=== PATIENT | female | born 1945 | race Caucasian/White ===

== ENCOUNTER → 2018-06-23 13:29 | Outpatient (CLI) | payer MEDICARE, OTHER, SELFPAY ==
--- NOTE | 2018-06-23 | DI.MG.S_ITS ---
BILATERAL DIGITAL SCREENING MAMMOGRAM 3D/2D WITH CAD: 06/23/2018 CLINICAL: Routine screening. Comparison is made to exams dated: 06/13/2017 mammogram, 05/17/2016 mammogram, and 05/12/2015 mammogram - [facility]. The tissue of both breasts is heterogeneously dense. This may lower the sensitivity of mammography. Current study was also evaluated with a Computer Aided Detection (CAD) system. There is a benign vascular calcification in both breasts. There is a high density focal asymmetry in the left breast at 6 o'clock anterior depth. No other significant masses, calcifications, or other findings are seen in either breast. IMPRESSION: INCOMPLETE: NEEDS ADDITIONAL IMAGING EVALUATION The high density focal asymmetry in the left breast is indeterminate. Additional views with possible ultrasound are recommended. This exam was interpreted at Station ID: [id number]. NOTE: For mammograms, a report in lay terms will be sent to the patient. Approximately 15% of breast malignancies will not be visualized mammographically. In the management of a palpable breast mass, a negative mammogram must not discourage biopsy of a clinically suspicious lesion. Electronically Signed By: Laura zapata/rocio:06/23/2018 15:36:57 letter sent: Additional Imaging Needed ACR BI-RADS Category 0: Incomplete 3340F
== END ==
PROVIDERS: Family Provider Family Medicine; PCP Family Medicine; Visit Provider Family Medicine
DX: Z12.31 Encounter for screening mammogram for malignant neoplasm of breast (principal)
CPT/HCPCS: 77063; 77067

== ENCOUNTER → 2018-07-08 09:02 | Outpatient (CLI) | payer MEDICARE, OTHER, SELFPAY ==
--- NOTE | 2018-07-08 | DI.MG.S_ITS ---
UNILATERAL LEFT DIGITAL DIAGNOSTIC MAMMOGRAM 3D/2D WITH ADDITIONAL VIEWS: 07/08/2018 CLINICAL: Additional evaluation requested from prior study. Comparison is made to exams dated: 06/23/2018 mammogram, 06/13/2017 mammogram, and 05/17/2016 mammogram - [facility]. The tissue of left breast is heterogeneously dense. This may lower the sensitivity of mammography. There is 2 cm oval equal density asymmetry with a spiculated margin in the left breast middle depth superior region seen on the mediolateral oblique view only. There also is an oval equal density asymmetry with an indistinct margin in the left breast at 6 o'clock anterior depth. No other significant masses or calcifications are seen in the breast. IMPRESSION: INCOMPLETE: NEEDS ADDITIONAL IMAGING EVALUATION The 2 cm oval equal density asymmetry in the left breast middle depth superior region seen on the mediolateral oblique view only is indeterminate. An ultrasound is recommended. The oval equal density asymmetry in the left breast at 6 o'clock anterior depth is indeterminate. An ultrasound is recommended. This exam was interpreted at Station ID: [id number]. NOTE: For mammograms, a report in lay terms will be sent to the patient. Approximately 15% of breast malignancies will not be visualized mammographically. In the management of a palpable breast mass, a negative mammogram must not discourage biopsy of a clinically suspicious lesion. Electronically Signed By: Keenan bai/rocio:07/08/2018 10:37:22 letter sent: Need Ultrasound ACR BI-RADS Category 0: Incomplete 3340F
== END ==
PROVIDERS: Family Provider Family Medicine; PCP Family Medicine; Visit Provider Family Medicine
DX: R92.8 Other abnormal and inconclusive findings on diagnostic imaging of breast (principal)
CPT/HCPCS: 77065; G0279

== ENCOUNTER → 2018-07-21 10:46 | Outpatient (CLI) | payer MEDICARE, OTHER, SELFPAY ==
--- NOTE | 2018-07-21 | DI.US.S_ITS ---
ULTRASOUND OF LEFT BREAST: 07/21/2018 CLINICAL: Patient returns for additional imaging over a suspected mass in the left breast. Comparison is made to exams dated: 07/08/2018 mammogram, 06/23/2018 mammogram, and 06/13/2017 mammogram - [facility]. Color flow and real-time ultrasound of the left breast were performed on the areas of interest. Mederos scale images of the real-time examination were reviewed. There is an 0.8 cm x 0.7 cm irregular mass in the left breast at 6 o'clock anterior depth. This irregular mass is hypoechoic with posterior acoustic shadowing. This correlates with mammography findings. There also is a 1.4 cm x 1.5 cm x 1.2 cm irregular mass in the left breast at 2 o'clock middle depth. This irregular mass is hypoechoic. This correlates with mammography findings. IMPRESSION: SUSPICIOUS OF MALIGNANCY The 0.8 cm x 0.7 cm irregular mass in the left breast at 6 o'clock anterior depth is at an intermediate suspicion for malignancy. An ultrasound guided biopsy is recommended. The 1.4 cm x 1.5 cm x 1.2 cm irregular mass in the left breast at 2 o'clock middle depth is at a low suspicion for malignancy. An ultrasound guided biopsy is recommended. This exam was interpreted at Station ID: [id number]. SUMMARY: This was discussed with the patient by the radiologist Dr. Hart at the time of the exam. Electronically Signed By: Laura zapata/:07/21/2018 16:39:31 letter sent: Biopsy Required Ultrasound BI-RADS: 4b Suspicious abnormality - intermediate suspicion of malignancy
== END ==
PROVIDERS: PCP Family Medicine; Visit Provider Family Medicine
DX: R92.8 Other abnormal and inconclusive findings on diagnostic imaging of breast (principal); N63.20 Unspecified lump in the left breast, unspecified quadrant
CPT/HCPCS: 76642

== ENCOUNTER 2018-07-31 17:07 | Emergency (ER) | payer MEDICARE, OTHER, SELFPAY ==
[2018-07-31 17:07] VITALS: BMI 29.5
--- NOTE | 2018-07-31 17:23 | DI.CT.S_ITS ---
PROCEDURE: CT ANGIO CHEST PE PROTOCOL INDICATIONS: chest pain, SOB, dry cough, radiation to back TECHNIQUE: After the administration of intravenous contrast, 2 mm thick sections acquired from the pulmonary apices to the posterior costophrenic angles. 3-dimensional maximum intensity projection (MIP) coronal and sagittal reformats were then acquired through the thorax. For radiation dose reduction, the following was used: automated exposure control, adjustment of mA and/or kV according to patient size. COMPARISON: [facility] , CT, ABD/PELVIS W/CON (PNL), 04/19/2008, 14:24. [facility], CT, KIDNEY/ URETER/BLADDER, 11/28/2012, 14:43. [facility], CR, CHEST 2 VIEW, 03/19/2016, 11:39. FINDINGS: Image quality: Excellent. Pulmonary arteries: Pulmonary arteries are normal in size, and demonstrate no intraluminal filling defects to suggest central pulmonary embolism. Lungs and pleura: There is a 3 mm calcified nodule in the right upper lobe, compatible with an old granuloma.. Lungs are clear. No pleural effusions or pneumothorax. Central and peripheral airways are patent. Mediastinum: Heart size is normal, without pericardial effusion. Coronary artery calcification consistent with atherosclerosis. No mediastinal or hilar adenopathy. Thoracic aorta is normal in caliber and enhancement. Esophagus is normal in caliber, without hiatal hernia. Bones and chest wall: No suspicious bony lesions. Ribs and thoracic spine appear intact throughout. Thyroid gland is normal. No axillary or supraclavicular adenopathy. Abdomen: Visualized upper abdominal solid organs appear normal in the early arterial phase of enhancement. Cholecystectomy clips are noted. There is extrarenal pelvis in right kidney. IMPRESSION: 1. No evidence for pulmonary embolism. 2. A calcified granuloma in the right upper lobe. 3. Coronary artery atherosclerosis. Dictated by: Stella Bills M.D. on 07/31/2018 at 18:16 Approved by: Stella Bills M.D. on 07/31/2018 at 18:23
--- NOTE | 2018-07-31 17:27 | ED_ITS ---
HPI - Chest Pain General Chief Complaint: Chest Pain Stated Complaint: LT SIDED CHEST PAIN Time Seen by Provider: 07/31/18 17:23 Source: patient Mode of arrival: ambulatory Limitations: no limitations History of Present Illness HPI narrative: 73-year-old nonsmoker presents with a chief complaint of left- sided chest pain since 9:00 a.m.. She has a dry and hacking cough, she denies fever or chills. She states there is some radiation to her back. She denies any specific provocation or palliation. She denies recent trauma, travel, or hx of cancer. MD complaint: chest pain Onset (ago): hour(s) Duration: constant Pain location: left chest Severity: moderate Quality: aching Pain radiation: back Relieving factors: nothing Exacerbating factors: nothing Treatments prior to arrival chest pain: none Related Data Home Medications Medication Instructions Recorded Confirmed BORON/CA/CU/MG/MN/VIT D/ZINC 1 tab PO DAILY #0 11/28/12 07/31/18 (#CALCIUM 600 + MINERALS) aspirin 81 mg PO QDAY #0 11/28/12 07/31/18 folic acid 1 mg PO QDAY #0 11/28/12 07/31/18 cholestyramine-aspartame 4 g PO BID 07/31/18 07/31/18 [Cholestyramine Light] lamotrigine 50 mg PO BID 07/31/18 07/31/18 lisinopril 20 mg PO BID 07/31/18 07/31/18 metformin 500 mg PO BID 07/31/18 07/31/18 omeprazole 40 mg PO DAILY 07/31/18 07/31/18 polyethylene glycol 3350 [Miralax] 17 g PO DAILY PRN 07/31/18 07/31/18 potassium gluconate 500 mg PO DAILY 07/31/18 07/31/18 simvastatin 20 mg PO DAILY 07/31/18 07/31/18 Allergies Allergy/AdvReac Type Severity Reaction Status Date / Time tree nut [TREE NUT] Allergy Unknown walnut Verified 07/31/18 17:29 Review of Systems Review of Systems All systems reviewed & are unremarkable except as noted in HPI and below Constitutional Denies chills, Denies fever(s), Denies lethargy and Denies weakness Eyes Denies change in vision, Denies eye discharge, Denies irritation and Denies loss of vision ENT Ears, Nose, Mouth, and Throat: Denies change in voice, Denies neck pain and Denies sore throat Cardiovascular Reports chest pain, Denies irregular heart rhythm, Denies lightheadedness, Denies palpitations, Denies dyspnea, Denies dyspnea on exertion and Denies orthopnea Respiratory Reports cough, Reports pain with cough, Denies dyspnea, Denies dyspnea on exertion and Denies wheezing Gastrointestinal Gastrointestinal: Denies abdominal pain, Denies change in bowel habits, Denies diarrhea, Denies nausea and Denies vomiting Genitourinary Denies hematuria, Denies flank pain, Denies urinary incontinence and Denies urinary urgency Musculoskeletal Denies neck pain Integumentary/Breasts Denies pruritus, Denies erythema, Denies rash and Denies wounds Neurologic Denies confusion, Denies loss of vision and Denies weakness Psychiatric Denies anxiety, Denies confusion, Denies depression, Denies homicidal ideation and Denies suicidal ideation Endocrine Denies palpitations Hematologic/Lymphatic Denies easy bruising Allergic/Immunologic Denies wheezing [facility] Social History Smoking Status: Never smoker Exam Narrative Exam Narrative: 73-year-old female in no obvious or significant distress Initial Vital Signs Initial Vital Signs: Vital Signs Pulse Rate 72 07/31/18 17:33 Respiratory Rate 14 07/31/18 17:33 Blood Pressure 182/64 H 07/31/18 17:33 Pulse Oximetry 98 07/31/18 17:33 Const General: cooperative and well developed Nutritional Appearance: well nourished Orientation: alert, awake, oriented x3 and not confused [facility] Head: normocephalic and atraumatic Ears: external ears normal and TM's normal bilaterally Nose: external nose normal and No nasal discharge Face and sinus: sinuses nontender, face symmetric, no sinus tenderness and No dry mucous membranes Mouth: oral mucosae normal and moist mucous membranes Teeth and gingiva: dentition normal Throat: tonsils normal and uvula midline Neck Neck: normal visual inspection, trachea midline, No lymphadenopathy, No midline deformity and No JVD Lymphatic: No lymphedema Chest Other: Patient does have a bit of left anterior chest pain that is worsened by palpation but it is not the pressure that brought her in or that radiates to her back Resp Effort & Inspection: normal respiratory effort, able to speak in complete sentences, no respiratory distress and no use of accessory muscles Auscultation: clear to auscultation bilaterally, no rales, no rhonchi and no wheezes GI Inspection: non-distended Palpation: soft, no hepatosplenomegaly, No guarding, No pulsatile mass and No tender Auscultation: normal bowel sounds Skin General: no rashes or lesions noted, No jaundice and No petechiae Extrem General: full ROM, no clubbing, cyanosis or edema, no pedal edema and no calf tenderness Course Orders Ordered: ED Orders 07/31/18 17:15 Complete Blood Count AUTO DIFF Stat Comprehensive Metabolic Panel Stat Lipase Stat Troponin & CK Cardiac Panel Stat 07/31/18 17:23 CT angio chest PE protocol Stat EKG-12 Lead Stat Sodium Chloride (Normal Saline 0.9%) 1,000 mls @ 150 mls/hr IV CONT GRADY Discontinued Medications Aspirin (Aspirin Chew) 324 mg PO NOW ONE Stop: 07/31/18 17:24 Last Admin: 07/31/18 17:30 Dose: 324 mg Vital Signs - 8 hr 07/31/18 17:33 07/31/18 17:44 07/31/18 17:45 Temperature 98.2 F Pulse Rate 72 70 Respiratory Rate 14 14 Blood Pressure 182/64 H Blood Pressure [Left Arm] 182/67 H Pulse Oximetry 98 98 MDM - Chest Pain Differential Diagnosis Likely pneumothorax, stable angina, unstable angina pectoris, atypical chest pain, st elevation myocardial infarction, costochondritis, chest pain and biliary colic Medical Records Data Attestation: I reviewed the patient's medical records. Lab Data Attestation: I reviewed the patient's lab results. Result diagrams: 07/31/18 17:15 07/31/18 17:15 Lab Results 07/31/18 07/31/18 Range/Units 17:15 17:15 WBC 10.0 (4.5-11.0) X10^3/uL RBC 4.90 (4.0-5.2) X10^6/uL Hgb 12.7 (12.0-16.0) g/dL Hct 38.5 (36-46) % MCV 78.7 L (80-100) fL MCH 25.9 L (26-34) PG MCHC 32.9 (30-36) % RDW 13.9 (11.6-14.8) % Plt Count 269 (150-400) X10^3/uL Neut % (Auto) 68.9 (50-75) % Lymph % (Auto) 22.1 L (25-40) % Dane % (Auto) 6.7 (3-14) % Eos % (Auto) 1.8 L (2-4) % Baso % (Auto) 0.5 (0-2) % Neut # (Auto) 6900 H (0959-2365) /uL Sodium 144 (137-145) mmol/L Potassium 4.6 (3.4-5.1) mmol/L Chloride 101 (98-107) mmol/L Carbon Dioxide 30 (22-32) mmol/L BUN 22 H (7-17) mg/dL Creatinine 0.60 (0.52-1.04) mg/dL Estimated GFR > 60.0 (>60) mL/min BUN/Creatinine Ratio 36.7 H (6-22) Glucose 127 H (80-110) mg/dL Calcium 9.9 (8.4-10.2) mg/dL Total Bilirubin 0.3 (0.2-1.3) mg/dL AST 23 (14-36) IU/L ALT 30 (9-52) IU/L Alkaline Phosphatase 90 (38-126) U/L Total Creatine Kinase 45 (30-135) U/L CK-MB (CK-2) TNP CK-MB (CK-2) Rel Index TNP Troponin I < 0.012 (0.01-0.034) ng/mL Total Protein 7.5 (6.3-8.2) g/dL Albumin 4.4 (3.5-5.0) g/dL Globulin 3.1 (1.7-4.1) g/dL Albumin/Globulin Ratio 1.4 (1.0-2.8) Lipase 39 (23-300) U/L Urine Dip Bedside Urine Glucose Negative Bedside Urine Bilirubin - Negative Bedside Urine Ketone - Negative Urine Specific Vassar 1.020 Bedside Urine Occult Blood - Negative Bedside Urine pH 6.0 Bedside Urine Protein - Negative Bedside Urine Urobilinogen - Negative Bedside Urine Nitrite - Negative Bedside Urine Leukocytes - Negative Esterase Imaging Data CT scan - chest: Radiologist's impression: [address] [address] [address] Scan Report Signed Patient: Laura Hernandez PMR#: [id number] : 3Acct:[id number] Age/Sex: 73 / FDate of Service: 07/31/18 Loc: ED Accession Number: [id number] Procedure: CT angio chest PE protocol Ordering Provider: Maximo Benitez D.O. PROCEDURE: CT ANGIO CHEST PE PROTOCOL INDICATIONS: chest pain, SOB, dry cough, radiation to back TECHNIQUE: After the administration of intravenous contrast, 2 mm thick sections acquired from the pulmonary apices to the posterior costophrenic angles. 3-dimensional maximum intensity projection (MIP) coronal and sagittal reformats were then acquired through the thorax. For radiation dose reduction, the following was used: automated exposure control, adjustment of mA and/or kV according to patient size. COMPARISON: [facility] , CT, ABD/PELVIS W/CON (PNL), 04/19/2008 , 14:24. [facility], CT, KIDNEY/ URETER/BLADDER, 11/28/2012, 14:43. [facility] , CR, CHEST 2 VIEW, 03/19/2016, 11:39. FINDINGS: Image quality: Excellent. Pulmonary arteries: Pulmonary arteries are normal in size, and demonstrate no intraluminal filling defects to suggest central pulmonary embolism. Lungs and pleura: There is a 3 mm calcified nodule in the right upper lobe, compatible with an old granuloma.. Lungs are clear. No pleural effusions or pneumothorax. Central and peripheral airways are patent. Mediastinum: Heart size is normal, without pericardial effusion. Coronary artery calcification consistent with atherosclerosis. No mediastinal or hilar adenopathy. Thoracic aorta is normal in caliber and enhancement. Esophagus is normal in caliber, without hiatal hernia. Bones and chest wall: No suspicious bony lesions. Ribs and thoracic spine appear intact throughout. Thyroid gland is normal. No axillary or supraclavicular adenopathy. Abdomen: Visualized upper abdominal solid organs appear normal in the early arterial phase of enhancement. Cholecystectomy clips are noted. There is extrarenal pelvis in right kidney. IMPRESSION: 1. No evidence for pulmonary embolism. 2. A calcified granuloma in the right upper lobe. 3. Coronary artery atherosclerosis. Dictated by: Stella Bills M.D. on 07/31/2018 at 18:16 Approved by: Stella Bills M.D. on 07/31/2018 at 18:23 ECG Data Attestation: I personally reviewed and interpreted this ECG as follows: Prior ECG tracings: not available for review MDM Narrative Medical decision making narrative: 73-year-old hypertensive patient diabetes presents with left anterior chest pressure in the setting of runny nose, sneezing and dry cough. She does have some radiation to her back. She denies cardiac equivalent such as dizziness, weakness or lightheadedness. EKG is nonischemic troponin unremarkable 9 hr into her symptoms. She reports nasal congestion and sneezing, worse at night at home for the past few days. Pulmonary embolism also considered but thought less likely given negative CT angiogram. Cardiac ischemia considered but thought less likely given negative troponin at 9:00 a.m., nonischemic EKG in lack concerning story. Her chest pain is pleuritic, reproducible in associated with other upper respiratory symptoms. Most likely upper respiratory infection versus allergies, possibly related to turning the furnace on Discharge Plan Departure Patient Disposition: Home Clinical Impression: Atypical chest pain Instructions: DI for Atypical Chest Pain Activity Restrictions/Additional Instructions: *You have been diagnosed with [atypical chest pain, likely due to upper respiratory infection ] *What to do: *Continue to take medications as directed *Follow up with your primary care provider in 2-3 days, call for an appointment. Let them know you were seen in the Emergency Department and that we ask that you be seen in follow up *Return to ER if you should have any new, worsening or concerning symptoms Prescriptions: No Action aspirin 81 MG tablet,delayed release (DR/EC) 81 mg PO QDAY Qty: 0 RF: 0 folic acid 1 MG tablet 1 mg PO QDAY Qty: 0 RF: 0 BORON/CA/CU/MG/MN/VIT D/ZINC (#CALCIUM 600 + MINERALS) 1 tab PO DAILY Qty: 0 RF: 0 metformin 500 mg tablet 500 mg PO BID RF: 0 lisinopril 20 mg tablet 20 mg PO BID RF: 0 omeprazole 40 mg capsule,delayed release(DR/EC) 40 mg PO DAILY RF: 0 lamotrigine 25 mg tablet 50 mg PO BID RF: 0 simvastatin 20 mg tablet 20 mg PO DAILY RF: 0 cholestyramine-aspartame [Cholestyramine Light] 4 gram powder 4 g PO BID RF: 0 potassium gluconate 500 mg (83 mg) Tablet 500 mg PO DAILY RF: 0 polyethylene glycol 3350 [Miralax] 17 gram Powder In Packet 17 g PO DAILY PRN (Reason: Constipation) RF: 0 Referrals: Arvin Bell MD [Primary Care Provider] -
[2018-07-31 17:30] LABS: Add Manual Diff / Slide Review NO; Basophils Percent Auto 0.5 % (0-2); Eosinophils Percent Auto 1.8 % (2-4); Hematocrit 38.5 % (36-46); Hemoglobin 12.7 g/dL (12.0-16.0); Lymphocytes Percent Auto 22.1 % (25-40); Mean Corpuscular HGB Conc 32.9 % (30-36); Mean Corpuscular Hemoglobin 25.9 PG (26-34); Mean Corpuscular Volume 78.7 fL (80-100); Monocytes Percent Auto 6.7 % (3-14); Neutrophils Absolute Auto 6900 /uL (3000-5900); Neutrophils Percent Auto 68.9 % (50-75); Platelet Count 269 X10^3/uL (150-400); Red Cell Distribution Width 13.9 % (11.6-14.8)
[2018-07-31] MEDS: ASPIRIN 81 MG TAB 324 MG PO (17:30)
[2018-07-31 17:33] VITALS: BP 182/64; PULSE 72; RESP 14; O2SAT 98; BMI 29.5
[2018-07-31 17:44] VITALS: BP 182/67; PULSE 70; RESP 14; O2SAT 98
[2018-07-31 17:45] VITALS: TEMP 36.8
[2018-07-31 17:45] LABS: Alanine Aminotransferase 30 IU/L (9-52); Albumin 4.4 g/dL (3.5-5.0); Albumin Globulin Ratio 1.4 (1.0-2.8); Alkaline Phosphatase 90 U/L (38-126); Aspartate Aminotransferase 23 IU/L (14-36); BUN Creatinine Ratio 36.7 (6-22); Bilirubin Total 0.3 mg/dL (0.2-1.3); Blood Urea Nitrogen 22 mg/dL (7-17); Calcium 9.9 mg/dL (8.4-10.2); Carbon Dioxide 30 mmol/L (22-32); Chloride 101 mmol/L (98-107); Creatine Kinase 45 U/L (30-135); Estimated Glomerular Filt Rate > 60.0 mL/min (>60); Globulin 3.1 g/dL (1.7-4.1); Glucose 127 mg/dL (80-110); HEMOLYSIS < 15 (0-50); Lipase 39 U/L (23-300); Potassium 4.6 mmol/L (3.4-5.1); Sodium 144 mmol/L (137-145); Total Protein 7.5 g/dL (6.3-8.2)
--- NOTE | 2018-07-31 17:45 | PC.NURSE ---
No acute distress. Denies pain at this time.
[2018-07-31 17:57] LABS: Troponin I < 0.012 ng/mL (0.01-0.034)
[2018-07-31 19:32] VITALS: BP 172/72; PULSE 66; RESP 14; O2SAT 98
== END 2018-07-31 19:31 | disposition home or self-care (01) ==
PROVIDERS: Emergency Provider Emergency Medicine; Family Provider Family Medicine; PCP Family Medicine
DX: R07.89 Other chest pain (principal)
CPT/HCPCS: 36591; 71275; 80053; 81003; 82550; 83690; 84484; 85025; 93005; 99283; 99285; Q9967

== ENCOUNTER → 2018-08-12 09:16 | Outpatient (CLI) | payer MEDICARE, OTHER, SELFPAY ==
--- NOTE | 2018-08-12 | DI.US.S_ITS ---
ULTRASOUND GUIDED BIOPSY LEFT BREAST USING VACUUM DEVICE WITH MARKING DEVICE INSERTED AND POST MAMMOGRAPHIC IMAGIN08/12/2018 CLINICAL: Left breast mass. PATIENT CONSENT: Risks (minor bleeding, infection, vasovagal reaction and repeat procedure), benefits and alternatives were explained to the patient and written informed consent was obtained. Correlation is made to exams dated: 07/21/2018 ultrasound, 07/08/2018 mammogram, 06/23/2018 mammogram, 06/13/2017 mammogram, and 05/17/2016 mammogram - [facility]. An ultrasound guided biopsy using real-time ultrasound was performed for the concerning 0.3 cm x 0.5 cm x 0.4 cm indistinct irregular shaped mass located in the left breast at 2 o'clock middle depth. This was described on the previous ultrasound report. The skin was prepped in the usual manner. Local anesthetic was administered to the access site. A skin ron was made in the breast. The abnormality was approached from the lateral aspect. A 13 gauge biopsy needle was placed adjacent to the abnormality under ultrasound guidance. Once the needle was documented to be in the correct location, five specimens were obtained using the Mammotome biopsy system. The patient received additional local anesthetic during the procedure. A clip was inserted into the biopsy cavity. A skin closure strip was applied to the access site. Post procedure mammographic imaging demonstrates the location device at the targeted area. The specimens were sent to the laboratory for pathological analysis. IMPRESSION: ULTRASOUND GUIDED BIOPSY BENIGN Ultrasound guided biopsy of the 0.3 cm x 0.5 cm x 0.4 cm mass in the left breast at 2 o'clock middle depth was successful. 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 Pathology results are concordant with ultrasound findings. The previously described ultrasound finding at the 6 o'clock position was not seen at the time of the biopsy. A follow-up ultrasound in 6 months is recommended to demonstrate stability. This exam was interpreted at Station ID: [id number]. Taj thomas,bhumika/:08/19/2018 11:04:04
--- NOTE | 2018-08-12 | PATH_ITS ---
[facility] Accession Number: [id number] . 01 Material submitted: . LEFT BREAST . 01 Clinical history: . MASS 2:00 6CM FN . 02 Diagnosis: Left Breast Mass, Needle Core Biopsy: Breast parenchyma with fibrocystic changes, including usual ductal hyperplasia. No evidence of atypical hyperplasia, in situ or invasive carcinoma. I/08/15/2018 . 02 Comment: As part of routine quality coordinator, Dr. Miles has also reviewed this case and agrees with the above interpretation. . 02 Electronically signed: . Khris Alarcon MD, PhD, Pathologist NPI- [id number] . 01 Gross description: . Received one formalin-filled container labeled with the patient's name and designated LT breast mass, 2 o'clock, 6 cm, FN. The specimen consists of multiple yellow-norton cylindrical shaped portions of tissue, average diameter of 0.2 to 0.3 cm, range in length from 0.5 to 1.5 cm. The specimen is entirely submitted in one cassette. Collection date 08/12/2018. Collection time per container 10:06. Total fixation time 12 hours up to 24. ([facility]:[id number]) /[facility] . 02 Microscopic: . Sections are of breast parenchyma with fibrocystic changes, including usual ductal hyperplasia. A single focus appears slightly more complex, with a vaguely cribriform architecture. To further evaluate this focus of interest, a limited panel of immunohistochemical stains is performed, each with an appropriately positive control. The focus of interest shows a mosaic pattern of immunoreactivity for cytokeratin 5/6 and patchy expression of estrogen receptor. The morphologic features and immunohistochemical reactivity favor usual ductal hyperplasia, and argue against a finding of atypical ductal hyperplasia/DCIS. . * This test was developed and its performance characteristics determined by [facility]. It has not been cleared or approved by the U.S. Food and Drug Administration. The FDA has determined that such clearance or approval is not necessary. This test is used for clinical purposes. It should not be regarded as investigational or for research. . 02 Pathologist provided ICD-10: N60.12 . 02 CPT . 838842, L87687, [id number] Performed at: 01 [facility] [address] [address], [place], [place] [id number] MD Keenan Welsh MD Phone: [phone] Performed at: 02 [facility] [address] [place] [id number] MD Ynes Adler MD Phone: [phone]
--- NOTE | 2018-08-12 | DI.MG.S_ITS ---
UNILATERAL LEFT DIGITAL DIAGNOSTIC MAMMOGRAM: 08/12/2018 CLINICAL: Post clip placement. Left breast mass. Comparison is made to exams dated: 07/08/2018 mammogram, 06/23/2018 mammogram, and 06/13/2017 mammogram - [facility]. The tissue of left breast is heterogeneously dense. This may lower the sensitivity of mammography. IMPRESSION: POST PROCEDURE MAMMOGRAM FOR MARKER PLACEMENT Post biopsy saira at 2:00 position is in expected location. This exam was interpreted at Station ID: [id number]. NOTE: For mammograms, a report in lay terms will be sent to the patient. Approximately 15% of breast malignancies will not be visualized mammographically. In the management of a palpable breast mass, a negative mammogram must not discourage biopsy of a clinically suspicious lesion. Electronically Signed By: Taj Hart M.D. [facility]/:08/12/2018 17:17:49 ACR BI-RADS Category Post-procedure mammogram for marker placement
== END ==
PROVIDERS: PCP Family Medicine; Visit Provider Family Medicine
DX: N60.12 Diffuse cystic mastopathy of left breast (principal)
CPT/HCPCS: 19083; 77065; 88305; 88341; 88342

== ENCOUNTER 2018-12-04 11:29 | Day surgery (SDC) | payer MEDICARE, OTHER, SELFPAY ==
[2018-12-04 11:53] VITALS: BMI 29.2
[2018-12-04] MEDS: PROPARACAINE 0.5% OPHTH SOL 2 DROPS EYE-OP (11:59)
[2018-12-04] MEDS: CATARACT EYE COMPOUND (10 DROPS/SYRINGE) 3 DROPS EYE-OP (12:02)
[2018-12-04 12:03] VITALS: BP 173/92; PULSE 67; RESP 15; TEMP 36.3; O2SAT 99
[2018-12-04 12:05] VITALS: BMI 29.2
--- NOTE | 2018-12-04 12:07 | PM.PREOP ---
Pre-operative Note Interval Note History & Physical reviewed/Exam performed by Physician: Yes Changes to H&P: No
[2018-12-04] MEDS: MOXIFLOXACIN OPHTH DROPS 3 ML BOTTLE 2 DROPS INJ (12:44)
[2018-12-04] MEDS: PHENYLEPHRINE/LIDOCAINE VIAL (OR) 0.2 ML EYE-OP (12:44)
[2018-12-04] MEDS: CHONDROIDTIN/SOD HYALURONATE 1.05 ML SYRINGE INTRAOCULA (12:45)
[2018-12-04] MEDS: BALANCED SALT IRRIG SOLN NO.2 15 ML IRR (12:45)
[2018-12-04] MEDS: TETRACAINE 0.5% OPHTH DROPS 4 ML 2 DROPS EYE-RIGHT (12:46)
[2018-12-04] MEDS: BALANCED SALT IRRIG SOLN NO.2 500 ML, EPINEPHrine 1 MG IRR (12:46)
[2018-12-04] MEDS: LIDOCAINE 2% INJ SDV 5 ML INJ (12:47)
--- NOTE | 2018-12-04 13:14 | PM.OP.1 ---
Operative Date/Time/Diagnoses Pre-op diagnosis: Cataract left eye Post-op diagnosis: same Procedure & Clinicians Procedure: cataract extraction with intraocular lens implant, right Same procedure as scheduled: Yes Indications: Visually significant nuclear sclerosis Surgeon: Stuart Brown Click Yes if Unassisted: Yes Anesthesia Type: MAC +/- Operative Notes Procedure in detail: The patient was brought to the operating suite. The correct patient, surgical site and lens were confirmed. 0.5 % tetracaine drops were placed in the left eye. The patient was prepped and draped in the typical sterile manner. A lid speculum was placed in the eye. 2% lidocaine was placed on the eye. A paracentesis port was created with a side-port blade. 0.1 mL of 1% preservative free lidocaine was injected into the anterior chamber. Viscoelastic was injected into the anterior chamber. A 2.6mm keratome was used to create a clear corneal temporal incision. Cystotome and Utrata forceps were used to create a continuous curvilinear capsulorrhexis. Balanced salt solution was used to hydrodissect the nucleus. Phacoemulsification was used to remove the lens. The capsular bag was inflated with viscoelastic. A Marie ZBOO +18.0D lens was inserted into the capsule. Viscoelastic was removed and the wound hydrated and sealed with Resure glue. The wound was found to be leak free and the eye was assessed to be at normal physiologic pressure. 0.1mL Vigamox was injected into the anterior chamber. The lid speculum was removed and the patient left the operating room in excellent condition. Complications: none Condition: stable Disposition: same day surgery
[2018-12-04 13:20] VITALS: BP 153/60; PULSE 71; RESP 16; TEMP 36; O2SAT 99
[2018-12-04 13:28] VITALS: BP 131/65; PULSE 61; RESP 15; TEMP 36.4; O2SAT 99
== END 2018-12-04 13:35 ==
LOC: OR 11:32
PROVIDERS: PCP Family Medicine; Visit Provider Ophthalmology
DX: H25.11 Age-related nuclear cataract, right eye (principal); E11.9 Type 2 diabetes mellitus without complications; Z79.84 Long term (current) use of oral hypoglycemic drugs
CPT/HCPCS: J0171; J2250; J3010

== ENCOUNTER 2018-12-25 06:33 | Day surgery (SDC) | payer MEDICARE, OTHER, SELFPAY ==
[2018-12-25] MEDS: PROPARACAINE 0.5% OPHTH SOL 2 DROPS EYE-OP (07:10)
[2018-12-25 07:11] VITALS: BP 149/66; PULSE 72; RESP 16; TEMP 36.6; O2SAT 98; BMI 28.3
[2018-12-25] MEDS: CATARACT EYE COMPOUND (10 DROPS/SYRINGE) 3 DROPS EYE-OP (07:12)
--- NOTE | 2018-12-25 07:24 | PM.PREOP ---
Pre-operative Note Interval Note History & Physical reviewed/Exam performed by Physician: Yes Changes to H&P: No
--- NOTE | 2018-12-25 07:55 | SUR.OPER ---
Supine on eye stretcher, head on extension cradle secured with tape. Arms tucked at sides with blanket. Pillow under knees.
[2018-12-25] MEDS: PHENYLEPHRINE/LIDOCAINE VIAL (OR) 0.2 ML EYE-OP (08:02)
[2018-12-25] MEDS: CHONDROIDTIN/SOD HYALURONATE 1.05 ML SYRINGE INTRAOCULA (08:03)
[2018-12-25] MEDS: MOXIFLOXACIN OPHTH DROPS 3 ML BOTTLE 2 DROPS INJ (08:03)
[2018-12-25] MEDS: BALANCED SALT IRRIG SOLN NO.2 500 ML, EPINEPHrine 1 MG IRR (08:04)
[2018-12-25] MEDS: TETRACAINE 0.5% OPHTH DROPS 4 ML 2 DROPS EYE-LEFT (08:06)
[2018-12-25] MEDS: LIDOCAINE 2% INJ SDV 5 ML INJ (08:07)
--- NOTE | 2018-12-25 08:09 | SUR.OPER ---
Dr. Brown gave a verbal order to change the lens from ZCB00 +16.5 to CI0026 16.5, MD WAS SHOWN THE LENS AND VERIFIED IT WAS CORRECT PRIOR TO PUTTING ON STERILE FIELD
--- NOTE | 2018-12-25 08:17 | SUR.OPER ---
DR. STINSON CHANGED VERBAL ORDER TO 15.5 LR1100, VERIFIED LENS PRIOR TO OPENING TO STERILE FIELD, VOID PREVIOUS NOTE
[2018-12-25] MEDS: CARBACHOL 1.5 ML VIAL INJ (08:43)
[2018-12-25] MEDS: ACETYLCHOLINE 1:1000 OPHTH 2 ML 1 DROP INTRAOCULA (09:00)
[2018-12-25] MEDS: NEOMYCIN/POLY/BACITRACIN 3.5 GM OPHTH OINT 1 APPLIC EYE-LEFT (09:13)
[2018-12-25 09:21] VITALS: BP 148/72; PULSE 75; RESP 15; TEMP 36.5; O2SAT 98
--- NOTE | 2018-12-25 09:25 | PM.OP.1 ---
Procedure & Clinicians Procedure: cataract extraction with intraocular lens implant, left Same procedure as scheduled: Yes Indications: Visually significant nuclear sclerosis Click Yes if Unassisted: Yes Anesthesia Type: MAC +/- Operative Notes Procedure in detail: The patient was brought to the operating suite. The correct patient, surgical site and lens were confirmed. 0.5 % tetracaine drops were placed in the left eye. The patient was prepped and draped in the typical sterile manner. A lid speculum was placed in the eye. 2% lidocaine was placed on the eye. A paracentesis port was created with a side-port blade. 0.1 mL of 1% preservative free lidocaine with phenylephrine was injected into the anterior chamber. Viscoelastic was injected into the anterior chamber. A 2.6mm keratome was used to create a clear corneal temporal incision. Cystotome and Utrata forceps were used to create a continuous curvilinear capsulorrhexis, during the process an anterior rent was appreciated. Balanced salt solution was used to hydrodissect the nucleus. Phacoemulsification was used to remove the lens. The capsular bag was inflated with viscoelastic. At this point an extension of the anterior rent to the posterior capsule was appreciated. No retained lens fragments were appreciated. Viscoat was placed in the bag. An [employer] [id number] +15.5D lens was inserted into the sulcus, and the hapitcs were rotated 90 degrees away from the rent. The lens was well centered and found to be stable. Miochiol and Miostat were injected into the anterior chamber. The pupil came down. No vitreous was appreciated. Viscoelastic was removed and the wound was sutured with a single 10-0 nylon. The knot was buried. The wound was found to be leak free and the eye was assessed to be at normal physiologic pressure. 0.1mL Vigamox was injected into the anterior chamber. A careful inspection of the anterior chamber revealed no vitreous. The iris was round, the wounds were checked for vitreous with a weck aaron. No vitreous was found at the wound. The lid speculum was removed and the patient left the operating room in excellent condition. Complications: other Condition: stable Disposition: same day surgery
== END 2018-12-25 09:36 ==
LOC: OR 06:35
PROVIDERS: PCP Family Medicine; Visit Provider Ophthalmology
DX: H25.12 Age-related nuclear cataract, left eye (principal); E11.9 Type 2 diabetes mellitus without complications; Z79.84 Long term (current) use of oral hypoglycemic drugs
CPT/HCPCS: J0171; J2250; J3010

== ENCOUNTER → 2019-02-13 10:41 | Outpatient (CLI) | payer MEDICARE, OTHER, SELFPAY ==
--- NOTE | 2019-02-13 | DI.MG.S_ITS ---
UNILATERAL LEFT DIGITAL DIAGNOSTIC MAMMOGRAM 3D/2D: 02/13/2019 CLINICAL: Left breast mass. Comparison is made to exams dated: 02/13/2019 ultrasound, 08/12/2018 mammogram, 07/08/2018 mammogram, and 06/23/2018 mammogram - [facility]. The tissue of left breast is heterogeneously dense. This may lower the sensitivity of mammography. There is an oval equal density asymmetry with an indistinct margin in the left breast at 6 o'clock anterior depth. This is less prominent. There also is a benign equal density asymmetry in the left breast middle depth superior region seen on the mediolateral oblique view only. This correlates with site of previous biopsy as there is a biopsy clip associated with the asymmetry. No other significant masses or calcifications are seen in the breast. Of note, there is a large 7mm x 6mm dystrophic calcification visualized in the anterior depth of the inferior left breast at approximately the 6:00 axis that has remained stable since at least the 01/05/2013 mammogram. This correlates with a shadowing mass at the 5:30 axis, 4cm from the nipple seen on today's ultrasound. This was confirmed subsequently by localizing the mass on sonogram using a BB skin marker and then taking mammographic images to verify that the calcification matched in location on mammogram with the BB marker. IMPRESSION: INCOMPLETE: NEEDS ADDITIONAL IMAGING EVALUATION The oval equal density asymmetry in the left breast at 6 o'clock anterior depth remains indeterminate. An ultrasound is recommended. This exam was interpreted at Station ID: [id number]. NOTE: For mammograms, a report in lay terms will be sent to the patient. Approximately 15% of breast malignancies will not be visualized mammographically. In the management of a palpable breast mass, a negative mammogram must not discourage biopsy of a clinically suspicious lesion. SUMMARY: The recommended ultrasound is scheduled to immediately follow this examination. Electronically Signed By: Raul Perla M.D. [facility]/:02/17/2019 07:16:23 ACR BI-RADS Category 0: Incomplete [id number]
--- NOTE | 2019-02-13 | DI.US.S_ITS ---
ULTRASOUND OF LEFT BREAST: 02/13/2019 CLINICAL: 6 month f/u lt. Comparison is made to exams dated: 08/12/2018 ultrasound biopsy, 08/12/2018 mammogram, 07/21/2018 ultrasound, 07/08/2018 mammogram, 06/23/2018 mammogram, and 05/17/2016 mammogram - [facility]. Color flow and real-time ultrasound of the left breast were performed. Mederos scale images of the real-time examination were reviewed. There is an irregular mass in the left breast at 6 o'clock anterior depth 2 cm from the nipple. This irregular mass is hypoechoic. This abnormality is not significantly changed and correlates with mammography findings. Color flow imaging demonstrates that there is no vascularity present. There also is a benign irregular mass in the left breast at 2 o'clock middle depth 6 cm from the nipple. This irregular mass is hypoechoic. This abnormality is not significantly changed and correlates with mammography findings and site of recent benign biopsy which revealed usual ductal hyperplasia and fibrocystic changes. Of note, there is a large 7mm x 6mm dystrophic calcification visualized in the anterior depth of the inferior left breast at approximately the 6:00 axis that has remained stable mammographically since at least the 01/05/2013 mammogram. This correlates with the shadowing mass at the 5:30 axis, 4cm from the nipple seen on this ultrasound and its location marked by placing a BB skin marker. A subsequent mammogram was performed confirming that the calcification matched in location on mammogram with the BB marker. IMPRESSION: PROBABLY BENIGN The irregular mass in the left breast at 6 o'clock anterior depth is probably benign. The irregular mass in the left breast at 2 o'clock middle depth is benign. A follow-up bilateral mammogram and a left ultrasound in 6 months is recommended to demonstrate continued stability. Findings and recommendations were discussed with the patient during today's visit. This exam was interpreted at Station ID: [id number]. Electronically Signed By: Raul Perla M.D. [facility]/:02/17/2019 07:22:48 letter sent: Followup Recommended Ultrasound BI-RADS: 3 Probably benign
== END ==
PROVIDERS: PCP Family Medicine; Visit Provider Family Medicine
DX: R92.8 Other abnormal and inconclusive findings on diagnostic imaging of breast (principal); N63.20 Unspecified lump in the left breast, unspecified quadrant; N63.21 Unspecified lump in the left breast, upper outer quadrant
CPT/HCPCS: 76642; 77065; G0279

== ENCOUNTER → 2019-03-13 16:15 | Outpatient (CLI) | payer MEDICARE, OTHER, SELFPAY ==
--- NOTE | 2019-03-13 16:18 | DI.MRI.S_ITS ---
PROCEDURE: MR HEAD/BRAIN WO/W CON INDICATIONS: OTHER AMNESIA TECHNIQUE: Noncontrast axial T1 spin echo, axial T2 fast spin echo, sagittal and axial FLAIR, coronal T2 fast spin echo, axial gradient echo, axial diffusion and ADC through the brain. After the administration of contrast, axial and coronal T1 spin echo with fat saturation through the brain. COMPARISON: [facility], MR, BRAIN W&WO CONTRAST, 12/28/2016, 18:10. FINDINGS: Image quality: Excellent. CSF spaces: Basal cisterns are patent. No extra-axial fluid collections. Ventricles are normal in size and shape. Brain: Unchanged appearance of bifrontal postsurgical fracture and encephalomalacia. No midline shift. No intracranial bleeds or masses. No abnormal intracranial enhancement. There is cerebral volume loss for age. There is periventricular white matter chronic small vessel ischemic change. The brainstem appears normal. Diffusion-weighted images demonstrate no acute ischemic insults. No chronic ischemic insults. Normal intravascular flow voids are present. Skull and face: Postsurgical changes from bifrontal craniotomy. Sinuses: Sinuses and mastoids appear clear. IMPRESSION: Overall, stable examination. Redemonstration of bifrontal postsurgical sequela. No evidence of acute ischemia. No abnormal enhancement. Dictated by: Arun Stewart M.D. on 03/13/2019 at 17:34 Approved by: Arun Stewart M.D. on 03/13/2019 at 17:39
== END ==
PROVIDERS: PCP Family Medicine; Visit Provider Family Medicine
DX: R41.3 Other amnesia (principal); G93.89 Other specified disorders of brain; Z98.890 Other specified postprocedural states
CPT/HCPCS: 70553; A9579

== ENCOUNTER → 2019-06-23 11:06 | Outpatient (CLI) | payer MEDICARE, OTHER, SELFPAY | PROVIDERS: PCP Family Medicine | DX: Z23 Encounter for immunization (principal) | CPT/HCPCS: 90471; 90662 ==

== ENCOUNTER → 2019-08-24 09:14 | Outpatient (CLI) | payer MEDICARE, OTHER, SELFPAY ==
--- NOTE | 2019-08-24 | DI.US.S_ITS ---
LIMITED ULTRASOUND OF LEFT BREAST: 08/24/2019 CLINICAL: 6 month follow-up of cysts. Comparison is made to exams dated: 08/24/2019 mammogram, 02/13/2019 mammogram, 02/13/2019 ultrasound, 08/12/2018 mammogram, 07/21/2018 ultrasound, and 07/08/2018 mammogram - [facility]. Color flow and real-time ultrasound of the left breast 2 o'clock and 6 o'clock regions were performed. Mederos scale images of the real-time examination were reviewed. There is a possible irregular hypoechoic mass in the left breast at 6 o'clock anterior depth 2 cm from the nipple. This abnormality is not significantly changed. This is superficial to the below described cyst. A 1.4 cm x 0.8 cm x 1.7 cm (previously 1.8 cm x 0.9 cm x 1.5 cm) oval cyst with an irregular internal wall in the left breast at 6 o'clock middle depth 2 cm from the nipple. This oval cyst is hypoechoic with a well-defined boundary and posterior acoustic enhancement. This likley correlates with mammography findings. Overall the cyst is not significantly changed in size since 07/21/2018. Additionally, there is a stable benign irregular mass in the left breast at 2 o'clock middle depth 6 cm from the nipple. This irregular mass is hypoechoic. This correlates with mammography findings and the previous biopsy. IMPRESSION: PROBABLY BENIGN Possible irregular mass in the left breast at 6 o'clock anterior depth is stable since 07/21/2018 and is probably benign. This is superficial to the complicated cyst measuring 1.7 cm in the left breast at 6 o'clock middle depth which is also stable since 07/21/2018 and is probably benign. A follow-up mammogram and an ultrasound in 6 months is recommended to demonstrate stability. Stable previously biopsied irregular mass in the left breast at 2 o'clock middle depth is benign. Exam findings were conveyed to the patient by the perinatology physician. This exam was interpreted at Station ID: [id number]. Electronically Signed By: Bassem Mejía M.D. [facility] [place]/:08/24/2019 11:31:31 letter sent: Followup Recommended Ultrasound BI-RADS: 3 Probably benign
--- NOTE | 2019-08-24 | DI.MG.S_ITS ---
BILATERAL DIGITAL DIAGNOSTIC MAMMOGRAM 3D/2D SHORT-TERM FOLLOW-UP: 08/24/2019 CLINICAL: Patient returns for a 6 month follow up of the left breast, due for bilateral imaging. Comparison is made to exams dated: 02/13/2019 mammogram, 08/12/2018 mammogram, 07/08/2018 mammogram, 06/23/2018 mammogram, 02/13/2019 ultrasound, and 06/13/2017 mammogram - [facility]. The tissue of both breasts is heterogeneously dense. This may lower the sensitivity of mammography. There is an oval equal density asymmetry with an indistinct margin in the left breast at 6 o'clock anterior depth. This is less prominent. There also is a stable benign equal density asymmetry in the left breast middle depth superior region seen on the mediolateral oblique view only. This correlates with the prior biopsy site. Bilateral vascular calcifications, coarse calcifications, and diffuse punctate calcifications. Some of the punctate calcifications are increased. No other significant masses, calcifications, or other findings are seen in either breast. IMPRESSION: INCOMPLETE: NEEDS ADDITIONAL IMAGING EVALUATION Asymmetry in the left breast at 6 o'clock anterior depth is indeterminate. A targeted ultrasound is recommended and will immediately follow. This exam was interpreted at Station ID: [id number]. NOTE: For mammograms, a report in lay terms will be sent to the patient. Approximately 15% of breast malignancies will not be visualized mammographically. In the management of a palpable breast mass, a negative mammogram must not discourage biopsy of a clinically suspicious lesion. Electronically Signed By: Bassem Mejía M.D. [facility]/:08/24/2019 11:00:44 ACR BI-RADS Category 0: Incomplete [id number]
== END ==
PROVIDERS: PCP Family Medicine; Visit Provider Family Medicine
DX: R92.8 Other abnormal and inconclusive findings on diagnostic imaging of breast (principal); N63.21 Unspecified lump in the left breast, upper outer quadrant; N60.02 Solitary cyst of left breast
CPT/HCPCS: 76642; 77066; G0279

== ENCOUNTER 2019-10-05 08:58 | Emergency (ER) | payer MEDICARE, OTHER, SELFPAY ==
[2019-10-05 09:00] VITALS: BP 210/85; PULSE 86; RESP 13; TEMP 36.2; O2SAT 99
--- NOTE | 2019-10-05 09:10 | ED_ITS ---
HPI - Fall General Chief Complaint: Fall Stated Complaint: fell,hit head and is bleeding Time Seen by Provider: 10/05/19 09:04 Source: patient Limitations: no limitations History of Present Illness HPI Narrative: Patient is a 74-year-old female who presents after slip and fall on the ice. She does take 81 mg aspirin daily she hit her head. No loss of consciousness no nausea vomiting no numbness or tingling. She denies any back pain or neck pain MD complaint: fall Onset (ago): minute(s) Fall from: standing Fall witnessed: yes, by family Place fall occurred: street Loss of consciousness: none Prolonged down time: no Symptoms prior to fall: none Context: tripped/slipped Location of injury: head Related Data Home Medications Medication Instructions Recorded Confirmed aspirin 81 mg PO DAILY #0 11/28/12 07/31/18 folic acid 1 mg PO DAILY #0 11/28/12 07/31/18 cholestyramine-aspartame 4 g PO BID 07/31/18 10/05/19 [Cholestyramine Light] lamotrigine 50 mg PO BID 07/31/18 10/05/19 lisinopril 20 mg PO BID 07/31/18 10/05/19 metformin 500 mg PO BID 07/31/18 10/05/19 omeprazole 40 mg PO DAILY 07/31/18 10/05/19 polyethylene glycol 3350 [Miralax] 17 g PO DAILY PRN 07/31/18 07/31/18 simvastatin 20 mg PO DAILY 07/31/18 10/05/19 Allergies Allergy/AdvReac Type Severity Reaction Status Date / Time tree nut [TREE NUT] Allergy Unknown walnut Verified 07/31/18 17:29 Review of Systems Review of Systems Narrative: GENERAL: Denies chills, fatigue, malaise, fever, sweats, travel HEENT: Denies sinus pain, ear pain, sore throat, difficulty swallowing, neck pain RESPIRATORY: Denies dyspnea, cough, wheezing, hemoptysis, sputum. CARDIOVASCULAR: Denies chest pain, palpitations, orthopnea, edema GASTROINTESTINAL: Denies nausea, vomiting, abdominal pain, diarrhea, constipation, melena. : Denies dysuria, frequency, incontinence, hematuria, urinary retention, flank pain. MUSCULOSKELETAL: Denies weakness, joint pain, or bony pain SKIN: Scalp laceration NEUROLOGIC: Denies weakness, dizziness, headache, numbness, change in speech, confusion PSYCHIATRIC: No concerning psychosocial issues. 12 point review of systems is negative except for those stated above and HPI Patient History Medical History Hyperlipidemia (Acute) Social History household members: spouse Smoking Status: Never smoker Smoking Status: Never smoker Substance Use Type: does not use Exam Initial Vital Signs Initial Vital Signs: Vital Signs Temperature 97.2 F L 10/05/19 09:00 Pulse Rate 86 10/05/19 09:00 Respiratory Rate 13 10/05/19 09:00 Blood Pressure 210/85 H 10/05/19 09:00 Pulse Oximetry 99 10/05/19 09:00 GENERAL: Alert well-appearing female obvious head injury NECK: No vertebral step-offs or tenderness HEENT: Head occipital laceration,EOMI, pupils reactive, face symmetric CARDIOVASCULAR: Regular rate and rhythm without murmurs, rubs or gallops. RESPIRATORY: Breath sounds equal bilaterally, no wheezes rales or rhonchi. ABDOMEN: Soft, nontender. Normoactive bowel sounds all 4 quadrants. No guarding or rebound. BACK: No vertebral step-offs or tenderness no sign of trauma EXTREMITIES: Normal range of motion, no clubbing or edema. Neurovascularly intact NEUROLOGICAL: Alert and oriented x4.Normal gait and speech. SKIN: 4cm posterior lac. Warm, dry, no laceration, no petechiae, no rashes or lesions. Procedures Laceration Repair Laceration 1: Site: scalp Size (cm): 4.5 Description: linear Depth: simple, single layer Local Anesthetic: lidocaine 1% and with epi Skin layer closed with: kacy Number of sutures: 4 Course Orders Ordered: ED Orders 10/05/19 09:15 CT head/brain wo con Stat 10/05/19 09:26 CT cervical spine wo con Stat Discontinued Medications Acetaminophen (Tylenol) 650 mg PO NOW ONE Stop: 10/05/19 09:48 Last Admin: 10/05/19 09:56 Dose: 650 mg Documented by: JADA Ibuprofen (Advil) 400 mg PO NOW ONE Stop: 10/05/19 09:48 Last Admin: 10/05/19 09:56 Dose: 400 mg Documented by: JADA Lidocaine/Epinephrine (Xylocaine 1% W/Epi) 1 ml SUBCUT NOW ONE Stop: 10/05/19 10:05 Last Admin: 10/05/19 11:01 Dose: 1 ml Documented by: JADA Vital Signs Vital signs: Vital Signs - 8 hr 10/05/19 09:00 10/05/19 11:08 Temperature 97.2 F L Pulse Rate 86 70 Respiratory Rate 13 18 Blood Pressure 210/85 H Blood Pressure [Left Arm] 180/72 H Pulse Oximetry 99 95 MDM - Fall Imaging Data CT scan - head: Radiologist's Impression: PROCEDURE: CT HEAD/BRAIN WO CON INDICATIONS: fall on ice hit head TECHNIQUE: Noncontrast 4.5 mm thick angled axial sections acquired from the foramen magnum to the vertex, with coronal and sagittal reformats. For radiation dose reduction, the following was used: automated exposure control, adjustment of mA and/or kV according to patient size. COMPARISON: [facility], MR, BRAIN W&WO CONTRAST, 12/28/2016, 18:10. [facility], CT, CT CERVICAL SPINE WO CON, 10/05/2019, 9:17. [facility], MR, MR HEAD/BRAIN WO/W CON, 03/13/2019, 16:25. FINDINGS: Image quality: Excellent. CSF spaces: Basal cisterns are patent. No extra-axial fluid collections. The ventricles are symmetric in size and shape. Brain: No stable encephalomalacia can be seen involving both frontal lobes anteriorly and inferiorly. No intracranial bleeds or masses. There is cerebral volume loss for age, with resultant ventricular and sulcal prominence. There are periventricular and deep white matter chronic small vessel ischemic changes. There is intracranial internal carotid artery atherosclerosis. Skull and face: There is a right occipital parietal scalp hematoma seen. No underlying calvarial fracture is seen. Frontal craniotomy changes are seen. Calvarium and visualized facial bones appear intact, without suspicious lesions. Sinuses: Visualized sinuses and mastoids are clear. IMPRESSION: No acute intracranial process is seen. No acute intracranial hemorrhage is seen. Right occipital parietal scalp hematoma, without an associated calvarial fracture. Craniotomy changes with stable prominent encephalomalacia involving both frontal lobes anteriorly. Dictated by: Vel Malone M.D. on 10/05/2019 at 8:41 CT - cervical spine: Radiologist's Impression: PROCEDURE: CT CERVICAL SPINE WO CON INDICATIONS: fall on ice hit head TECHNIQUE: Noncontrast 3 mm thick sections acquired from the skull base to the T4 level. Sagittal and coronal reformats were then constructed. For radiation dose reduction, the following was used: automated exposure control, adjustment of mA and/or kV according to patient size. COMPARISON: None. FINDINGS: Image quality: Excellent. Bones: No fractures or dislocations. Visualized superior ribs are intact. Relatively prominent degenerative changes are seen, with prominent disc space narrowing with partial vertebral body fusion C5-C6. Moderate to severe disc space narrowing is seen at C3-C4, C4-C5 and C6-C7. Bridging and osteophytes are seen at several levels. Posterior endplate osteophytes are seen most prominently at C5-C6 and C6-C7. Moderate to severe central canal narrowing can be seen at C5-C6 and C6-C7. Craniotomy changes are seen on the massotherapist image. Soft tissues: Prevertebral soft tissues are normal in thickness. No paravertebral hematomas. No apical pneumothoraces. IMPRESSION: No acute fractures are seen. Degenerative changes are seen, which are worst at C5-C6. Dictated by: Vel Malone M.D. on 10/05/2019 at 8:44 Discharge Plan Departure Patient Disposition: Home Clinical Impression: Laceration of occipital scalp Qualifiers: Encounter type: initial encounter Qualified Code(s): S01.01XA - Laceration without foreign body of scalp, initial encounter Discharge Date/Time: 10/05/19 11:10 Instructions: DI for Laceration Repair -- [place] Activity Restrictions/Additional Instructions: 1. Have your kacy removed in 5-7 days, you may go to walk-in clinic, return to the ER or call your primary care physician. 2. No soaking in water including dishes, bathtubs, Lakes, swimming pools etc 3. Signs of infection include, but not limited to, increased redness, increased swelling, increased pain, fever and purulent drainage, if the symptoms should arise, you may need an antibiotic and you should have a reevaluation either by your primary care provider or by the emergency department. Prescriptions: No Action aspirin 81 MG tablet,delayed release (DR/EC) 81 mg PO DAILY Qty: 0 RF: 0 folic acid 1 MG tablet 1 mg PO DAILY Qty: 0 RF: 0 metformin 500 mg tablet 500 mg PO BID RF: 0 lisinopril 20 mg tablet 20 mg PO BID RF: 0 omeprazole 40 mg capsule,delayed release(DR/EC) 40 mg PO DAILY RF: 0 lamotrigine 25 mg tablet 50 mg PO BID RF: 0 simvastatin 20 mg tablet 20 mg PO DAILY RF: 0 Cholestyramine Light 4 gram powder 4 g PO BID RF: 0 polyethylene glycol 3350 [Miralax] 17 gram Powder In Packet 17 g PO DAILY PRN (Reason: Constipation) RF: 0 Referrals: Arvin Bell MD [Primary Care Provider] -
--- NOTE | 2019-10-05 09:15 | DI.CT.S_ITS ---
PROCEDURE: CT HEAD/BRAIN WO CON INDICATIONS: fall on ice hit head TECHNIQUE: Noncontrast 4.5 mm thick angled axial sections acquired from the foramen magnum to the vertex, with coronal and sagittal reformats. For radiation dose reduction, the following was used: automated exposure control, adjustment of mA and/or kV according to patient size. COMPARISON: [facility], MR, BRAIN W&WO CONTRAST, 12/28/2016, 18:10. [facility], CT, CT CERVICAL SPINE WO CON, 10/05/2019, 9:17. [facility], MR, MR HEAD/BRAIN WO/W CON, 03/13/2019, 16:25. FINDINGS: Image quality: Excellent. CSF spaces: Basal cisterns are patent. No extra-axial fluid collections. The ventricles are symmetric in size and shape. Brain: No stable encephalomalacia can be seen involving both frontal lobes anteriorly and inferiorly. No intracranial bleeds or masses. There is cerebral volume loss for age, with resultant ventricular and sulcal prominence. There are periventricular and deep white matter chronic small vessel ischemic changes. There is intracranial internal carotid artery atherosclerosis. Skull and face: There is a right occipital parietal scalp hematoma seen. No underlying calvarial fracture is seen. Frontal craniotomy changes are seen. Calvarium and visualized facial bones appear intact, without suspicious lesions. Sinuses: Visualized sinuses and mastoids are clear. IMPRESSION: No acute intracranial process is seen. No acute intracranial hemorrhage is seen. Right occipital parietal scalp hematoma, without an associated calvarial fracture. Craniotomy changes with stable prominent encephalomalacia involving both frontal lobes anteriorly. Dictated by: Vel Malone M.D. on 10/05/2019 at 8:41 Approved by: Vel Malone M.D. on 10/05/2019 at 8:44
--- NOTE | 2019-10-05 09:26 | DI.CT.S_ITS ---
PROCEDURE: CT CERVICAL SPINE WO CON INDICATIONS: fall on ice hit head TECHNIQUE: Noncontrast 3 mm thick sections acquired from the skull base to the T4 level. Sagittal and coronal reformats were then constructed. For radiation dose reduction, the following was used: automated exposure control, adjustment of mA and/or kV according to patient size. COMPARISON: None. FINDINGS: Image quality: Excellent. Bones: No fractures or dislocations. Visualized superior ribs are intact. Relatively prominent degenerative changes are seen, with prominent disc space narrowing with partial vertebral body fusion C5-C6. Moderate to severe disc space narrowing is seen at C3-C4, C4-C5 and C6-C7. Bridging and osteophytes are seen at several levels. Posterior endplate osteophytes are seen most prominently at C5-C6 and C6-C7. Moderate to severe central canal narrowing can be seen at C5-C6 and C6-C7. Craniotomy changes are seen on the product coordinator image. Soft tissues: Prevertebral soft tissues are normal in thickness. No paravertebral hematomas. No apical pneumothoraces. IMPRESSION: No acute fractures are seen. Degenerative changes are seen, which are worst at C5-C6. Dictated by: Vel Malone M.D. on 10/05/2019 at 8:44 Approved by: Vel Malone M.D. on 10/05/2019 at 8:47
[2019-10-05] MEDS: ACETAMINOPHEN 325 MG TABLET 650 MG PO (09:56)
[2019-10-05] MEDS: IBUPROFEN 400 MG TABLET PO (09:56)
[2019-10-05] MEDS: LIDOCAINE 1% W/EPI 1 ML SUBCUT (11:01)
[2019-10-05 11:08] VITALS: BP 180/72; PULSE 70; RESP 18; O2SAT 95
== END 2019-10-05 11:10 | disposition home or self-care (01) ==
PROVIDERS: Emergency Provider Emergency Medicine; PCP Family Medicine
DX: S01.01XA Laceration without foreign body of scalp, initial encounter (principal); W00.0XXA Fall on same level due to ice and snow, initial encounter
CPT/HCPCS: 12002; 70450; 72125; 99284

== ENCOUNTER → 2020-04-28 14:50 | Outpatient (CLI) | payer MEDICARE, OTHER, SELFPAY ==
--- NOTE | 2020-04-28 | DI.US.S_ITS ---
LIMITED ULTRASOUND OF LEFT BREAST AND AXILLA: 04/28/2020 CLINICAL: Lt breast follow-up. Comparison is made to exams dated: 04/28/2020 mammogram, 08/24/2019 ultrasound, 08/24/2019 mammogram, 02/13/2019 mammogram, 02/13/2019 ultrasound, and 08/12/2018 ultrasound [facility]. Color flow and real-time ultrasound of the left breast 2 o'clock, 6 o'clock, and axilla regions were performed on the areas of interest. There is a new 0.5 cm x 0.4 cm x 0.4 cm oval mass with a circumscribed margin in the left breast at 2 o'clock posterior depth 9 cm from the nipple. This oval mass is hypoechoic. Color flow imaging demonstrates that there is vascularity present. There also is a 1.1 cm x 0.6 cm x 0.8 cm oval mass with a circumscribed margin in the left breast at 6 o'clock in the retroareolar region. This oval mass is hypoechoic with internal echoes and posterior acoustic enhancement. This abnormality is increased in size and more prominent and correlates with mammography findings. Color flow imaging demonstrates that there is an adjacent vascularity. Additionally, there is a benign 1 cm x 0.6 cm x 1 cm oval mass with an indistinct margin in the left breast at 2 o'clock anterior depth 6 cm from the nipple. This oval mass is hypoechoic. This abnormality is not significantly changed and correlates with the previous biopsy. Color flow imaging demonstrates that there is no vascularity present. No significant abnormalities were seen sonographically in the left axilla. IMPRESSION: SUSPICIOUS OF MALIGNANCY The new 0.5 cm x 0.4 cm x 0.4 cm oval mass in the left breast at 2 o'clock posterior depth is suspicious of malignancy. An ultrasound guided biopsy is recommended. The 1.1 cm x 0.6 cm x 0.8 cm oval mass in the left breast at 6 o'clock in the retroareolar region is suspicious of malignancy. An ultrasound guided biopsy is recommended. The 1 cm x 0.6 cm x 1 cm oval mass in the left breast at 2 o'clock anterior depth is benign. The findings were discussed with the patient at the conclusion of the study by Dr. Hart. This exam was interpreted at Station ID: [id number]. Electronically Signed By: Keenan Durán M.D. ddp/:04/28/2020 16:31:29 letter sent: Biopsy Required Ultrasound BI-RADS: 4 Suspicious for malignancy
--- NOTE | 2020-04-28 | DI.MG.S_ITS ---
UNILATERAL LEFT DIGITAL DIAGNOSTIC MAMMOGRAM 3D/2D SHORT-TERM FOLLOW-UP: 04/28/2020 CLINICAL: Patient returns for a 6 month follow up of the left breast. Comparison is made to exams dated: 08/24/2019 ultrasound, 08/24/2019 mammogram, 02/13/2019 mammogram, 08/12/2018 mammogram, 07/08/2018 mammogram, and 06/13/2017 mammogram - [facility]. The tissue of left breast is heterogeneously dense. This may lower the sensitivity of mammography. There is an oval equal density focal asymmetry with an obscured and indistinct margin in the left breast at 6 o'clock anterior depth. This is not significantly changed. There also is a biopsy clip in the left breast at 2 o'clock anterior depth. This is not significantly changed and correlates with the biopsy. No other significant masses or calcifications are seen in the breast. IMPRESSION: INCOMPLETE: NEEDS ADDITIONAL IMAGING EVALUATION The oval equal density focal asymmetry in the left breast at 6 o'clock anterior depth is indeterminate. An ultrasound is recommended. This exam was interpreted at Station ID: [id number]. NOTE: For mammograms, a report in lay terms will be sent to the patient. Approximately 15% of breast malignancies will not be visualized mammographically. In the management of a palpable breast mass, a negative mammogram must not discourage biopsy of a clinically suspicious lesion. Electronically Signed By: Keenan bai/rocio:04/28/2020 15:33:07 ACR BI-RADS Category 0: Incomplete [id number]
== END ==
PROVIDERS: PCP Family Medicine; Referring Provider Family Medicine; Visit Provider Family Medicine
DX: R92.8 Other abnormal and inconclusive findings on diagnostic imaging of breast (principal); N63.21 Unspecified lump in the left breast, upper outer quadrant; N63.25 Unspecified lump in the left breast, overlapping quadrants
CPT/HCPCS: 76642; 77065; G0279

== ENCOUNTER → 2020-05-09 09:16 | Outpatient (CLI) | payer MEDICARE, OTHER, SELFPAY ==
--- NOTE | 2020-05-09 | PATH_ITS ---
[facility] Accession Number: [id number] . 01 Material submitted: . PART A: breast - LEFT BREAST MASS 2:00 9 CMFN PART B: breast - LEFT BREAST MASS 6:00 RETROAREOLAR . 02 Diagnosis: A. Left Breast, Mass At 2 O'Clock, 9 CM FN, Core Needle Biopsies: Lymphoid tissue, negative for metastatic carcinoma. Please see comment. Negative for atypical hyperplasia, in-situ or invasive carcinoma. . B. Left Breast, Mass At 6 O'Clock, Retroareolar, Core Needle Biopsies: Small detached fragment suggestive of benign intraductal papilloma. Dense fibrous breast tissue with reactive changes, and features suggestive of possible cyst wall; please see comment. Microcalcifications are present in association with non-neoplastic breast tissue. Negative for atypical hyperplasia, in-situ or invasive carcinoma. . . [facility] 05/12/2020 1650 Local . 02 Comment: A. Due to radiologic concern, this case will be forwarded to our hematopathologist for review, and the results reported as an addendum. . B. This biopsy shows reactive changes and focal histiocytic reaction along the edge of the biopsy fragment. This could be an area of ruptured cyst wall or possible biopsy site changes, in the appropriate clinical setting. A small fragment suggestive of intraductal papilloma is present in the initial levels; however, it is not present on the deeper levels examined. Clinical correlation is recommended. . As part of routine quality engineer, selected slides were also reviewed by Dr. Miles and Dr. Alarcon who agree with the interpretation. . . 02 Electronically signed: . Ynes Adler MD, Pathologist NPI- [id number] . 01 Gross description: . Received two formalin-filled containers, both labeled with the patient's name: . A. In a container labeled #1, designated left breast mass 2 o'clock 9 cm FN, the specimen is received with a plastic filter in container, sample loose in container and consists of four yellow-arellano pieces of soft tissue which range in size from 0.3 x 0.2 x 0.2 cm to 1.3 x 0.3 x 0.3 cm and a small amount of blood. The specimen is entirely submitted in cassette A. B. In a container labeled #2, designated left breast mass 6 o'clock retro-areolar, the sample is received with a plastic filter in container, sample loose in container and consists of multiple fragments of yellow-norton to yellow-arellano tissue which range in size from 0.2 x 0.1 x 0.1 cm to 1.0 x 0.2 x 0.2 cm. All fragments are entirely submitted in cassette B. No collection date or time per container; possible collection date and time per requisition: 05/09/2020 at 10:48. Total fixation time: Approximately 16 hours. ([id number]) /[facility] 05/10/2020 0218 Local . 02 Microscopic: . A. An immunohistochemical stain was performed to evaluate for NHAN reactivity, and is negative. The control stain showed appropriate staining. . B. Additional deeper levels were examined. . . * This test was developed and its performance characteristics determined by [employer]. It has not been cleared or approved by the U.S. Food and Drug Administration. The FDA has determined that such clearance or approval is not necessary. This test is used for clinical purposes. It should not be regarded as investigational or for research. . 02 Pathologist provided ICD-10: N63.0 . 02 CPT . 652699, 838690, U13292 Performed at: 01 [facility] [address], [place], [place] [id number] MD Keenan Welsh MD Phone: [phone] Performed at: 02 [facility] [address] [place], [place] [id number] MD Ynes Adler MD Phone: [phone]
--- NOTE | 2020-05-09 09:19 | DI.MG.S_ITS ---
PROCEDURE: MM DIAGNOSTIC MAMMO UNILAT LT2D COMPARISON: [facility], , PARMINDER DIAGNOSTIC MAMMO BI, 08/24/2019, 9:31. [facility], PARMINDER DIAGNOSTIC MAMMO UNILAT LT, 02/13/2019, 12:31. [facility], PARMINDER DIAGNOSTIC MAMMO UNILAT LT, 04/28/2020, 15:13. INDICATIONS: Left breast mass FINDINGS: IMPRESSION: Dictated by: Taj Hart M.D. on 05/09/2020 at 16:29 Approved by: Taj Hart M.D. on 05/09/2020 at 16:34
--- NOTE | 2020-05-09 09:31 | DI.US.S_ITS ---
Patient Name: RADHA NEVES date: 1945 Sex: F Attending Physician: Arabella Indications: Date: 05/09/2020 10:41 At the request of: CORNELIA ROWELL Procedure: US bx breast perc w vac device MULTIPLE ULTRASOUND GUIDED BIOPSIES LEFT BREAST USING VACUUM DEVICE WITH MARKING DEVICES INSERTED AND POST MAMMOGRAPHIC AND ULTRASOUND IMAGIN05/09/2020 CLINICAL: Left breast mass x 2. PATIENT CONSENT: Risks (minor bleeding, infection, vasovagal reaction and repeat procedure), benefits and alternatives were explained to the patient and written informed consent was obtained. Correlation is made to exams dated: 04/28/2020 ultrasound, 04/28/2020 mammogram, 08/24/2019 ultrasound, 08/24/2019 mammogram, 02/13/2019 mammogram, and 02/13/2019 [facility]. An ultrasound guided biopsy using real-time ultrasound was performed for the concerning 0.3 cm x 0.4 cm x 0.4 cm circumscribed round mass located in the left breast at 2 o'clock posterior depth. The skin was prepped in the usual manner. Local anesthetic was administered to the access site. A skin ron was made in the breast. The abnormality was approached from the lateral aspect. A 13 gauge biopsy needle was placed adjacent to the abnormality under ultrasound guidance. Once the needle was documented to be in the correct location, two specimens were obtained using the Mammotome biopsy system. The patient received additional local anesthetic during the procedure. A Vision marker clip was inserted into the biopsy cavity. A skin closure strip and a sterile dressing were applied to the access site. Post procedure imaging demonstrates the location device at the targeted area. The specimens were sent to the laboratory for pathological analysis. A second ultrasound guided biopsy using real-time ultrasound was performed for the concerning 0.6 cm x 0.7 cm x 0.6 cm circumscribed oval mass located in the left breast at 6 o'clock anterior depth. The skin was prepped in the usual manner. Local anesthetic was administered to the access site. A skin ron was made in the breast. The abnormality was approached from the lateral aspect. A 13 gauge biopsy needle was placed adjacent to the abnormality under ultrasound guidance. Once the needle was documented to be in the correct location, four specimens were obtained using the Mammotome biopsy Continued Report - Page 2 of 2 Patient Name: RADHA NEVES date: 1945 Sex: F Attending Physician: Arabella Indications: Date: 05/09/2020 10:41 At the request of: CORNELIA ROWELL Procedure: US bx breast perc w vac device system. The patient received additional local anesthetic during the procedure. A Vision marker clip was inserted into the biopsy cavity. A skin closure strip and a sterile dressing were applied to the access site. Post procedure mammographic and ultrasound imaging demonstrates the location device at the targeted area and partial removal of the abnormality. The specimens were sent to the laboratory for pathological analysis. IMPRESSION: ULTRASOUND GUIDED BIOPSY BENIGN 1) Ultrasound guided biopsy of the 0.4 cm mass in the left breast at 2 o'clock posterior depth was successful. Pathology indicates Lymphoid tissue, negative for metastatic carcinoma. Pathology results are concordant with imaging findings. 2) Ultrasound guided biopsy of the 0.7 cm mass in the left breast at 6 o'clock anterior depth was successful. Pathology indicates Small detached fragments suggestive of benign intraductal papilloma. Dense fibrous breast tissue with reactive changes, and features suggestive of possible cyst wall; please see comment. Microcalcifications are present in association with non-neoplastic breast tissue. Negative for atypical hyperplasia, in-situ or invasive carcinoma. Pathology results are concordant with imaging findings. A follow-up left mammogram and an ultrasound in 6 months is recommended to demonstrate stability. This exam was interpreted at Station ID: [id number]. Taj Mejía M.D. [facility] [place]/:05/19/2020 09:43:18
== END ==
PROVIDERS: PCP Family Medicine; Referring Provider Family Medicine; Visit Provider Family Medicine
DX: R92.8 Other abnormal and inconclusive findings on diagnostic imaging of breast (principal); R92.0 Mammographic microcalcification found on diagnostic imaging of breast; R92.2 Inconclusive mammogram; N63.21 Unspecified lump in the left breast, upper outer quadrant; N63.25 Unspecified lump in the left breast, overlapping quadrants
CPT/HCPCS: 19083; 19084; 77065

== ENCOUNTER → 2020-07-12 03:47 | Outpatient (CLI) | payer MEDICARE, OTHER, SELFPAY | PROVIDERS: PCP Family Medicine; Referring Provider Internal Medicine; Visit Provider Internal Medicine | DX: Z23 Encounter for immunization (principal) | CPT/HCPCS: 90471; 90662 ==

== ENCOUNTER → 2020-11-02 14:20 | Outpatient (CLI) | payer MEDICARE, OTHER, SELFPAY ==
--- NOTE | 2020-11-02 | DI.US.S_ITS ---
LIMITED ULTRASOUND OF LEFT BREAST AND AXILLA: 11/02/2020 CLINICAL: Patient returns today to evaluate focal asymmetries in the left breast. Comparison is made to exams dated: 11/02/2020 mammogram, 05/09/2020 ultrasound biopsy, 05/09/2020 mammogram, 04/28/2020 ultrasound, 04/28/2020 mammogram, and 08/24/2019 ultrasound - [facility]. Ultrasound of the left breast 2 o'clock, 6 o'clock, and axilla regions was performed. There is a 0.7 cm x 0.6 cm x 0.6 cm irregular mass in the left breast at 6 o'clock in the retroareolar region. This irregular mass is hypoechoic. This abnormality has decreased in size post biopsy, correlates with mammography findings and there is an associated biopsy clip. Color flow imaging demonstrates that there is no vascularity present. There is no longer a mass in the 2:00 position 9 cm from the nipple, however there is a biopsy marker present. A 0.3 cm incidental new cyst in the area is seen. IMPRESSION: BENIGN There is no sonographic evidence of malignancy. The 0.7 cm irregular mass in the left breast is biopsy provent to be a papilloma and is benign. There was complete removal of the biopsied 2:00 lymph node. Return to annual mammogram screening schedule is recommended. Findings and recommendations were conveyed to the patient at time of exam. It was noted after the patient left the department, that she is overdue for screening mammogram of the right breast which should be done promptly. This exam was interpreted at Station ID: [id number]. Electronically Signed By: Ryann torres/:11/03/2020 09:17:21 letter sent: Normal Exam Ultrasound BI-RADS: 2 Benign
--- NOTE | 2020-11-02 | DI.MG.S_ITS ---
UNILATERAL LEFT DIGITAL DIAGNOSTIC MAMMOGRAM 3D/2D SHORT-TERM FOLLOW-UP: 11/02/2020 CLINICAL: Patient returns for a 6 month follow up of the left breast. Post biopsy. Comparison is made to exams dated: 05/09/2020 mammogram, 04/28/2020 mammogram, and 08/24/2019 mammogram - [facility]. The tissue of left breast is heterogeneously dense. This may lower the sensitivity of mammography. There is an asymmetry with coarse calcifications in the left breast at 6 o'clock anterior depth. This is demonstrated by prior biopsy to be a benign intraductal papilloma. This area is less prominent and decreased in size. There is a biopsy clip associated with the asymmetry. The round asymmetry in the left breast at 1 o'clock middle depth is no longer seen and was biopsy proven to be a lymph node. There is a biopsy clip in place of the asymmetry. Stable coarse, dystrophic and vascular calcifications are present. No other significant masses or calcifications are seen in the breast. IMPRESSION: INCOMPLETE: NEEDS ADDITIONAL IMAGING EVALUATION The asymmetry in the left breast at 6 o'clock anterior depth is consistent with a papillary lesion. An ultrasound is recommended for continued surveillance. This was performed immediately following this exam. Ultrasound to ensure resolution of the lymph node is also recommended. This exam was interpreted at Station ID: [id number]. NOTE: For mammograms, a report in lay terms will be sent to the patient. Approximately 15% of breast malignancies will not be visualized mammographically. In the management of a palpable breast mass, a negative mammogram must not discourage biopsy of a clinically suspicious lesion. Electronically Signed By: Ryann torres/:11/02/2020 15:05:27 ACR BI-RADS Category 0: Incomplete [id number]
== END ==
PROVIDERS: PCP Family Medicine; Referring Provider Family Medicine; Visit Provider Family Medicine
DX: R92.8 Other abnormal and inconclusive findings on diagnostic imaging of breast (principal); D24.2 Benign neoplasm of left breast; N60.02 Solitary cyst of left breast
CPT/HCPCS: 76642; 77065; G0279

== ENCOUNTER → 2020-11-09 15:39 | Outpatient (CLI) | payer MEDICARE, OTHER, SELFPAY ==
--- NOTE | 2020-11-09 15:41 | DI.RAD.S_ITS ---
PROCEDURE: XR CHEST 2V INDICATIONS: ATYPICAL CHEST PAIN TECHNIQUE: 2 views of the chest were acquired. COMPARISON: [facility], CHEST 2 VIEW, 03/19/2016, 11:39. [facility], CHEST 1 VIEW, 07/01/2015, 17:13. FINDINGS: Surgical changes and devices: None. Lungs and pleura: Lungs are clear. No pleural effusions or pneumothorax. Mediastinum: Mediastinal contours are normal. Heart size is normal. Bones and chest wall: No suspicious bony abnormalities. Soft tissues appear unremarkable. IMPRESSION: Normal for age, source of current atypical chest pain symptoms is not seen. Dictated by: Taj Hart M.D. on 11/09/2020 at 17:25 Approved by: Taj Hart M.D. on 11/09/2020 at 17:26
== END ==
PROVIDERS: PCP Family Medicine; Referring Provider Family Medicine; Visit Provider Family Medicine
DX: R07.89 Other chest pain (principal)
CPT/HCPCS: 71046

== ENCOUNTER → 2020-11-11 13:06 | Outpatient (CLI) | payer MEDICARE, OTHER, SELFPAY ==
--- NOTE | 2020-11-11 13:09 | DI.MG.S_ITS ---
UNILATERAL RIGHT DIGITAL SCREENING MAMMOGRAM 3D/2D WITH CAD: 11/11/2020 CLINICAL: Routine screening. Comparison is made to exams dated: 08/24/2019 mammogram, 06/23/2018 mammogram, and 06/13/2017 mammogram - [facility]. The tissue of right breast is heterogeneously dense. This may lower the sensitivity of mammography. Current study was also evaluated with a Computer Aided Detection (CAD) system. There are a stable benign focal asymmetry and calcification in the right breast. There also are stable benign vascular calcifications in the right breast. No significant masses, calcifications, or other findings are seen in the breast. There has been no significant interval change. IMPRESSION: BENIGN There is no mammographic evidence of malignancy. A 1 year screening mammogram is recommended. This exam was interpreted at Station ID: [id number]. NOTE: For mammograms, a report in lay terms will be sent to the patient. Approximately 15% of breast malignancies will not be visualized mammographically. In the management of a palpable breast mass, a negative mammogram must not discourage biopsy of a clinically suspicious lesion. Electronically Signed By: Aquilino Morgan acr/penrad:11/11/2020 14:05:43 letter sent: Normal Exam ACR BI-RADS Category 2: Benign Finding(s) [id number]
== END ==
PROVIDERS: PCP Family Medicine; Referring Provider Family Medicine; Visit Provider Family Medicine
DX: Z12.31 Encounter for screening mammogram for malignant neoplasm of breast (principal)
CPT/HCPCS: 77063; 77067

== ENCOUNTER → 2020-11-26 09:29 | Outpatient (CLI) | payer MEDICARE, OTHER, SELFPAY ==
[2020-11-26 11:14] LABS: COVID19 -Nasal RAPID Negative (Negative)
== END ==
PROVIDERS: PCP Family Medicine; Visit Provider Nurse Practitioner
DX: Z20.822 Contact with and (suspected) exposure to COVID-19 (principal)
CPT/HCPCS: 87635; C9803

== ENCOUNTER → 2020-11-28 10:10 | Outpatient (CLI) | payer MEDICARE, OTHER, SELFPAY ==
--- NOTE | 2020-11-28 10:13 | DI.NM.S_ITS ---
PROCEDURE: NM NICOLE PERF SPECT REST & STR Rest and exercise myocardial perfusion SPECT with gated imaging and ejection fraction RADIOPHARMACEUTICAL: 11.7 mCi Tc-99m sestamibi IV at rest and 23.6 mCi Tc-99m sestamibi IV at peak exercise. A two day-protocol was performed. INDICATIONS: Other chest pain TECHNIQUE: Radiopharmaceutical was injected at peak stress test, and also at rest. SPECT images were obtained. SPECT myocardial perfusion images were displayed in short axis, horizontal long axis, and vertical long axis views. Gated images were reviewed using TrustGo software. COMPARISON: None. CARDIAC STRESS: A standard Dioni treadmill exercise tolerance test was performed by the patient under the supervision of an attending staff. The patient exercised for 6 minutes and 0 seconds; functional aerobic impairment (AVRIL) is -17%. Hemodynamic data: There is normal blood pressure and heart rate response to exercise stress. Patient achieved 104% of maximum predicted heart rate at peak exercise. Symptoms: Patient denied chest pain during exercise. EKG: There were mild upsloping ST depressions in the anterolateral leads; no ectopy. FINDINGS: Raw data: There is good myocardial labeling by radiotracer. No significant motion artifacts. Tfec-fd-zrfhd ratio is 0.28 (normal is less than 0.38 for sestamibi tracer, and less than 0.50 for thallium tracer). Left ventricle function: Gated images demonstrate normal left ventricle wall thickening. No segmental wall motion abnormality. No transient ischemic dilation; TID is 0.70 (normal less than 1.3). The left ventricle resting end-diastolic volume is 65 mL. Left ventricle stress ejection fraction is 89%; normal values are above 45%. Myocardial perfusion: There is normal distribution of activity in the left and right ventricular myocardium. No fixed or reversible perfusion defects. IMPRESSION: Low risk, normal treadmill nuclear stress test 1) No perfusion evidence of ischemia or infarction. 2) Normal left ventricular size, wall motion, and systolic function (EF post stress 89%). 3) No diagnostic ECG evidence of ischemia. There were mild upsloping ST depressions in the anterolateral leads, but these are benign given normal perfusion images. 4) No angina during the study. 5) Good exercise tolerance (6.1 METs, AVRIL -17%). Target heart rate achieved. Appropriate BP response to exercise. 6) Compared to the nuclear stress test done 07/15/2015, no significant change. Dictated by: Ilan Weiss MD on 11/28/2020 at 17:30 Approved by: Ilan Weiss MD on 11/28/2020 at 17:34
--- NOTE | 2020-11-28 15:19 | PM.TREADMILL ---
Cardiac Stress Test Report Referral & Results Date Patient Seen: 11/28/20 Time Patient Seen: 15:19 Requesting provider: Arvin Bell Indication: chest pain Rest ECG: sinus rhythm Procedure Note: Standard Dioni protocol, 6:00, 6.1 METS Good exercise capacity, AVRIL -17% Normal hemodynamic response to exercise No chest pain or anginal symptoms [address] depression in II, III, aVF; [address] depression with slight upsloping in V4 and 2mm ST depression with downsloping in V5 Impression: equivocal exercise stress test nuclear images pending Please note: Actual ECG tracings can be found in the PACS system.
== END ==
PROVIDERS: PCP Family Medicine; Referring Provider Family Medicine; Visit Provider Family Medicine
DX: R07.89 Other chest pain (principal)
CPT/HCPCS: 78452; 93017; A9502

== ENCOUNTER → 2021-05-22 13:15 | Outpatient (CLI) | payer MEDICARE, OTHER, SELFPAY ==
--- NOTE | 2021-05-22 | DI.MRI.S_ITS ---
PROCEDURE: MR HEAD/BRAIN WO/W CON INDICATIONS: UNSPECIFIED CONVULSIONS TECHNIQUE: Noncontrast axial T1 spin echo, axial T2 fast spin echo, sagittal and axial FLAIR, coronal T2 fast spin echo, axial gradient echo, axial diffusion and ADC through the brain. After the administration of contrast, axial and coronal T1 spin echo with fat saturation through the brain. COMPARISON: [facility], MR, BRAIN W&WO CONTRAST, 02/09/2015, 10:43. [facility], MR, MR HEAD/BRAIN WO/W CON, 03/13/2019, 16:25. [facility], MR, BRAIN W&WO CONTRAST, 12/28/2016, 18:10. [facility], MR, BRAIN WITH AND WITHOUT CONTRAS, 12/19/2011, 13:18. FINDINGS: Image quality: Excellent. CSF spaces: Basal cisterns are patent. No extra-axial fluid collections. Ventricles are normal in size and shape. Brain: Chronic resection changes can be seen involving both frontal lobes, volume loss and surrounding encephalomalacia. No abnormal enhancement can be seen within the resection cavity. No midline shift. No intracranial bleeds or masses. No abnormal intracranial enhancement. There is cerebral volume loss for age. There is periventricular white matter chronic small vessel ischemic change. The brainstem appears normal. Diffusion-weighted images demonstrate no acute ischemic insults. Normal intravascular flow voids are present. Skull and face: Frontal craniotomy changes are seen. Calvarial marrow is normal in signal. Orbits appear normal. Note is made of bilateral lens replacements. Sinuses: Sinuses and mastoids appear clear. IMPRESSION: Stable examination demonstrating bifrontal resection changes. No findings of abnormal enhancement or new masses can be seen. Dictated by: Vel Malone M.D. on 05/22/2021 at 13:12 Approved by: Vel Malone M.D. on 05/22/2021 at 13:14
== END ==
PROVIDERS: PCP Family Medicine; Referring Provider Family Medicine; Visit Provider Family Medicine
DX: R56.9 Unspecified convulsions (principal)
CPT/HCPCS: 70553

== ENCOUNTER → 2021-08-04 10:17 | Outpatient (CLI) | payer MEDICARE, OTHER, SELFPAY ==
[2021-08-04] MEDS: COVID-19 VACC #3, MRNA(MOD) 50 MCG/0.25 ML VIAL IM (10:26)
== END ==
PROVIDERS: PCP Family Medicine; Visit Provider Internal Medicine
DX: Z23 Encounter for immunization (principal)
CPT/HCPCS: 0013A; 91301

== ENCOUNTER → 2021-12-08 12:13 | Outpatient (CLI) | payer MEDICARE, OTHER, SELFPAY ==
--- NOTE | 2021-12-08 12:15 | DI.MG.S_ITS ---
BILATERAL DIGITAL SCREENING MAMMOGRAM 3D/2D WITH CAD: 12/08/2021 CLINICAL: Routine screening. Comparison is made to exams dated: 11/11/2020 mammogram, 11/02/2020 mammogram, 08/24/2019 mammogram, and 06/23/2018 mammogram - [facility]. The tissue of both breasts is heterogeneously dense. This may lower the sensitivity of mammography. Current study was also evaluated with a Computer Aided Detection (CAD) system. There are a stable benign focal asymmetry and calcification in the right breast. There also is a stable benign calcification in the left breast. Additionally, there are stable benign vascular calcifications in both breasts. Additionally, there also is a biopsy clip in the left breast. No significant masses, calcifications, or other findings are seen in either breast. There has been no significant interval change. IMPRESSION: BENIGN There is no mammographic evidence of malignancy. A 1 year screening mammogram is recommended. This exam was interpreted at Station ID: [id number]. NOTE: For mammograms, a report in lay terms will be sent to the patient. Approximately 15% of breast malignancies will not be visualized mammographically. In the management of a palpable breast mass, a negative mammogram must not discourage biopsy of a clinically suspicious lesion. Electronically Signed By: Aquilino Morgan acr/penrad:12/08/2021 12:40:32 letter sent: Normal Exam ACR BI-RADS Category 2: Benign Finding(s) [id number]
== END ==
PROVIDERS: PCP Family Medicine; Referring Provider Family Medicine; Visit Provider Family Medicine
DX: Z12.31 Encounter for screening mammogram for malignant neoplasm of breast (principal)
CPT/HCPCS: 77063; 77067

== ENCOUNTER 2022-02-13 11:20 | Emergency (ER) | payer MEDICARE, OTHER, SELFPAY ==
[2022-02-13 11:42] VITALS: BP 185/92; PULSE 78; RESP 22; TEMP 36.6; O2SAT 99; BMI 24.7
--- NOTE | 2022-02-13 11:52 | DI.RAD.S_ITS ---
PROCEDURE: XR CHEST 2V INDICATIONS: shortness of breath TECHNIQUE: 2 views of the chest were acquired. COMPARISON: [facility], , XR CHEST 2V, 11/09/2020, 16:43. FINDINGS: Surgical changes and devices: Cholecystectomy clips Lungs and pleura: Lungs are clear. No pleural effusions or pneumothorax. Mediastinum: Mediastinal contours are normal. Heart size is normal. Bones and chest wall: No suspicious bony abnormalities. Soft tissues appear unremarkable. IMPRESSION: No evidence acute pulmonary process. Dictated by: Cristiano Stevens M.D. on 02/13/2022 at 12:14 Approved by: Cristiano Stevens M.D. on 02/13/2022 at 12:14
[2022-02-13 12:26] LABS: Add Manual Diff / Slide Review NO; Basophils Absolute Auto 100 /uL (0-100); Basophils Percent Auto 0.5 % (0-2); Eosinophils Absolute Auto 100 /uL (0-450); Eosinophils Percent Auto 0.7 % (2-4); Hematocrit 37.2 % (36-46); Hemoglobin 12.3 g/dL (12.0-16.0); Lymphocytes Absolute Auto 2000 /uL (1100-4500); Lymphocytes Percent Auto 18.7 % (25-40); Mean Corpuscular Hemoglobin 25.8 PG (26-34); Mean Corpuscular Volume 78.1 fL (80-100); Monocytes Absolute Auto 700 /uL (0-900); Monocytes Percent Auto 6.8 % (3-14); Neutrophils Absolute Auto 7600 /uL (1500-7000); Neutrophils Percent Auto 73.3 % (50-75); Platelet Count 363 X10^3/uL (150-400); Red Blood Cell Count 4.76 X10^6/uL (4.0-5.2); Red Cell Distribution Width 13.8 % (11.6-14.8); White Blood Cell Count 10.4 X10^3/uL (4.5-11.0)
--- NOTE | 2022-02-13 12:33 | ED.SOB ---
HPI - SOB/Dyspnea <Jaleesa Damon PA-C - Last Filed: 02/13/22 13:20> General Chief Complaint: Shortness of Breath/Dyspnea Stated Complaint: COVID+ having trouble breathing Time Seen by Provider: 02/13/22 12:22 Source: patient Mode of arrival: Family Vehicle Limitations: no limitations History of Present Illness HPI Narrative: 76-year-old female with past medical history hyperlipidemia presents to the ED with fatigue and shortness of breath. Patient states she was diagnosed with COVID on 02/05/2022, since then she has experienced a nagging cough, fatigue. Patient states that today she was extremely fatigued after her shower, found herself panting, had to sit down. Patient does endorse that she is able to get a full lung full of breath however. Patient denies fever, chills, chest pain, nausea, vomiting, abdominal pain, dysuria, diarrhea. Patient is eating and drinking well. Related Data Home Medications Medication Instructions Recorded Confirmed aspirin 81 mg tablet,delayed 81 mg PO DAILY #0 11/28/12 06/01/20 release folic acid 1 mg tablet 1 mg PO DAILY #0 11/28/12 06/01/20 cholestyramine-aspartame 4 gram 4 g PO BID 07/31/18 06/01/20 oral powder lamotrigine 25 mg tablet 50 mg PO BID 07/31/18 06/01/20 lisinopril 20 mg tablet 20 mg PO BID 07/31/18 06/01/20 metformin 500 mg tablet 500 mg PO BID 07/31/18 06/01/20 omeprazole 40 mg capsule,delayed 40 mg PO DAILY 07/31/18 06/01/20 release simvastatin 20 mg tablet 20 mg PO DAILY 07/31/18 06/01/20 calcium carbonate 500 mg calcium 500 mg PO DAILY 06/01/20 06/01/20 (1,250 mg) tablet fluticasone propionate 50 1 inhalation INHALATION BID 06/01/20 06/01/20 mcg/actuation blister powder for inhalation metoclopramide HCl 5 mg tablet 5 mg PO QAC 06/01/20 06/01/20 mometasone 0.1 % topical cream 1 applictn TOP DAILY 06/01/20 06/01/20 potassium chloride 10 mEq 10 meq PO DAILY 06/01/20 06/01/20 capsule,extended release Previous Rx's Medication Instructions Recorded benzonatate 200 mg capsule 200 mg PO TID PRN #30 cap 02/13/22 Allergies Allergy/AdvReac Type Severity Reaction Status Date / Time chloramphenicol Allergy Severe Unconscious Verified 02/13/22 11:50 tree nut [TREE NUT] Allergy Unknown walnut Verified 02/13/22 11:49 Review of Systems <Jaleesa Damon PA-C - Last Filed: 02/13/22 13:20> Review of Systems ROS Unobtainable: All systems reviewed & are unremarkable except as noted in HPI and below Constitutional Constitutional: Denies chills, Reports fatigue, Denies fever(s), Denies frequent falls, Denies lethargy and Denies weakness Eyes Eyes: Denies change in vision, Denies eye discharge, Denies irritation and Denies loss of vision ENT Ears, Nose, Mouth, and Throat: Denies change in voice, Denies dizziness, Denies neck pain, Denies sore throat and Denies throat swelling Cardiovascular Cardiovascular: Denies chest pain, Denies irregular heart rhythm, Denies lightheadedness, Denies palpitations, Reports dyspnea, Denies dyspnea on exertion and Denies orthopnea Respiratory Respiratory: Reports cough, Reports dyspnea, Denies dyspnea on exertion and Denies wheezing Gastrointestinal Gastrointestinal: Denies abdominal pain, Denies change in bowel habits, Denies diarrhea, Denies nausea and Denies vomiting Genitourinary Genitourinary: Denies hematuria, Denies flank pain, Denies urinary incontinence and Denies urinary urgency Musculoskeletal Musculoskeletal: Denies back pain, Denies muscle weakness, Denies neck pain, Denies numbness and Denies tingling Integumentary/Breasts Skin/Breast: Denies pruritus, Denies erythema, Denies rash and Denies wounds Neurologic Neurologic: Denies behavioral changes, Denies confusion, Denies dizziness, Denies frequent falls, Denies loss of vision, Denies numbness, Denies tingling and Denies weakness Psychiatric Psychiatric: Denies anxiety, Denies behavioral changes, Denies confusion, Denies depression, Denies homicidal ideation and Denies suicidal ideation Endocrine Endocrine: Reports fatigue, Denies flushing and Denies palpitations Hematologic/Lymphatic Hematologic/Lymphatic: Denies easy bruising Allergic/Immunologic Allergic/Immunologic: Denies urticaria, Denies throat swelling and Denies wheezing Patient History <Jaleesa Damon PA-C - Last Filed: 02/13/22 13:20> Medical History Diabetes Hyperlipidemia Surgical History Hx of cholecystectomy Hx of resection of meningioma Family History Father Diabetes mellitus Heart disease Esophageal cancer Social History marital status: household members: spouse occupational status: previously employed Smoking Status: Never smoker alcohol intake: never substance use type: does not use Smoking Status: Never smoker alcohol intake frequency: 0-2 drinks per day Substance Use Type: does not use Exam <Jaleesa Damon PA-C - Last Filed: 02/13/22 13:20> Narrative Exam Narrative: Const General:?cooperative, healthy appearing and comfortable HENNC Head:?normal to inspection Ears:?hearing grossly normal bilaterally Nose:?external nose normal Face and sinus:?normal facial exam and sinuses nontender Mouth:?oral mucosae normal Throat:?posterior oropharynx normal Eyes General:?appearance normal, both eyes and all related structures Neck Neck:?normal visual inspection and no lymphadenopathy noted Resp Effort & Inspection:?normal respiratory effort Auscultation:?clear to auscultation bilaterally Cardio Rate:?regular rate Rhythm:?regular rhythm Neuro General:?patient alert, patient awake and patient oriented x3 Initial Vital Signs Initial Vital Signs: Vital Signs Temperature 97.9 F 02/13/22 11:42 Pulse Rate 78 02/13/22 11:42 Respiratory Rate 02/13/22 11:42 Blood Pressure 185/92 H 02/13/22 11:42 Pulse Oximetry 99 02/13/22 11:42 <Esther Marquez MD - Last Filed: 02/13/22 17:57> Initial Vital Signs Initial Vital Signs: Vital Signs Temperature 97.9 F 02/13/22 11:42 Pulse Rate 78 02/13/22 11:42 Respiratory Rate 22 02/13/22 11:42 Blood Pressure 185/92 H 02/13/22 11:42 Pulse Oximetry 99 02/13/22 11:42 Course <Jaleesa Damon PA-C - Last Filed: 02/13/22 13:20> Orders Ordered: ED Orders 02/13/22 11:52 XR chest 2V Stat EKG-12 Lead Stat Measure peak expiratory flow ONCE RT Consult Eval and Treat Now 02/13/22 12:15 Complete Blood Count AUTO DIFF Stat Comprehensive Metabolic Panel Stat Lactate (Lactic Acid) Stat Vital Signs Vital signs: Vital Signs - 8 hr 02/13/22 11:42 Temperature 97.9 F Pulse Rate 78 Respiratory Rate 22 Blood Pressure 185/92 H Pulse Oximetry 99 <Esther Marquez MD - Last Filed: 02/13/22 17:57> Orders Ordered: ED Orders 02/13/22 11:52 XR chest 2V Stat EKG-12 Lead Stat Measure peak expiratory flow ONCE RT Consult Eval and Treat Now 02/13/22 12:15 Complete Blood Count AUTO DIFF Stat Comprehensive Metabolic Panel Stat Lactate (Lactic Acid) Stat Vital Signs Vital signs: Vital Signs - 8 hr 02/13/22 11:42 Temperature 97.9 F Pulse Rate 78 Respiratory Rate 22 Blood Pressure 185/92 H Pulse Oximetry 99 MDM - SOB/Dyspnea <Jaleesa Damon PA-C - Last Filed: 02/13/22 13:20> Medical Records Attestation: I reviewed the patient's medical records. Lab Data Attestation: I reviewed the patient's lab results. Lab results narrative: Labs within normal limits Result diagrams: 02/13/22 12:15 02/13/22 12:15 Labs: Lab Results 02/13/22 02/13/22 02/13/22 Range/Units 12:15 12:15 12:15 WBC 10.4 (4.5-11.0) X10^3/uL RBC 4.76 (4.0-5.2) X10^6/uL Hgb 12.3 (12.0-16.0) g/dL Hct 37.2 (36-46) % MCV 78.1 L (80-100) fL MCH 25.8 L (26-34) PG MCHC 33.0 (30-36) % RDW 13.8 (11.6-14.8) % Plt Count 363 (150-400) X10^3/uL Neut % (Auto) 73.3 (50-75) % Lymph % (Auto) 18.7 L (25-40) % [place] % (Auto) 6.8 (3-14) % Eos % (Auto) 0.7 L (2-4) % Baso % (Auto) 0.5 (0-2) % Neut # (Auto) 7600 H (9310-4270) /uL Lymph # (Auto) 2000 (0516-4596) /uL [place] # (Auto) 700 (0-900) /uL Eos # (Auto) 100 (0-450) /uL Baso # (Auto) 100 (0-100) /uL Sodium 140 (137-145) mmol/L Potassium 3.8 (3.4-5.1) mmol/L Chloride 100 (98-107) mmol/L Carbon Dioxide 32 (22-32) mmol/L BUN 15 (7-17) mg/dL Creatinine 0.65 (0.52-1.04) mg/dL Estimated GFR > 60 (>60) mL/min BUN/Creatinine Ratio 23.1 H (6-22) Glucose 92 (80-110) mg/dL Lactate 1.9 (0.7-2.1) mmol/L Calcium 9.6 (8.4-10.2) mg/dL Total Bilirubin 0.3 (0.2-1.3) mg/dL AST 18 (14-36) IU/L ALT 11 (<35) IU/L Alkaline Phosphatase 93 (38-126) U/L Total Protein 8.1 (6.3-8.2) g/dL Albumin 4.5 (3.5-5.0) g/dL Globulin 3.6 (1.7-4.1) g/dL Albumin/Globulin Ratio 1.3 (1.0-2.8) Imaging Data Chest x-ray: Radiologist's Impression: PROCEDURE:? XR CHEST 2V ? INDICATIONS:? shortness of breath ? TECHNIQUE:? 2 views of the chest were acquired.? ? COMPARISON:? [facility], , XR CHEST 2V, 11/09/2020, 16:43. ? FINDINGS:? ? Surgical changes and devices:? Cholecystectomy clips ? Lungs and pleura:? Lungs are clear.? No pleural effusions or pneumothorax.? ? Mediastinum:? Mediastinal contours are normal.? Heart size is normal.? ? Bones and chest wall:? No suspicious bony abnormalities.? Soft tissues appear unremarkable.? ? IMPRESSION:? No evidence acute pulmonary process. ? ? ? Dictated by: Cristiano Stevens M.D. on 02/13/2022 at 12:14 ? ? ECG Data Interpretation: Normal sinus rhythm. No acute ST-T changes. No axis deviation. MDM Narrative Medical decision making narrative: 76-year-old female with past medical history hyperlipidemia presents to the ED with fatigue and shortness of breath. Concern for COVID-19 infection versus other viral syndrome versus pneumonia versus bronchitis. Will obtain labs, chest x-ray, EKG. Labs, chest x-ray, EKG without acute findings. Recommend supportive treatment with Tylenol, ibuprofen, [id number] medications. Prescribed Tessalon Perles for cough. ED return precautions discussed with patient. Patient verbalized understanding. <Esther Marquez MD - Last Filed: 02/13/22 17:57> Lab Data Labs: Lab Results 02/13/22 02/13/22 02/13/22 Range/Units 12:15 12:15 12:15 WBC 10.4 (4.5-11.0) X10^3/uL RBC 4.76 (4.0-5.2) X10^6/uL Hgb 12.3 (12.0-16.0) g/dL Hct 37.2 (36-46) % MCV 78.1 L (80-100) fL MCH 25.8 L (26-34) PG MCHC 33.0 (30-36) % RDW 13.8 (11.6-14.8) % Plt Count 363 (150-400) X10^3/uL Neut % (Auto) 73.3 (50-75) % Lymph % (Auto) 18.7 L (25-40) % [place] % (Auto) 6.8 (3-14) % Eos % (Auto) 0.7 L (2-4) % Baso % (Auto) 0.5 (0-2) % Neut # (Auto) 7600 H (1017-5745) /uL Lymph # (Auto) 2000 (0954-0215) /uL [place] # (Auto) 700 (0-900) /uL Eos # (Auto) 100 (0-450) /uL Baso # (Auto) 100 (0-100) /uL Sodium 140 (137-145) mmol/L Potassium 3.8 (3.4-5.1) mmol/L Chloride 100 (98-107) mmol/L Carbon Dioxide 32 (22-32) mmol/L BUN 15 (7-17) mg/dL Creatinine 0.65 (0.52-1.04) mg/dL Estimated GFR > 60 (>60) mL/min BUN/Creatinine Ratio 23.1 H (6-22) Glucose 92 (80-110) mg/dL Lactate 1.9 (0.7-2.1) mmol/L Calcium 9.6 (8.4-10.2) mg/dL Total Bilirubin 0.3 (0.2-1.3) mg/dL AST 18 (14-36) IU/L ALT 11 (<35) IU/L Alkaline Phosphatase 93 (38-126) U/L Total Protein 8.1 (6.3-8.2) g/dL Albumin 4.5 (3.5-5.0) g/dL Globulin 3.6 (1.7-4.1) g/dL Albumin/Globulin Ratio 1.3 (1.0-2.8) Discharge Plan Departure Patient Disposition: Home Clinical Impression: COVID-19 Instructions: DI for COVID-19 (Suspected or Confirmed ) Activity Restrictions/Additional Instructions: You were evaluated in the ED today for fatigue and shortness of breath. Your vital signs are stable, you are saturating at 99% oxygen. Your x-ray and labs do not show a pneumonia or signs of infection. Your symptoms are due to the COVID-19 infection. Please continue to rest well, stay well hydrated. You may continue to take Tylenol, ibuprofen, [id number] medications for your symptoms. You may take Tessalon Perles for your cough. Return to the ED if you have trouble breathing, you experience chest. Prescriptions: New benzonatate 200 mg capsule 200 mg PO TID PRN (Reason: cough) Qty: 30 0RF No Action aspirin 81 MG tablet,delayed release (DR/EC) 81 mg PO DAILY Qty: 0 0RF folic acid 1 MG tablet 1 mg PO DAILY Qty: 0 0RF potassium chloride 10 mEq capsule, extended release 10 meq PO DAILY 0RF metoclopramide HCl 5 mg tablet 5 mg PO QAC 0RF Rx Instructions: administer 30 minutes before meals mometasone 0.1 % cream 1 applictn TOP DAILY 0RF fluticasone propionate 50 mcg/actuation blister with device 1 inhalation INHALATION BID 0RF calcium carbonate 500 mg calcium (1,250 mg) tablet 500 mg PO DAILY 0RF metformin 500 mg tablet 500 mg PO BID 0RF lisinopril 20 mg tablet 20 mg PO BID 0RF omeprazole 40 mg capsule,delayed release(DR/EC) 40 mg PO DAILY 0RF lamotrigine 25 mg tablet 50 mg PO BID 0RF simvastatin 20 mg tablet 20 mg PO DAILY 0RF Cholestyramine Light 4 gram powder 4 g PO BID 0RF Referrals: Arvin Bell MD [Primary Care Provider] - <Esther Marquez MD - Last Filed: 02/13/22 17:57> Cosign ED Attending Cosignature Attestation: I was immediately available in the department for consultation throughout this patient's visit. I agree with documentation as above. Esther Marquez MD
[2022-02-13 12:36] LABS: Alanine Aminotransferase 11 IU/L (<35); Albumin 4.5 g/dL (3.5-5.0); Albumin Globulin Ratio 1.3 (1.0-2.8); Alkaline Phosphatase 93 U/L (38-126); Aspartate Aminotransferase 18 IU/L (14-36); BUN Creatinine Ratio 23.1 (6-22); Bilirubin Total 0.3 mg/dL (0.2-1.3); Blood Urea Nitrogen 15 mg/dL (7-17); Calcium 9.6 mg/dL (8.4-10.2); Carbon Dioxide 32 mmol/L (22-32); Chloride 100 mmol/L (98-107); Estimated Glomerular Filt Rate > 60 mL/min (>60); Globulin 3.6 g/dL (1.7-4.1); Glucose 92 mg/dL (80-110); HEMOLYSIS < 15 (0-50); Potassium 3.8 mmol/L (3.4-5.1); Sodium 140 mmol/L (137-145); Total Protein 8.1 g/dL (6.3-8.2)
[2022-02-13 12:37] LABS: Lactate (Lactic Acid) 1.9 mmol/L (0.7-2.1)
== END 2022-02-13 13:24 | disposition home or self-care (01) ==
PROVIDERS: Emergency Medicine; Emergency Provider Student in an Organized Health Care Education/Training Program; PCP Family Medicine
DX: U07.1 COVID-19 (principal)
CPT/HCPCS: 36415; 71046; 80053; 83605; 85025; 93005; 99283

== ENCOUNTER 2022-07-07 19:08 | Inpatient (IN) | payer MEDICARE, OTHER, SELFPAY ==
[2022-07-07 22:05] VITALS: BP 169/78; PULSE 89; RESP 16; TEMP 37.3; O2SAT 99
[2022-07-07 22:48] LABS: Hematocrit 33.7 % (36-46); Hemoglobin 11.3 g/dL (12.0-16.0)
[2022-07-07 23:03] VITALS: BMI 26.2
[2022-07-07] MEDS: lamoTRIgine 100 MG TABLET 150 MG PO (23:47)
[2022-07-07 23:48] VITALS: BP 169/78; PULSE 89
[2022-07-07] MEDS: lisinopriL 20 MG TABLET PO (23:48)
[2022-07-07] MEDS: ATORVASTATIN 20 MG TABLET 10 MG PO (23:49)
[2022-07-08] VITALS (7 sets, daily range): BP systolic 126–170; BP diastolic 56–69; PULSE 73–101; RESP 16–20; TEMP 36.2–37.1; O2SAT 94–98
--- NOTE | 2022-07-08 01:31 | PC.NURSE ---
Bruising to face d/t fall.
--- NOTE | 2022-07-08 03:59 | PC.ADMIT ---
Addendum entered by Kelly Salomon R.N. 07/08/22 05:44: Patient became confused through night. Her bed alarm went off and she was found in the room standing by the door, gait unsteady, pulling her gown off and tele off. She was assisted back to bed, fidgeting with her gown. When asking questions, she continued fidgeting with her gown. She slowly started answering my questions, name//age. Unable to recall why she was here or where she was prior to coming here (Saturday), unable to recall her fall. Patient back into bed, appears comfortable. Episode lasted @ 10 minutes. Patient hypertensive BP 170/65, HR 101. Remaining VS WNL. Original Note: [email or web address] Admission Note: Patient a direct admit from [place] ED transferred to [facility] via [facility]. Time of admit: 22:05. Spouse at bedside during admit. Patient is a/o x 4, able to make needs known. Shown how to use call light and call light placed in reach. Brakes locked and bed in low position. Bed alarm on as patient is a high fall risk. The patient,Radha Hernandez,77 y/o, was given written information regarding hospital policies, unit procedures and contact persons. Patient's smoking status: Never smoker. Vital Signs - 8 hr 07/07/22 22:05 07/07/22 23:48 07/08/22 02:00 Temperature 99.2 F 98.7 F Pulse Rate 89 89 97 H Respiratory Rate 16 16 Blood Pressure 169/78 H 169/78 H 158/67 H Pulse Oximetry 99 94 07/08/22 03:58 Temperature 98.2 F Pulse Rate 101 H Respiratory Rate 20 Blood Pressure 170/65 H Pulse Oximetry 96
[2022-07-08 06:26] LABS: Add Manual Diff / Slide Review NO; Basophils Absolute Auto 0 /uL (0-100); Basophils Percent Auto 0.2 % (0-2); Eosinophils Absolute Auto 0 /uL (0-450); Eosinophils Percent Auto 0.1 % (2-4); Hematocrit 35.4 % (36-46); Hemoglobin 11.6 g/dL (12.0-16.0); Lymphocytes Absolute Auto 800 /uL (1100-4500); Lymphocytes Percent Auto 4.8 % (25-40); Mean Corpuscular HGB Conc 32.8 % (30-36); Mean Corpuscular Hemoglobin 26.2 PG (26-34); Mean Corpuscular Volume 79.9 fL (80-100); Monocytes Absolute Auto 800 /uL (0-900); Monocytes Percent Auto 4.9 % (3-14); Neutrophils Absolute Auto 14100 /uL (1500-7000); Platelet Count 265 X10^3/uL (150-400); Red Blood Cell Count 4.42 X10^6/uL (4.0-5.2); Red Cell Distribution Width 14.3 % (11.6-14.8); White Blood Cell Count 15.6 X10^3/uL (4.5-11.0)
[2022-07-08 06:34] LABS: Alanine Aminotransferase 12 IU/L (<35); Albumin 3.8 g/dL (3.5-5.0); Albumin Globulin Ratio 1.3 (1.0-2.8); Alkaline Phosphatase 73 U/L (38-126); Aspartate Aminotransferase 16 IU/L (14-36); BUN Creatinine Ratio 22.4 (6-22); Bilirubin Total 0.4 mg/dL (0.2-1.3); Blood Urea Nitrogen 13 mg/dL (7-17); Calcium 8.6 mg/dL (8.4-10.2); Carbon Dioxide 29 mmol/L (22-32); Chloride 101 mmol/L (98-107); Estimated Glomerular Filt Rate > 60 mL/min (>60); Globulin 2.9 g/dL (1.7-4.1); Glucose 147 mg/dL (80-110); HEMOLYSIS < 15 (0-50); Potassium 3.8 mmol/L (3.4-5.1); Sodium 137 mmol/L (137-145); Total Protein 6.7 g/dL (6.3-8.2)
[2022-07-08] MEDS: lisinopriL 20 MG TABLET PO ×2 (08:19→21:34)
[2022-07-08] MEDS: METFORMIN HCL 500 MG TABLET PO (08:19)
[2022-07-08] MEDS: lamoTRIgine 100 MG TABLET 150 MG PO ×2 (08:19→21:34)
--- NOTE | 2022-07-08 10:18 | DI.CT.S_ITS ---
PROCEDURE: CT ABDOMEN PELVIS W CON INDICATIONS: abd pain TECHNIQUE: After the administration of IV contrast, axial sections were acquired from the lung bases to the pubic symphysis. Coronal and sagittal reformats were performed. For radiation dose reduction, the following was used: automated exposure control, adjustment of mA and/or kV according to patient size. COMPARISON: [facility], CT, KIDNEY/ URETER/BLADDER, 11/28/2012, 14:43. FINDINGS: Image quality: Excellent. Lung bases: Unremarkable. Heart: No significant findings. ABDOMEN: Liver: Within the central liver, there is an ovoid low-density lesion seen that measures 8 mm, as on series 2, image 36. The liver demonstrates normal size and demonstrates no additional significant lesions. Gallbladder: Removed. Biliary ducts: Unremarkable. Pancreas: Unremarkable. Spleen: Unremarkable. Adrenal Glands: Unremarkable. Kidneys and Ureters: Unremarkable. Stomach and Bowel: There is a broad area of abnormal distal colonic wall thickening, which begins at the level of the distal transverse colon and continues through the sigmoid colon. Mild hyperenhancement can be seen. Mild surrounding inflammatory change is seen. Distal colonic diverticulosis is seen, yet without specific diverticulitis. No dilated loops of small bowel are seen. The stomach is relatively decompressed. Peritoneum: No peritoneal abscess can be seen. There is a small amount of ascites layering dependently within the pelvis. No free air. Ventral Wall: No hernia. Abdominal Nodes: No retroperitoneal or mesenteric adenopathy by size criteria. Vessels: Aorta and inferior vena cava are normal in size. Atherosclerotic calcification is noted. PELVIS: Pelvic Organs: The uterus appears normal for age. No adnexal masses are seen. Bladder: Unremarkable. Pelvic Nodes: No enlarged lymph nodes. Miscellaneous: No inguinal hernias are seen. Bones: Unremarkable. IMPRESSION: Moderate distal colonic wall thickening can be seen. Please correlate with potential infectious and inflammatory causes of colitis, including C. difficile colitis. No findings of perforation or abscess can be seen. A small amount of ascites is seen. Incidental note is made of: Cholecystectomy Likely liver cyst, although too small to definitively characterize Dictated by: Vel Malone M.D. on 07/08/2022 at 10:09 Approved by: Vel Malone M.D. on 07/08/2022 at 10:14
[2022-07-08] MEDS: MORPHINE 2 MG/ML INJ 1 MG IV (10:39)
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
[2022-07-08] MEDS: PANTOPRAZOLE 40 MG VIAL 20 MG IV (11:17)
[2022-07-08] MEDS: PIPERACILLIN/TAZO 3.375 GM in SODIUM CHLORIDE 0.9% 100 ML IV ×2 (11:25→19:31)
[2022-07-08] MEDS: SODIUM CHLORIDE 0.9% 1,000 ML 75 ML IV (11:26)
[2022-07-08] MEDS: ENOXAPARIN 40 MG/0.4 ML SYRINGE SUBCUT (11:26)
[2022-07-08] MEDS: ACETAMINOPHEN 325 MG TABLET 650 MG PO ×2 (11:59→19:31)
--- NOTE | 2022-07-08 12:34 | PM.CALLCOV.1 ---
Call Coverage Note Note Date of Patient Contact: 07/08/22 Narrative of Care Provided: CT and labs reviewed: colitis in sigmoid region. Continue antibiotics
--- NOTE | 2022-07-08 14:21 | CM.DANOTE ---
DCP/Assessment: Reviewed chart. Patient is a 77yr old female admitted to [facility] with possible GI bleed. Patient is currently inpatient status. PCP is Dr. Bell. Primary payor is 1)Medicare 2)[facility]. Met with patient explained CM/SW role. Patient very pleasant alert and oriented female. 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 and is very active in her ADL's. Patient uses no DME. Patient reports falling a few days ago and has obvious bruising on side of her face. Currently patient at [facility] for abdominal pain and awaiting surgery consult. P: Anticipate that patient will d/c home when medically stable. CM team to continue to follow closely. [facility] Discharge Planning/Care Management CM Discharge Assessment Start: 07/08/22 14:09 Freq: Status: Active Protocol: Document 07/08/22 14:09 [facility] (Rec: 07/08/22 14:21 [facility] [id number]) Discharge Planning Assessment Assigned Solutions Development Analyst Neha Smtih Contact Information Rip Hernandez (spouse) [phone] Advance Directives? Yes Advance Directives on File Yes History Provided By Patient,Medical Record Prior Living Arrangements House Household Members spouse Type of transporation used prior to Drives own vehicle admit Independent with ADL's Yes Is patient alert and oriented? Yes Caregiver for Another No Transportation Arrangement Family to provide transport. Referrals Initiated Other Additional Comment Nael at this time Whiteboard Updated in Patient Room with Yes name and ext. # of Solutions Development Analyst Review Status In Process Next Review Type Continued Stay Review
--- NOTE | 2022-07-08 18:54 | P.PN_ITS ---
Subjective Subjective Date Patient Seen: 07/08/22 Time Patient Seen: 18:54 Interval history: Feeling better. No new changes. Exam Vital Signs (past 8 hours): - 07/08/22 12:58 07/08/22 15:45 Temperature 97.7 F 98.8 F Pulse Rate 89 73 Respiratory Rate 16 16 Blood Pressure 162/65 H 126/56 L Pulse Oximetry 98 97 Oxygen Flow Rate 0 0 Oxygen Delivery Method Room Air Oxygen Flow Rate 0 Narrative Exam Narrative: Soft positive bowel sounds minimal tenderness left lower quadrant Objective Labs Result Diagrams: 07/08/22 06:05 07/08/22 06:05 Labs: Laboratory Results - last 24 hr 07/07/22 07/07/22 07/08/22 22:35 22:35 06:05 WBC 15.6 H RBC 4.42 Hgb 11.3 L 11.6 L Hct 33.7 L 35.4 L MCV 79.9 L MCH 26.2 MCHC 32.8 RDW 14.3 Plt Count 265 Neut % (Auto) 90.0 H Lymph % (Auto) 4.8 L [place] % (Auto) 4.9 Eos % (Auto) 0.1 L Baso % (Auto) 0.2 Neut # (Auto) 15943 H Lymph # (Auto) 800 L [place] # (Auto) 800 Eos # (Auto) 0 Baso # (Auto) 0 Sodium Potassium Chloride Carbon Dioxide BUN Creatinine Estimated GFR BUN/Creatinine Ratio Glucose Calcium Total Bilirubin AST ALT Alkaline Phosphatase Total Protein Albumin Globulin Albumin/Globulin Ratio Blood Type O Positive Antibody Screen Negative 07/08/22 06:05 WBC RBC Hgb Hct MCV MCH MCHC RDW Plt Count Neut % (Auto) Lymph % (Auto) [place] % (Auto) Eos % (Auto) Baso % (Auto) Neut # (Auto) Lymph # (Auto) [place] # (Auto) Eos # (Auto) Baso # (Auto) Sodium 137 Potassium 3.8 Chloride 101 Carbon Dioxide 29 BUN 13 Creatinine 0.58 Estimated GFR > 60 BUN/Creatinine Ratio 22.4 H Glucose 147 H Calcium 8.6 Total Bilirubin 0.4 AST 16 ALT 12 Alkaline Phosphatase 73 Total Protein 6.7 Albumin 3.8 Globulin 2.9 Albumin/Globulin Ratio 1.3 Blood Type Antibody Screen [facility] Medical History Diabetes Hyperlipidemia Surgical History Hx of cholecystectomy Hx of resection of meningioma Family History Father Diabetes mellitus Heart disease Esophageal cancer Social History marital status: household members: spouse occupational status: previously employed Smoking Status: Never smoker alcohol intake: never substance use type: does not use Assessment & Plan Assessment & Plan narrative: Improved. CT scan shows no definitive mass or abscess. More inflammatory or infectious colitis. Will continue antibiotics. No evidence of further bleeding. Recheck a.m.. If doing well advance diet see how she does. Time Spent With Patient Critical Care time: I spent a total of [] minutes of critical care time on this patient's care today; this time is exclusive of procedural time.
[2022-07-08] MEDS: ATORVASTATIN 20 MG TABLET 10 MG PO (21:34)
[2022-07-09] VITALS (14 sets, daily range): BP systolic 155–201; BP diastolic 58–85; PULSE 66–81; RESP 16–18; TEMP 36–36.6; O2SAT 96–99
[2022-07-09] MEDS: ACETAMINOPHEN 325 MG TABLET 650 MG PO (00:18)
[2022-07-09] MEDS: PIPERACILLIN/TAZO 3.375 GM in SODIUM CHLORIDE 0.9% 100 ML IV (02:28)
[2022-07-09] MEDS: SODIUM CHLORIDE 0.9% 1,000 ML 75 ML IV (04:00)
[2022-07-09 06:08] LABS: Add Manual Diff / Slide Review NO; Basophils Absolute Auto 0 /uL (0-100); Basophils Percent Auto 0.4 % (0-2); Eosinophils Absolute Auto 100 /uL (0-450); Eosinophils Percent Auto 1.4 % (2-4); Hematocrit 32.3 % (36-46); Hemoglobin 10.8 g/dL (12.0-16.0); Lymphocytes Absolute Auto 1400 /uL (1100-4500); Lymphocytes Percent Auto 13.9 % (25-40); Mean Corpuscular HGB Conc 33.4 % (30-36); Mean Corpuscular Hemoglobin 26.7 PG (26-34); Monocytes Absolute Auto 700 /uL (0-900); Monocytes Percent Auto 6.7 % (3-14); Neutrophils Absolute Auto 7800 /uL (1500-7000); Neutrophils Percent Auto 77.6 % (50-75); Platelet Count 236 X10^3/uL (150-400); Red Blood Cell Count 4.04 X10^6/uL (4.0-5.2); Red Cell Distribution Width 14.3 % (11.6-14.8); White Blood Cell Count 10.1 X10^3/uL (4.5-11.0)
[2022-07-09 06:18] LABS: Alanine Aminotransferase 9 IU/L (<35); Albumin 3.3 g/dL (3.5-5.0); Albumin Globulin Ratio 1.2 (1.0-2.8); Alkaline Phosphatase 61 U/L (38-126); Aspartate Aminotransferase 14 IU/L (14-36); BUN Creatinine Ratio 16.1 (6-22); Bilirubin Total 0.5 mg/dL (0.2-1.3); Blood Urea Nitrogen 10 mg/dL (7-17); Calcium 8.3 mg/dL (8.4-10.2); Carbon Dioxide 29 mmol/L (22-32); Chloride 104 mmol/L (98-107); Estimated Glomerular Filt Rate > 60 mL/min (>60); Globulin 2.8 g/dL (1.7-4.1); Glucose 103 mg/dL (80-110); HEMOLYSIS < 15 (0-50); Potassium 3.7 mmol/L (3.4-5.1); Sodium 138 mmol/L (137-145); Total Protein 6.1 g/dL (6.3-8.2)
--- NOTE | 2022-07-09 08:23 | P.PN_ITS ---
Subjective Subjective Date Patient Seen: 07/09/22 Time Patient Seen: 08:23 Interval history: Patient seen in follow-up of rectal bleeding abdominal pain. Feeling better today. Did have small amount of blood this morning. Nothing like what brought her in. Abdominal discomfort is improved. No other changes. Exam Vital Signs (past 8 hours): - 07/09/22 04:00 07/09/22 05:25 07/09/22 08:00 Temperature 97.0 F L 97 F L Pulse Rate 66 74 71 Respiratory Rate 17 16 Blood Pressure 187/65 H 168/58 H 160/67 H Pulse Oximetry 99 99 98 Oxygen Flow Rate 0 0 0 Oxygen Delivery Method Room Air Oxygen Flow Rate 0 Narrative Exam Narrative: Alert elderly female lying in bed in no acute distress lungs are clear heart regular rate and rhythm abdomen is soft positive bowel sounds with this mild left upper quadrant tenderness no rebound guarding no masses Objective Labs Result Diagrams: 07/09/22 05:43 07/09/22 05:43 Labs: Laboratory Results - last 24 hr 07/09/22 07/09/22 05:43 05:43 WBC 10.1 RBC 4.04 Hgb 10.8 L Hct 32.3 L MCV 80.0 MCH 26.7 MCHC 33.4 RDW 14.3 Plt Count 236 Neut % (Auto) 77.6 H Lymph % (Auto) 13.9 L [place] % (Auto) 6.7 Eos % (Auto) 1.4 L Baso % (Auto) 0.4 Neut # (Auto) 7800 H Lymph # (Auto) 1400 [place] # (Auto) 700 Eos # (Auto) 100 Baso # (Auto) 0 Sodium 138 Potassium 3.7 Chloride 104 Carbon Dioxide 29 BUN 10 Creatinine 0.62 Estimated GFR > 60 BUN/Creatinine Ratio 16.1 Glucose 103 Calcium 8.3 L Total Bilirubin 0.5 AST 14 ALT 9 Alkaline Phosphatase 61 Total Protein 6.1 L Albumin 3.3 L Globulin 2.8 Albumin/Globulin Ratio 1.2 PFSH Medical History Diabetes Hyperlipidemia Surgical History Hx of cholecystectomy Hx of resection of meningioma Family History Father Diabetes mellitus Heart disease Esophageal cancer Social History marital status: household members: spouse occupational status: previously employed Smoking Status: Never smoker alcohol intake: never substance use type: does not use Assessment & Plan Assessment & Plan narrative: Abdominal pain. Appears to be secondary to either ischemic or infective colitis. No evidence of abscess or other changes on CT scan. Discussed with surgeon. No scope needed. Will switch to p.o. antibiotics went eat this morning today and if stable by tomorrow will discharge to home. GI bleed. Pry secondary to either ischemic or inflammatory or infective co litis. Improved but not completely resolved. Will watch today and discharge tomorrow stable will add aspirin if ischemic Fluid and electrolytes. Discontinue IV therapy. Type 2 diabetes stable History of hypertension continue lisinopril History of seizures usual medication Code status full GI prophylaxis on Protonix DVT prophylaxis on Lovenox. Disposition. Discharge home tomorrow if stable. Time Spent With Patient Critical Care time: I spent a total of [] minutes of critical care time on this patient's care today; this time is exclusive of procedural time.
[2022-07-09] MEDS: ENOXAPARIN 40 MG/0.4 ML SYRINGE SUBCUT (09:18)
[2022-07-09] MEDS: ASPIRIN EC 81 MG TABLET PO (09:19)
[2022-07-09] MEDS: AMOXICILLIN/CLAV 875/125 MG 1 TAB PO ×2 (09:19→20:25)
[2022-07-09] MEDS: PANTOPRAZOLE 40 MG VIAL 20 MG IV (09:19)
[2022-07-09] MEDS: lisinopriL 20 MG TABLET PO ×2 (09:20→20:22)
[2022-07-09] MEDS: lamoTRIgine 100 MG TABLET 150 MG PO ×2 (09:20→20:25)
--- NOTE | 2022-07-09 10:24 | PC.NURSE ---
there was small drops of blood in urine.
--- NOTE | 2022-07-09 10:25 | CM.DPC ---
DCP Cont: Per MD, pt to stay another night and switch to P.O. abx and if stable tomorrow, pt to discharge home. Jodie Abernathy, RN/DCP
--- NOTE | 2022-07-09 15:02 | P.CONS_ITS ---
History of Present Illness Consult details Date Patient Seen: 07/09/22 Time Patient Seen: 12:00 Chief complaint: GI Bleed Reason for consult: abdominal pain and rectal bleeding Requesting provider: Arvin Bell Narrative: Patient was out at [place], had an unrelated fall, then severe urgency to defecate and noted to have large amount of blood in toilet, 2 episodes of clumps of blood since. LLQ pain to palpation and w walking. CT scan to my reading is watershed distribution of colitis which is consistent with ischemic colitis. elevated WBC responding to antibiotics does not go along with ischemic colitis and may represent a subsequent infection. Meds Home Medications and Allergies Home Medications Medication Instructions Recorded Confirmed Type aspirin 81 mg tablet,delayed 81 mg PO DAILY ##0 11/28/12 07/07/22 History release folic acid 1 mg tablet 1 mg PO DAILY ##0 11/28/12 07/07/22 History cholestyramine-aspartame 4 gram 4 g PO BID 07/31/18 07/07/22 History oral powder lamotrigine 25 mg tablet 150 mg PO BID 07/31/18 07/07/22 History lisinopril 20 mg tablet 20 mg PO BID 07/31/18 07/07/22 History metformin 500 mg tablet 500 mg PO BID 07/31/18 07/07/22 History omeprazole 40 mg capsule,delayed 40 mg PO DAILY 07/31/18 07/07/22 History release simvastatin 20 mg tablet 20 mg PO BEDTIME 07/31/18 07/07/22 History calcium carbonate 500 mg calcium 500 mg PO DAILY 06/01/20 06/01/20 History (1,250 mg) tablet metoclopramide HCl 5 mg tablet 5 mg PO QAC 06/01/20 07/07/22 History potassium chloride 10 mEq 10 meq PO DAILY 06/01/20 06/01/20 History capsule,extended release Allergies Allergy/AdvReac Type Severity Reaction Status Date / Time chloramphenicol Allergy Severe Unconscious Verified 02/13/22 11:50 tree nut [TREE NUT] Allergy Unknown walnut Verified 02/13/22 11:49 Review of Systems Review of Systems ROS: Yes All systems reviewed with the patient and are negative except as otherwise documented Exam Vital Signs (past 8 hours): - 07/09/22 08:00 07/09/22 09:20 07/09/22 11:28 Temperature 97 F L 97.5 F L Pulse Rate 71 71 71 Respiratory Rate 16 16 Blood Pressure 160/67 H 160/67 H 155/61 H Pulse Oximetry 98 99 Oxygen Delivery Method Oxygen Flow Rate 0 0 07/09/22 11:42 Temperature Pulse Rate Respiratory Rate Blood Pressure Pulse Oximetry 99 Oxygen Delivery Method Room Air Oxygen Flow Rate Oxygen Delivery Method Room Air Oxygen Flow Rate 0 Narrative Exam Narrative: Mild left sided tenderness of abdomen. Const General: cooperative and healthy appearing Nutritional Appearance: average body habitus Orientation: alert, awake and oriented x3 HENRI Head: normocephalic and atraumatic (right sided facial bruising from fall) Mouth: oral mucosae normal Eyes General: appearance normal, both eyes and all related structures Sclera: sclerae normal Neck Neck: normal visual inspection and trachea midline Chest Chest: normal inspection of the chest Resp Effort & Inspection: normal respiratory effort and able to speak in complete sentences Cardio Rate: regular rate Rhythm: regular rhythm GI Palpation: soft and tender (left sided mild tenderness) Skin General: no rashes or lesions noted and atrophy Hair: normal Neuro General: patient alert, patient awake and patient oriented x3 Cognition: normal cognition Speech: speech normal Extrem General: normal to inspection and full ROM Psych Mental Status: mental status grossly normal Speech and Movement: speech clear Judgment: judgment good Objective Labs Result Diagrams: 07/09/22 05:43 07/09/22 05:43 Labs: Laboratory Results - last 24 hr 07/09/22 07/09/22 05:43 05:43 WBC 10.1 RBC 4.04 Hgb 10.8 L Hct 32.3 L MCV 80.0 MCH 26.7 MCHC 33.4 RDW 14.3 Plt Count 236 Neut % (Auto) 77.6 H Lymph % (Auto) 13.9 L [place] % (Auto) 6.7 Eos % (Auto) 1.4 L Baso % (Auto) 0.4 Neut # (Auto) 7800 H Lymph # (Auto) 1400 [place] # (Auto) 700 Eos # (Auto) 100 Baso # (Auto) 0 Sodium 138 Potassium 3.7 Chloride 104 Carbon Dioxide 29 BUN 10 Creatinine 0.62 Estimated GFR > 60 BUN/Creatinine Ratio 16.1 Glucose 103 Calcium 8.3 L Total Bilirubin 0.5 AST 14 ALT 9 Alkaline Phosphatase 61 Total Protein 6.1 L Albumin 3.3 L Globulin 2.8 Albumin/Globulin Ratio 1.2 PFSH Medical History Diabetes Hyperlipidemia Surgical History Hx of cholecystectomy Hx of resection of meningioma Family History Father Diabetes mellitus Heart disease Esophageal cancer Social History marital status: household members: spouse occupational status: previously employed Tobacco & Substance Use Smoking Status: Never smoker alcohol intake: never substance use type: does not use Assessment & Plan Assessment & Plan narrative: Ischemic colitis with associated anemia Elevated WBC responding to antibiotic uncertain etiology PLan: ok to go home. Would complete a course of antibiotics. Needs OTC MVI with iron Time Spent With Patient Critical Care time: I spent a total of [] minutes of critical care time on this patient's care today; this time is exclusive of procedural time.
[2022-07-09] MEDS: ATORVASTATIN 20 MG TABLET 10 MG PO (20:23)
[2022-07-09] MEDS: LABETALOL 20 MG/4 ML SYRINGE 10 MG IV (22:19)
[2022-07-10 04:02] VITALS: BP 165/67; PULSE 77
[2022-07-10 04:15] VITALS: BP 165/67; PULSE 77; RESP 20; TEMP 35.9; O2SAT 97
--- NOTE | 2022-07-10 05:10 | PC.NURSE ---
Bed alarm on, pt ambulates independently. Has had one BM this shift, watery brown colored stool. Pt said when she wiped it was bright red blood. At beginning of shift, BP was 190s/90s, RN called Dr. Munoz from [facility], new PRN lebatolol order was given, BP has since improved to 160s/60s.
[2022-07-10] MEDS: ACETAMINOPHEN 325 MG TABLET 650 MG PO (05:38)
[2022-07-10] MEDS: SODIUM CHLORIDE 0.9% FLUSH 10 ML IV (05:39)
[2022-07-10 06:23] LABS: Add Manual Diff / Slide Review NO; Basophils Absolute Auto 0 /uL (0-100); Basophils Percent Auto 0.5 % (0-2); Eosinophils Absolute Auto 100 /uL (0-450); Eosinophils Percent Auto 1.2 % (2-4); Hematocrit 33.6 % (36-46); Hemoglobin 11.1 g/dL (12.0-16.0); Lymphocytes Absolute Auto 1100 /uL (1100-4500); Lymphocytes Percent Auto 14.3 % (25-40); Mean Corpuscular HGB Conc 32.9 % (30-36); Mean Corpuscular Hemoglobin 26.4 PG (26-34); Mean Corpuscular Volume 80.3 fL (80-100); Monocytes Absolute Auto 500 /uL (0-900); Monocytes Percent Auto 6.2 % (3-14); Neutrophils Absolute Auto 5800 /uL (1500-7000); Neutrophils Percent Auto 77.8 % (50-75); Platelet Count 260 X10^3/uL (150-400); Red Blood Cell Count 4.19 X10^6/uL (4.0-5.2); Red Cell Distribution Width 14.3 % (11.6-14.8); White Blood Cell Count 7.5 X10^3/uL (4.5-11.0)
[2022-07-10 07:00] VITALS: O2SAT 95
[2022-07-10 08:19] VITALS: BP 175/62; PULSE 62; RESP 18; TEMP 36.3; O2SAT 99
--- NOTE | 2022-07-10 08:33 | P.DS_ITS ---
History of Present Illness History of Present Illness Date Patient Seen: 07/10/22 Time Patient Seen: 08:33 Date of Onset of Symptoms: 07/07/22 Chief complaint: GI Bleed Narrative: Patient is a an 77-year-old female well known to me with multiple medical problems who presents with new onset abdominal pain. Patient was on Saturday and was walking across a street and tripped and hit her head. No loss of consciousness. Had extensive bruising to her head and 1 small scar. Was seen in the emergency room head CT scan was all shown to be negative. Was otherwise feeling well and had been. She woke up the next day with some abdominal discomfort. Which progressed to mostly left lower quadrant and distention. She had no fevers although she went into the bathroom and just felt sweaty thought she had to go to the bathroom but could not just felt distended got up went into her bed and breakfast living room and felt like she was going to pass out sat down in a chair. She was taking to the emergency room. She describes the pain is pretty severe left lower quadrant mostly although some diffuse. No radiation. Does not seem to get better or worse with anything. She would never had any pain like this before. Has had no nausea or vomiting although maybe felt slightly nauseated. She had no other significant new change or complaint. She was evaluated in the emergency room in Saturday and actually started feeling maybe slightly better and then went to the bathroom and had large volume bright red blood per rectum. She was transferred back to the bed has had no further bleeding but has had persistent and increasing abdominal discomfort. Otherwise no significant new changes or complaint. Pain is consis tent and has not had any change she has had a history of reflux in the past. Has been on omeprazole. She has no other complaint. She is had no fevers or chills. No urinary changes. No rashes or other complaint last night she did sleep but every time she woke up she was having pain this morning and seems to be slightly worse. She had no further bleeding. No other complaints. Past medical history significant for type 2 diabetes, large meningioma. History of seizures. Secondary to her meningioma. Hyperlipidemia. Reflux. Past Surgical history cholecystectomy, resection of meningioma. Social history. Nondrinker. Nonsmoker. Lives with . Two children. One in [place] 1 in [place]. Retired. Family history. Father with diabetes heart disease and esophageal cancer. No other significant history. Discharge Providers Provider Date of admission: 07/07/22 19:08 Discharge Date: 07/10/22 Primary care physician: Arvin Bell MD Consults: 07/08/22 09:00 Consult to Pastoral Services Routine Comment: patient would like a visit 07/08/22 10:56 Consult to Physician Routine Comment: Consulting Provider: Audrey Jones Reason for consultation: abd pain Has provider been notified: Yes Discharge provider: Arvin Bell MD Summary Hospital Course Discharge Diagnosis: Abdominal pain GI bleed Dehydration History of fall contusion to face type 2 diabetes Hypertension. History of seizures Hospital Course: Abdominal pain. Patient was admitted with 24 hours of abdominal pain. CT scan was obtained. Which showed sigmoid colon wall thickening but no definitive abscess or other changes. She was already started on antibiotics and surgeon was consulted. Patient rapidly improved over the course of the 24 hours with decreasing pain. White count mildly elevated which improved. Question was either ischemic or infective colitis. Not definitively establish. She will be continued on her antibiotics and will place on an aspirin a day. Will follow-up in 1 week. Lower GI bleed. Patient had bright red blood per rectum essentially 1 large event at the emergency room prior to admission and then was stable through the course were admission here except for 1 small amount of darker blood yesterday. She is had no other changes has had improved intake. No fevers no chills. Patient noted to have inflammatory changes in her colon and it was felt to be a result of either her infection or her ischemic colitis. Will be followed as an outpatient. Possible colonoscopy later as things heal. History of fall with contusion to face. Was stable throughout the course. Improving in exam. Dehydration. Very mild. IV hydration 1st 24 hours and then discontinued. History of hypertension. Poorly controlled throughout the course. Patient has been relatively well controlled as outpatient but will add amlodipine and discharge on that. Follow-up 1 week. History of seizure stable. Patient was continued on her usual medicines. Status at Discharge Cognitive/behavioral status at discharge: oriented Functional status at discharge: independent ambulation Overall status at discharge: patient is progressing back to baseline Exam Vital Signs (past 8 hours): - 07/10/22 04:02 07/10/22 04:15 07/10/22 08:19 Temperature 96.6 F L 97.3 F L Pulse Rate 77 77 62 Respiratory Rate 20 18 Blood Pressure 165/67 H 165/67 H 175/62 H Pulse Oximetry 97 99 Oxygen Flow Rate 0 0 Oxygen Delivery Method Room Air Oxygen Flow Rate 0 Narrative Exam Narrative: Alert elderly female sitting in chair in no acute distress. Face with ecchymosis from right upper forehead down to chin on the right side. Minimally tender around orbit. Pupils are normal. Neck supple without adenopathy lungs are clear heart regular rate and rhythm abdomen is soft positive bowel sounds nontender extremities without edema Objective Labs Result Diagrams: 07/10/22 05:54 07/09/22 05:43 Labs: Laboratory Results - last 24 hr 07/10/22 05:54 WBC 7.5 RBC 4.19 Hgb 11.1 L Hct 33.6 L MCV 80.3 MCH 26.4 MCHC 32.9 RDW 14.3 Plt Count 260 Neut % (Auto) 77.8 H Lymph % (Auto) 14.3 L Price % (Auto) 6.2 Eos % (Auto) 1.2 L Baso % (Auto) 0.5 Neut # (Auto) 5800 Lymph # (Auto) 1100 Price # (Auto) 500 Eos # (Auto) 100 Baso # (Auto) 0 PFSH Medical History Diabetes Hyperlipidemia Surgical History Hx of cholecystectomy Hx of resection of meningioma Family History Father Diabetes mellitus Heart disease Esophageal cancer Social History marital status: household members: spouse occupational status: previously employed Smoking Status: Never smoker alcohol intake: never substance use type: does not use Discharge Assessment & Plan Assessment and Plan Assessment: Abdominal pain with GI bleeding Plan of Treatment: Discharge home on antibiotics follow-up with me next week Discharge Plan Discharge Plan Patient Disposition: Home Discharge orders & Medications Prescriptions: New amlodipine [Norvasc] 5 mg Tablet 2.5 mg PO DAILY Qty: 30 1RF aspirin 81 mg Tablet,Delayed Release (Dr/Ec) 81 mg PO DAILY Qty: 100 0RF amoxicillin-pot clavulanate 875-125 mg Tablet 1 tab PO BID Qty: 14 0RF Continued aspirin 81 MG tablet,delayed release (DR/EC) 81 mg PO DAILY Qty: 0 folic acid 1 MG tablet 1 mg PO DAILY Qty: 0 metoclopramide HCl 5 mg tablet 5 mg PO QAC Rx Instructions: administer 30 minutes before meals calcium carbonate 500 mg calcium (1,250 mg) tablet 500 mg PO PRN PRN (Reason: Indigestion) metformin 500 mg tablet 500 mg PO BID lisinopril 20 mg tablet 20 mg PO BID omeprazole 40 mg capsule,delayed release(DR/EC) 40 mg PO DAILY lamotrigine 25 mg tablet 150 mg PO BID simvastatin 20 mg tablet 20 mg PO BEDTIME cholestyramine-aspartame 4 gram powder 4 g PO BID Follow up/Referrals: Arvin Bell MD [Primary Care Provider] - 07/17/22 11:15 am (appt:07/17 @ 11:15 W/ please arrive 15 min prior to schedule appointment time ) Discharge Health Status Multidrug resistant organism: No MDRO Diet/Activity/Treatments Diet: Diet as Tolerated Skin/Wound/Dressing Care Report to your healthcare provider any signs of infection, such as:: chills, fever and increased pain Discharge Data Primary Care Provider: Arvin Bell
--- NOTE | 2022-07-10 09:32 | PM.PN.1 ---
Subjective Subjective Date Patient Seen: 07/10/22 Time Patient Seen: 09:32 Interval history: feels good, no further bloody BMs. Going home today Exam Vital Signs (past 8 hours): - 07/10/22 04:02 07/10/22 04:15 07/10/22 08:19 Temperature 96.6 F L 97.3 F L Pulse Rate 77 77 62 Respiratory Rate 20 18 Blood Pressure 165/67 H 165/67 H 175/62 H Pulse Oximetry 97 99 Oxygen Flow Rate 0 0 Oxygen Delivery Method Room Air Oxygen Flow Rate 0 Narrative Exam Narrative: Mild left sided tenderness to palpation, o/w benign Objective Labs Result Diagrams: 07/10/22 05:54 07/09/22 05:43 Labs: Laboratory Results - last 24 hr 07/10/22 05:54 WBC 7.5 RBC 4.19 Hgb 11.1 L Hct 33.6 L MCV 80.3 MCH 26.4 MCHC 32.9 RDW 14.3 Plt Count 260 Neut % (Auto) 77.8 H Lymph % (Auto) 14.3 L [place] % (Auto) 6.2 Eos % (Auto) 1.2 L Baso % (Auto) 0.5 Neut # (Auto) 5800 Lymph # (Auto) 1100 [place] # (Auto) 500 Eos # (Auto) 100 Baso # (Auto) 0 PFSH Medical History Diabetes Hyperlipidemia Surgical History Hx of cholecystectomy Hx of resection of meningioma Family History Father Diabetes mellitus Heart disease Esophageal cancer Social History marital status: household members: spouse occupational status: previously employed Smoking Status: Never smoker alcohol intake: never substance use type: does not use Assessment & Plan Assessment & Plan narrative: Ischemic colitis Plan: conservative treatment,discharge home Time Spent With Patient Time with patient: less than 30 minutes Critical Care time: I spent a total of [] minutes of critical care time on this patient's care today; this time is exclusive of procedural time.
[2022-07-10] MEDS: AMOXICILLIN/CLAV 875/125 MG 1 TAB PO (10:00)
[2022-07-10] MEDS: ASPIRIN EC 81 MG TABLET PO (10:00)
[2022-07-10] MEDS: AMLODIPINE 5 MG TABLET 2.5 MG PO (10:00)
[2022-07-10] MEDS: lisinopriL 20 MG TABLET PO (10:01)
[2022-07-10] MEDS: PANTOPRAZOLE 40 MG VIAL 20 MG IV (10:02)
[2022-07-10] MEDS: lamoTRIgine 100 MG TABLET 150 MG PO (10:02)
--- NOTE | 2022-07-10 11:28 | PC.NURSE ---
no loose/bloody stool so far this shift. no seizure activity. facial bruising and R hand/knee bruising r/t fall earlier this week. d/c orders reviewed w/ patient and . see d/c assessment.
--- NOTE | 2022-07-10 15:44 | PM.EVENT ---
Event Note Date Patient Seen: 07/10/22 Event Note (Rapid Response, Code, or fall): clarification: anemia is due from acute blood loss associated with ischemic colitis
== END 2022-07-10 11:00 | disposition home or self-care (01) | DRG 394 ==
PROVIDERS: Admitting Provider Family Medicine; PCP Family Medicine; Referring Provider Family Medicine; Visit Provider Family Medicine
DX: K55.039 Acute (reversible) ischemia of large intestine, extent unspecified (principal); D62 Acute posthemorrhagic anemia; I10 Essential (primary) hypertension; E86.0 Dehydration; E11.9 Type 2 diabetes mellitus without complications; E78.5 Hyperlipidemia, unspecified; Z86.69 Personal history of other diseases of the nervous system and sense organs; Z20.822 Contact with and (suspected) exposure to COVID-19; Z79.84 Long term (current) use of oral hypoglycemic drugs
CPT/HCPCS: 36415; 74177; 80053; 82962; 85014; 85018; 85025; 86850; 86900; 86901; 99231; 99232; C9113; J1650; J1815; J2270; J2543; Q9967

== ENCOUNTER → 2022-12-19 16:15 | Outpatient (CLI) | payer MEDICARE, OTHER, SELFPAY ==
--- NOTE | 2022-12-19 16:17 | DI.MG.S_ITS ---
BILATERAL DIGITAL SCREENING MAMMOGRAM 3D/2D WITH CAD: 12/19/2022 CLINICAL: Routine screening. Comparison is made to exams dated: 12/08/2021 mammogram, 08/24/2019 ultrasound, 11/11/2020 mammogram, and 11/02/2020 mammogram - [facility]. Both breasts are heterogeneously dense, which may obscure small masses (category c / 51-75% glandular tissue). Current study was also evaluated with a Computer Aided Detection (CAD) system. There is a stable benign focal asymmetry in the right breast. There also are stable benign calcifications in both breasts. Additionally, there are stable benign vascular calcifications in both breasts. Additionally, there also are biopsy clips in both breasts. No significant masses, calcifications, or other findings are seen in either breast. There has been no significant interval change. IMPRESSION: BENIGN There is no mammographic evidence of malignancy. A 1 year screening mammogram is recommended. Based on the Tyrer Cuzick model (a risk assessment model) the patient's lifetime risk is 7.2% and her 10 year risk is 0.0%. According to the ACR, ACS, and NCCN guidelines, an annual breast MRI exam along with mammogram is recommended if the patient's lifetime risk is 20% or greater. This exam was interpreted at Station ID: [id number]. NOTE: For mammograms, a report in lay terms will be sent to the patient. Approximately 15% of breast malignancies will not be visualized mammographically. In the management of a palpable breast mass, a negative mammogram must not discourage biopsy of a clinically suspicious lesion. Electronically Signed By: Ryann torres/rocio:12/20/2022 09:17:21 letter sent: Normal Exam ACR BI-RADS Category 2: Benign Finding(s) [id number]
== END ==
PROVIDERS: PCP Family Medicine; Referring Provider Family Medicine; Visit Provider Family Medicine
DX: Z12.31 Encounter for screening mammogram for malignant neoplasm of breast (principal)
CPT/HCPCS: 77063; 77067

== ENCOUNTER → 2023-04-24 16:03 | Outpatient (CLI) | payer MEDICARE, OTHER, SELFPAY ==
--- NOTE | 2023-04-24 | DI.MRI.S_ITS ---
PROCEDURE: MR HEAD/BRAIN WO/W CON INDICATIONS: SLEEPWALKING TECHNIQUE: Noncontrast axial T1 spin echo, axial T2 fast spin echo, sagittal and axial FLAIR, coronal T2 fast spin echo, axial gradient echo, axial diffusion and ADC through the brain. After the administration of contrast, axial and coronal and sagittal T1 spin echo with fat saturation through the brain. COMPARISON: [facility], CT, CT HEAD/BRAIN WO CON, 10/05/2019, 9:17. [facility], MR, BRAIN WITH AND WITHOUT CONTRAS, 12/19/2011, 13:18. [facility], MR, BRAIN W&WO CONTRAST, 12/28/2016, 18:10. [facility], MR, MR HEAD/BRAIN WO/W CON, 05/22/2021, 13:30. FINDINGS: Image quality: Excellent. CSF spaces: Basal cisterns are patent. No extra-axial fluid collections. Ventricles are normal in size and shape. Brain: Resection change can again be seen involving the anterior aspects of both frontal lobes, with volume loss and encephalomalacia. No abnormal enhancement can be seen within the region of the resected brain. No midline shift. No intracranial bleeds or masses. No abnormal intracranial enhancement. There is cerebral volume loss for age. There is periventricular white matter chronic small vessel ischemic change. The brainstem appears normal. Diffusion-weighted images demonstrate no acute ischemic insults. Normal intravascular flow voids are present. Skull and face: Anterior craniotomy change can be seen. Calvarial marrow is normal in signal. Orbits appear normal. Sinuses: Sinuses and mastoids appear clear. IMPRESSION: Stable resection changes involving the anterior aspects of both frontal lobes. No abnormal enhancement can be seen within the resection region. Dictated by: Vel Malone M.D. on 04/24/2023 at 15:57 Approved by: Vel Malone M.D. on 04/24/2023 at 16:00
== END ==
PROVIDERS: PCP Family Medicine; Referring Provider Family Medicine; Visit Provider Family Medicine
DX: G40.109 Localization-related (focal) (partial) symptomatic epilepsy and epileptic syndromes with simple partial seizures, not intractable, without status epilepticus (principal); F51.3 Sleepwalking [somnambulism]
CPT/HCPCS: 70553; A9579

== ENCOUNTER 2023-06-15 10:44 | Emergency (ER) | payer MEDICARE, OTHER, SELFPAY ==
[2023-06-15 10:48] VITALS: BP 204/81; PULSE 84; RESP 18; O2SAT 99; BMI 22.4
[2023-06-15 10:53] VITALS: TEMP 36.6
--- NOTE | 2023-06-15 10:56 | DI.RAD.S_ITS ---
PROCEDURE: XR SACRUM COCCYX MIN 2V INDICATIONS: fall TECHNIQUE: 3 views of the sacrum and coccyx acquired. COMPARISON: None. FINDINGS: Bones: No sacroiliac diastasis. There are lumbosacral degenerative changes. No definite pelvic ring disruption. No displaced fracture of the sacrum. Soft tissues: Bowel gas is significant, obscuring the sacrum. IMPRESSION: Limited radiographs without grossly displaced fracture or pelvic ring disruption. If there is high concern for occult injury, consider cross-sectional imaging. Dictated by: Christiano Fermin M.D. on 06/15/2023 at 11:50 Approved by: Christiano Fermin M.D. on 06/15/2023 at 11:52
--- NOTE | 2023-06-15 12:16 | ED_ITS ---
HPI - Fall General Chief Complaint: Fall Stated Complaint: tail bone pain, fall t-2 Time Seen by Provider: 06/15/23 10:51 Source: patient Mode of arrival: Ambulatory History of Present Illness HPI Narrative: 78-year-old female with history of atypical chest pain, hyperlipidemia, SI joint dysfunction presents with worsening discomfort in her tailbone region. she states that she was walking backwards and caught her heel and fell back on her buttocks and now has pain that seems to be worse when she sits or when she attempts to stand up and gradually improves over the course of the day. She denies any numbness, tingling or weakness. No radiation of pain down either leg. She has no trouble controlling bowel or bladder. She does not take blood thinners. She denies any head neck or back problems. She denies any prodromal symptoms contributing to her fall Related Data Home Medications Medication Instructions Recorded Confirmed folic acid 1 mg tablet 1 mg PO DAILY ##0 11/28/12 08/07/22 cholestyramine-aspartame 4 gram 4 g PO BID 07/31/18 08/07/22 oral powder lamotrigine 25 mg tablet 150 mg PO BID 07/31/18 08/07/22 lisinopril 20 mg tablet 20 mg PO BID 07/31/18 08/07/22 metformin 500 mg tablet 500 mg PO BID 07/31/18 08/07/22 omeprazole 40 mg capsule,delayed 40 mg PO DAILY 07/31/18 08/07/22 release simvastatin 20 mg tablet 20 mg PO BEDTIME 07/31/18 08/07/22 calcium carbonate 500 mg calcium 500 mg PO PRN PRN Indigestion 06/01/20 08/07/22 (1,250 mg) tablet Previous Rx's Medication Instructions Recorded aspirin 81 mg tablet,delayed 81 mg PO DAILY #100 tabs 07/10/22 release hydrocodone 5 mg-acetaminophen 325 1 tab PO Q4-6H PRN pain #10 tabs 06/15/23 mg tablet Allergies Allergy/AdvReac Type Severity Reaction Status Date / Time No Known Drug Allergies Allergy Verified 06/15/23 10:48 Review of Systems Review of Systems Narrative: GENERAL: Denies chills, fatigue, malaise, fever, sweats. HEENT: Denies sinus pain, ear pain, sore throat, difficulty swallowing, dizziness. RESPIRATORY: Denies dyspnea, cough, wheezing, hemoptysis, sputum. CARDIOVASCULAR: Denies chest pain, palpitations, orthopnea, edema, GASTROINTESTINAL: Denies nausea, vomiting, abdominal pain, diarrhea, constipation, melena. : Denies dysuria, frequency, incontinence, hematuria, urinary retention. MUSCULOSKELETAL: see HPI SKIN: Denies rash, skin lesions, or other NEUROLOGIC: Denies weakness, headache, numbness, change in speech, confusion, seizures, incoordination. PSYCHIATRIC: No concerning psychosocial issues. 12 point review of systems is negative except for those stated above Patient History Medical History Acute ischemic colitis Diabetes Hyperlipidemia Surgical History Hx of cholecystectomy Hx of resection of meningioma Family History Father Diabetes mellitus Heart disease Esophageal cancer Social History marital status: household members: spouse occupational status: previously employed Smoking Status: Never smoker alcohol intake: never substance use type: does not use Smoking Status: Never smoker alcohol intake frequency: 0-2 drinks per day Substance Use Type: does not use Exam Narrative Exam Narrative: GEN: AOx3 and in mild distress EYES: Pupils are equal, round, and reactive to light and accommodation. Extraoccular muscles are intact bilaterally. There is no subconjunctival hemorrhage or exudate. CHEST: Lungs are clear to auscultation bilaterally and free of wheezes, rales, or rhonchi. Heart rate is regular rhythm, there are no murmurs, clicks, rubs, or gallops. There is no chest wall tenderness. ABD: Abdomen is soft and nontender. There is no guarding or rebound. Bowel sounds are normal in all 4 quadrants. There is no mass or organomegaly. BACK: cut off tender glass but free of any obvious external abnormalities. Patient exam notes decreased range of motion and muscle spasm, but no CVA tenderness, or vertebral point tenderness. There are no symptoms of cauda equina such as saddle anesthesia, and decreased reflexes, decreased sensation or strength. EXT: Full painless ROM of all extremities with no loss of sensation or strength. SKIN: Warm, pink, and dry. No erythema or rash Initial Vital Signs Initial Vital Signs: Vital Signs Pulse Rate 84 06/15/23 10:48 Respiratory Rate 18 06/15/23 10:48 Blood Pressure 204/81 H 06/15/23 10:48 Pulse Oximetry 99 06/15/23 10:48 Oxygen Delivery Method Room Air 06/15/23 10:48 Course Orders Ordered: ED Orders 06/15/23 10:56 XR sacrum coccyx min 2V Stat Discontinued Medications Lidocaine (Lidocaine Patch 1 Each Adh..Patch) 1 each TOP NOW ONE Stop: 06/15/23 12:24 Last Admin: 06/15/23 12:29 Dose: 1 each Vital Signs Vital signs: Vital Signs - 8 hr 06/15/23 10:48 06/15/23 10:53 Temperature 97.8 F Pulse Rate 84 Respiratory Rate 18 Blood Pressure 204/81 H Pulse Oximetry 99 Oxygen Delivery Method Room Air MDM - Fall MDM Narrative Medical decision making narrative: [78] year old patient presents with Right-sided sacral pain Multiple etiologies for patient's symptoms considered including, but not limited to: [ fracture versus contusion versus other] Prior Charts reviewed in our EMR Primary Historian: patient Imaging reviewed: sacral imaging demonstrates no fracture or dislocation history and physical exam are very reassuring, imaging demonstrates no fracture, no signs of cauda equina or spinal cord involvement. Pain is mild and isolated. Patient encouraged to continue with Tylenol and Motrin. She is encouraged to obtain a hemorrhoid pillow and had a Lidoderm patch placed. Patient's symptoms improved over duration of stay with above-stated therapies. Findings and discharge diagnosis discussed with patient/family followed by verbalization of understanding Return precautions discussed with patient/family whom verbalize understanding of diagnosis and plan Discharge Plan Departure Patient Disposition: Home Clinical Impression: Pain in sacrum Instructions: How to Prevent Falls Activity Restrictions/Additional Instructions: *You have been diagnosed with [ Sacral pain. As we discussed your history and physical exam are reassuring and the x-ray shows no evidence of fracture or dislocation] *What to do: *Please continue to take your regular medications as directed. [x ] New medication prescriptions sent to your pharmacy: [ x] [ ] New medication written as a paper prescription [ ] No new medications given *Please follow up with your primary care provider in 2-3 days, call for an appointment. Let them know you were seen in the Emergency Department and that we ask that you be seen in follow up. We will electronically transmit a record of today's note if your PCP is in our system *Return to Emergency Department if you should have any new, worsening or concerning symptoms, such as [fever greater than 101 F, shaking chills, worsening pain, persistent vomiting or other bothersome symptoms] Prescriptions: New hydrocodone-acetaminophen 5-325 mg tablet 1 tab PO Q4-6H PRN (Reason: pain) Qty: 10 0RF No Action folic acid 1 MG tablet 1 mg PO DAILY Qty: 0 calcium carbonate 500 mg calcium (1,250 mg) tablet 500 mg PO PRN PRN (Reason: Indigestion) metformin 500 mg tablet 500 mg PO BID lisinopril 20 mg tablet 20 mg PO BID omeprazole 40 mg capsule,delayed release(DR/EC) 40 mg PO DAILY lamotrigine 25 mg tablet 150 mg PO BID simvastatin 20 mg tablet 20 mg PO BEDTIME cholestyramine-aspartame 4 gram powder 4 g PO BID aspirin 81 mg Tablet,Delayed Release (Dr/Ec) 81 mg PO DAILY Qty: 100 0RF Referrals: Arvin Bell MD [Primary Care Provider] - Stand Alone Forms: Patient Portal/API
[2023-06-15] MEDS: LIDOCAINE PATCH 1 EACH ADH..PATCH TOP (12:29)
== END 2023-06-15 12:41 | disposition home or self-care (01) ==
PROVIDERS: Emergency Provider Emergency Medicine; PCP Family Medicine
DX: M53.3 Sacrococcygeal disorders, not elsewhere classified (principal)
CPT/HCPCS: 72220; 99282; 99283

== ENCOUNTER 2023-08-04 18:01 | Inpatient (IN) | payer MEDICARE, OTHER, SELFPAY ==
[2023-08-04] VITALS (21 sets, daily range): BP systolic 140–188; BP diastolic 63–85; PULSE 54–93; RESP 12–26; TEMP 36.1–36.9; O2SAT 96–100; BMI 22.4
--- NOTE | 2023-08-04 18:09 | DI.RAD.S_ITS ---
PROCEDURE: XR CHEST 1V INDICATIONS: chest pain TECHNIQUE: One view of the chest was acquired. COMPARISON: [facility], CR, XR CHEST 2V, 02/13/2022, 12:01. FINDINGS: Surgical changes and devices: None. Lungs and pleura: Lungs are clear. No pleural effusions or pneumothorax. Mediastinum: Mediastinal contours appear normal. Heart size is normal. Bones and chest wall: No suspicious bony lesions. Overlying soft tissues appear unremarkable. IMPRESSION: Portable chest within normal limits for age. Approved by: Stephon Bravo M.D. on 08/04/2023 at 17:50
[2023-08-04] MEDS: ASPIRIN 81 MG CHEW TAB 243 MG PO (18:14)
[2023-08-04 18:18] LABS: Add Manual Diff / Slide Review NO; Basophils Absolute Auto 100 /uL (0-100); Basophils Percent Auto 0.6 % (0-2); Eosinophils Absolute Auto 100 /uL (0-450); Eosinophils Percent Auto 1.5 % (2-4); Hematocrit 35.1 % (36-46); Hemoglobin 11.7 g/dL (12.0-16.0); Lymphocytes Absolute Auto 2600 /uL (1100-4500); Mean Corpuscular HGB Conc 33.3 % (30-36); Mean Corpuscular Hemoglobin 26.3 PG (26-34); Mean Corpuscular Volume 78.9 fL (80-100); Monocytes Absolute Auto 600 /uL (0-900); Monocytes Percent Auto 6.8 % (3-14); Neutrophils Absolute Auto 5500 /uL (1500-7000); Neutrophils Percent Auto 62.1 % (50-75); Platelet Count 347 X10^3/uL (150-400); Red Blood Cell Count 4.44 X10^6/uL (4.0-5.2); Red Cell Distribution Width 14.2 % (11.6-14.8); White Blood Cell Count 8.9 X10^3/uL (4.5-11.0)
[2023-08-04 18:25] LABS: INR 0.9 (0.9-1.3); Prothrombin Time 10.8 SECONDS (10.1-12.7)
[2023-08-04 18:28] LABS: PTT Partial Thromboplastin Tim 34 SECONDS (26-36)
[2023-08-04 18:35] LABS: Alanine Aminotransferase 13 IU/L (<35); Albumin 4.4 g/dL (3.5-5.0); Albumin Globulin Ratio 1.3 (1.0-2.8); Alkaline Phosphatase 88 U/L (38-126); Aspartate Aminotransferase 17 IU/L (14-36); BUN Creatinine Ratio 34.4 (6-22); Bilirubin Total 0.4 mg/dL (0.2-1.3); Blood Urea Nitrogen 21 mg/dL (7-17); Carbon Dioxide 29 mmol/L (22-32); Chloride 101 mmol/L (98-107); Creatine Kinase 24 U/L (30-135); Estimated Glomerular Filt Rate > 60 mL/min (>60); Globulin 3.3 g/dL (1.7-4.1); Glucose 119 mg/dL (80-110); HEMOLYSIS < 15 (0-50); Lipase 66 U/L (23-300); Magnesium 1.8 mg/dL (1.6-2.3); Potassium 3.6 mmol/L (3.4-5.1); Sodium 139 mmol/L (137-145); Total Protein 7.7 g/dL (6.3-8.2)
[2023-08-04 18:46] LABS: Troponin I < 0.012 ng/mL (0.01-0.034)
[2023-08-04] MEDS: NITROGLYCERIN 0.4 MG SL TAB SL (19:00)
[2023-08-04] MEDS: NITROGLYCERIN OINT 1 INCH/GM OINT...G. TOP (20:06)
[2023-08-04 20:40] LABS: Troponin I < 0.012 ng/mL (0.01-0.034)
--- NOTE | 2023-08-04 20:48 | ED_ITS ---
HPI - Chest Pain General Chief Complaint: Chest Pain Stated Complaint: SOB/shaking/ tight in chest Time Seen by Provider: 08/04/23 18:13 Source: patient Mode of arrival: Ambulatory Limitations: no limitations History of Present Illness HPI narrative: 78-year-old female with cardiac risk factors of hypertension diabetes and elevated cholesterol presenting with substernal chest pressure beginning an hour prior to arrival. Associated symptoms are short of breath and lightheadedness. She does not have nausea or diaphoresis. The patient is still having 6 to 7/10 chest pressure when I see her. She tells me that she recently saw her primary care provider and notes she is been having episodic chest tightness for some time now however not as severe as she is having tonight. She is in the process of being scheduled for an outpatient stress test. The patient does not believe that there is any family history of coronary disease. She is not had fevers she is not had leg swelling she is not had neurologic symptoms there is a history of GI bleeding but no recent hematemesis melena. Related Data Home Medications Medication Instructions Recorded Confirmed folic acid 1 mg tablet 1 mg PO DAILY ##0 11/28/12 08/07/22 cholestyramine-aspartame 4 gram 4 g PO BID 07/31/18 08/07/22 oral powder lamotrigine 25 mg tablet 150 mg PO BID 07/31/18 08/07/22 lisinopril 20 mg tablet 20 mg PO BID 07/31/18 08/07/22 metformin 500 mg tablet 500 mg PO BID 07/31/18 08/07/22 omeprazole 40 mg capsule,delayed 40 mg PO DAILY 07/31/18 08/07/22 release simvastatin 20 mg tablet 20 mg PO BEDTIME 07/31/18 08/07/22 calcium carbonate 500 mg calcium 500 mg PO PRN PRN Indigestion 06/01/20 08/07/22 (1,250 mg) tablet Previous Rx's Medication Instructions Recorded aspirin 81 mg tablet,delayed 81 mg PO DAILY #100 tabs 07/10/22 release hydrocodone 5 mg-acetaminophen 325 1 tab PO Q4-6H PRN pain #10 tabs 06/15/23 mg tablet Allergies Allergy/AdvReac Type Severity Reaction Status Date / Time No Known Drug Allergies Allergy Verified 08/04/23 18:09 Patient History Medical History Acute ischemic colitis Diabetes Hyperlipidemia Surgical History Hx of cholecystectomy Hx of resection of meningioma Family History Father Diabetes mellitus Heart disease Esophageal cancer Social History marital status: household members: spouse occupational status: previously employed Smoking Status: Never smoker alcohol intake: never substance use type: does not use Smoking Status: Never smoker alcohol intake frequency: 0-2 drinks per day Substance Use Type: does not use Exam Initial Vital Signs Initial Vital Signs: Vital Signs Temperature 98.5 F 08/04/23 18:06 Pulse Rate 93 H 08/04/23 18:06 Respiratory Rate 22 08/04/23 18:06 Blood Pressure 152/85 H 08/04/23 18:06 Pulse Oximetry 100 08/04/23 18:06 Oxygen Delivery Method Room Air 08/04/23 18:06 Const Other: Well-appearing no acute distress Resp Effort & Inspection: normal respiratory effort Auscultation: clear to auscultation bilaterally Cardio Rate: regular rate Rhythm: regular rhythm Heart Sounds: S1 normal, S2 normal, no murmurs and no rubs GI Palpation: soft and No tender Skin General: no rashes or lesions noted Neuro General: patient alert, patient awake, patient oriented x3 and moves all extremities Course Course Course Narrative: Patient was given aspirin on arrival. Was given sublingual nitroglycerin and her chest pain resolved. Following this, I applied nitro paste. Discussed plan for admission with the patient who is in agreement. Discussed the case with Dr. Quevedo who accepts the admission following 2nd normal troponin Decision to Admit Date: 08/04/23 Decision to Admit time: 20:56 Orders Ordered: ED Orders 08/04/23 18:09 XR chest 1V Stat EKG-12 Lead Stat 08/04/23 18:10 Complete Blood Count AUTO DIFF Stat Comprehensive Metabolic Panel Stat Lipase Stat Magnesium Stat PTT Partial Thromboplastin Javier Stat Prothrombin Time INR Stat Troponin & CK Cardiac Panel Stat 08/04/23 20:10 Trop I [Troponin I] Stat Nitroglycerin (Nitroglycerin 0.4 Mg Sl Tab) 0.4 mg SL [id number] PRN PRN Reason: Chest Pain Last Admin: 08/04/23 19:00 Dose: 0.4 mg Documented By: TAYLOR Discontinued Medications Aspirin (Aspirin 81 Mg Chew Tab) 243 mg PO NOW ONE Stop: 08/04/23 18:10 Last Admin: 08/04/23 18:14 Dose: 243 mg Documented By: TAYLOR Nitroglycerin (Nitroglycerin Oint 1 Inch/Gm Oint...G.) 1 inch TOP NOW ONE Stop: 08/04/23 19:53 Last Admin: 08/04/23 20:06 Dose: 1 inch Documented By: FERNIE Vital Signs Vital signs: Vital Signs - 8 hr 08/04/23 18:06 08/04/23 18:15 08/04/23 18:30 Temperature 98.5 F Pulse Rate 93 H 80 68 Respiratory Rate 22 18 14 Blood Pressure 152/85 H Pulse Oximetry 100 100 100 Oxygen Delivery Method Room Air 08/04/23 18:32 08/04/23 18:32 08/04/23 19:00 Temperature Pulse Rate 71 64 Respiratory Rate 20 Blood Pressure 183/79 H 188/79 H Pulse Oximetry 100 Oxygen Delivery Method 08/04/23 19:00 08/04/23 19:00 08/04/23 19:02 Temperature Pulse Rate 62 68 Respiratory Rate 13 13 Blood Pressure 188/79 H Pulse Oximetry 99 98 Oxygen Delivery Method 08/04/23 19:02 08/04/23 19:05 08/04/23 19:05 Temperature Pulse Rate 69 Respiratory Rate 13 Blood Pressure 169/77 H 140/66 Pulse Oximetry 97 Oxygen Delivery Method 08/04/23 19:11 08/04/23 19:11 08/04/23 19:15 Temperature Pulse Rate 62 Respiratory Rate 15 Blood Pressure 184/77 H 183/73 H Pulse Oximetry 98 Oxygen Delivery Method 08/04/23 19:15 08/04/23 19:20 08/04/23 19:20 Temperature Pulse Rate 61 56 L Respiratory Rate 13 13 Blood Pressure 161/72 H Pulse Oximetry 98 97 Oxygen Delivery Method 08/04/23 19:25 08/04/23 19:25 08/04/23 19:30 Temperature Pulse Rate 56 L 56 L Respiratory Rate 12 12 Blood Pressure 156/73 H Pulse Oximetry 97 96 Oxygen Delivery Method 08/04/23 19:30 08/04/23 19:35 08/04/23 19:35 Temperature Pulse Rate 62 Respiratory Rate 16 Blood Pressure 161/73 H 149/63 H Pulse Oximetry 96 Oxygen Delivery Method 08/04/23 19:40 08/04/23 19:40 Temperature Pulse Rate 56 L Respiratory Rate 15 Blood Pressure 160/72 H Pulse Oximetry 97 Oxygen Delivery Method MDM - Chest Pain Differential Diagnosis Differential diagnosis: Likely unstable angina pectoris, atypical chest pain, st elevation myocardial infarction and other (Pulmonary embolism, aortic dissection, pneumonia) Condition is:: Improved Lab Data Lab results narrative: Ordered and independently reviewed CBC with diff, CMP, troponin x2 no clinically significant lab abnormalities 08/04/23 18:10 08/04/23 18:10 Labs: Lab Results 08/04/23 08/04/23 Range/Units 18:10 20:10 WBC 8.9 (4.5-11.0) X10^3/uL RBC 4.44 (4.0-5.2) X10^6/uL Hgb 11.7 L (12.0-16.0) g/dL Hct 35.1 L (36-46) % MCV 78.9 L (80-100) fL MCH 26.3 (26-34) PG MCHC 33.3 (30-36) % RDW 14.2 (11.6-14.8) % Plt Count 347 (150-400) X10^3/uL Neut % (Auto) 62.1 (50-75) % Lymph % (Auto) 29.0 (25-40) % [place] % (Auto) 6.8 (3-14) % Eos % (Auto) 1.5 L (2-4) % Baso % (Auto) 0.6 (0-2) % Neut # (Auto) 5500 (8419-6999) /uL Lymph # (Auto) 2600 (3814-6310) /uL [place] # (Auto) 600 (0-900) /uL Eos # (Auto) 100 (0-450) /uL Baso # (Auto) 100 (0-100) /uL PT 10.8 (10.1-12.7) SECONDS INR 0.9 (0.9-1.3) APTT 34 (26-36) SECONDS Sodium 139 (137-145) mmol/L Potassium 3.6 (3.4-5.1) mmol/L Chloride 101 (98-107) mmol/L Carbon Dioxide 29 (22-32) mmol/L BUN 21 H (7-17) mg/dL Creatinine 0.61 (0.52-1.04) mg/dL Estimated GFR > 60 (>60) mL/min BUN/Creatinine Ratio 34.4 H (6-22) Glucose 119 H (80-110) mg/dL Calcium 10.0 (8.4-10.2) mg/dL Magnesium 1.8 (1.6-2.3) mg/dL Total Bilirubin 0.4 (0.2-1.3) mg/dL AST 17 (14-36) IU/L ALT 13 (<35) IU/L Alkaline Phosphatase 88 (38-126) U/L Total Creatine Kinase 24 L (30-135) U/L Troponin I < 0.012 < 0.012 (0.01-0.034) ng/mL Total Protein 7.7 (6.3-8.2) g/dL Albumin 4.4 (3.5-5.0) g/dL Globulin 3.3 (1.7-4.1) g/dL Albumin/Globulin Ratio 1.3 (1.0-2.8) Lipase 66 (23-300) U/L Imaging Data Chest x-ray: My Impression: Ordered and independently reviewed, no acute disease appreciated ECG Data Interpretation: Ordered and independently reviewed EKG normal sinus rhythm at 70, normal interval normal axis no acute ST segment changes or [place] MDM Narrative Medical decision making narrative: 78-year-old female with multiple cardiac risk factors presenting with chest pain that is suspicious for ischemic although has no objective findings at present. Pain did resolve with nitroglycerin. Given her multiple risk factors and advanced age she will be admitted for inpatient workup Discharge Plan Departure Patient Disposition: Admitted As Inpatient Clinical Impression: Chest pain Qualifiers: Chest pain type: unspecified Qualified Code(s): R07.9 - Chest pain, unspecified Admit Date/Time: 08/04/23 20:47 Admit Provider: Nakia Robertson
--- NOTE | 2023-08-04 21:56 | DI.ECHO.S_ITS ---
[facility] +---------+ : : [address] : : : : [id number] : : : : Phone: [phone]+ Echocardiogram Report + + :Name: RADHA NEVES Study Date: 08/05/2023 Height: 65 in : :[facility] ReadingLocation: Weight: 135 lb : : Gender: Female BSA: 1.7 m2 : :: 1945 Age: 78 yrs BP: 140/57 mmHg: :Reason For Study: CHEST PAIN : :Ordering Physician: RAF, : :MAX Performed By: Kristal Mckeon : :Referring: MAX CARBONE : + + Interpretation Summary The left ventricle is normal in size and wall thickness. The ejection fraction is estimated to be 65-70%. The mitral valve leaflets are mildly calcified. There is mild mitral regurgitation. There is mild aortic regurgitation. Procedure: A two-dimensional transthoracic echocardiogram with color flow and Doppler was performed. The study quality was technically adequate. There is no prior echocardiogram noted for this patient. The patient was in 59-73 during the exam. Left Ventricle: The left ventricle is normal in size and wall thickness. The ejection fraction is estimated to be 65-70%. There are no focal wall motion abnormalities. Right Ventricle: The right ventricle is normal in size and function. Atria: The left atrial size is normal. Right atrial size is normal. There is no Doppler evidence for an interatrial shunt. Mitral Valve: The mitral valve leaflets are mildly calcified. There is mild mitral regurgitation. Aortic Valve: The aortic valve is not well visualized. There is no aortic valve stenosis. There is mild aortic regurgitation. Tricuspid Valve: The tricuspid valve is normal in structure and function. There is trace tricuspid regurgitation. Pulmonic Valve: The pulmonic valve is not well seen, but is grossly normal. There is trace pulmonic regurgitation. Great Vessels: The aortic root is normal size. The dimensions of the ascending aorta are normal. The IVC is of normal diameter and collapses greater than 50% with a sniff. This suggests a low right atrial pressure of 3 mm Hg. Pericardium/ Pleura There is no pericardial effusion. There is no pleural effusion. MMode/2D Measurements & Calculations LVIDd: 4.9 cm LVOT diam: 2.0 cm LVIDs: 2.9 cm Ao root diam: 3.1 cm FS: 41.5 % Ao Arch Diam (Prox Trans): 2.8 cm EPSS: 0.47 cm IVSd: 0.68 cm LVPWd: 0.80 cm LV starks. diameter/BSA (cm/m^2): 2.9 LV sys. diameter/BSA (cm/m^2): 1.7 LA A2 area: 13.6 cm2 RA long axis: 4.0 cm LA A4 area: 16.0 cm2 RA area: 13.1 cm2 LA length (vol): 4.8 cm RA vol: 36.7 ml LA vol: 38.3 ml RA : 21.9 ml/m2 LA vol index: 22.9 ml/m2 IVC diam: 1.4 cm RVD1 (basal): 3.2 cm TAPSE: 2.3 cm Doppler Measurements & Calculations Ao V2 max: 124.1 cm/sec LVOT Max Rusty: 111.6 cm/sec Ao V2 mean: 92.2 cm/sec LV V1 max P.0 mmHg Ao max P.2 mmHg LV V1 VTI: 28.6 cm Ao mean P.7 mmHg JEFF(I,D): 2.9 cm2 Ao V2 VTI: 31.9 cm JEFF(V,D): 2.9 cm2 sev ratio: 0.89 JEFF indexed to BSA (cm^2/m^2): 1.7 MV E max rusty: 54.9 cm/sec PA V2 max: 81.2 cm/sec MV A max rusty: 71.9 cm/sec PA V2 mean: 63.7 cm/sec MV E/A: 0.76 PA mean P.7 mmHg Med Peak E' Rusty: 7.7 cm/sec PA pr(Accel): 44.7 mmHg E/E' med: 7.2 Lat Peak E' Rusty: 7.8 cm/sec E/E' lat: 7.0 E/e' average: 7.1 MV dec time: 0.27 sec MVA(VTI): 3.7 cm2 MV V2 mean: 48.9 cm/sec SV(LVOT): 91.4 ml MV mean P.1 mmHg MV V2 VTI: 24.6 cm Electronically signed by: Florencia Watson on Reading Physician:08/05/2023 08:26 AM
[2023-08-04 22:49] LABS: BUN Creatinine Ratio 34.5 (6-22); Blood Urea Nitrogen 19 mg/dL (7-17); Calcium 9.4 mg/dL (8.4-10.2); Carbon Dioxide 30 mmol/L (22-32); Chloride 103 mmol/L (98-107); Estimated Glomerular Filt Rate > 60 mL/min (>60); Glucose 107 mg/dL (80-110); HEMOLYSIS < 15 (0-50); Potassium 3.5 mmol/L (3.4-5.1); Sodium 141 mmol/L (137-145)
[2023-08-04 23:11] LABS: Troponin I < 0.012 ng/mL (0.01-0.034)
[2023-08-04] MEDS: lamoTRIgine 100 MG TABLET 200 MG PO (23:36)
[2023-08-04] MEDS: ATORVASTATIN 20 MG TABLET PO (23:37)
[2023-08-05 01:12] VITALS: BP 140/57; PULSE 66; RESP 16; TEMP 36.2; O2SAT 97
[2023-08-05 05:04] VITALS: BP 137/61; PULSE 69; RESP 16; TEMP 36.2; O2SAT 98
[2023-08-05 05:58] LABS: Add Manual Diff / Slide Review NO; Basophils Absolute Auto 0 /uL (0-100); Basophils Percent Auto 0.5 % (0-2); Eosinophils Absolute Auto 100 /uL (0-450); Eosinophils Percent Auto 2.1 % (2-4); Hematocrit 33.2 % (36-46); Hemoglobin 11.2 g/dL (12.0-16.0); Lymphocytes Absolute Auto 1900 /uL (1100-4500); Mean Corpuscular HGB Conc 33.6 % (30-36); Mean Corpuscular Hemoglobin 26.7 PG (26-34); Mean Corpuscular Volume 79.4 fL (80-100); Monocytes Absolute Auto 400 /uL (0-900); Monocytes Percent Auto 7.3 % (3-14); Neutrophils Absolute Auto 3600 /uL (1500-7000); Neutrophils Percent Auto 59.1 % (50-75); Platelet Count 297 X10^3/uL (150-400); Red Blood Cell Count 4.18 X10^6/uL (4.0-5.2); Red Cell Distribution Width 14.5 % (11.6-14.8); White Blood Cell Count 6.1 X10^3/uL (4.5-11.0)
[2023-08-05 06:00] LABS: Magnesium 1.8 mg/dL (1.6-2.3)
[2023-08-05 06:03] LABS: Alanine Aminotransferase 11 IU/L (<35); Albumin 3.6 g/dL (3.5-5.0); Albumin Globulin Ratio 1.2 (1.0-2.8); Alkaline Phosphatase 68 U/L (38-126); Aspartate Aminotransferase 16 IU/L (14-36); BUN Creatinine Ratio 28.8 (6-22); Bilirubin Total 0.5 mg/dL (0.2-1.3); Blood Urea Nitrogen 17 mg/dL (7-17); Calcium 9.2 mg/dL (8.4-10.2); Carbon Dioxide 32 mmol/L (22-32); Chloride 102 mmol/L (98-107); Estimated Glomerular Filt Rate > 60 mL/min (>60); Glucose 100 mg/dL (80-110); HEMOLYSIS < 15 (0-50); Potassium 3.3 mmol/L (3.4-5.1); Sodium 139 mmol/L (137-145); Total Protein 6.6 g/dL (6.3-8.2)
[2023-08-05 06:13] LABS: Troponin I < 0.012 ng/mL (0.01-0.034)
[2023-08-05] MEDS: PANTOPRAZOLE DR 40 MG TABLET PO (06:48)
[2023-08-05 08:00] VITALS: BP 90/68; PULSE 66; RESP 16; TEMP 36.4; O2SAT 99
--- NOTE | 2023-08-05 08:39 | P.HP_ITS ---
History of Present Illness History of Present Illness Date Patient Seen: 08/05/23 Time Patient Seen: 08:39 Date of Onset of Symptoms: 08/04/23 Chief complaint: SOB/shaking/ tight in chest Narrative: Patient 78-year-old female well known to me who presents with substernal chest pain. Patient has been seen earlier by me in clinic and had been having low- grade substernal chest pain. Had treadmill scheduled. She had no real change up until yesterday when the light chest pain she had been having got significantly worse. She was having 5 to 6/10 substernal chest pain nothing really made it worse nothing really made it better. No radiation to her shoulder but maybe to her jaw. Lasted until she got into the emergency room. Patient had no other significant new change. She is had no fevers chills cough she is had no abdominal pain. No increase in heartburn. Or change. He is never had a lot of it recently. She is had no dyspnea on exertion or orthopnea no PND. [facility] Medical History Acute ischemic colitis Diabetes Hyperlipidemia Surgical History Hx of resection of meningioma Hx of cholecystectomy Family History Father Diabetes mellitus Heart disease Esophageal cancer Social History marital status: household members: spouse occupational status: previously employed Smoking Status: Never smoker alcohol intake: never substance use type: does not use Meds Home Medications and Allergies Home Medications Medication Instructions Recorded Confirmed Type folic acid 1 mg tablet 1 mg PO DAILY ##0 11/28/12 08/04/23 History cholestyramine-aspartame 4 gram 4 g PO BID 07/31/18 08/04/23 History oral powder lamotrigine 25 mg tablet 150 mg PO BID 07/31/18 08/04/23 History lisinopril 20 mg tablet 20 mg PO BID 07/31/18 08/04/23 History metformin 500 mg tablet 500 mg PO BID 07/31/18 08/04/23 History omeprazole 40 mg capsule,delayed 40 mg PO DAILY 11/08/18 11/12/23 History release simvastatin 20 mg tablet 20 mg PO BEDTIME 07/31/18 08/04/23 History aspirin 81 mg tablet,delayed 81 mg PO DAILY #100 tabs 07/10/22 08/04/23 Rx release Allergies Allergy/AdvReac Type Severity Reaction Status Date / Time No Known Drug Allergies Allergy Verified 08/04/23 18:09 Review of Systems Review of Systems Narrative: All negative except above Exam Vital Signs (past 8 hours): - 08/05/23 01:12 08/05/23 05:04 08/05/23 08:00 Temperature 97.2 F L 97.1 F L 97.5 F L Pulse Rate 66 69 66 Respiratory Rate 16 16 16 Blood Pressure 140/57 L 137/61 90/68 Pulse Oximetry 97 98 99 Oxygen Flow Rate 0 0 0 Oxygen Delivery Method Room Air Oxygen Flow Rate 0 Narrative Exam Narrative: Alert elderly female lying in bed in no acute distress HEENT exam unremarkable mucous membranes moist neck supple without adenopathy JVD or bruits. Lungs are clear. Heart is regular rate and rhythm without murmurs clicks rubs or gallops. Abdomen is soft positive bowel sounds. Extremities without edema. Neurologic exam is nonfocal psychologically bright and alert Objective Labs 08/05/23 05:25 08/05/23 05:25 Labs: Laboratory Results - last 24 hr 08/04/23 08/04/23 08/04/23 18:10 20:10 22:25 WBC 8.9 RBC 4.44 Hgb 11.7 L Hct 35.1 L MCV 78.9 L MCH 26.3 MCHC 33.3 RDW 14.2 Plt Count 347 Neut % (Auto) 62.1 Lymph % (Auto) 29.0 [place] % (Auto) 6.8 Eos % (Auto) 1.5 L Baso % (Auto) 0.6 Neut # (Auto) 5500 Lymph # (Auto) 2600 [place] # (Auto) 600 Eos # (Auto) 100 Baso # (Auto) 100 PT 10.8 INR 0.9 APTT 34 Sodium 139 141 Potassium 3.6 3.5 Chloride 101 103 Carbon Dioxide 29 30 BUN 21 H 19 H Creatinine 0.61 0.55 Estimated GFR > 60 > 60 BUN/Creatinine Ratio 34.4 H 34.5 H Glucose 119 H 107 Calcium 10.0 9.4 Magnesium 1.8 Total Bilirubin 0.4 AST 17 ALT 13 Alkaline Phosphatase 88 Total Creatine Kinase 24 L Troponin I < 0.012 < 0.012 < 0.012 Total Protein 7.7 Albumin 4.4 Globulin 3.3 Albumin/Globulin Ratio 1.3 Lipase 66 08/05/23 05:25 WBC 6.1 RBC 4.18 Hgb 11.2 L Hct 33.2 L MCV 79.4 L MCH 26.7 MCHC 33.6 RDW 14.5 Plt Count 297 Neut % (Auto) 59.1 Lymph % (Auto) 31.0 [place] % (Auto) 7.3 Eos % (Auto) 2.1 Baso % (Auto) 0.5 Neut # (Auto) 3600 Lymph # (Auto) 1900 [place] # (Auto) 400 Eos # (Auto) 100 Baso # (Auto) 0 PT INR APTT Sodium 139 Potassium 3.3 L Chloride 102 Carbon Dioxide 32 BUN 17 Creatinine 0.59 Estimated GFR > 60 BUN/Creatinine Ratio 28.8 H Glucose 100 Calcium 9.2 Magnesium 1.8 Total Bilirubin 0.5 AST 16 ALT 11 Alkaline Phosphatase 68 Total Creatine Kinase Troponin I < 0.012 Total Protein 6.6 Albumin 3.6 Globulin 3.0 Albumin/Globulin Ratio 1.2 Lipase Assessment & Plan Assessment & Plan narrative: Chest pain. Substernal. Very concerning by history of possible coronary artery disease. High risk due to her diabetes and hypertension. EKG and troponin are negative. Certainly did not have MO. echo has been done. Treadmill is pending for today. Can not go home until we have evaluation for ischemic disease. High-risk for certainly concerning outcome to go home prior to that. Discussed with the patient and . They understand. Questions answered will re- evaluate later today. Hypertension. Interesting her pressure is pretty low this morning. Has been feeling a little dizzy. Will have to follow. Had been pretty elevated last night. Will hold medication today and see how things go. Type 2 diabetes. Stable. Hold metformin this morning and then will restart later today. Continue usual meds. No change. Seizure disorder. Overall stable. Doing well. Will follow. Code status DNR. DVT prophylaxis on Lovenox. Disposition. All be determined by treadmill later today and follow-up of echo. I will follow-up after that. No other change. Patient understands understands questions answered. 1 hours spent with the patient checking out reviewing chart orders dictation
[2023-08-05] MEDS: ASPIRIN 81 MG CHEW TAB PO (08:51)
[2023-08-05] MEDS: FOLIC ACID 1 MG TABLET PO (08:51)
[2023-08-05] MEDS: lamoTRIgine 100 MG TABLET PO (08:52)
[2023-08-05 12:00] VITALS: BP 150/56; PULSE 64; RESP 16; TEMP 36.5; O2SAT 100
[2023-08-05] MEDS: POTASSIUM CHLORIDE 20 MEQ TAB 40 MEQ PO ×2 (12:36→16:53)
--- NOTE | 2023-08-05 15:29 | CM.DANOTE ---
Patient is an 78 yo female who was admitted on 08/04/23 for Chest Pain r/o. Pt has [facility] and [facility] for insurance and her PCP is Dr. Arvin Bell. EMR was reviewed. Per MD, pt to have Echo and treadmill stress test and if results normal then plan of d/c home tonight. SW met bedside briefly with pt and spouse and explained role before pt taken off the floor for treadmill test. 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 Pt does not typically use DME for ambulation and denies any recent hx of HH or SNF. Pt still drives and spouse can assist as needed at discharge. Pt and spouse do not anticipate any d/c needs at this time. Pt's last admission was in Jun 2022 last year and was able to d/c home with spouse. Plan: SW to follow for Echo and Stress Test results to confirm safe d/c home this evening via spouse POV and any further identified discharge planning needs. DEVIN Dillon Discharge Planning/Care Management CM Discharge Assessment Start: 08/05/23 15:14 Freq: Status: Active Protocol: Document 08/05/23 15:28 BF (Rec: 08/05/23 15:29 BF [id number]) Discharge Planning Assessment Assigned Dry Clipper Tender DEVIN Marquez DPOA/Assigned Designee Name spouse Rip Contact Information [phone] Advance Directives? Yes: and POLST in scans Advance Directives on File Yes History Provided By Patient,Medical Record Has Patient been admitted in last 30 No days? Prior Living Arrangements House Household Members spouse Type of transporation used prior to Drives own vehicle admit Independent with ADL's Yes Is patient alert and oriented? Yes Caregiver for Another No Barriers to Discharge No Discharge Plan Home Transportation Arrangement Spouse to provide transport. Referrals Initiated None needed Whiteboard Updated in Patient Room with Yes name and ext. # of Dry Clipper Tender Review Status In Process Please Provide Date Initial DC 08/05/23 Assessment Was Performed Next Review Type Continued Stay Review
[2023-08-05 16:00] VITALS: BP 157/55; PULSE 78; RESP 18; TEMP 36.6; O2SAT 100
--- NOTE | 2023-08-05 18:06 | PM.DS.1 ---
History of Present Illness History of Present Illness Date Patient Seen: 08/05/23 Time Patient Seen: 18:07 Date of Onset of Symptoms: 08/04/23 Chief complaint: SOB/shaking/ tight in chest Narrative: Patient 78-year-old female well known to me who presents with substernal chest pain. Patient has been seen earlier by me in clinic and had been having low-grade substernal chest pain. Had treadmill scheduled. She had no real change up until yesterday when the light chest pain she had been having got significantly worse. She was having 5 to 6/10 substernal chest pain nothing really made it worse nothing really made it better. No radiation to her shoulder but maybe to her jaw. Lasted until she got into the emergency room. Patient had no other significant new change. She is had no fevers chills cough she is had no abdominal pain. No increase in heartburn. Or change. He is never had a lot of it recently. She is had no dyspnea on exertion or orthopnea no PND. Discharge Providers Provider Date of admission: 08/04/23 20:47 Discharge Date: 08/05/23 Primary care physician: Arvin Bell MD Discharge provider: Arvin Bell MD Summary Hospital Course Discharge Diagnosis: Noncardiac chest pain Hypokalemia Hypertension Type 2 diabetes Seizure disorder Hospital Course: Chest pain. Patient was admitted with negative troponins no significant EKG change. She did have 1 nitro given to her and that much improve her chest pain. She had an echo today which showed normal function with no significant findings and a thallium treadmill which showed no evidence of significant concern. Patient has been asymptomatic since she is been here. Question whether this is GI. We are going to increase her omeprazole to twice a day for the next month or so and see how that works. Otherwise she will follow-up with me in 2 weeks. Hypokalemia. Patient was given 2 doses of potassium and we will recheck in 2 weeks Hypertension blood pressure was not well controlled it was low in the morning and it was high in the afternoon. She had been started on extra Norvasc. Patient has not required this as an outpatient. In wonder whether or not stress has been related but we are going to hold her Norvasc and we are going to continue her usual meds. She will check her blood pressure daily and then I will see her in 2 weeks and we will decide whether we need further treatment.' Seizure disorder no issues at this time continue continue medicine Exam Vital Signs (past 8 hours): - 08/05/23 12:00 08/05/23 16:00 Temperature 97.7 F 98 F Pulse Rate 64 78 Respiratory Rate 16 18 Blood Pressure 150/56 H 157/55 H Pulse Oximetry 100 100 Oxygen Flow Rate 0 0 Oxygen Delivery Method Room Air Oxygen Flow Rate 0 Narrative Exam Narrative: Alert female no acute distress Lungs are clear. Heart is regular rate and rhythm Objective Labs 08/05/23 05:25 08/05/23 05:25 Labs: Laboratory Results - last 24 hr 08/04/23 08/04/23 08/04/23 18:10 20:10 22:25 WBC 8.9 RBC 4.44 Hgb 11.7 L Hct 35.1 L MCV 78.9 L MCH 26.3 MCHC 33.3 RDW 14.2 Plt Count 347 Neut % (Auto) 62.1 Lymph % (Auto) 29.0 [place] % (Auto) 6.8 Eos % (Auto) 1.5 L Baso % (Auto) 0.6 Neut # (Auto) 5500 Lymph # (Auto) 2600 [place] # (Auto) 600 Eos # (Auto) 100 Baso # (Auto) 100 PT 10.8 INR 0.9 APTT 34 Sodium 139 141 Potassium 3.6 3.5 Chloride 101 103 Carbon Dioxide 29 30 BUN 21 H 19 H Creatinine 0.61 0.55 Estimated GFR > 60 > 60 BUN/Creatinine Ratio 34.4 H 34.5 H Glucose 119 H 107 Calcium 10.0 9.4 Magnesium 1.8 Total Bilirubin 0.4 AST 17 ALT 13 Alkaline Phosphatase 88 Total Creatine Kinase 24 L Troponin I < 0.012 < 0.012 < 0.012 Total Protein 7.7 Albumin 4.4 Globulin 3.3 Albumin/Globulin Ratio 1.3 Lipase 66 08/05/23 05:25 WBC 6.1 RBC 4.18 Hgb 11.2 L Hct 33.2 L MCV 79.4 L MCH 26.7 MCHC 33.6 RDW 14.5 Plt Count 297 Neut % (Auto) 59.1 Lymph % (Auto) 31.0 [place] % (Auto) 7.3 Eos % (Auto) 2.1 Baso % (Auto) 0.5 Neut # (Auto) 3600 Lymph # (Auto) 1900 [place] # (Auto) 400 Eos # (Auto) 100 Baso # (Auto) 0 PT INR APTT Sodium 139 Potassium 3.3 L Chloride 102 Carbon Dioxide 32 BUN 17 Creatinine 0.59 Estimated GFR > 60 BUN/Creatinine Ratio 28.8 H Glucose 100 Calcium 9.2 Magnesium 1.8 Total Bilirubin 0.5 AST 16 ALT 11 Alkaline Phosphatase 68 Total Creatine Kinase Troponin I < 0.012 Total Protein 6.6 Albumin 3.6 Globulin 3.0 Albumin/Globulin Ratio 1.2 Lipase PFSH Medical History Acute ischemic colitis Diabetes Hyperlipidemia Surgical History Hx of resection of meningioma Hx of cholecystectomy Family History Father Diabetes mellitus Heart disease Esophageal cancer Social History marital status: household members: spouse occupational status: previously employed Smoking Status: Never smoker alcohol intake: never substance use type: does not use Discharge Plan Discharge Plan Patient Disposition: Home Discharge orders & Medications Prescriptions: Continued folic acid 1 MG tablet 1 mg PO DAILY Qty: 0 metformin 500 mg tablet 500 mg PO BID lisinopril 20 mg tablet 20 mg PO BID omeprazole 40 mg capsule,delayed release(DR/EC) 40 mg PO DAILY lamotrigine 25 mg tablet 150 mg PO BID simvastatin 20 mg tablet 20 mg PO BEDTIME cholestyramine-aspartame 4 gram powder 4 g PO BID aspirin 81 mg Tablet,Delayed Release (Dr/Ec) 81 mg PO DAILY Qty: 100 0RF Follow up/Referrals: Arvin Bell MD [Primary Care Provider] - 2 Weeks (Call tomorrow for appointment) Discharge Health Status Multidrug resistant organism: No MDRO Diet/Activity/Treatments Diet: Diet as Tolerated Activity: As tolerated Skin/Wound/Dressing Care Report to your healthcare provider any signs of infection, such as:: increased pain Visit Report/Discharge Packet Stand Alone Forms: Patient Portal/API, Stroke Signs & Symptoms Discharge Data Primary Care Provider: Arvin Bell
--- NOTE | 2023-08-05 21:59 | DI.NM.S_ITS ---
PROCEDURE: NM NICOLE PERF SPECT REST & STR Rest and exercise myocardial perfusion SPECT with gated imaging and ejection fraction RADIOPHARMACEUTICAL: 11 mCi Tc-99m sestamibi IV at rest and 25.5 mCi Tc-99m sestamibi IV at peak exercise. A [id number] was performed. INDICATIONS: Substernal chest fowler TECHNIQUE: Radiopharmaceutical was injected at peak stress test, and also at rest. SPECT images were obtained. SPECT myocardial perfusion images were displayed in short axis, horizontal long axis, and vertical long axis views. Gated images were reviewed using [employer] software. COMPARISON: None. CARDIAC STRESS: A standard Dioni treadmill exercise tolerance test was performed by the patient under the supervision of an attending staff. The patient exercised for 3 minutes and 0 seconds; 5.5 METS; functional aerobic impairment (AVRIL) is +35%. Hemodynamic data: There is normal blood pressure but accelerated heart rate response to exercise stress. Patient achieved 89% of maximum predicted heart rate at peak exercise. Maximum blood pressure 172/82. Symptoms: Patient complained of an ache in the chest at the end of exercise. EKG: No diagnostic EKG changes of ischemia; no ectopy. FINDINGS: Raw data: There is good myocardial labeling by radiotracer. No significant motion artifacts. Rrxy-es-obeib ratio is 0.22 (normal is less than 0.38 for sestamibi tracer, and less than 0.50 for thallium tracer). Left ventricle function: Gated images demonstrate normal left ventricle wall thickening. No segmental wall motion abnormality. No transient ischemic dilation; TID is 1.03 (normal less than 1.3). The left ventricle resting end-diastolic volume is 72 mL. Left ventricle stress ejection fraction is > 75%; normal values are above 45%. Myocardial perfusion: There is normal distribution of activity in the left and right ventricular myocardium. No fixed or reversible perfusion defects. IMPRESSION: Low risk study for ischemia. No evidence of exercise-induced ischemia on ECG or SPECT imaging. Accelerated heart rate response with reduced exercise capacity. Hyperdynamic LV function. Dictated by: Peg Marroquin D.O. on 08/05/2023 at 17:44 Approved by: Peg Marroquin D.O. on 08/05/2023 at 17:48
== END 2023-08-05 18:45 | disposition home or self-care (01) | DRG 313 ==
LOC: ED 19:54 → AC 08-05 08:46
PROVIDERS: Admitting Provider Family Medicine; Emergency Provider Emergency Medicine; PCP Family Medicine; Referring Provider Emergency Medicine; Visit Provider Family Medicine
DX: R07.89 Other chest pain (principal); I10 Essential (primary) hypertension; E11.9 Type 2 diabetes mellitus without complications; E87.6 Hypokalemia; E78.5 Hyperlipidemia, unspecified; R42 Dizziness and giddiness; R06.02 Shortness of breath; Z79.84 Long term (current) use of oral hypoglycemic drugs; Z66 Do not resuscitate
CPT/HCPCS: 36415; 71045; 78452; 80048; 80053; 82550; 82962; 83690; 83735; 84484; 85025; 85610; 85730; 93005; 93010; 93017; 93306; 99284; A9502

== ENCOUNTER → 2023-11-26 07:25 | Outpatient (CLI) | payer MEDICARE, OTHER, SELFPAY ==
[2023-08-04 21:36] VITALS: BMI 22.4
[2023-11-26 09:09] LABS: BUN Creatinine Ratio 36.1 (6-22); Blood Urea Nitrogen 22 mg/dL (7-17); Calcium 9.7 mg/dL (8.4-10.2); Carbon Dioxide 33 mmol/L (22-32); Chloride 103 mmol/L (98-107); Estimated Glomerular Filt Rate > 60 mL/min (>60); Glucose 96 mg/dL (80-110); HEMOLYSIS < 15 (0-50); Potassium 4.1 mmol/L (3.4-5.1); Sodium 139 mmol/L (137-145)
== END ==
PROVIDERS: Family Provider Family Medicine; PCP Family Medicine; Referring Provider Family Medicine; Visit Provider Family Medicine
DX: I10 Essential (primary) hypertension (principal)
CPT/HCPCS: 36415; 80048

== ENCOUNTER → 2023-12-25 13:25 | Outpatient (CLI) | payer MEDICARE, OTHER, SELFPAY ==
[2023-08-04 21:36] VITALS: BMI 22.4
[2023-12-25 14:35] LABS: Hemoglobin A1C% w Est Avg Glu 5.8 % (4.0-6.0)
== END ==
PROVIDERS: Family Provider Family Medicine; PCP Family Medicine; Referring Provider Family Medicine; Visit Provider Family Medicine
DX: E11.9 Type 2 diabetes mellitus without complications (principal)
CPT/HCPCS: 36415; 83036

== ENCOUNTER → 2024-01-08 09:54 | Outpatient (CLI) | payer MEDICARE, OTHER, SELFPAY ==
[2023-08-04 21:36] VITALS: BMI 22.4
--- NOTE | 2024-01-08 09:56 | DI.MG.S_ITS ---
BILATERAL DIGITAL SCREENING MAMMOGRAM 3D/2D WITH CAD: 01/08/2024 CLINICAL: Routine screening. Comparison is made to exams dated: 12/19/2022 mammogram, 12/08/2021 mammogram, 11/11/2020 mammogram, and 04/28/2020 mammogram - [facility]. Both breasts are heterogeneously dense, which may obscure small masses (category c / 51-75% glandular tissue). Current study was also evaluated with a Computer Aided Detection (CAD) system. There are benign calcifications in both breasts. There also are benign vascular calcifications in both breasts. Additionally, there are biopsy clips in both breasts. No significant masses, calcifications, or other findings are seen in either breast. There has been no significant interval change. IMPRESSION: BENIGN There is no mammographic evidence of malignancy. A 1 year screening mammogram is recommended. Based on the Tyrer Cuzick model (a risk assessment model) the patient's lifetime risk is 6.1% and her 10 year risk is 0.0%. According to the ACR, ACS, and NCCN guidelines, an annual breast MRI exam along with mammogram is recommended if the patient's lifetime risk is 20% or greater. This exam was interpreted at Station ID: [id number]. NOTE: For mammograms, a report in lay terms will be sent to the patient. Approximately 15% of breast malignancies will not be visualized mammographically. In the management of a palpable breast mass, a negative mammogram must not discourage biopsy of a clinically suspicious lesion. Electronically Signed By: Bassem faulkner/rocio:01/08/2024 16:15:26 letter sent: Normal Exam ACR BI-RADS Category 2: Benign Finding(s) [id number]
== END ==
LOC: MAMMO 09:55
PROVIDERS: PCP Family Medicine; Referring Provider Family Medicine; Visit Provider Family Medicine
DX: Z12.31 Encounter for screening mammogram for malignant neoplasm of breast (principal); R92.333 Mammographic heterogeneous density, bilateral breasts
CPT/HCPCS: 77063; 77067

== ENCOUNTER 2024-01-16 13:00 | Outpatient (RCR) | payer MEDICARE, OTHER, SELFPAY ==
[2023-08-04 21:36] VITALS: BMI 22.4
[2023-10-14 10:32] VITALS: BP 174/83; PULSE 88; O2SAT 99
--- NOTE | 2023-10-14 16:00 | PT.OIE ---
Current Diagnoses Other chronic pain (10/14/23) Low back pain, unspecified (10/14/23) Repeated falls (10/14/23) Past Medical History (Last Reviewed 08/05/23 @ 08:42 by Arvin Bell MD) Acute ischemic colitis Diabetes Hyperlipidemia Past Surgical History (Last Reviewed 08/05/23 @ 08:42 by Arvin Bell MD) Hx of cholecystectomy Hx of resection of meningioma Visit Care Team Role Provider Type Arvin Bell MD Attending Provider Physician Family Provider Primary Care Provider Referring Provider Specialty: [facility] Address: [address] [place] [address], [facility] Email: [email or web address] Physical Therapy Initial Evaluation PT-OP-A Visit Information Start: 10/14/23 10:32 Freq: Status: Active Protocol: Document 10/14/23 10:32 NM (Rec: 10/14/23 11:42 NM [id number]) Out-Patient Physical Therapy Visit Information Visit Information Visit Type Initial Evaluation Visit Note KX after 19 visits Visit Start Time 10:30 Visit Stop Time 11:15 Total Visit Minutes 45 Visit Number 1 Evaluation Information Evaluation Date 10/14/23 Precautions Precautions Fall risk Blood pressure- take vitals every time; allow acclimation to change of position Hx of seizures PT-OP-B Current Condition Start: 10/14/23 10:32 Freq: Status: Active Protocol: Document 10/14/23 10:32 NM (Rec: 10/14/23 11:42 NM [id number]) Current Condition History of Current Condition Onset Date during 2022 Current Complaints falls, loss of balance History of Current Condition Pt presents to Pt with hx of falls, reporting 5 in 2022. She reports that she usually trips over her feet and thinks her shoes may contribute because they're a size too large. During a previous fall, she has hit her head but was not otherwise injured. She has had falls from seated positions and standing positions. In May, she slipped and fell on her coccyx, bruising it. She went to the ED, where they did an x-ray showing no fracture. She had pain in her low back and coccyx for about 3 weeks after the fall, but does not have any pain currently. When she falls, she is unable to get up off of floor without the use of her hands or assistance. She does not use an AD during gait. She also reports instances of lightheadedness, vertigo usually with leaning over. PMH of meningioma, grand mal seizures, chest pressure without heart attack or other heart hx, diverticulitis. Prior Treatments and Tests previous PT for unknown reason but reports stopping due to feeling better Treatment Goals Patient/Caregiver Goals decrease falls Prior Functional Status Baseline Function- ADL's Independent Baseline Function- Mobility Independent Current Functional Impairments (Reported) Functional Limitations- ADL's Difficulty with reaching to floor, getting up off of floor ; loss of balance in sitting or standing Functional Limitations- Mobility/Gait 20 min, no AD use; tripping frequently PT-OP-C Subjective Start: 10/14/23 10:32 Freq: Status: Active Protocol: Document 10/14/23 10:32 NM (Rec: 10/14/23 11:42 NM [id number]) OP-PT Subjective Patient Comments Patient Comments see hx above for pt report Patient Questionnaires Oswestry Low Back Index Oswestry Score 0/100 Other Questionnaire Name and Score Modified Falls Efficacy Scale: 98.6% confident in performing ADLs without falling (self- reported) OP-PT Pain Assessment Pain Assessment Grid Paper Pain Assessment Grid Completed Yes Comments Pain Comments No pain reported in low back, coccyx, or hips PT-OP-D Balance Start: 10/14/23 10:32 Freq: Status: Active Protocol: Document 10/14/23 10:32 NM (Rec: 10/14/23 11:42 NM [id number]) OP-PT Balance Assessment Sitting Balance Static Sitting Balance Ability Fair Dynamic Sitting Balance Ability Fair Standing Balance Static Standing Balance Ability Fair Dynamic Standing Balance Ability Fair Device Used none Standing Balance Comments trunk sway, attempts Balance Tests Metzger Balance Test Metzger Balance Test Score 39/56 Romberg Romberg 10 seconds, but increased trunk sway Single Limb Standing Single Limb- Right 4 seconds Single Limb- Left 2 seconds Semi-Tandem Standing Semi-Tandem Standing Balance 10 seconds BLE; more trunk sway with LLE in front Tandem Tandem Standing unable to move into position w /o assist; <2 sec Humphrey Fall Scale Copyright Permission PT-OP-E Functional Tests Start: 10/14/23 10:32 Freq: Status: Active Protocol: Document 10/14/23 10:32 NM (Rec: 10/14/23 11:42 NM [id number]) Functional Tests 30 Second Sit to Stand Test Score 11 Comments B knee valgus, increased trunk sway; fatigues quickly Tinetti Balance and Gait Assessment Balance Score 10 Gait Score 12 Composite Score PT-OP-F Manual Assessment Start: 10/14/23 10:32 Freq: Status: Active Protocol: Document 10/14/23 10:32 NM (Rec: 10/14/23 11:42 NM [id number]) Manual Assessments Soft Tissue Assessment Soft Tissue Mobility Assessment No soft tissue restrictions of lumbar spine or hips Joint Mobility Assessment Joint Mobility Assessment Full PROM and AROM of B hips, knees. Near full ROM of lumbar spine, minimal restrictions into trunk flexion PT-OP-G Mobility & Gait Start: 10/14/23 10:32 Freq: Status: Active Protocol: Document 10/14/23 10:32 NM (Rec: 10/14/23 11:42 NM [id number]) OP Gait Assessment Gait Gait Assistance Required: Independent Distance (Feet) 250 Assistive Devices Assistive Device Gait Belt Comments Gait Comments Pt has slightly fwd flexed trunk during gait, demos slight trunk sway; does not use AD or reach for objects to steady except when MIGDALIA changing (e.g tandem, narrow stance, stairs). During directional changes or head movement, pt demos increased sway and LOB without fall. Stair Climbing Evaluation Evaluation Level of Assist On Stairs Contact Guard Assistance Devices Stair Climbing Assistive Devices Right Railing Technique/Endurance Stair Climbing Direction Ascend and Descend Stair Climbing Technique Step Over Step Number of Steps Climbed 4 Stair Climbing Set # Repetitions (reps) 2 Comments Stair Climbing Comments Poor depth perception upon descent due to pt glasses, with or without. Difficulty with determining step location , requires hand rail assist for balance and CGA to steady PT-OP-H Neuro Start: 10/14/23 10:32 Freq: Status: Active Protocol: Document 10/14/23 10:32 NM (Rec: 10/14/23 11:42 NM [id number]) Sensation Evaluation Gross Sensation Gross Sensation Left LE Impaired,Right LE Impaired Comments Summary Comments No numbness or tingling reported BLE. However, pt demos decreased light touch sensation B medial ankle and foot (L4-5 dermatomes) Coordination Evaluation Upper Extremity Tests Right Finger to Nose Test Moderate Impairment Pronation/Supination Test Normal Performance Left Finger to Nose Test Moderate Impairment Pronation/Supination Test Normal Performance Lower Extremity Tests Right Alternate Heel to Knee; Heel to Toe Test Moderate Impairment Heel on Henderson Test Normal Performance Left Alternate Heel to Knee; Heel to Toe Test Moderate Impairment Heel on [place] Test Normal Performance Deep Tendon Reflex & Clonus Assessment Deep Tendon Reflex Bilateral Patellar Deep Tendon Reflex 1+ Diminished Vital Signs Pulse 1 Pulse at Rest (bpm) 88 Pulse Assessment Method Pulse Ox/Monitor Blood Pressure Sitting Blood Pressure (90/60-120/80 mmHg) 174/83 H Blood Pressure Source Automatic Cuff,Right Upper Extremity Oxygen Pulse Oximetry at Rest (%) (95-100 %) 99 Comments Vital Signs Comments Taken immediately in sitting at start of evaluation, at rest PT-OP-J Posture/Palpation/Skin Start: 10/14/23 10:32 Freq: Status: Active Protocol: Document 10/14/23 10:32 NM (Rec: 10/14/23 11:42 NM [id number]) Posture Evaluation Position Standing Evaluation View Lateral Head/C-Spine Posture Forward Head T-Spine Posture Increased Kyphosis L-Spine Posture Neutral Pelvis Posture Anteriorly Tilted Hip Posture (L) Neutral,(R) Neutral Knee Posture (L) Genu Valgus,(R) Genu Valgus Ankle/Foot Posture (L) Pronated,(R) Pronated Palpation Assessment Location Lumbar spine Palpation Location L1-L5, sacrum, coccyx Palpation Details No tenderness reported with palpation PT-OP-K Range of Motion Start: 10/14/23 10:32 Freq: Status: Active Protocol: Document 10/14/23 10:32 NM (Rec: 10/14/23 11:42 NM [id number]) Lumbar Spine Range of Motion Lumbar Spine Active Percentage Testing Position Standing Flexion 75 Extension 100 Rotation Left 100 Rotation Right 100 Lateral Flexion Left 100 Lateral Flexion Right 100 Comments Hamstring length limits flexion, no numbness/tingling or flexion Hip Goniometric Range of Motion Hip ROM Limitations Comments Full B hip PROM and AROM, no pain or discomfort Knee Goniometric Range of Motion Knee ROM Limitations Comments Full B knee PROM and AROM PT-OP-M Strength Start: 10/14/23 10:32 Freq: Status: Active Protocol: Document 10/14/23 10:32 NM (Rec: 10/14/23 11:42 NM [id number]) Trunk Strength Trunk Manual Muscle Testing Testing Position Supine Flexion 3 Fair Extension 3 Fair Rotation Left 4 Good Rotation Right 4 Good Lateral Flexion Left 4 Good Lateral Flexion Right 4 Good Hip Strength Hip Manual Muscle Testing Right Flexion (L2) 4- Good- Extension (S1) 4- Good- Abduction 4- Good- Adduction 4- Good- External Rotation 4- Good- Internal Rotation 4- Good- Left Flexion (L2) 4- Good- Extension (S1) 4- Good- Abduction 4- Good- Adduction 4- Good- External Rotation 4- Good- Internal Rotation 4- Good- Knee Strength Knee Manual Muscle Testing Left Flexion (S2) 4- Good- Extension (L3) 4- Good- Right Flexion (S2) 4 Good Extension (L3) 4 Good Ankle/Foot Strength Ankle and Foot Manual Muscle Testing Left Dorsiflexion (L4) 4 Good Plantarflexion (S1) 4 Good Inversion 4 Good Eversion (S1) 4 Good Right Dorsiflexion (L4) 4 Good Plantarflexion (S1) 4 Good Inversion 4 Good Eversion (S1) 4 Good PT-OP-Q Treatments Start: 10/14/23 10:32 Freq: Status: Active Protocol: Document 10/14/23 10:32 NM (Rec: 10/14/23 11:42 NM [id number]) Self-Care/Home Management Treatment Education Patient Education Fall Risk,Pain Management, Safety Other Education Pt educated on extensively on performing foot/shoe checks for diabetes, safety when changing position (allowing time to settle), blood pressure norms/safety. Due to high readings, PT instructed pt to follow up with PCP. Pt also educated on POC PT-OP-T Assessment and Plan Start: 10/14/23 10:32 Freq: Status: Active Protocol: Document 10/14/23 10:32 NM (Rec: 10/14/23 11:42 NM [id number]) Physical Therapy Assessment Rehab Potential Rehabilitation Potential Good Evaluation Complexity Number of Personal Factors/Comorbidities 3 or More Number of Body Systems Impaired 1-2 Clinical Presentation at Evaluation Evolving Impairments Impairments Activity Tolerance,Balance, Coordination,Functional Activities,Functional Mobility ,Gait,Posture,ROM,Sensation, Soft Tissue Mobility,Strength, Transfers Other Concerns Fall Risk Moderate, decreased awareness of surroundings Goals Five Impairment safety, education Impairment Need to improve awareness of blood pressure and complications due to diabetes Short Term Goal (STG) Pt will report compliance with performing blood pressure and foot checks at least 3x/wk for increased safety awareness with managing other health conditions and to decrease fall risk. STG Duration 4 weeks Intermediate Goal (LTG) Pt will report compliance with performing daily blood pressure and foot checks for increased safety awareness with managing other health conditions and to decrease fall risk. LTG Duration 8 weeks Four Impairment HEP Impairment No HEP Short Term Goal (STG) Pt will report compliance with HEP 3x/wk in order to maximize PT sessions STG Duration 4 weeks Intermediate Goal (LTG) Pt will report compliance with HEP at least 3x/wk in order to promote independence with exercise after discharge LTG Duration 8 weeks Three Impairment strength Impairment 30 sec STS score 11 Phosphoric Acid Supervisor Goal (LTG) Pt will perform at least 12 squats during 30 sec sit to stand test without compensation in order to demonstrate improved activity tolerance and BLE strength required for ADLs. LTG Duration 8 weeks Two Impairment balance Impairment DGI 16/24 Intermediate Goal (LTG) Pt will improve DGI score to at least 19/24 in order to demonstrate improved balance during higher level functional activities and to decrease fall risk LTG Duration 8 weeks One Impairment Metzger Impairment Metzger score 39/56 Short Term Goal (STG) Pt will improve Metzger score to at least 41/56 in order to demonstrate improved balance and decrease fall risk STG Duration 4 weeks Phosphoric Acid Supervisor Goal (LTG) Pt will improve Metzger score to at least 48/56 in order to demonstrate improved balance and decrease fall risk LTG Duration 8 weeks Assessment Summary Assessment Pt is an 78 y.o. female presenting to PT with a hx of increased falls within the past year. Pt has hx of lumbar spine and coccyx pain related to falls; however, she currently does not have any pain and is not tender to palpation in her lumbar spine or coccyx. She has full trunk ROM except 75% of forward trunk flexion and fair trunk strength. Pt has decreased BLE strength, grossly 4-/5; she also fatigues easily with 30 second sit to stand, demonstrating bilateral knee valgus. Her Metzger score is 39/ 56, Tinetti score 22/28, and DGI score of 16/24, which all indicate increased risk of falls. Pt demonstrates decreased awareness of surroundings during gait, increased trunk sway especially with turns or changing MIGDALIA. During stairs, she has poor depth perception and has difficulty with determining the location of steps. She has PMH of diabetes and currently reports decreased sensation to light touch along medial ankle/foot. Pt also has PMH of meningioma , which she continues to be monitored for by PCP. Pt's seated resting vitals were 174 /83, which pt reports is normal and that she takes medications for her blood pressure; PT strongly encouraged pt to follow up with PCP and poured concrete wall technician. PT also called referring MD about pt's blood pressure concerns and exam findings; pt is going to be seen 10/14/23 in MD's clinic. Pt has dizziness with changing position (especially leaning forward), will assess for orthostatics next session. PT educated pt on exam findings, POC, blood pressure readings, assessing feet/shoes daily due to decreased sensation, and safety during gait; pt verbalizes understanding. Pt would benefit from skilled PT for BLE strengthening, gait and balance training, and education regarding activity modification and safety in order to decrease fall risk and to promote independence. Physical Therapy Plan Frequency and Duration Frequency of Treatment 2x/Week Duration of treatment (weeks) 8 Plan of Care Start Date 10/14/23 Plan of Care End Date 12/02/23 Therapeutic Interventions Therapeutic Interventions Aquatic Therapy,Balance Training,Coordination Training ,Gait Training,Home Exercise Program,Joint Mobilizations, Manual Therapy,Neuromuscular Re-education,Orthotic/ Prosthetic Management,Patient/ Caregiver Education,Self-Care/ Home Management,Sensory Integration,Soft Tissue Mobilization,Taping, Therapeutic Activities, Therapeutic Exercises, Vestibular Rehabilitation Other Therapeutic Interventions AD training Other Referrals/Consults Referrals/Consults Recommended Customer Marketing Manager for updated eye Rx . PT instructed pt to follow up with PCP regarding resting blood pressure on medication Next Visit Focus/Plan Next Note Type Treatment Note Next Visit Plan Initiate BLE strengthening and balance training Next session: STS with abd band, seated vs standing march , LAQ, HSC, PF, DF. Educate on shoe assessment/foot check for diabetes, blood pressure checks daily and log. Check orthostatics Take vitals before every session and monitor closely; use gait belt, watch for falls
--- NOTE | 2023-10-17 11:27 | PT.OTN ---
Current Diagnoses Other chronic pain (10/17/23) Low back pain, unspecified (10/17/23) Repeated falls (10/17/23) Physical Therapy Treatment Note PT-OP-A Visit Information Start: 10/14/23 10:32 Freq: Status: Active Protocol: Document 10/17/23 10:38 NM (Rec: 10/17/23 11:27 NM [id number]) Out-Patient Physical Therapy Visit Information Visit Information Visit Type Treatment Note Visit Start Time 10:30 Visit Stop Time 11:15 Visit Number 2 Evaluation Information Evaluation Date 10/14/23 Precautions Precautions Fall risk Blood pressure- take vitals every time; allow acclimation to change of position Hx of seizures PT-OP-B Current Condition Start: 10/14/23 10:32 Freq: Status: Active Protocol: Document 10/14/23 10:32 NM (Rec: 10/14/23 11:42 NM [id number]) Current Condition History of Current Condition Onset Date during 2022 Current Complaints falls, loss of balance History of Current Condition Pt presents to Pt with hx of falls, reporting 5 in 2022. She reports that she usually trips over her feet and thinks her shoes may contribute because they're a size too large. During a previous fall, she has hit her head but was not otherwise injured. She has had falls from seated positions and standing positions. In May, she slipped and fell on her coccyx, bruising it. She went to the ED, where they did an x-ray showing no fracture. She had pain in her low back and coccyx for about 3 weeks after the fall, but does not have any pain currently. When she falls, she is unable to get up off of floor without the use of her hands or assistance. She does not use an AD during gait. She also reports instances of lightheadedness, vertigo usually with leaning over. PMH of meningioma, grand mal seizures, chest pressure without heart attack or other heart hx, diverticulitis. Prior Treatments and Tests previous PT for unknown reason but reports stopping due to feeling better Treatment Goals Patient/Caregiver Goals decrease falls Prior Functional Status Baseline Function- ADL's Independent Baseline Function- Mobility Independent Current Functional Impairments (Reported) Functional Limitations- ADL's Difficulty with reaching to floor, getting up off of floor ; loss of balance in sitting or standing Functional Limitations- Mobility/Gait 20 min, no AD use; tripping frequently PT-OP-C Subjective Start: 10/14/23 10:32 Freq: Status: Active Protocol: Document 10/17/23 10:38 NM (Rec: 10/17/23 11:27 NM [id number]) OP-PT Subjective Patient Comments Patient Comments Pt followed up with her PCP yesterday. They increased her lisinopril dosage. Her BP this morning was 153/85 at rest ( 15 min ago). No falls. PT-OP-D Balance Start: 10/14/23 10:32 Freq: Status: Active Protocol: Document 10/14/23 10:32 NM (Rec: 10/14/23 11:42 NM [id number]) OP-PT Balance Assessment Sitting Balance Static Sitting Balance Ability Fair Dynamic Sitting Balance Ability Fair Standing Balance Static Standing Balance Ability Fair Dynamic Standing Balance Ability Fair Device Used none Standing Balance Comments trunk sway, attempts Balance Tests Metzger Balance Test Metzger Balance Test Score 39/56 Romberg Romberg 10 seconds, but increased trunk sway Single Limb Standing Single Limb- Right 4 seconds Single Limb- Left 2 seconds Semi-Tandem Standing Semi-Tandem Standing Balance 10 seconds BLE; more trunk sway with LLE in front Tandem Tandem Standing unable to move into position w /o assist; <2 sec Humphrey Fall Scale Copyright Permission PT-OP-E Functional Tests Start: 10/14/23 10:32 Freq: Status: Active Protocol: Document 10/14/23 10:32 NM (Rec: 10/14/23 11:42 NM [id number]) Functional Tests 30 Second Sit to Stand Test Score 11 Comments B knee valgus, increased trunk sway; fatigues quickly Tinetti Balance and Gait Assessment Balance Score 10 Gait Score 12 Composite Score PT-OP-F Manual Assessment Start: 10/14/23 10:32 Freq: Status: Active Protocol: Document 10/14/23 10:32 NM (Rec: 10/14/23 11:42 NM [id number]) Manual Assessments Soft Tissue Assessment Soft Tissue Mobility Assessment No soft tissue restrictions of lumbar spine or hips Joint Mobility Assessment Joint Mobility Assessment Full PROM and AROM of B hips, knees. Near full ROM of lumbar spine, minimal restrictions into trunk flexion PT-OP-G Mobility & Gait Start: 10/14/23 10:32 Freq: Status: Active Protocol: Document 10/14/23 10:32 NM (Rec: 10/14/23 11:42 NM [id number]) OP Gait Assessment Gait Gait Assistance Required: Independent Distance (Feet) 250 Assistive Devices Assistive Device Gait Belt Comments Gait Comments Pt has slightly fwd flexed trunk during gait, demos slight trunk sway; does not use AD or reach for objects to steady except when MIGDALIA changing (e.g tandem, narrow stance, stairs). During directional changes or head movement, pt demos increased sway and LOB without fall. Stair Climbing Evaluation Evaluation Level of Assist On Stairs Contact Guard Assistance Devices Stair Climbing Assistive Devices Right Railing Technique/Endurance Stair Climbing Direction Ascend and Descend Stair Climbing Technique Step Over Step Number of Steps Climbed 4 Stair Climbing Set # Repetitions (reps) 2 Comments Stair Climbing Comments Poor depth perception upon descent due to pt glasses, with or without. Difficulty with determining step location , requires hand rail assist for balance and CGA to steady PT-OP-H Neuro Start: 10/14/23 10:32 Freq: Status: Active Protocol: Document 10/14/23 10:32 NM (Rec: 10/14/23 11:42 NM [id number]) Sensation Evaluation Gross Sensation Gross Sensation Left LE Impaired,Right LE Impaired Comments Summary Comments No numbness or tingling reported BLE. However, pt demos decreased light touch sensation B medial ankle and foot (L4-5 dermatomes) Coordination Evaluation Upper Extremity Tests Right Finger to Nose Test Moderate Impairment Pronation/Supination Test Normal Performance Left Finger to Nose Test Moderate Impairment Pronation/Supination Test Normal Performance Lower Extremity Tests Right Alternate Heel to Knee; Heel to Toe Test Moderate Impairment Heel on Henderson Test Normal Performance Left Alternate Heel to Knee; Heel to Toe Test Moderate Impairment Heel on Henderson Test Normal Performance Deep Tendon Reflex & Clonus Assessment Deep Tendon Reflex Bilateral Patellar Deep Tendon Reflex 1+ Diminished Vital Signs Pulse 1 Pulse at Rest (bpm) 88 Pulse Assessment Method Pulse Ox/Monitor Blood Pressure Sitting Blood Pressure (90/60-120/80 mmHg) 174/83 H Blood Pressure Source Automatic Cuff,Right Upper Extremity Oxygen Pulse Oximetry at Rest (%) (95-100 %) 99 Comments Vital Signs Comments Taken immediately in sitting at start of evaluation, at rest PT-OP-J Posture/Palpation/Skin Start: 10/14/23 10:32 Freq: Status: Active Protocol: Document 10/14/23 10:32 NM (Rec: 10/14/23 11:42 NM [id number]) Posture Evaluation Position Standing Evaluation View Lateral Head/C-Spine Posture Forward Head T-Spine Posture Increased Kyphosis L-Spine Posture Neutral Pelvis Posture Anteriorly Tilted Hip Posture (L) Neutral,(R) Neutral Knee Posture (L) Genu Valgus,(R) Genu Valgus Ankle/Foot Posture (L) Pronated,(R) Pronated Palpation Assessment Location Lumbar spine Palpation Location L1-L5, sacrum, coccyx Palpation Details No tenderness reported with palpation PT-OP-K Range of Motion Start: 10/14/23 10:32 Freq: Status: Active Protocol: Document 10/14/23 10:32 NM (Rec: 10/14/23 11:42 NM [id number]) Lumbar Spine Range of Motion Lumbar Spine Active Percentage Testing Position Standing Flexion 75 Extension 100 Rotation Left 100 Rotation Right 100 Lateral Flexion Left 100 Lateral Flexion Right 100 Comments Hamstring length limits flexion, no numbness/tingling or flexion Hip Goniometric Range of Motion Hip ROM Limitations Comments Full B hip PROM and AROM, no pain or discomfort Knee Goniometric Range of Motion Knee ROM Limitations Comments Full B knee PROM and AROM PT-OP-M Strength Start: 10/14/23 10:32 Freq: Status: Active Protocol: Document 10/14/23 10:32 NM (Rec: 10/14/23 11:42 NM [id number]) Trunk Strength Trunk Manual Muscle Testing Testing Position Supine Flexion 3 Fair Extension 3 Fair Rotation Left 4 Good Rotation Right 4 Good Lateral Flexion Left 4 Good Lateral Flexion Right 4 Good Hip Strength Hip Manual Muscle Testing Right Flexion (L2) 4- Good- Extension (S1) 4- Good- Abduction 4- Good- Adduction 4- Good- External Rotation 4- Good- Internal Rotation 4- Good- Left Flexion (L2) 4- Good- Extension (S1) 4- Good- Abduction 4- Good- Adduction 4- Good- External Rotation 4- Good- Internal Rotation 4- Good- Knee Strength Knee Manual Muscle Testing Left Flexion (S2) 4- Good- Extension (L3) 4- Good- Right Flexion (S2) 4 Good Extension (L3) 4 Good Ankle/Foot Strength Ankle and Foot Manual Muscle Testing Left Dorsiflexion (L4) 4 Good Plantarflexion (S1) 4 Good Inversion 4 Good Eversion (S1) 4 Good Right Dorsiflexion (L4) 4 Good Plantarflexion (S1) 4 Good Inversion 4 Good Eversion (S1) 4 Good PT-OP-Q Treatments Start: 10/14/23 10:32 Freq: Status: Active Protocol: Document 10/17/23 10:38 NM (Rec: 10/17/23 11:27 NM [id number]) Cardio Equipment Recumbent Stepper (Sci-Fit) Duration (Minutes) 5 Resistance 3 Seat Position 9 Other LE only; warm up Therapeutic Exercises Sitting Exercises Sit to stand Sitting Exercise Name with fwd reach for ant weight shift and balance Side bilateral Resistance teal lvl 2 band around knees Reps/Minutes 3x5 Comments cue for fwd weight shift, push out against band Standing Exercises heel raises Standing Exercise Name for propulsion and balance Side bilateral Resistance AROM Equipment Used 2 finger Ue support on ballet bar to steady Reps/Minutes 2x15 Comments cued full ROM, control; pt reports easy hip flexion Standing Exercise Name for hip flexion strengthening Side bilateral Resistance lvl 1 band Equipment Used 2 finger support on ballet bar Reps/Minutes 1x15 ea Comments cue for upright posture, slower Side steps Standing Exercise Name for hip abd strength Side bilateral Resistance lvl 2 theraband around ankles Equipment Used 2 finger support gliding on ballet bar Reps/Minutes 2 sets x15 ft ea Comments cue for neutral hip, foot clearance, hip hinge Self-Care/Home Management Treatment Education Patient Education Fall Risk,Home Exercise Program,Safety Other Education 15 min: Educated on daily blood pressure check, foot check for diabetes, slow positional changes. No handout issued; pt demonstrates and verbalizes understanding. HEP: sit to stand with band, standing march with band and UE support, side step with band and UE support, heel raises with Ue support. Assessed for orthostatic symptoms as well Vitals: 154/75 R arm seated Orthostatics test supine: 129/67 standing: reports lightheaded coming to sit, 164/74 standin/76 no symptoms PT-OP-T Assessment and Plan Start: 10/14/23 10:32 Freq: Status: Active Protocol: Document 10/17/23 10:38 NM (Rec: 10/17/23 11:27 NM [id number]) Physical Therapy Assessment Goals Five Impairment safety, education Impairment Need to improve awareness of blood pressure and complications due to diabetes Short Term Goal (STG) Pt will report compliance with performing blood pressure and foot checks at least 3x/wk for increased safety awareness with managing other health conditions and to decrease fall risk. STG Duration 4 weeks Handkerchief Folder Goal (LTG) Pt will report compliance with performing daily blood pressure and foot checks for increased safety awareness with managing other health conditions and to decrease fall risk. LTG Duration 8 weeks Four Impairment HEP Impairment No HEP Short Term Goal (STG) Pt will report compliance with HEP 3x/wk in order to maximize PT sessions STG Duration 4 weeks [facility] Goal (LTG) Pt will report compliance with HEP at least 3x/wk in order to promote independence with exercise after discharge LTG Duration 8 weeks Three Impairment strength Impairment 30 sec STS score 11 [facility] Goal (LTG) Pt will perform at least 12 squats during 30 sec sit to stand test without compensation in order to demonstrate improved activity tolerance and BLE strength required for ADLs. LTG Duration 8 weeks Two Impairment balance Impairment DGI 16/24 [facility] Goal (LTG) Pt will improve DGI score to at least 19/24 in order to demonstrate improved balance during higher level functional activities and to decrease fall risk LTG Duration 8 weeks One Impairment Metzger Impairment Metzger score 39/56 Short Term Goal (STG) Pt will improve Metzger score to at least 41/56 in order to demonstrate improved balance and decrease fall risk STG Duration 4 weeks Handkerchief Folder Goal (LTG) Pt will improve Metzger score to at least 48/56 in order to demonstrate improved balance and decrease fall risk LTG Duration 8 weeks Assessment Summary Assessment Initiated BLE strengthening and initial balance training today. She requires cues for slower, controlled motion to prevent compensations and for stability; 2 finger UE support on rail for balance during standing march, heel raise, side step. Demos good anterior weight shift with sit to stand, requires cues for hip abd during sit to stand and side steps to prevent knee valgus. Pt tolerated session well, but she is easily fatigued, feeling short of breath without chest pain, which resolves with occasional seated rest breaks. HEP issued. PT assessed pt for orthostatic hypotension, which pt does demonstrate without symptoms from sitting to standing (164/74 to 144/76); she has lightheadedness with change from supine to sitting. Pt followed up with her PCP yesterday about her BP and they increased her BP medication dosage. PT educated on daily blood pressure checks, slow positional changes, and daily foot check due to diabetes; no hand out but pt demonstrates and verbalizes understanding. Pt would benefit from skilled PT for progressive BLE strengthening, gait, and balance training in order to reduce fall risk and improve activity tolerance. Physical Therapy Plan Frequency and Duration Frequency of Treatment 2x/Week Duration of treatment (weeks) 8 Plan of Care Start Date 10/14/23 Plan of Care End Date 12/02/23 Therapeutic Interventions Therapeutic Interventions Aquatic Therapy,Balance Training,Coordination Training ,Gait Training,Home Exercise Program,Joint Mobilizations, Manual Therapy,Neuromuscular Re-education,Orthotic/ Prosthetic Management,Patient/ Caregiver Education,Self-Care/ Home Management,Sensory Integration,Soft Tissue Mobilization,Taping, Therapeutic Activities, Therapeutic Exercises, Vestibular Rehabilitation Other Therapeutic Interventions AD training Other Referrals/Consults Referrals/Consults Recommended [facility] for updated eye Rx . PT instructed pt to follow up with PCP regarding resting blood pressure on medication Next Visit Focus/Plan Next Note Type Treatment Note Next Visit Plan Continue BLE strengthening and balance training Next session- check tolerance: STS with abd band, seated vs standing march, LAQ, HSC, PF, DF. Review shoe assessment/ foot check for diabetes, blood pressure checks daily and log . Progress BLE strengthening and balance Take vitals before every session and monitor closely; use gait belt, watch for falls
--- NOTE | 2023-10-21 15:25 | PT.OTN ---
Current Diagnoses Other chronic pain (10/21/23) Low back pain, unspecified (10/21/23) Repeated falls (10/21/23) Physical Therapy Treatment Note PT-OP-A Visit Information Start: 10/14/23 10:32 Freq: Status: Active Protocol: Document 10/21/23 14:38 SP (Rec: 10/21/23 16:00 SP [id number]) Out-Patient Physical Therapy Visit Information Visit Information Visit Type Treatment Note Visit Note Cenipril 40 mg bid but was told increase 40 mg by doubling. Visit Start Time 14:38 Visit Stop Time 15:25 Visit Number 3 Number of INSURANCE LOSS CONTROL SURVEYOR Visits 1 Evaluation Information Evaluation Date 10/14/23 Precautions Precautions Fall risk Blood pressure- take vitals every time; allow acclimation to change of position Hx of seizures PT-OP-B Current Condition Start: 10/14/23 10:32 Freq: Status: Active Protocol: Document 10/14/23 10:32 NM (Rec: 10/14/23 11:42 NM [id number]) Current Condition History of Current Condition Onset Date during 2022 Current Complaints falls, loss of balance History of Current Condition Pt presents to Pt with hx of falls, reporting 5 in 2022. She reports that she usually trips over her feet and thinks her shoes may contribute because they're a size too large. During a previous fall, she has hit her head but was not otherwise injured. She has had falls from seated positions and standing positions. In May, she slipped and fell on her coccyx, bruising it. She went to the ED, where they did an x-ray showing no fracture. She had pain in her low back and coccyx for about 3 weeks after the fall, but does not have any pain currently. When she falls, she is unable to get up off of floor without the use of her hands or assistance. She does not use an AD during gait. She also reports instances of lightheadedness, vertigo usually with leaning over. PMH of meningioma, grand mal seizures, chest pressure without heart attack or other heart hx, diverticulitis. Prior Treatments and Tests previous PT for unknown reason but reports stopping due to feeling better Treatment Goals Patient/Caregiver Goals decrease falls Prior Functional Status Baseline Function- ADL's Independent Baseline Function- Mobility Independent Current Functional Impairments (Reported) Functional Limitations- ADL's Difficulty with reaching to floor, getting up off of floor ; loss of balance in sitting or standing Functional Limitations- Mobility/Gait 20 min, no AD use; tripping frequently PT-OP-C Subjective Start: 10/14/23 10:32 Freq: Status: Active Protocol: Document 10/21/23 14:38 SP (Rec: 10/21/23 16:00 SP [id number]) OP-PT Subjective Patient Comments Patient Comments Pt reports Dr Rubén increased her cenipril from 40 mg to 80 mg daily, she takes it 40 mg BID but wasn't instructed how to increase. Upon arrival LUE automated BP: 192/81 seated pre tx, recheck quiet 175/75 no talking. Pt is taking BP checks qd, discussed try to take BP med same time day for awareness when does BP check. PT-OP-D Balance Start: 10/14/23 10:32 Freq: Status: Active Protocol: Document 10/14/23 10:32 NM (Rec: 10/14/23 11:42 NM [id number]) OP-PT Balance Assessment Sitting Balance Static Sitting Balance Ability Fair Dynamic Sitting Balance Ability Fair Standing Balance Static Standing Balance Ability Fair Dynamic Standing Balance Ability Fair Device Used none Standing Balance Comments trunk sway, attempts Balance Tests Metzger Balance Test Metzger Balance Test Score 39/56 Romberg Romberg 10 seconds, but increased trunk sway Single Limb Standing Single Limb- Right 4 seconds Single Limb- Left 2 seconds Semi-Tandem Standing Semi-Tandem Standing Balance 10 seconds BLE; more trunk sway with LLE in front Tandem Tandem Standing unable to move into position w /o assist; <2 sec Humphrey Fall Scale Copyright Permission PT-OP-E Functional Tests Start: 10/14/23 10:32 Freq: Status: Active Protocol: Document 10/14/23 10:32 NM (Rec: 10/14/23 11:42 NM [id number]) Functional Tests 30 Second Sit to Stand Test Score 11 Comments B knee valgus, increased trunk sway; fatigues quickly Tinetti Balance and Gait Assessment Balance Score 10 Gait Score 12 Composite Score PT-OP-F Manual Assessment Start: 10/14/23 10:32 Freq: Status: Active Protocol: Document 10/14/23 10:32 NM (Rec: 10/14/23 11:42 NM [id number]) Manual Assessments Soft Tissue Assessment Soft Tissue Mobility Assessment No soft tissue restrictions of lumbar spine or hips Joint Mobility Assessment Joint Mobility Assessment Full PROM and AROM of B hips, knees. Near full ROM of lumbar spine, minimal restrictions into trunk flexion PT-OP-G Mobility & Gait Start: 10/14/23 10:32 Freq: Status: Active Protocol: Document 10/14/23 10:32 NM (Rec: 10/14/23 11:42 NM [id number]) OP Gait Assessment Gait Gait Assistance Required: Independent Distance (Feet) 250 Assistive Devices Assistive Device Gait Belt Comments Gait Comments Pt has slightly fwd flexed trunk during gait, demos slight trunk sway; does not use AD or reach for objects to steady except when MIGDALIA changing (e.g tandem, narrow stance, stairs). During directional changes or head movement, pt demos increased sway and LOB without fall. Stair Climbing Evaluation Evaluation Level of Assist On Stairs Contact Guard Assistance Devices Stair Climbing Assistive Devices Right Railing Technique/Endurance Stair Climbing Direction Ascend and Descend Stair Climbing Technique Step Over Step Number of Steps Climbed 4 Stair Climbing Set # Repetitions (reps) 2 Comments Stair Climbing Comments Poor depth perception upon descent due to pt glasses, with or without. Difficulty with determining step location , requires hand rail assist for balance and CGA to steady PT-OP-H Neuro Start: 10/14/23 10:32 Freq: Status: Active Protocol: Document 10/14/23 10:32 NM (Rec: 10/14/23 11:42 NM [id number]) Sensation Evaluation Gross Sensation Gross Sensation Left LE Impaired,Right LE Impaired Comments Summary Comments No numbness or tingling reported BLE. However, pt demos decreased light touch sensation B medial ankle and foot (L4-5 dermatomes) Coordination Evaluation Upper Extremity Tests Right Finger to Nose Test Moderate Impairment Pronation/Supination Test Normal Performance Left Finger to Nose Test Moderate Impairment Pronation/Supination Test Normal Performance Lower Extremity Tests Right Alternate Heel to Knee; Heel to Toe Test Moderate Impairment Heel on Henderson Test Normal Performance Left Alternate Heel to Knee; Heel to Toe Test Moderate Impairment Heel on Henderson Test Normal Performance Deep Tendon Reflex & Clonus Assessment Deep Tendon Reflex Bilateral Patellar Deep Tendon Reflex 1+ Diminished Vital Signs Pulse 1 Pulse at Rest (bpm) 88 Pulse Assessment Method Pulse Ox/Monitor Blood Pressure Sitting Blood Pressure (90/60-120/80 mmHg) 174/83 H Blood Pressure Source Automatic Cuff,Right Upper Extremity Oxygen Pulse Oximetry at Rest (%) (95-100 %) 99 Comments Vital Signs Comments Taken immediately in sitting at start of evaluation, at rest PT-OP-J Posture/Palpation/Skin Start: 10/14/23 10:32 Freq: Status: Active Protocol: Document 10/14/23 10:32 NM (Rec: 10/14/23 11:42 NM [id number]) Posture Evaluation Position Standing Evaluation View Lateral Head/C-Spine Posture Forward Head T-Spine Posture Increased Kyphosis L-Spine Posture Neutral Pelvis Posture Anteriorly Tilted Hip Posture (L) Neutral,(R) Neutral Knee Posture (L) Genu Valgus,(R) Genu Valgus Ankle/Foot Posture (L) Pronated,(R) Pronated Palpation Assessment Location Lumbar spine Palpation Location L1-L5, sacrum, coccyx Palpation Details No tenderness reported with palpation PT-OP-K Range of Motion Start: 10/14/23 10:32 Freq: Status: Active Protocol: Document 10/14/23 10:32 NM (Rec: 10/14/23 11:42 NM [id number]) Lumbar Spine Range of Motion Lumbar Spine Active Percentage Testing Position Standing Flexion 75 Extension 100 Rotation Left 100 Rotation Right 100 Lateral Flexion Left 100 Lateral Flexion Right 100 Comments Hamstring length limits flexion, no numbness/tingling or flexion Hip Goniometric Range of Motion Hip ROM Limitations Comments Full B hip PROM and AROM, no pain or discomfort Knee Goniometric Range of Motion Knee ROM Limitations Comments Full B knee PROM and AROM PT-OP-M Strength Start: 10/14/23 10:32 Freq: Status: Active Protocol: Document 10/14/23 10:32 NM (Rec: 10/14/23 11:42 NM [id number]) Trunk Strength Trunk Manual Muscle Testing Testing Position Supine Flexion 3 Fair Extension 3 Fair Rotation Left 4 Good Rotation Right 4 Good Lateral Flexion Left 4 Good Lateral Flexion Right 4 Good Hip Strength Hip Manual Muscle Testing Right Flexion (L2) 4- Good- Extension (S1) 4- Good- Abduction 4- Good- Adduction 4- Good- External Rotation 4- Good- Internal Rotation 4- Good- Left Flexion (L2) 4- Good- Extension (S1) 4- Good- Abduction 4- Good- Adduction 4- Good- External Rotation 4- Good- Internal Rotation 4- Good- Knee Strength Knee Manual Muscle Testing Left Flexion (S2) 4- Good- Extension (L3) 4- Good- Right Flexion (S2) 4 Good Extension (L3) 4 Good Ankle/Foot Strength Ankle and Foot Manual Muscle Testing Left Dorsiflexion (L4) 4 Good Plantarflexion (S1) 4 Good Inversion 4 Good Eversion (S1) 4 Good Right Dorsiflexion (L4) 4 Good Plantarflexion (S1) 4 Good Inversion 4 Good Eversion (S1) 4 Good PT-OP-Q Treatments Start: 10/14/23 10:32 Freq: Status: Active Protocol: Document 10/21/23 14:38 SP (Rec: 10/21/23 16:00 SP [id number]) Cardio Equipment Recumbent Stepper (Sci-Fit) Duration (Minutes) 5 Resistance 3 Seat Position 9 Other LE only; warm up LUE BP: 192/ 81, 175/75 pre, 184/71 HR 86 post feel fine Therapeutic Exercises Sitting Exercises Sit to stand Sitting Exercise Name with fwd reach for ant weight shift and balance Side bilateral Resistance teal lvl 2 band around knees Equipment Used arms across chest Reps/Minutes x10 Comments cue for fwd weight shift, push out against band Standing Exercises heel raises Standing Exercise Name for propulsion and balance Side bilateral Resistance AROM Equipment Used no UE support Reps/Minutes 2x15 Comments cued posture, //feet, neutral ankle, slow pacing lift/lower Side steps Standing Exercise Name for hip abd strength Side bilateral Resistance lvl 2 theraband around ankles Equipment Used 2 finger support gliding on ballet bar Reps/Minutes 2 sets x15 ft ea Comments elongated posturing, trail LE allow knee bend/DF eccentric ft clearance Neuro Re-Education Treatment Balance Activities dynamic walking Details fwd HTs, bwd walking Surface level Reps/Duration 20 ft x4 laps Comments cued increase MIGDALIA, core/scap stab to center trunk improved trunk stability laterally less sway stepping deviations noted. hurdles Details receiprocal stepping fwd, step to lateral Equipment 6 hurdles Reps/Duration 4 laps Comments cues elongate posturing, scap and light core engagement, slower pacing, wt shift into advance LE, increase MIGDALIA improved stability over stance LE Self-Care/Home Management Treatment Education Patient Education Home Exercise Program,Posture, Safety Caregiver Education 5min: Time spent discussion with pt and later end tx with : cue reminder when needed elongated posturing with rhomboid& core fac improved stability gait/not trunk sways. PT-OP-T Assessment and Plan Start: 10/14/23 10:32 Freq: Status: Active Protocol: Document 10/21/23 14:38 SP (Rec: 10/21/23 16:00 SP [id number]) Physical Therapy Assessment Goals Five Impairment safety, education Impairment Need to improve awareness of blood pressure and complications due to diabetes Short Term Goal (STG) Pt will report compliance with performing blood pressure and foot checks at least 3x/wk for increased safety awareness with managing other health conditions and to decrease fall risk. STG Duration 4 weeks Rubber Worker Goal (LTG) Pt will report compliance with performing daily blood pressure and foot checks for increased safety awareness with managing other health conditions and to decrease fall risk. LTG Duration 8 weeks Four Impairment HEP Impairment No HEP Short Term Goal (STG) Pt will report compliance with HEP 3x/wk in order to maximize PT sessions STG Duration 4 weeks Rubber Worker Goal (LTG) Pt will report compliance with HEP at least 3x/wk in order to promote independence with exercise after discharge LTG Duration 8 weeks Three Impairment strength Impairment 30 sec STS score 11 Nursing Home Goal (LTG) Pt will perform at least 12 squats during 30 sec sit to stand test without compensation in order to demonstrate improved activity tolerance and BLE strength required for ADLs. LTG Duration 8 weeks Two Impairment balance Impairment DGI 16/24 Nursing Home Goal (LTG) Pt will improve DGI score to at least 19/24 in order to demonstrate improved balance during higher level functional activities and to decrease fall risk LTG Duration 8 weeks One Impairment Metzger Impairment Metzger score 39/56 Short Term Goal (STG) Pt will improve Metzger score to at least 41/56 in order to demonstrate improved balance and decrease fall risk STG Duration 4 weeks Rubber Worker Goal (LTG) Pt will improve Metzger score to at least 48/56 in order to demonstrate improved balance and decrease fall risk LTG Duration 8 weeks Assessment Summary Assessment Pt LUE automated BP improved 149/81 Hr 92 end tx with no reports dizziness throughout tx. Pt improved stability and lessened/no trunk wt shift leans post cues and education elongated posture, scap and core fac during ther ex/ balance activities and dynamic balance walking allowed not needing UE support for ther ex and receiprocal stepping during hurdles. Reviewed with pt and end tx for elongated posturing with support of 's feedback carryover while on vacation 2 weeks, both verified will work on this. Pt will follow up with Dr Montana how taking 80mg (40 mg bid or 80 mg qd). Physical Therapy Plan Frequency and Duration Frequency of Treatment 2x/Week Duration of treatment (weeks) 8 Plan of Care Start Date 10/14/23 Plan of Care End Date 12/02/23 Therapeutic Interventions Therapeutic Interventions Aquatic Therapy,Balance Training,Coordination Training ,Gait Training,Home Exercise Program,Joint Mobilizations, Manual Therapy,Neuromuscular Re-education,Orthotic/ Prosthetic Management,Patient/ Caregiver Education,Self-Care/ Home Management,Sensory Integration,Soft Tissue Mobilization,Taping, Therapeutic Activities, Therapeutic Exercises, Vestibular Rehabilitation Other Therapeutic Interventions AD training Other Referrals/Consults Referrals/Consults Recommended Process Project Engineer for updated eye Rx . INSURANCE LOSS CONTROL SURVEYOR instructed pt to follow up with PCP regarding proper dose increased Zanipril 80mg qd or 40 mg bid? Next Visit Focus/Plan Next Note Type Treatment Note Next Visit Plan Next tx: trial bungie cord stepping, wt step ups. POC: Continue BLE strengthening and balance training Next session- check tolerance: STS with abd band, seated vs standing march, LAQ, HSC, PF, DF. Review shoe assessment/ foot check for diabetes, blood pressure checks daily and log . Progress BLE strengthening and balance Take vitals before every session and monitor closely; use gait belt, watch for falls
--- NOTE | 2023-11-11 12:09 | PT.OTN ---
Current Diagnoses Other chronic pain (11/11/23) Low back pain, unspecified (11/11/23) Repeated falls (11/11/23) Physical Therapy Treatment Note PT-OP-A Visit Information Start: 10/14/23 10:32 Freq: Status: Active Protocol: Document 11/11/23 10:33 NM (Rec: 11/11/23 11:19 NM [id number]) Out-Patient Physical Therapy Visit Information Visit Information Visit Type Progress Note Visit Start Time 10:34 Visit Stop Time 11:15 Visit Number 4 Evaluation Information Evaluation Date 10/14/23 PT-OP-B Current Condition Start: 10/14/23 10:32 Freq: Status: Active Protocol: Document 10/14/23 10:32 NM (Rec: 10/14/23 11:42 NM [id number]) Current Condition History of Current Condition Onset Date during 2022 Current Complaints falls, loss of balance History of Current Condition Pt presents to Pt with hx of falls, reporting 5 in 2022. She reports that she usually trips over her feet and thinks her shoes may contribute because they're a size too large. During a previous fall, she has hit her head but was not otherwise injured. She has had falls from seated positions and standing positions. In May, she slipped and fell on her coccyx, bruising it. She went to the ED, where they did an x-ray showing no fracture. She had pain in her low back and coccyx for about 3 weeks after the fall, but does not have any pain currently. When she falls, she is unable to get up off of floor without the use of her hands or assistance. She does not use an AD during gait. She also reports instances of lightheadedness, vertigo usually with leaning over. PMH of meningioma, grand mal seizures, chest pressure without heart attack or other heart hx, diverticulitis. Prior Treatments and Tests previous PT for unknown reason but reports stopping due to feeling better Treatment Goals Patient/Caregiver Goals decrease falls Prior Functional Status Baseline Function- ADL's Independent Baseline Function- Mobility Independent Current Functional Impairments (Reported) Functional Limitations- ADL's Difficulty with reaching to floor, getting up off of floor ; loss of balance in sitting or standing Functional Limitations- Mobility/Gait 20 min, no AD use; tripping frequently PT-OP-C Subjective Start: 10/14/23 10:32 Freq: Status: Active Protocol: Document 11/11/23 10:33 NM (Rec: 11/11/23 11:19 NM [id number]) OP-PT Subjective Patient Comments Patient Comments Pt reports that she has not been doing her exercises, but she has been walking because in [place]. She was walking a lot in [place] and taking the stairs up to 3 floor but reports that she was crossing legs when tired. She is not sure that she took all of her blood pressure medication over the two weeks. Her bp was 162 /85 at home. PT-OP-D Balance Start: 10/14/23 10:32 Freq: Status: Active Protocol: Document 10/14/23 10:32 NM (Rec: 10/14/23 11:42 NM [id number]) OP-PT Balance Assessment Sitting Balance Static Sitting Balance Ability Fair Dynamic Sitting Balance Ability Fair Standing Balance Static Standing Balance Ability Fair Dynamic Standing Balance Ability Fair Device Used none Standing Balance Comments trunk sway, attempts Balance Tests Metzger Balance Test Metzger Balance Test Score 39/56 Romberg Romberg 10 seconds, but increased trunk sway Single Limb Standing Single Limb- Right 4 seconds Single Limb- Left 2 seconds Semi-Tandem Standing Semi-Tandem Standing Balance 10 seconds BLE; more trunk sway with LLE in front Tandem Tandem Standing unable to move into position w /o assist; <2 sec Humphrey Fall Scale Copyright Permission PT-OP-E Functional Tests Start: 10/14/23 10:32 Freq: Status: Active Protocol: Document 10/14/23 10:32 NM (Rec: 10/14/23 11:42 NM [id number]) Functional Tests 30 Second Sit to Stand Test Score 11 Comments B knee valgus, increased trunk sway; fatigues quickly Tinetti Balance and Gait Assessment Balance Score 10 Gait Score 12 Composite Score PT-OP-F Manual Assessment Start: 10/14/23 10:32 Freq: Status: Active Protocol: Document 10/14/23 10:32 NM (Rec: 10/14/23 11:42 NM [id number]) Manual Assessments Soft Tissue Assessment Soft Tissue Mobility Assessment No soft tissue restrictions of lumbar spine or hips Joint Mobility Assessment Joint Mobility Assessment Full PROM and AROM of B hips, knees. Near full ROM of lumbar spine, minimal restrictions into trunk flexion PT-OP-G Mobility & Gait Start: 10/14/23 10:32 Freq: Status: Active Protocol: Document 10/14/23 10:32 NM (Rec: 10/14/23 11:42 NM [id number]) OP Gait Assessment Gait Gait Assistance Required: Independent Distance (Feet) 250 Assistive Devices Assistive Device Gait Belt Comments Gait Comments Pt has slightly fwd flexed trunk during gait, demos slight trunk sway; does not use AD or reach for objects to steady except when MIGDALIA changing (e.g tandem, narrow stance, stairs). During directional changes or head movement, pt demos increased sway and LOB without fall. Stair Climbing Evaluation Evaluation Level of Assist On Stairs Contact Guard Assistance Devices Stair Climbing Assistive Devices Right Railing Technique/Endurance Stair Climbing Direction Ascend and Descend Stair Climbing Technique Step Over Step Number of Steps Climbed 4 Stair Climbing Set # Repetitions (reps) 2 Comments Stair Climbing Comments Poor depth perception upon descent due to pt glasses, with or without. Difficulty with determining step location , requires hand rail assist for balance and CGA to steady PT-OP-H Neuro Start: 10/14/23 10:32 Freq: Status: Active Protocol: Document 10/14/23 10:32 NM (Rec: 10/14/23 11:42 NM [id number]) Sensation Evaluation Gross Sensation Gross Sensation Left LE Impaired,Right LE Impaired Comments Summary Comments No numbness or tingling reported BLE. However, pt demos decreased light touch sensation B medial ankle and foot (L4-5 dermatomes) Coordination Evaluation Upper Extremity Tests Right Finger to Nose Test Moderate Impairment Pronation/Supination Test Normal Performance Left Finger to Nose Test Moderate Impairment Pronation/Supination Test Normal Performance Lower Extremity Tests Right Alternate Heel to Knee; Heel to Toe Test Moderate Impairment Heel on [place] Test Normal Performance Left Alternate Heel to Knee; Heel to Toe Test Moderate Impairment Heel on [place] Test Normal Performance Deep Tendon Reflex & Clonus Assessment Deep Tendon Reflex Bilateral Patellar Deep Tendon Reflex 1+ Diminished Vital Signs Pulse 1 Pulse at Rest (bpm) 88 Pulse Assessment Method Pulse Ox/Monitor Blood Pressure Sitting Blood Pressure (90/60-120/80 mmHg) 174/83 H Blood Pressure Source Automatic Cuff,Right Upper Extremity Oxygen Pulse Oximetry at Rest (%) (95-100 %) 99 Comments Vital Signs Comments Taken immediately in sitting at start of evaluation, at rest PT-OP-J Posture/Palpation/Skin Start: 10/14/23 10:32 Freq: Status: Active Protocol: Document 10/14/23 10:32 NM (Rec: 10/14/23 11:42 NM [id number]) Posture Evaluation Position Standing Evaluation View Lateral Head/C-Spine Posture Forward Head T-Spine Posture Increased Kyphosis L-Spine Posture Neutral Pelvis Posture Anteriorly Tilted Hip Posture (L) Neutral,(R) Neutral Knee Posture (L) Genu Valgus,(R) Genu Valgus Ankle/Foot Posture (L) Pronated,(R) Pronated Palpation Assessment Location Lumbar spine Palpation Location L1-L5, sacrum, coccyx Palpation Details No tenderness reported with palpation PT-OP-K Range of Motion Start: 10/14/23 10:32 Freq: Status: Active Protocol: Document 10/14/23 10:32 NM (Rec: 10/14/23 11:42 NM [id number]) Lumbar Spine Range of Motion Lumbar Spine Active Percentage Testing Position Standing Flexion 75 Extension 100 Rotation Left 100 Rotation Right 100 Lateral Flexion Left 100 Lateral Flexion Right 100 Comments Hamstring length limits flexion, no numbness/tingling or flexion Hip Goniometric Range of Motion Hip ROM Limitations Comments Full B hip PROM and AROM, no pain or discomfort Knee Goniometric Range of Motion Knee ROM Limitations Comments Full B knee PROM and AROM PT-OP-M Strength Start: 10/14/23 10:32 Freq: Status: Active Protocol: Document 10/14/23 10:32 NM (Rec: 10/14/23 11:42 NM [id number]) Trunk Strength Trunk Manual Muscle Testing Testing Position Supine Flexion 3 Fair Extension 3 Fair Rotation Left 4 Good Rotation Right 4 Good Lateral Flexion Left 4 Good Lateral Flexion Right 4 Good Hip Strength Hip Manual Muscle Testing Right Flexion (L2) 4- Good- Extension (S1) 4- Good- Abduction 4- Good- Adduction 4- Good- External Rotation 4- Good- Internal Rotation 4- Good- Left Flexion (L2) 4- Good- Extension (S1) 4- Good- Abduction 4- Good- Adduction 4- Good- External Rotation 4- Good- Internal Rotation 4- Good- Knee Strength Knee Manual Muscle Testing Left Flexion (S2) 4- Good- Extension (L3) 4- Good- Right Flexion (S2) 4 Good Extension (L3) 4 Good Ankle/Foot Strength Ankle and Foot Manual Muscle Testing Left Dorsiflexion (L4) 4 Good Plantarflexion (S1) 4 Good Inversion 4 Good Eversion (S1) 4 Good Right Dorsiflexion (L4) 4 Good Plantarflexion (S1) 4 Good Inversion 4 Good Eversion (S1) 4 Good PT-OP-Q Treatments Start: 10/14/23 10:32 Freq: Status: Active Protocol: Document 11/11/23 10:33 NM (Rec: 11/11/23 11:19 NM [id number]) Therapeutic Exercises Sitting Exercises hip abduction Sitting Exercise Name added to HEP Side bilateral Resistance lvl 3 [place] tb Equipment Used seated on plinth Reps/Minutes 3x10 Comments cued for form Sit to stand Sitting Exercise Name 30 STS; regular STS from 18 plinth Side bilateral Resistance teal band lvl 2 around knees Equipment Used arms in front for ant weight shift Reps/Minutes 13 in 30 sec; 1x10 Comments cued fwd weight shift, limit knee valgus Standing Exercises paloff press Standing Exercise Name walkouts not press Side bilateral Resistance lvl 1 peach band - challenging for pt Reps/Minutes 1x5 ea direction Comments cued for hands at belly button , no twisting at trunk step ups Standing Exercise Name 6 step Side bilateral Resistance AROM Equipment Used prn 1 hand rail use for balance (flat hand) Reps/Minutes 2x5 Comments PT assist with weight shift, cued wide foot placement heel raises Standing Exercise Name for propulsion and balance Side bilateral Resistance AROM Equipment Used no UE support Reps/Minutes 3x10 Comments cued posture, //feet, neutral ankle, slow pacing lift/lower hip flexion Standing Exercise Name for hip flexion strengthening Side bilateral Equipment Used no support Reps/Minutes 1x10 ea Comments cue for upright posture, slower for improved form Neuro Re-Education Treatment Balance Activities step taps Equipment 6 step Comments 1. step taps, 1x10 ea CGA to steady. PT cueing for foot placement in line with vs wider MIGDALIA or hip ADD onto step. Tactile cues at pelvis to promote level/stable pelvis 2. step taps with add'l november (lift with 1 hold) from step, 1x8 ea Min A for balance, PT facilitating weight shift onto stance LE. Cued for foot placement to improve balance glute med activation Equipment seated Reps/Duration 1x60 Comments prior to balance activities for increased glute med activation, pelvic stability DGI Details Reps/Duration 1 rep for test, then 2 sets x 25 ft ea for activities Comments 1. Nml gait > fast or slow gait Good change gait speed, SBA 2. Nml gait > quick pivot and stop Stumbles with turn but able to catch self without LOB, Close SBA for safety. Cued for slower form for control 3. Horizontal head turns w gait R>L, stumbles and deviation laterally with turn; close SBA with cues to find point to focus on 4. Vertical head nods w gait Prn stumble but able to correct with looking up. No difficulty with looking down unless looking through trifocals 5. stepping over hurdles CGA to steady. PT cued to step closer to francois prior to stepping for safety 6. weave cones Knocks down cones. difficulty with judging distance. Cued to look for cone prior to moving around it as pt not looking at floor, CGA to steady Metzger Surface stable Reps/Duration 1 rep Comments Challenged with narrow MIGDALIA, single leg stance. Able to perform but increased trunk sway. Unable to achieve tandem position or maintain Self-Care/Home Management Treatment Education Patient Education Fall Risk,Home Exercise Program,Safety Caregiver Education BP: 150/73 seated L arm, rest at start of session; 141/72 at end of session (pt reports light headed after activity, resolved with brief rest) Other Education 5 minutes: Educated on compliance with BP checks and medication as pt has been on vacation and admits poor compliance. Re-educated on foot/shoe checks to prevent injury to feet due to decreased sensation. Encouraged compliance with previous HEP and added to HEP: glute medius clams in sitting . PT-OP-T Assessment and Plan Start: 10/14/23 10:32 Freq: Status: Active Protocol: Document 11/11/23 10:33 NM (Rec: 11/11/23 11:19 NM [id number]) Physical Therapy Assessment Goals Five Impairment safety, education Impairment Need to improve awareness of blood pressure and complications due to diabetes Short Term Goal (STG) Pt will report compliance with performing blood pressure and foot checks at least 3x/wk for increased safety awareness with managing other health conditions and to decrease fall risk. 11/11/23: Pt was on vacation so not compliant during vacation x2 weks, but reports compliance prior to vacation STG Duration 4 weeks NOT MET [facility] Goal (LTG) Pt will report compliance with performing daily blood pressure and foot checks for increased safety awareness with managing other health conditions and to decrease fall risk. LTG Duration 8 weeks Four Impairment HEP Impairment No HEP Short Term Goal (STG) Pt will report compliance with HEP 3x/wk in order to maximize PT sessions 11/11/23: Pt with minimal compliance due to vacation, but reports compliance 1-2x/wk prior to vacation STG Duration 4 weeks NOT MET [employer] Goal (LTG) Pt will report compliance with HEP at least 3x/wk in order to promote independence with exercise after discharge LTG Duration 8 weeks Three Impairment strength Impairment 30 sec STS score 11 [facility] Goal (LTG) Pt will perform at least 12 squats during 30 sec sit to stand test without compensation in order to demonstrate improved activity tolerance and BLE strength required for ADLs. 11/11/23: 13 STS in 30 seconds with arms in front from 18 plinth LTG Duration 8 weeks Two Impairment balance Impairment DGI 16 [facility] Goal (LTG) Pt will improve DGI score to at least 19/24 in order to demonstrate improved balance during higher level functional activities and to decrease fall risk 11/11/23: LTG Duration 8 weeks One Impairment Metzger Impairment Metzger score 39/56 Short Term Goal (STG) Pt will improve Metzger score to at least 41/56 in order to demonstrate improved balance and decrease fall risk 11/11/23: 45/56 STG Duration 4 weeks MET [facility] Goal (LTG) Pt will improve Metzger score to at least 48/56 in order to demonstrate improved balance and decrease fall risk 11/11/23: LTG Duration 8 weeks Progress Towards Goals Progress Towards Goals Progressing Toward Goals,Slow Progress due to Attendance Issues,Slow Progress due to Medical Issues,Slow Progress due to Noncompliance Progress Comments Met STS goal. Progressing toward Metzger and DGI goal. Has not met safety/compliance goals due to changes in blood pressure medication, vacation, and lack of attendence/ compliance with HEP Assessment Summary Assessment Pt tolerated session well, but has several episodes of LOB without falls with CGA to min A to correct. Demos difficulty with shifting weight when stepping onto or over objects, narrowed MIGDALIA. Pt has tendency to adduct BLE when ambulating or performing activities. PT cued pt for foot placement, widen MIGDALIA for safety and to decrease fall risk. Continued with BLE strengthening and paloff walkout for dynamic core/balance training. Pt requires cues for correct execution, prevent trunk rotation; she is challenged by activity. Pt demos decreased quad and hip abduction strength to stabilize pelvis during sit to stands and step ups. She would benefit from further education regarding compliance with BP checks and HEP. Pt has been seen x4 visits since IE in September. She spent several weeks on vacation and was not compliant with HEP but did perform lots of ambulation. Pt continues to have deficits in her balance, particularly with changing MIGDALIA , changing surfaces, or with challenges to direction or head movement. She is progressing toward strength goals, but is limited by poor endurance. Pt has met STG for Metzger, but has not demonstrated any improvement in DGI score. Pt would benefit from skilled PT for further balance and gait training, BLE and core strengthening in order to decrease fall risk, improve activity tolerance and improve QOL. Physical Therapy Plan Frequency and Duration Frequency of Treatment 2x/Week Duration of treatment (weeks) 8 Plan of Care Start Date 10/14/23 Plan of Care End Date 12/02/23 Therapeutic Interventions Therapeutic Interventions Aquatic Therapy,Balance Training,Coordination Training ,Gait Training,Home Exercise Program,Joint Mobilizations, Manual Therapy,Neuromuscular Re-education,Orthotic/ Prosthetic Management,Patient/ Caregiver Education,Self-Care/ Home Management,Sensory Integration,Soft Tissue Mobilization,Taping, Therapeutic Activities, Therapeutic Exercises, Vestibular Rehabilitation Other Therapeutic Interventions AD training Other Referrals/Consults Referrals/Consults Recommended Perinatal Coordinator for updated eye Rx . GAS OPERATIONS ANALYST instructed pt to follow up with PCP regarding proper dose increased Zanipril 80mg qd or 40 mg bid? Next Visit Focus/Plan Next Note Type Treatment Note Next Visit Plan Next tx: trial bungie cord stepping, wt step ups. DGI type training, narrow MIGDALIA/ weight shift; hip abd and core strengthening POC: Continue BLE strengthening and balance training Next session- check tolerance: STS with abd band, seated vs standing march, LAQ, HSC, PF, DF. Review shoe assessment/ foot check for diabetes, blood pressure checks daily and log . Progress BLE strengthening and balance Take vitals before every session and monitor closely; use gait belt, watch for falls
--- NOTE | 2023-11-19 15:15 | PT.OTN ---
Current Diagnoses Other chronic pain (11/19/23) Low back pain, unspecified (11/19/23) Repeated falls (11/19/23) Physical Therapy Treatment Note PT-OP-A Visit Information Start: 10/14/23 10:32 Freq: Status: Active Protocol: Document 11/19/23 14:35 SP (Rec: 11/19/23 15:43 SP [id number]) Out-Patient Physical Therapy Visit Information Visit Information Visit Type Treatment Note Visit Start Time 14:33 Visit Stop Time 15:15 Visit Number 5 Number of PHYSIOTHERAPY PRACTICE MANAGER Visits 1 Evaluation Information Evaluation Date 10/14/23 Precautions Precautions Fall risk Blood pressure- take vitals every time; allow acclimation to change of position Hx of seizures PT-OP-B Current Condition Start: 10/14/23 10:32 Freq: Status: Active Protocol: Document 10/14/23 10:32 NM (Rec: 10/14/23 11:42 NM [id number]) Current Condition History of Current Condition Onset Date during 2022 Current Complaints falls, loss of balance History of Current Condition Pt presents to Pt with hx of falls, reporting 5 in 2022. She reports that she usually trips over her feet and thinks her shoes may contribute because they're a size too large. During a previous fall, she has hit her head but was not otherwise injured. She has had falls from seated positions and standing positions. In May, she slipped and fell on her coccyx, bruising it. She went to the ED, where they did an x-ray showing no fracture. She had pain in her low back and coccyx for about 3 weeks after the fall, but does not have any pain currently. When she falls, she is unable to get up off of floor without the use of her hands or assistance. She does not use an AD during gait. She also reports instances of lightheadedness, vertigo usually with leaning over. PMH of meningioma, grand mal seizures, chest pressure without heart attack or other heart hx, diverticulitis. Prior Treatments and Tests previous PT for unknown reason but reports stopping due to feeling better Treatment Goals Patient/Caregiver Goals decrease falls Prior Functional Status Baseline Function- ADL's Independent Baseline Function- Mobility Independent Current Functional Impairments (Reported) Functional Limitations- ADL's Difficulty with reaching to floor, getting up off of floor ; loss of balance in sitting or standing Functional Limitations- Mobility/Gait 20 min, no AD use; tripping frequently PT-OP-C Subjective Start: 10/14/23 10:32 Freq: Status: Active Protocol: Document 11/19/23 14:35 SP (Rec: 11/19/23 15:43 SP [id number]) OP-PT Subjective Patient Comments Patient Comments Pt reports tring be aware posture while away on vacation . Can be doing better with HEP home. PT-OP-D Balance Start: 10/14/23 10:32 Freq: Status: Active Protocol: Document 10/14/23 10:32 NM (Rec: 10/14/23 11:42 NM [id number]) OP-PT Balance Assessment Sitting Balance Static Sitting Balance Ability Fair Dynamic Sitting Balance Ability Fair Standing Balance Static Standing Balance Ability Fair Dynamic Standing Balance Ability Fair Device Used none Standing Balance Comments trunk sway, attempts Balance Tests Metzger Balance Test Metzger Balance Test Score 39/56 Romberg Romberg 10 seconds, but increased trunk sway Single Limb Standing Single Limb- Right 4 seconds Single Limb- Left 2 seconds Semi-Tandem Standing Semi-Tandem Standing Balance 10 seconds BLE; more trunk sway with LLE in front Tandem Tandem Standing unable to move into position w /o assist; <2 sec Humphrey Fall Scale Copyright Permission PT-OP-E Functional Tests Start: 10/14/23 10:32 Freq: Status: Active Protocol: Document 10/14/23 10:32 NM (Rec: 10/14/23 11:42 NM [id number]) Functional Tests 30 Second Sit to Stand Test Score 11 Comments B knee valgus, increased trunk sway; fatigues quickly Tinetti Balance and Gait Assessment Balance Score 10 Gait Score 12 Composite Score PT-OP-F Manual Assessment Start: 10/14/23 10:32 Freq: Status: Active Protocol: Document 10/14/23 10:32 NM (Rec: 10/14/23 11:42 NM [id number]) Manual Assessments Soft Tissue Assessment Soft Tissue Mobility Assessment No soft tissue restrictions of lumbar spine or hips Joint Mobility Assessment Joint Mobility Assessment Full PROM and AROM of B hips, knees. Near full ROM of lumbar spine, minimal restrictions into trunk flexion PT-OP-G Mobility & Gait Start: 10/14/23 10:32 Freq: Status: Active Protocol: Document 10/14/23 10:32 NM (Rec: 10/14/23 11:42 NM [id number]) OP Gait Assessment Gait Gait Assistance Required: Independent Distance (Feet) 250 Assistive Devices Assistive Device Gait Belt Comments Gait Comments Pt has slightly fwd flexed trunk during gait, demos slight trunk sway; does not use AD or reach for objects to steady except when MIGDALIA changing (e.g tandem, narrow stance, stairs). During directional changes or head movement, pt demos increased sway and LOB without fall. Stair Climbing Evaluation Evaluation Level of Assist On Stairs Contact Guard Assistance Devices Stair Climbing Assistive Devices Right Railing Technique/Endurance Stair Climbing Direction Ascend and Descend Stair Climbing Technique Step Over Step Number of Steps Climbed 4 Stair Climbing Set # Repetitions (reps) 2 Comments Stair Climbing Comments Poor depth perception upon descent due to pt glasses, with or without. Difficulty with determining step location , requires hand rail assist for balance and CGA to steady PT-OP-H Neuro Start: 10/14/23 10:32 Freq: Status: Active Protocol: Document 10/14/23 10:32 NM (Rec: 10/14/23 11:42 NM [id number]) Sensation Evaluation Gross Sensation Gross Sensation Left LE Impaired,Right LE Impaired Comments Summary Comments No numbness or tingling reported BLE. However, pt demos decreased light touch sensation B medial ankle and foot (L4-5 dermatomes) Coordination Evaluation Upper Extremity Tests Right Finger to Nose Test Moderate Impairment Pronation/Supination Test Normal Performance Left Finger to Nose Test Moderate Impairment Pronation/Supination Test Normal Performance Lower Extremity Tests Right Alternate Heel to Knee; Heel to Toe Test Moderate Impairment Heel on Henderson Test Normal Performance Left Alternate Heel to Knee; Heel to Toe Test Moderate Impairment Heel on Henderson Test Normal Performance Deep Tendon Reflex & Clonus Assessment Deep Tendon Reflex Bilateral Patellar Deep Tendon Reflex 1+ Diminished Vital Signs Pulse 1 Pulse at Rest (bpm) 88 Pulse Assessment Method Pulse Ox/Monitor Blood Pressure Sitting Blood Pressure (90/60-120/80 mmHg) 174/83 H Blood Pressure Source Automatic Cuff,Right Upper Extremity Oxygen Pulse Oximetry at Rest (%) (95-100 %) 99 Comments Vital Signs Comments Taken immediately in sitting at start of evaluation, at rest PT-OP-J Posture/Palpation/Skin Start: 10/14/23 10:32 Freq: Status: Active Protocol: Document 10/14/23 10:32 NM (Rec: 10/14/23 11:42 NM [id number]) Posture Evaluation Position Standing Evaluation View Lateral Head/C-Spine Posture Forward Head T-Spine Posture Increased Kyphosis L-Spine Posture Neutral Pelvis Posture Anteriorly Tilted Hip Posture (L) Neutral,(R) Neutral Knee Posture (L) Genu Valgus,(R) Genu Valgus Ankle/Foot Posture (L) Pronated,(R) Pronated Palpation Assessment Location Lumbar spine Palpation Location L1-L5, sacrum, coccyx Palpation Details No tenderness reported with palpation PT-OP-K Range of Motion Start: 10/14/23 10:32 Freq: Status: Active Protocol: Document 10/14/23 10:32 NM (Rec: 10/14/23 11:42 NM [id number]) Lumbar Spine Range of Motion Lumbar Spine Active Percentage Testing Position Standing Flexion 75 Extension 100 Rotation Left 100 Rotation Right 100 Lateral Flexion Left 100 Lateral Flexion Right 100 Comments Hamstring length limits flexion, no numbness/tingling or flexion Hip Goniometric Range of Motion Hip ROM Limitations Comments Full B hip PROM and AROM, no pain or discomfort Knee Goniometric Range of Motion Knee ROM Limitations Comments Full B knee PROM and AROM PT-OP-M Strength Start: 10/14/23 10:32 Freq: Status: Active Protocol: Document 10/14/23 10:32 NM (Rec: 10/14/23 11:42 NM [id number]) Trunk Strength Trunk Manual Muscle Testing Testing Position Supine Flexion 3 Fair Extension 3 Fair Rotation Left 4 Good Rotation Right 4 Good Lateral Flexion Left 4 Good Lateral Flexion Right 4 Good Hip Strength Hip Manual Muscle Testing Right Flexion (L2) 4- Good- Extension (S1) 4- Good- Abduction 4- Good- Adduction 4- Good- External Rotation 4- Good- Internal Rotation 4- Good- Left Flexion (L2) 4- Good- Extension (S1) 4- Good- Abduction 4- Good- Adduction 4- Good- External Rotation 4- Good- Internal Rotation 4- Good- Knee Strength Knee Manual Muscle Testing Left Flexion (S2) 4- Good- Extension (L3) 4- Good- Right Flexion (S2) 4 Good Extension (L3) 4 Good Ankle/Foot Strength Ankle and Foot Manual Muscle Testing Left Dorsiflexion (L4) 4 Good Plantarflexion (S1) 4 Good Inversion 4 Good Eversion (S1) 4 Good Right Dorsiflexion (L4) 4 Good Plantarflexion (S1) 4 Good Inversion 4 Good Eversion (S1) 4 Good PT-OP-Q Treatments Start: 10/14/23 10:32 Freq: Status: Active Protocol: Document 11/19/23 14:35 SP (Rec: 11/19/23 15:43 SP [id number]) Therapeutic Exercises Sitting Exercises Sit to stand Sitting Exercise Name 30 STS; regular STS from 18 plinth Side bilateral Resistance teal band lvl 2 around knees Equipment Used arms in front for ant weight shift Reps/Minutes 10 reps, not timed Comments good form, ed arms crossed chest. Standing Exercises resisted shld ext Standing Exercise Name trialed for core fac Side bilateral Resistance Tb #3 ekwok green Reps/Minutes x10 Comments good posturing with cue, reports more shld than core and little balance. paloff press Standing Exercise Name 1. press outs 2. walkouts Side bilateral Resistance lvl 1 peach band Reps/Minutes 2x10 press out, 4 steps L/5 steps R side stepping Comments cued for hands at belly button , no twisting at trunk step ups Standing Exercise Name 6 step Side bilateral Resistance AROM Equipment Used 6 x10, 8 x5 reps Reps/Minutes no UE support Comments PHYSIOTHERAPY PRACTICE MANAGER CGA-5% x2 for over wt shift and weakness in TKE RLE intial step heel raises Standing Exercise Name HR & TR Side bilateral Resistance AROM Equipment Used no UE support Reps/Minutes 3x10 total Comments improved stab with sets, // good form Side steps Standing Exercise Name for hip abd strength Side bilateral Resistance lvl 2 theraband around ankles Equipment Used no UE support Reps/Minutes 4 sets x10 ft ea Comments improved tall over stance LE / c core/hip ab & foot clearance Gait Training Gait Activity stairs Description receiprocal stepping Device Used near rail: light contact descend, no contact ascend Level of Assistance SBA Distance/Duration 28 MAP bldg stairs Treatment Focus even carlo, wt shift into advance LE, midline trunk stab Comments cued wider MIGDALIA, full foot on step, arms swing and wt taller wt shift into LLE improved stance time on LLE during RLE advancement, almost even carlo. Ed wt shift into each LE asc/desc with purpose, awareness of safe pacing advancement for safety clearance. Neuro Re-Education Treatment Balance Activities tandem walking Comments Challenging activity for pt, Max cues for interscap, wt shift into advanced LE improved stability but only for 3-5 step then reverts to upper trunk retro lean therefore putting MIGDALIA more posteriorly in heels and back foot more than front. Cued stop and reset tall fwd COG. dynamic walking Details fwd HTs, bwd walking Surface slight incline/decline Equipment increase MIGDALIA, trunk midline corrections Reps/Duration ER hallway Comments Mod cues for increase MIGDALIA, slow pacing, improved trunk midline stability fwd gait allowed addition of head turns , initially challenging back stepping but with same cues improved receiprocal back stepping, very challenging addition of head turns to R>L over wt shift R /c scissor stepping Min A for recovery x2 instances. PT-OP-T Assessment and Plan Start: 10/14/23 10:32 Freq: Status: Active Protocol: Document 11/19/23 14:35 SP (Rec: 11/19/23 15:43 SP [id number]) Physical Therapy Assessment Goals Five Impairment safety, education Impairment Need to improve awareness of blood pressure and complications due to diabetes Short Term Goal (STG) Pt will report compliance with performing blood pressure and foot checks at least 3x/wk for increased safety awareness with managing other health conditions and to decrease fall risk. 11/11/23: Pt was on vacation so not compliant during vacation x2 weks, but reports compliance prior to vacation STG Duration 4 weeks NOT MET Assisted Goal (LTG) Pt will report compliance with performing daily blood pressure and foot checks for increased safety awareness with managing other health conditions and to decrease fall risk. LTG Duration 8 weeks Four Impairment HEP Impairment No HEP Short Term Goal (STG) Pt will report compliance with HEP 3x/wk in order to maximize PT sessions 11/11/23: Pt with minimal compliance due to vacation, but reports compliance 1-2x/wk prior to vacation STG Duration 4 weeks NOT MET Assisted Goal (LTG) Pt will report compliance with HEP at least 3x/wk in order to promote independence with exercise after discharge LTG Duration 8 weeks Three Impairment strength Impairment 30 sec STS score 11 Assisted Goal (LTG) Pt will perform at least 12 squats during 30 sec sit to stand test without compensation in order to demonstrate improved activity tolerance and BLE strength required for ADLs. 11/11/23: 13 STS in 30 seconds with arms in front from 18 plinth LTG Duration 8 weeks Two Impairment balance Impairment DGI Hay Rake Operator Goal (LTG) Pt will improve DGI score to at least / in order to demonstrate improved balance during higher level functional activities and to decrease fall risk 11/11/23: LTG Duration 8 weeks One Impairment Metzger Impairment Metzger score 39/56 Short Term Goal (STG) Pt will improve Metzger score to at least 41/56 in order to demonstrate improved balance and decrease fall risk 11/11/23: 45/56 STG Duration 4 weeks MET Assisted Goal (LTG) Pt will improve Metzger score to at least 48/56 in order to demonstrate improved balance and decrease fall risk 11/11/23: LTG Duration 8 weeks Assessment Summary Assessment Pt had 2 episodes of LOB without fall when back stepping head turn to R Min A recover, cued increased MIGDALIA and slower stepping with interscap and core engagement improved further distance. Pt improved able to asc/dec 6 step with lessening then no UE support on //bar, was challenged with progression 8 step R>L LE but able to perform last 2 reps improved TKE no UE support. 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 Physical Therapy Plan Frequency and Duration Frequency of Treatment 2x/Week Duration of treatment (weeks) 8 Plan of Care Start Date 10/14/23 Plan of Care End Date 12/02/23 Therapeutic Interventions Therapeutic Interventions Aquatic Therapy,Balance Training,Coordination Training ,Gait Training,Home Exercise Program,Joint Mobilizations, Manual Therapy,Neuromuscular Re-education,Orthotic/ Prosthetic Management,Patient/ Caregiver Education,Self-Care/ Home Management,Sensory Integration,Soft Tissue Mobilization,Taping, Therapeutic Activities, Therapeutic Exercises, Vestibular Rehabilitation Other Therapeutic Interventions AD training Other Referrals/Consults Referrals/Consults Recommended Warehouse Distribution Specialist for updated eye Rx . PHYSIOTHERAPY PRACTICE MANAGER instructed pt to follow up with PCP regarding proper dose increased Zanipril 80mg qd or 40 mg bid? Next Visit Focus/Plan Next Note Type Treatment Note Next Visit Plan REcheck toe raises, COG. Next tx: trial bungie cord stepping , wt step ups. DGI type training, narrow MIGDALIA/weight shift; hip abd and core strengthening POC: Continue BLE strengthening and balance training Next session- check tolerance: STS with abd band, seated vs standing november, LAQ, HSC, PF, DF. Review shoe assessment/ foot check for diabetes, blood pressure checks daily and log . Progress BLE strengthening and balance Take vitals before every session and monitor closely; use gait belt, watch for falls
--- NOTE | 2023-11-26 13:44 | PT.OTN ---
Current Diagnoses Other chronic pain (11/26/23) Low back pain, unspecified (11/26/23) Repeated falls (11/26/23) Physical Therapy Treatment Note PT-OP-A Visit Information Start: 10/14/23 10:32 Freq: Status: Active Protocol: Document 11/26/23 13:04 SP (Rec: 11/26/23 13:48 SP [id number]) Out-Patient Physical Therapy Visit Information Visit Information Visit Type Treatment Note Visit Start Time 13:04 Visit Stop Time 13:44 Visit Number 6 Number of TOOL MARKER Visits 2 Evaluation Information Evaluation Date 10/14/23 Precautions Precautions Fall risk Blood pressure- take vitals every time; allow acclimation to change of position Hx of seizures PT-OP-B Current Condition Start: 10/14/23 10:32 Freq: Status: Active Protocol: Document 10/14/23 10:32 NM (Rec: 10/14/23 11:42 NM [id number]) Current Condition History of Current Condition Onset Date during 2022 Current Complaints falls, loss of balance History of Current Condition Pt presents to Pt with hx of falls, reporting 5 in 2022. She reports that she usually trips over her feet and thinks her shoes may contribute because they're a size too large. During a previous fall, she has hit her head but was not otherwise injured. She has had falls from seated positions and standing positions. In May, she slipped and fell on her coccyx, bruising it. She went to the ED, where they did an x-ray showing no fracture. She had pain in her low back and coccyx for about 3 weeks after the fall, but does not have any pain currently. When she falls, she is unable to get up off of floor without the use of her hands or assistance. She does not use an AD during gait. She also reports instances of lightheadedness, vertigo usually with leaning over. PMH of meningioma, grand mal seizures, chest pressure without heart attack or other heart hx, diverticulitis. Prior Treatments and Tests previous PT for unknown reason but reports stopping due to feeling better Treatment Goals Patient/Caregiver Goals decrease falls Prior Functional Status Baseline Function- ADL's Independent Baseline Function- Mobility Independent Current Functional Impairments (Reported) Functional Limitations- ADL's Difficulty with reaching to floor, getting up off of floor ; loss of balance in sitting or standing Functional Limitations- Mobility/Gait 20 min, no AD use; tripping frequently PT-OP-C Subjective Start: 10/14/23 10:32 Freq: Status: Active Protocol: Document 11/26/23 13:04 SP (Rec: 11/26/23 13:48 SP [id number]) OP-PT Subjective Patient Comments Patient Comments Pt reports doing BP checks, Dr Suzanne Montana doubled BP med and noticing decrease 150s to 140s systolic, 80s diastolic. Foot check are fine, normal. Doign PT Hep 2-3x/wk. PT-OP-D Balance Start: 10/14/23 10:32 Freq: Status: Active Protocol: Document 10/14/23 10:32 NM (Rec: 10/14/23 11:42 NM [id number]) OP-PT Balance Assessment Sitting Balance Static Sitting Balance Ability Fair Dynamic Sitting Balance Ability Fair Standing Balance Static Standing Balance Ability Fair Dynamic Standing Balance Ability Fair Device Used none Standing Balance Comments trunk sway, attempts Balance Tests Metzger Balance Test Metzger Balance Test Score 39/56 Romberg Romberg 10 seconds, but increased trunk sway Single Limb Standing Single Limb- Right 4 seconds Single Limb- Left 2 seconds Semi-Tandem Standing Semi-Tandem Standing Balance 10 seconds BLE; more trunk sway with LLE in front Tandem Tandem Standing unable to move into position w /o assist; <2 sec Humphrey Fall Scale Copyright Permission PT-OP-E Functional Tests Start: 10/14/23 10:32 Freq: Status: Active Protocol: Document 10/14/23 10:32 NM (Rec: 10/14/23 11:42 NM [id number]) Functional Tests 30 Second Sit to Stand Test Score 11 Comments B knee valgus, increased trunk sway; fatigues quickly Tinetti Balance and Gait Assessment Balance Score 10 Gait Score 12 Composite Score PT-OP-F Manual Assessment Start: 10/14/23 10:32 Freq: Status: Active Protocol: Document 10/14/23 10:32 NM (Rec: 10/14/23 11:42 NM [id number]) Manual Assessments Soft Tissue Assessment Soft Tissue Mobility Assessment No soft tissue restrictions of lumbar spine or hips Joint Mobility Assessment Joint Mobility Assessment Full PROM and AROM of B hips, knees. Near full ROM of lumbar spine, minimal restrictions into trunk flexion PT-OP-G Mobility & Gait Start: 10/14/23 10:32 Freq: Status: Active Protocol: Document 10/14/23 10:32 NM (Rec: 10/14/23 11:42 NM [id number]) OP Gait Assessment Gait Gait Assistance Required: Independent Distance (Feet) 250 Assistive Devices Assistive Device Gait Belt Comments Gait Comments Pt has slightly fwd flexed trunk during gait, demos slight trunk sway; does not use AD or reach for objects to steady except when MIGDALIA changing (e.g tandem, narrow stance, stairs). During directional changes or head movement, pt demos increased sway and LOB without fall. Stair Climbing Evaluation Evaluation Level of Assist On Stairs Contact Guard Assistance Devices Stair Climbing Assistive Devices Right Railing Technique/Endurance Stair Climbing Direction Ascend and Descend Stair Climbing Technique Step Over Step Number of Steps Climbed 4 Stair Climbing Set # Repetitions (reps) 2 Comments Stair Climbing Comments Poor depth perception upon descent due to pt glasses, with or without. Difficulty with determining step location , requires hand rail assist for balance and CGA to steady PT-OP-H Neuro Start: 10/14/23 10:32 Freq: Status: Active Protocol: Document 10/14/23 10:32 NM (Rec: 10/14/23 11:42 NM [id number]) Sensation Evaluation Gross Sensation Gross Sensation Left LE Impaired,Right LE Impaired Comments Summary Comments No numbness or tingling reported BLE. However, pt demos decreased light touch sensation B medial ankle and foot (L4-5 dermatomes) Coordination Evaluation Upper Extremity Tests Right Finger to Nose Test Moderate Impairment Pronation/Supination Test Normal Performance Left Finger to Nose Test Moderate Impairment Pronation/Supination Test Normal Performance Lower Extremity Tests Right Alternate Heel to Knee; Heel to Toe Test Moderate Impairment Heel on Henderson Test Normal Performance Left Alternate Heel to Knee; Heel to Toe Test Moderate Impairment Heel on Henderson Test Normal Performance Deep Tendon Reflex & Clonus Assessment Deep Tendon Reflex Bilateral Patellar Deep Tendon Reflex 1+ Diminished Vital Signs Pulse 1 Pulse at Rest (bpm) 88 Pulse Assessment Method Pulse Ox/Monitor Blood Pressure Sitting Blood Pressure (90/60-120/80 mmHg) 174/83 H Blood Pressure Source Automatic Cuff,Right Upper Extremity Oxygen Pulse Oximetry at Rest (%) (95-100 %) 99 Comments Vital Signs Comments Taken immediately in sitting at start of evaluation, at rest PT-OP-J Posture/Palpation/Skin Start: 10/14/23 10:32 Freq: Status: Active Protocol: Document 10/14/23 10:32 NM (Rec: 10/14/23 11:42 NM [id number]) Posture Evaluation Position Standing Evaluation View Lateral Head/C-Spine Posture Forward Head T-Spine Posture Increased Kyphosis L-Spine Posture Neutral Pelvis Posture Anteriorly Tilted Hip Posture (L) Neutral,(R) Neutral Knee Posture (L) Genu Valgus,(R) Genu Valgus Ankle/Foot Posture (L) Pronated,(R) Pronated Palpation Assessment Location Lumbar spine Palpation Location L1-L5, sacrum, coccyx Palpation Details No tenderness reported with palpation PT-OP-K Range of Motion Start: 10/14/23 10:32 Freq: Status: Active Protocol: Document 10/14/23 10:32 NM (Rec: 10/14/23 11:42 NM [id number]) Lumbar Spine Range of Motion Lumbar Spine Active Percentage Testing Position Standing Flexion 75 Extension 100 Rotation Left 100 Rotation Right 100 Lateral Flexion Left 100 Lateral Flexion Right 100 Comments Hamstring length limits flexion, no numbness/tingling or flexion Hip Goniometric Range of Motion Hip ROM Limitations Comments Full B hip PROM and AROM, no pain or discomfort Knee Goniometric Range of Motion Knee ROM Limitations Comments Full B knee PROM and AROM PT-OP-M Strength Start: 10/14/23 10:32 Freq: Status: Active Protocol: Document 10/14/23 10:32 NM (Rec: 10/14/23 11:42 NM [id number]) Trunk Strength Trunk Manual Muscle Testing Testing Position Supine Flexion 3 Fair Extension 3 Fair Rotation Left 4 Good Rotation Right 4 Good Lateral Flexion Left 4 Good Lateral Flexion Right 4 Good Hip Strength Hip Manual Muscle Testing Right Flexion (L2) 4- Good- Extension (S1) 4- Good- Abduction 4- Good- Adduction 4- Good- External Rotation 4- Good- Internal Rotation 4- Good- Left Flexion (L2) 4- Good- Extension (S1) 4- Good- Abduction 4- Good- Adduction 4- Good- External Rotation 4- Good- Internal Rotation 4- Good- Knee Strength Knee Manual Muscle Testing Left Flexion (S2) 4- Good- Extension (L3) 4- Good- Right Flexion (S2) 4 Good Extension (L3) 4 Good Ankle/Foot Strength Ankle and Foot Manual Muscle Testing Left Dorsiflexion (L4) 4 Good Plantarflexion (S1) 4 Good Inversion 4 Good Eversion (S1) 4 Good Right Dorsiflexion (L4) 4 Good Plantarflexion (S1) 4 Good Inversion 4 Good Eversion (S1) 4 Good PT-OP-Q Treatments Start: 10/14/23 10:32 Freq: Status: Active Protocol: Document 11/26/23 13:04 SP (Rec: 11/26/23 13:48 SP [id number]) Therapeutic Exercises Sitting Exercises Sit to stand Sitting Exercise Name STS Side bilateral Resistance AROM (reintroduce TB) Equipment Used arms in front for ant weight shift Reps/Minutes 12 rep not timed, 10 reps in 30 sec Comments good form, ed arms crossed chest. Standing Exercises resisted shld ext Standing Exercise Name trialed for core fac Side bilateral Resistance Tb #3 hughes green Equipment Used foam pad Reps/Minutes x10 Comments good posturing with cue, little occasional sway self corrections. paloff press Standing Exercise Name walkouts only Side bilateral Resistance lvl 1 peach band held out front Reps/Minutes 4 steps x10 each side Comments cued tall posture/core/ rhomboid fac midline step/ control return, no twist step ups Standing Exercise Name 6 step Side bilateral Resistance AROM Equipment Used 8 x8 reps Reps/Minutes no UE support Comments TOOL MARKER close SBA/CGA, cued TKE & glut R>L LE asc/slow desc core /rhomboid midli heel raises Standing Exercise Name HR & TR Side bilateral Resistance AROM Equipment Used no UE support Reps/Minutes 20 total Comments // good form, cued slower pacing improve TR with slight wt shift posterior Neuro Re-Education Treatment Balance Activities carioca Details trialed Reps/Duration 20 ft x1 lap Comments few light LOB but self recovery, Max cuing for fwd/ back cross stepping. Cued tall posturing rhombod fac over MIGDALIA. dynamic walking Details fwd HTs, bwd walking, stop/ start, quick/ slow, pivot turns cross stepping Surface slight incline/decline Equipment increase MIGDALIA, trunk midline corrections Reps/Duration straight between machines Comments Mod cues for increase MIGDALIA, slow pacing, improved trunk midline stability fwd gait allowed addition of head turns , initially challenging back stepping but with same cues improved receiprocal back stepping, very challenging addition of head turns to R>L over wt shift R /c scissor stepping Min A for recovery x2 instances. PT-OP-T Assessment and Plan Start: 10/14/23 10:32 Freq: Status: Active Protocol: Document 11/26/23 13:04 SP (Rec: 11/26/23 13:48 SP [id number]) Physical Therapy Assessment Goals Five Impairment safety, education Impairment Need to improve awareness of blood pressure and complications due to diabetes Short Term Goal (STG) Pt will report compliance with performing blood pressure and foot checks at least 3x/wk for increased safety awareness with managing other health conditions and to decrease fall risk. 11/11/23: Pt was on vacation so not compliant during vacation x2 weks, but reports compliance prior to vacation 11/25/22: MET GOAL doing daily BP and foot checks. Dr Montana increased BP med, 150s to 140s /80s. STG Duration 4 weeks MET GOAL. Steam Trap Worker Goal (LTG) Pt will report compliance with performing daily blood pressure and foot checks for increased safety awareness with managing other health conditions and to decrease fall risk. 11/25/22: MET GOAL doing daily BP and foot checks. Dr Montana increased BP med, 150s to 140s /80s. LTG Duration 8 weeks GOAL MET 11/26/23 Four Impairment HEP Impairment No HEP Short Term Goal (STG) Pt will report compliance with HEP 3x/wk in order to maximize PT sessions 11/11/23: Pt with minimal compliance due to vacation, but reports compliance 1-2x/wk prior to vacation 11/25/23: progressing: compliant with 2-3x/wk STG Duration 4 weeks progressing 11/26/23 Steam Trap Worker Goal (LTG) Pt will report compliance with HEP at least 3x/wk in order to promote independence with exercise after discharge 11/25/23: progressing: compliant with 2-3x/wk LTG Duration 8 weeks progressing 11/26/23 Three Impairment strength Impairment 30 sec STS score 11 Steam Trap Worker Goal (LTG) Pt will perform at least 12 squats during 30 sec sit to stand test without compensation in order to demonstrate improved activity tolerance and BLE strength required for ADLs. 11/11/23: 13 STS in 30 seconds with arms in front from 18 plinth 11/26/23: STS 10 reps after already did some ther ex and balance activities. LTG Duration 8 weeks Two Impairment balance Impairment DGI Usp Goal (LTG) Pt will improve DGI score to at least in order to demonstrate improved balance during higher level functional activities and to decrease fall risk 11/11/23: LTG Duration 8 weeks One Impairment Metzger Impairment Metzger score 39/56 Short Term Goal (STG) Pt will improve Metzger score to at least 41/56 in order to demonstrate improved balance and decrease fall risk 11/11/23: 45/56 STG Duration 4 weeks MET Usp Goal (LTG) Pt will improve Metzger score to at least 48/56 in order to demonstrate improved balance and decrease fall risk 11/11/23: LTG Duration 8 weeks Assessment Summary Assessment Pt had few viering to L>R and scissor stepping with head turns fwd and bwd. Continued max cues for increase MIGDALIA and slower pacing over MIGDALIA with rhomboid fac asisted midline awareness for corrections. Close SBA and light CGA as needed. She was able to ascend step up/back down 8 step today, improved stability cues TKE, glut asc, core/rhomboid midline soft back graded stepping over stance LE. Pt improved able perform resisted UE while standing uneven surface in PT, closeSBA for safety. Physical Therapy Plan Frequency and Duration Frequency of Treatment 2x/Week Duration of treatment (weeks) 8 Plan of Care Start Date 10/14/23 Plan of Care End Date 12/02/23 Therapeutic Interventions Therapeutic Interventions Aquatic Therapy,Balance Training,Coordination Training ,Gait Training,Home Exercise Program,Joint Mobilizations, Manual Therapy,Neuromuscular Re-education,Orthotic/ Prosthetic Management,Patient/ Caregiver Education,Self-Care/ Home Management,Sensory Integration,Soft Tissue Mobilization,Taping, Therapeutic Activities, Therapeutic Exercises, Vestibular Rehabilitation Other Therapeutic Interventions AD training Other Referrals/Consults Referrals/Consults Recommended Clearance Diver for updated eye Rx . TOOL MARKER instructed pt to follow up with PCP regarding proper dose increased Zanipril 80mg qd or 40 mg bid? Next Visit Focus/Plan Next Note Type Treatment Note Next Visit Plan Next tx: trial bungie cord stepping POC: DGI type training, narrow MIGDALIA/weight shift; hip abd and core strengthening POC: Continue BLE strengthening and balance training Next session- check tolerance: STS with abd band, seated vs standing march, LAQ, HSC, PF, DF. Review shoe assessment/ foot check for diabetes, blood pressure checks daily and log . Progress BLE strengthening and balance Take vitals before every session and monitor closely; use gait belt, watch for falls
--- NOTE | 2023-12-03 15:31 | PT.OTN ---
Current Diagnoses Other chronic pain (12/03/23) Low back pain, unspecified (12/03/23) Repeated falls (12/03/23) Physical Therapy Treatment Note PT-OP-A Visit Information Start: 10/14/23 10:32 Freq: Status: Active Protocol: Document 12/03/23 13:00 NM (Rec: 12/03/23 13:48 NM [id number]) Out-Patient Physical Therapy Visit Information Visit Information Visit Type Progress Note Visit Start Time 13:00 Visit Stop Time 13:44 Visit Number 7 Evaluation Information Evaluation Date 10/14/23 Precautions Precautions Fall risk Blood pressure- take vitals every time; allow acclimation to change of position Hx of seizures PT-OP-B Current Condition Start: 10/14/23 10:32 Freq: Status: Active Protocol: Document 10/14/23 10:32 NM (Rec: 10/14/23 11:42 NM [id number]) Current Condition History of Current Condition Onset Date during 2022 Current Complaints falls, loss of balance History of Current Condition Pt presents to Pt with hx of falls, reporting 5 in 2022. She reports that she usually trips over her feet and thinks her shoes may contribute because they're a size too large. During a previous fall, she has hit her head but was not otherwise injured. She has had falls from seated positions and standing positions. In May, she slipped and fell on her coccyx, bruising it. She went to the ED, where they did an x-ray showing no fracture. She had pain in her low back and coccyx for about 3 weeks after the fall, but does not have any pain currently. When she falls, she is unable to get up off of floor without the use of her hands or assistance. She does not use an AD during gait. She also reports instances of lightheadedness, vertigo usually with leaning over. PMH of meningioma, grand mal seizures, chest pressure without heart attack or other heart hx, diverticulitis. Prior Treatments and Tests previous PT for unknown reason but reports stopping due to feeling better Treatment Goals Patient/Caregiver Goals decrease falls Prior Functional Status Baseline Function- ADL's Independent Baseline Function- Mobility Independent Current Functional Impairments (Reported) Functional Limitations- ADL's Difficulty with reaching to floor, getting up off of floor ; loss of balance in sitting or standing Functional Limitations- Mobility/Gait 20 min, no AD use; tripping frequently PT-OP-C Subjective Start: 10/14/23 10:32 Freq: Status: Active Protocol: Document 12/03/23 13:00 NM (Rec: 12/03/23 13:48 NM [id number]) OP-PT Subjective Patient Comments Patient Comments Pt reports improvement in blood pressure levels since beginning PT. She reports very poor compliance with HEP only 2x/wk, stating I know I don' t do it as much as I should. My reminds me. Pt reports that she is more aware of her surroundings and location of her feet since beginning PT. However, she reports not much difference in her opinion. PT-OP-D Balance Start: 10/14/23 10:32 Freq: Status: Active Protocol: Document 10/14/23 10:32 NM (Rec: 10/14/23 11:42 NM [id number]) OP-PT Balance Assessment Sitting Balance Static Sitting Balance Ability Fair Dynamic Sitting Balance Ability Fair Standing Balance Static Standing Balance Ability Fair Dynamic Standing Balance Ability Fair Device Used none Standing Balance Comments trunk sway, attempts Balance Tests Metzger Balance Test Metzger Balance Test Score 39/56 Romberg Romberg 10 seconds, but increased trunk sway Single Limb Standing Single Limb- Right 4 seconds Single Limb- Left 2 seconds Semi-Tandem Standing Semi-Tandem Standing Balance 10 seconds BLE; more trunk sway with LLE in front Tandem Tandem Standing unable to move into position w /o assist; <2 sec Humphrey Fall Scale Copyright Permission PT-OP-E Functional Tests Start: 10/14/23 10:32 Freq: Status: Active Protocol: Document 10/14/23 10:32 NM (Rec: 10/14/23 11:42 NM [id number]) Functional Tests 30 Second Sit to Stand Test Score 11 Comments B knee valgus, increased trunk sway; fatigues quickly Tinetti Balance and Gait Assessment Balance Score 10 Gait Score 12 Composite Score PT-OP-F Manual Assessment Start: 10/14/23 10:32 Freq: Status: Active Protocol: Document 10/14/23 10:32 NM (Rec: 10/14/23 11:42 NM [id number]) Manual Assessments Soft Tissue Assessment Soft Tissue Mobility Assessment No soft tissue restrictions of lumbar spine or hips Joint Mobility Assessment Joint Mobility Assessment Full PROM and AROM of B hips, knees. Near full ROM of lumbar spine, minimal restrictions into trunk flexion PT-OP-G Mobility & Gait Start: 10/14/23 10:32 Freq: Status: Active Protocol: Document 10/14/23 10:32 NM (Rec: 10/14/23 11:42 NM [id number]) OP Gait Assessment Gait Gait Assistance Required: Independent Distance (Feet) 250 Assistive Devices Assistive Device Gait Belt Comments Gait Comments Pt has slightly fwd flexed trunk during gait, demos slight trunk sway; does not use AD or reach for objects to steady except when MIGDALIA changing (e.g tandem, narrow stance, stairs). During directional changes or head movement, pt demos increased sway and LOB without fall. Stair Climbing Evaluation Evaluation Level of Assist On Stairs Contact Guard Assistance Devices Stair Climbing Assistive Devices Right Railing Technique/Endurance Stair Climbing Direction Ascend and Descend Stair Climbing Technique Step Over Step Number of Steps Climbed 4 Stair Climbing Set # Repetitions (reps) 2 Comments Stair Climbing Comments Poor depth perception upon descent due to pt glasses, with or without. Difficulty with determining step location , requires hand rail assist for balance and CGA to steady PT-OP-H Neuro Start: 10/14/23 10:32 Freq: Status: Active Protocol: Document 10/14/23 10:32 NM (Rec: 10/14/23 11:42 NM [id number]) Sensation Evaluation Gross Sensation Gross Sensation Left LE Impaired,Right LE Impaired Comments Summary Comments No numbness or tingling reported BLE. However, pt demos decreased light touch sensation B medial ankle and foot (L4-5 dermatomes) Coordination Evaluation Upper Extremity Tests Right Finger to Nose Test Moderate Impairment Pronation/Supination Test Normal Performance Left Finger to Nose Test Moderate Impairment Pronation/Supination Test Normal Performance Lower Extremity Tests Right Alternate Heel to Knee; Heel to Toe Test Moderate Impairment Heel on Henderson Test Normal Performance Left Alternate Heel to Knee; Heel to Toe Test Moderate Impairment Heel on Henderson Test Normal Performance Deep Tendon Reflex & Clonus Assessment Deep Tendon Reflex Bilateral Patellar Deep Tendon Reflex 1+ Diminished Vital Signs Pulse 1 Pulse at Rest (bpm) 88 Pulse Assessment Method Pulse Ox/Monitor Blood Pressure Sitting Blood Pressure (90/60-120/80 mmHg) 174/83 H Blood Pressure Source Automatic Cuff,Right Upper Extremity Oxygen Pulse Oximetry at Rest (%) (95-100 %) 99 Comments Vital Signs Comments Taken immediately in sitting at start of evaluation, at rest PT-OP-J Posture/Palpation/Skin Start: 10/14/23 10:32 Freq: Status: Active Protocol: Document 10/14/23 10:32 NM (Rec: 10/14/23 11:42 NM [id number]) Posture Evaluation Position Standing Evaluation View Lateral Head/C-Spine Posture Forward Head T-Spine Posture Increased Kyphosis L-Spine Posture Neutral Pelvis Posture Anteriorly Tilted Hip Posture (L) Neutral,(R) Neutral Knee Posture (L) Genu Valgus,(R) Genu Valgus Ankle/Foot Posture (L) Pronated,(R) Pronated Palpation Assessment Location Lumbar spine Palpation Location L1-L5, sacrum, coccyx Palpation Details No tenderness reported with palpation PT-OP-K Range of Motion Start: 10/14/23 10:32 Freq: Status: Active Protocol: Document 10/14/23 10:32 NM (Rec: 10/14/23 11:42 NM [id number]) Lumbar Spine Range of Motion Lumbar Spine Active Percentage Testing Position Standing Flexion 75 Extension 100 Rotation Left 100 Rotation Right 100 Lateral Flexion Left 100 Lateral Flexion Right 100 Comments Hamstring length limits flexion, no numbness/tingling or flexion Hip Goniometric Range of Motion Hip ROM Limitations Comments Full B hip PROM and AROM, no pain or discomfort Knee Goniometric Range of Motion Knee ROM Limitations Comments Full B knee PROM and AROM PT-OP-M Strength Start: 10/14/23 10:32 Freq: Status: Active Protocol: Document 10/14/23 10:32 NM (Rec: 10/14/23 11:42 NM [id number]) Trunk Strength Trunk Manual Muscle Testing Testing Position Supine Flexion 3 Fair Extension 3 Fair Rotation Left 4 Good Rotation Right 4 Good Lateral Flexion Left 4 Good Lateral Flexion Right 4 Good Hip Strength Hip Manual Muscle Testing Right Flexion (L2) 4- Good- Extension (S1) 4- Good- Abduction 4- Good- Adduction 4- Good- External Rotation 4- Good- Internal Rotation 4- Good- Left Flexion (L2) 4- Good- Extension (S1) 4- Good- Abduction 4- Good- Adduction 4- Good- External Rotation 4- Good- Internal Rotation 4- Good- Knee Strength Knee Manual Muscle Testing Left Flexion (S2) 4- Good- Extension (L3) 4- Good- Right Flexion (S2) 4 Good Extension (L3) 4 Good Ankle/Foot Strength Ankle and Foot Manual Muscle Testing Left Dorsiflexion (L4) 4 Good Plantarflexion (S1) 4 Good Inversion 4 Good Eversion (S1) 4 Good Right Dorsiflexion (L4) 4 Good Plantarflexion (S1) 4 Good Inversion 4 Good Eversion (S1) 4 Good PT-OP-Q Treatments Start: 10/14/23 10:32 Freq: Status: Active Protocol: Document 12/03/23 13:00 NM (Rec: 12/03/23 13:48 NM [id number]) Therapeutic Exercises Sitting Exercises hip abduction Sitting Exercise Name reviewed for HEP but did not perform Sit to stand Sitting Exercise Name STS Side bilateral Resistance AROM (reintroduce TB) Equipment Used arms in front for ant weight shift, mesh chair Reps/Minutes 11 reps in timed 30 sec STS Comments good form, ed arms crossed chest; becomes SOB Standing Exercises stairs Standing Exercise Name part of DGI Side bilateral Equipment Used alternating, 1 rep with rail and 1 rep without rail Reps/Minutes 2 x4 stairs Comments CGA w/o rail; close SBA with rail; cued foot clearance, slower descent lateral lunge Standing Exercise Name trialed in PT Side bilateral Resistance AROM Equipment Used ballet bar for 2 finger support ea hand for balance Reps/Minutes 1x10 ea Comments cued to hold bar for safety, correct execution, limit trunk comp hip abduction Standing Exercise Name trialed in PT Side bilateral Resistance AROM Equipment Used ballet bar for 2 finger support ea hand Reps/Minutes 1x10 ea Comments cued to hold bar for balance, correct execution and limit trunk comp lunge Standing Exercise Name trialed in PT: fwd stepping lunge Side bilateral Resistance AROM Equipment Used 1 hand support on ballet bar Reps/Minutes 1x10 ea Comments cued for B knee flex, hold bar for balance, wider MIGDALIA toe raises Standing Exercise Name for foot clearance Side bilateral Resistance AROM Equipment Used legs slightly in front; back against wall Reps/Minutes 2x10 Comments decreased compensations with wall support; reports hard heel raises Standing Exercise Name B heel raise only with knee ext Side bilateral Resistance 2# ball between ankles for heel raises Equipment Used 2 finger support with ball Reps/Minutes 2x10 ea Comments cued no compensation with hips Neuro Re-Education Treatment Balance Activities bosu step up Details CGA to steady Surface blue side up, unstable Equipment 1 hand rail support (flat hand ) Reps/Duration 2x10 ea leg Comments cued for foot placement, weight shift, minimize UE use but continue to use rail for stability and safety. Hip strategy obstacle course Surface unstable Reps/Duration 2 sets Comments 3 hurdles w> step over 6 box > gait on mat with 1 side elevated> francois > cone weave Challenged with activity. Must maintain eye contact with obstacles to avoid LOB. CGA to steady with pt attempting hip strategy. DGI Details Comments Challenged with head turns/ head nods w.o LOB or deviation . Difficulty with clearing cones without knocking over, stepping over obstacle (slows to step) Followed by 1x25 ft with Horizontal head turns, 1x25 ft wtih vertical head turns. Cued for finding spot on wall to focus, wider MIGDALIA with gait to prevent scissoring Metzger Details 44/56 Comments Challenged with tandem, SLS, narrow MIGDALIA and eyes closed, stepping and picking up objects. Able to correct but demos slight LOB with pickling grader object Self-Care/Home Management Treatment Education Patient Education Body Mechanics,Fall Risk,Home Exercise Program,Joint Protection,Safety Caregiver Education BP: 153/78 Other Education 5 minutes: Educated on shoe wear for safety, increased ankle support, decrease fall risk due to poor ankle stability. Educated pt on good heel support, higher ankles, sturdy base, avoid slip ons. Further educated on purpose and importance of HEP, recommended exercise log for improved compliance. HEP: lunge with support ( near), toe raises with hand support from counter or against wall. Pt verbalizes agreement PT-OP-T Assessment and Plan Start: 10/14/23 10:32 Freq: Status: Active Protocol: Document 12/03/23 13:00 NM (Rec: 12/03/23 13:48 NM [id number]) Physical Therapy Assessment Goals Five Impairment safety, education Impairment Need to improve awareness of blood pressure and complications due to diabetes Short Term Goal (STG) Pt will report compliance with performing blood pressure and foot checks at least 3x/wk for increased safety awareness with managing other health conditions and to decrease fall risk. 11/11/23: Pt was on vacation so not compliant during vacation x2 weks, but reports compliance prior to vacation 11/25/22: MET GOAL doing daily BP and foot checks. Dr [place] increased BP med, 150s to 140s /80s. STG Duration 4 weeks MET GOAL. Electorate Officer Goal (LTG) Pt will report compliance with performing daily blood pressure and foot checks for increased safety awareness with managing other health conditions and to decrease fall risk. 11/25/22: MET GOAL doing daily BP and foot checks. Dr [place] increased BP med, 150s to 140s /80s. LTG Duration 8 weeks GOAL MET 11/26/23 Four Impairment HEP Impairment No HEP Short Term Goal (STG) Pt will report compliance with HEP 3x/wk in order to maximize PT sessions 11/11/23: Pt with minimal compliance due to vacation, but reports compliance 1-2x/wk prior to vacation 11/25/23: progressing: compliant with 2-3x/wk STG Duration 4 weeks progressing 11/26/23 Shelter Goal (LTG) Pt will report compliance with HEP at least 3x/wk in order to promote independence with exercise after discharge 11/26/23: progressing: compliant with 2-3x/wk 12/03/23: 2-3xwk compliance LTG Duration 8 weeks progressing 11/26/23 Three Impairment strength Impairment 30 sec STS score 11 Electorate Officer Goal (LTG) Pt will perform at least 12 squats during 30 sec sit to stand test without compensation in order to demonstrate improved activity tolerance and BLE strength required for ADLs. 12/03/23: 11 from mesh chair 11/11/23: 13 STS in 30 seconds with arms in front from 18 plinth 11/26/23: STS 10 reps after already did some ther ex and balance activities. LTG Duration 8 weeks MET Two Impairment balance Impairment DGI Electorate Officer Goal (LTG) Pt will improve DGI score to at least 19 in order to demonstrate improved balance during higher level functional activities and to decrease fall risk 11/11/23: 12/03/23: 1624 LTG Duration 8 weeks NOT MET One Impairment Metzger Impairment Metzger score 39/56 Short Term Goal (STG) Pt will improve Metzger score to at least 41/56 in order to demonstrate improved balance and decrease fall risk 11/11/23: 45/56 STG Duration 4 weeks MET Electorate Officer Goal (LTG) Pt will improve Metzgre score to at least 48/56 in order to demonstrate improved balance and decrease fall risk 12/03/23: 44/56 LTG Duration 8 weeks NOT MET Progress Towards Goals Progress Towards Goals Progressing Toward Goals,Slow Progress due to Attendance Issues,Slow Progress due to Medical Issues,Goals Met Progress Comments Met 2/5 goals. Progressing toward 1 compliance with HEP, not met 2 related to balance Assessment Summary Assessment Pt tolerated session well. She continues to have difficulty with both static and dynamic balance activities. Continued with BLE strengthening, particularly of hip abductors and glutes. Pt demos compensations with trunk due to weakness in core and hips when performing exercises. PT educated pt on purpose of HEP and its importance with maximizing rehab progress; recommended pt establish exercise log. Added toe raises against wall to assist with foot clearance. Initiated standing forward and lateral lunges for both functional strengthening and balance; pt requires consistent cues to start with UE support before progressing away for safety, form, and to limit compensations. Pt continues to be challenged with maintaining MIGDALIA on unstable surfaces or when MIGDALIA is narrowed. Pt relies heavily on visual input for balance. PT also educated pt on more supportive footwear. Pt verbalizes agreement. She becomes SOB with activity and fatigues quickly. Pt has been seen x6 visits since IE for gait and balance abnormalities since September 2021. She missed several week due to vacation. Pt has met 2/ 5 goals since IE related to self-care management of blood pressure and foot checks. She has improved in both Metzger and DGI scores; however, she continues to be in the fall risk category for both and would benefit from further balance training. Pt's BLE strength has improved regarding her ability to perform functional transfers safely and without relying on UE support. However, pt has had poor compliance with HEP which has limited her ability to progress with exercise or balance activities. Pt would benefit from further skilled PT for balance training and BLE/core strengthening to decrease fall risk and improve activity tolerance. Physical Therapy Plan Frequency and Duration Frequency of Treatment 2x/Week Duration of treatment (weeks) 6 Plan of Care Start Date 12/03/23 Plan of Care End Date 01/17/24 Therapeutic Interventions Therapeutic Interventions Aquatic Therapy,Balance Training,Coordination Training ,Gait Training,Home Exercise Program,Joint Mobilizations, Manual Therapy,Neuromuscular Re-education,Orthotic/ Prosthetic Management,Patient/ Caregiver Education,Self-Care/ Home Management,Sensory Integration,Soft Tissue Mobilization,Taping, Therapeutic Activities, Therapeutic Exercises, Vestibular Rehabilitation Other Therapeutic Interventions AD training Other Referrals/Consults Referrals/Consults Recommended Pharmaceutical Representative for updated eye Rx . NON[employer]IT [employer]CIAL [employer]ER instructed pt to follow up with PCP regarding proper dose increased Zanipril 80mg qd or 40 mg bid? Next Visit Focus/Plan Next Note Type Treatment Note Next Visit Plan Next tx: trial bungie cord stepping, functional core strength POC: DGI type training, narrow MIGDALIA/weight shift; hip abd and core strengthening POC: Continue BLE strengthening and balance training Next session- check tolerance: STS with abd band, seated vs standing march, LAQ, HSC, PF, DF. Review shoe assessment/ foot check for diabetes, blood pressure checks daily and log . Progress BLE strengthening and balance Take vitals before every session and monitor closely; use gait belt, watch for falls
--- NOTE | 2023-12-10 14:29 | PT.OTN ---
Current Diagnoses Other chronic pain (12/10/23) Low back pain, unspecified (12/10/23) Repeated falls (12/10/23) Physical Therapy Treatment Note PT-OP-A Visit Information Start: 10/14/23 10:32 Freq: Status: Active Protocol: Document 12/10/23 13:49 SP (Rec: 12/10/23 14:31 SP [id number]) Out-Patient Physical Therapy Visit Information Visit Information Visit Type Treatment Note Visit Start Time 13:49 Visit Stop Time 14:29 Visit Number 8 Number of SEAM PRESSER Visits 1 Evaluation Information Evaluation Date 10/14/23 Precautions Precautions Fall risk Blood pressure- take vitals every time; allow acclimation to change of position Hx of seizures PT-OP-B Current Condition Start: 10/14/23 10:32 Freq: Status: Active Protocol: Document 10/14/23 10:32 NM (Rec: 10/14/23 11:42 NM [id number]) Current Condition History of Current Condition Onset Date during 2022 Current Complaints falls, loss of balance History of Current Condition Pt presents to Pt with hx of falls, reporting 5 in 2022. She reports that she usually trips over her feet and thinks her shoes may contribute because they're a size too large. During a previous fall, she has hit her head but was not otherwise injured. She has had falls from seated positions and standing positions. In May, she slipped and fell on her coccyx, bruising it. She went to the ED, where they did an x-ray showing no fracture. She had pain in her low back and coccyx for about 3 weeks after the fall, but does not have any pain currently. When she falls, she is unable to get up off of floor without the use of her hands or assistance. She does not use an AD during gait. She also reports instances of lightheadedness, vertigo usually with leaning over. PMH of meningioma, grand mal seizures, chest pressure without heart attack or other heart hx, diverticulitis. Prior Treatments and Tests previous PT for unknown reason but reports stopping due to feeling better Treatment Goals Patient/Caregiver Goals decrease falls Prior Functional Status Baseline Function- ADL's Independent Baseline Function- Mobility Independent Current Functional Impairments (Reported) Functional Limitations- ADL's Difficulty with reaching to floor, getting up off of floor ; loss of balance in sitting or standing Functional Limitations- Mobility/Gait 20 min, no AD use; tripping frequently PT-OP-C Subjective Start: 10/14/23 10:32 Freq: Status: Active Protocol: Document 12/10/23 13:49 SP (Rec: 12/10/23 14:31 SP [id number]) OP-PT Subjective Patient Comments Patient Comments Pt reports her BP was 146/6_? 1 hr ago. Pt stated finds herself walking tandem when looking more off to L than R [place]. PT-OP-D Balance Start: 10/14/23 10:32 Freq: Status: Active Protocol: Document 10/14/23 10:32 NM (Rec: 10/14/23 11:42 NM [id number]) OP-PT Balance Assessment Sitting Balance Static Sitting Balance Ability Fair Dynamic Sitting Balance Ability Fair Standing Balance Static Standing Balance Ability Fair Dynamic Standing Balance Ability Fair Device Used none Standing Balance Comments trunk sway, attempts Balance Tests Metzger Balance Test Metzger Balance Test Score 39/56 Romberg Romberg 10 seconds, but increased trunk sway Single Limb Standing Single Limb- Right 4 seconds Single Limb- Left 2 seconds Semi-Tandem Standing Semi-Tandem Standing Balance 10 seconds BLE; more trunk sway with LLE in front Tandem Tandem Standing unable to move into position w /o assist; <2 sec Humphrey Fall Scale Copyright Permission PT-OP-E Functional Tests Start: 10/14/23 10:32 Freq: Status: Active Protocol: Document 10/14/23 10:32 NM (Rec: 10/14/23 11:42 NM [id number]) Functional Tests 30 Second Sit to Stand Test Score 11 Comments B knee valgus, increased trunk sway; fatigues quickly Tinetti Balance and Gait Assessment Balance Score 10 Gait Score 12 Composite Score PT-OP-F Manual Assessment Start: 10/14/23 10:32 Freq: Status: Active Protocol: Document 10/14/23 10:32 NM (Rec: 10/14/23 11:42 NM [id number]) Manual Assessments Soft Tissue Assessment Soft Tissue Mobility Assessment No soft tissue restrictions of lumbar spine or hips Joint Mobility Assessment Joint Mobility Assessment Full PROM and AROM of B hips, knees. Near full ROM of lumbar spine, minimal restrictions into trunk flexion PT-OP-G Mobility & Gait Start: 10/14/23 10:32 Freq: Status: Active Protocol: Document 10/14/23 10:32 NM (Rec: 10/14/23 11:42 NM [id number]) OP Gait Assessment Gait Gait Assistance Required: Independent Distance (Feet) 250 Assistive Devices Assistive Device Gait Belt Comments Gait Comments Pt has slightly fwd flexed trunk during gait, demos slight trunk sway; does not use AD or reach for objects to steady except when MIGDALIA changing (e.g tandem, narrow stance, stairs). During directional changes or head movement, pt demos increased sway and LOB without fall. Stair Climbing Evaluation Evaluation Level of Assist On Stairs Contact Guard Assistance Devices Stair Climbing Assistive Devices Right Railing Technique/Endurance Stair Climbing Direction Ascend and Descend Stair Climbing Technique Step Over Step Number of Steps Climbed 4 Stair Climbing Set # Repetitions (reps) 2 Comments Stair Climbing Comments Poor depth perception upon descent due to pt glasses, with or without. Difficulty with determining step location , requires hand rail assist for balance and CGA to steady PT-OP-H Neuro Start: 10/14/23 10:32 Freq: Status: Active Protocol: Document 10/14/23 10:32 NM (Rec: 10/14/23 11:42 NM [id number]) Sensation Evaluation Gross Sensation Gross Sensation Left LE Impaired,Right LE Impaired Comments Summary Comments No numbness or tingling reported BLE. However, pt demos decreased light touch sensation B medial ankle and foot (L4-5 dermatomes) Coordination Evaluation Upper Extremity Tests Right Finger to Nose Test Moderate Impairment Pronation/Supination Test Normal Performance Left Finger to Nose Test Moderate Impairment Pronation/Supination Test Normal Performance Lower Extremity Tests Right Alternate Heel to Knee; Heel to Toe Test Moderate Impairment Heel on Henderson Test Normal Performance Left Alternate Heel to Knee; Heel to Toe Test Moderate Impairment Heel on Henderson Test Normal Performance Deep Tendon Reflex & Clonus Assessment Deep Tendon Reflex Bilateral Patellar Deep Tendon Reflex 1+ Diminished Vital Signs Pulse 1 Pulse at Rest (bpm) 88 Pulse Assessment Method Pulse Ox/Monitor Blood Pressure Sitting Blood Pressure (90/60-120/80 mmHg) 174/83 H Blood Pressure Source Automatic Cuff,Right Upper Extremity Oxygen Pulse Oximetry at Rest (%) (95-100 %) 99 Comments Vital Signs Comments Taken immediately in sitting at start of evaluation, at rest PT-OP-J Posture/Palpation/Skin Start: 10/14/23 10:32 Freq: Status: Active Protocol: Document 10/14/23 10:32 NM (Rec: 10/14/23 11:42 NM [id number]) Posture Evaluation Position Standing Evaluation View Lateral Head/C-Spine Posture Forward Head T-Spine Posture Increased Kyphosis L-Spine Posture Neutral Pelvis Posture Anteriorly Tilted Hip Posture (L) Neutral,(R) Neutral Knee Posture (L) Genu Valgus,(R) Genu Valgus Ankle/Foot Posture (L) Pronated,(R) Pronated Palpation Assessment Location Lumbar spine Palpation Location L1-L5, sacrum, coccyx Palpation Details No tenderness reported with palpation PT-OP-K Range of Motion Start: 10/14/23 10:32 Freq: Status: Active Protocol: Document 10/14/23 10:32 NM (Rec: 10/14/23 11:42 NM [id number]) Lumbar Spine Range of Motion Lumbar Spine Active Percentage Testing Position Standing Flexion 75 Extension 100 Rotation Left 100 Rotation Right 100 Lateral Flexion Left 100 Lateral Flexion Right 100 Comments Hamstring length limits flexion, no numbness/tingling or flexion Hip Goniometric Range of Motion Hip ROM Limitations Comments Full B hip PROM and AROM, no pain or discomfort Knee Goniometric Range of Motion Knee ROM Limitations Comments Full B knee PROM and AROM PT-OP-M Strength Start: 10/14/23 10:32 Freq: Status: Active Protocol: Document 10/14/23 10:32 NM (Rec: 10/14/23 11:42 NM [id number]) Trunk Strength Trunk Manual Muscle Testing Testing Position Supine Flexion 3 Fair Extension 3 Fair Rotation Left 4 Good Rotation Right 4 Good Lateral Flexion Left 4 Good Lateral Flexion Right 4 Good Hip Strength Hip Manual Muscle Testing Right Flexion (L2) 4- Good- Extension (S1) 4- Good- Abduction 4- Good- Adduction 4- Good- External Rotation 4- Good- Internal Rotation 4- Good- Left Flexion (L2) 4- Good- Extension (S1) 4- Good- Abduction 4- Good- Adduction 4- Good- External Rotation 4- Good- Internal Rotation 4- Good- Knee Strength Knee Manual Muscle Testing Left Flexion (S2) 4- Good- Extension (L3) 4- Good- Right Flexion (S2) 4 Good Extension (L3) 4 Good Ankle/Foot Strength Ankle and Foot Manual Muscle Testing Left Dorsiflexion (L4) 4 Good Plantarflexion (S1) 4 Good Inversion 4 Good Eversion (S1) 4 Good Right Dorsiflexion (L4) 4 Good Plantarflexion (S1) 4 Good Inversion 4 Good Eversion (S1) 4 Good PT-OP-Q Treatments Start: 10/14/23 10:32 Freq: Status: Active Protocol: Document 12/10/23 13:49 SP (Rec: 12/10/23 14:31 SP [id number]) Gym Equipment Sport Cord red Exercise Details next tx Therapeutic Exercises Sitting Exercises LAQ Sitting Exercise Name inPT quad strengthening Side bilateral Resistance 4# leg wt Reps/Minutes 3 SH x10 Comments good form & tiring hip abduction Sitting Exercise Name reviewed for HEP but did not perform Side bilateral Resistance TB #2 Reps/Minutes x20 Comments SEAM PRESSER gave feedback no rolling ankles out Sit to stand Sitting Exercise Name STS Side bilateral Resistance AROM (reintroduce TB) Equipment Used arms in front for ant weight shift, mesh chair Reps/Minutes 11 reps in timed 30 sec STS Comments good form, ed arms crossed chest; becomes SOB Standing Exercises Side steps Standing Exercise Name F/B/Lateral for hip abd strength Side bilateral Resistance lvl 2 theraband around ankles Equipment Used no UE support Reps/Minutes 4 sets x10 ft ea Comments improved tall over stance LE / c core/hip ab & foot clearance Gait Training Gait Activity dynamic gait hallway Description arm swing, head turns, back stepping, pivot turns Treatment Focus maintain MIGDALIA, midline posturing, R foot clearance Comments CUed rhomboid fac and awareness wt shift over RLE stance leg when head turns L due to tends to vier L and at times scissor step with RLE over L. She demonstrated x2 large pivot step and retro LOB but self recovery, instructed march like step during pivot for foot clearance. Neuro Re-Education Treatment Balance Activities obstacle course Surface unstable Reps/Duration 2 sets Comments 3 hurdles w> step over 6 box > gait on mat with 1 side elevated> francois > cone weave Challenged with activity. Must maintain eye contact with obstacles to avoid LOB. CGA to steady with pt attempting hip strategy. step taps Equipment 8 step, 4# leg wt Comments cued soft stepping con/ ecc, midline alignment, at times LOB R or L and retro, cued wt into forefoot, slower pacing stepping, ft clearance back turn step. PT-OP-T Assessment and Plan Start: 10/14/23 10:32 Freq: Status: Active Protocol: Document 12/10/23 13:49 SP (Rec: 12/10/23 14:31 SP [id number]) Physical Therapy Assessment Goals Five Impairment safety, education Impairment Need to improve awareness of blood pressure and complications due to diabetes Short Term Goal (STG) Pt will report compliance with performing blood pressure and foot checks at least 3x/wk for increased safety awareness with managing other health conditions and to decrease fall risk. 11/11/23: Pt was on vacation so not compliant during vacation x2 weks, but reports compliance prior to vacation 11/25/22: MET GOAL doing daily BP and foot checks. Dr [place] increased BP med, 150s to 140s /80s. STG Duration 4 weeks MET GOAL. Nursing Home Goal (LTG) Pt will report compliance with performing daily blood pressure and foot checks for increased safety awareness with managing other health conditions and to decrease fall risk. 11/25/22: MET GOAL doing daily BP and foot checks. Dr [place] increased BP med, 150s to 140s /80s. LTG Duration 8 weeks GOAL MET 11/26/23 Four Impairment HEP Impairment No HEP Short Term Goal (STG) Pt will report compliance with HEP 3x/wk in order to maximize PT sessions 11/11/23: Pt with minimal compliance due to vacation, but reports compliance 1-2x/wk prior to vacation 11/25/23: progressing: compliant with 2-3x/wk STG Duration 4 weeks progressing 11/26/23 Nursing Home Goal (LTG) Pt will report compliance with HEP at least 3x/wk in order to promote independence with exercise after discharge 11/26/23: progressing: compliant with 2-3x/wk 12/03/23: 2-3xwk compliance LTG Duration 8 weeks progressing 11/26/23 Three Impairment strength Impairment 30 sec STS score 11 Nursing Home Goal (LTG) Pt will perform at least 12 squats during 30 sec sit to stand test without compensation in order to demonstrate improved activity tolerance and BLE strength required for ADLs. 12/03/23: 11 from mesh chair 11/11/23: 13 STS in 30 seconds with arms in front from 18 plinth 11/26/23: STS 10 reps after already did some ther ex and balance activities. LTG Duration 8 weeks MET Two Impairment balance Impairment DGI Dipper Operator Goal (LTG) Pt will improve DGI score to at least in order to demonstrate improved balance during higher level functional activities and to decrease fall risk 11/11/23: 12/03/23: 16 LTG Duration 8 weeks NOT MET One Impairment Metzger Impairment Metzger score 39/56 Short Term Goal (STG) Pt will improve Metzger score to at least 41/56 in order to demonstrate improved balance and decrease fall risk 11/11/23: 45/56 STG Duration 4 weeks MET Dipper Operator Goal (LTG) Pt will improve Metzger score to at least 48/56 in order to demonstrate improved balance and decrease fall risk 12/03/23: 44/56 LTG Duration 8 weeks NOT MET Assessment Summary Assessment Pt good effort during resisted exercises. Cues throughout tx for rhomboid engagement to assist midline alignment, fwd wt shift into forefoot advanced LE with effort/ purpose and awareness of maintain MIGDALIA during balance, dynamic gait and uneven surface gait, improved corrections during head turns gait. Physical Therapy Plan Frequency and Duration Frequency of Treatment 2x/Week Duration of treatment (weeks) 6 Plan of Care Start Date 12/03/23 Plan of Care End Date 01/17/24 Therapeutic Interventions Therapeutic Interventions Aquatic Therapy,Balance Training,Coordination Training ,Gait Training,Home Exercise Program,Joint Mobilizations, Manual Therapy,Neuromuscular Re-education,Orthotic/ Prosthetic Management,Patient/ Caregiver Education,Self-Care/ Home Management,Sensory Integration,Soft Tissue Mobilization,Taping, Therapeutic Activities, Therapeutic Exercises, Vestibular Rehabilitation Other Therapeutic Interventions AD training Other Referrals/Consults Referrals/Consults Recommended Tapping Machine Operator for updated eye Rx . SEAM PRESSER instructed pt to follow up with PCP regarding proper dose increased Zanipril 80mg qd or 40 mg bid? Next Visit Focus/Plan Next Note Type Treatment Note Next Visit Plan Next tx: trial bungie cord stepping, functional core strength POC: DGI type training, narrow MIGDALIA/weight shift; hip abd and core strengthening POC: Continue BLE strengthening and balance training Next session- check tolerance: STS with abd band, seated vs standing march, LAQ, HSC, PF, DF. Review shoe assessment/ foot check for diabetes, blood pressure checks daily and log . Progress BLE strengthening and balance Take vitals before every session and monitor closely; use gait belt, watch for falls
--- NOTE | 2023-12-17 15:47 | PT.OTN ---
Current Diagnoses Other chronic pain (12/17/23) Low back pain, unspecified (12/17/23) Repeated falls (12/17/23) Physical Therapy Treatment Note PT-OP-A Visit Information Start: 10/14/23 10:32 Freq: Status: Active Protocol: Document 12/17/23 13:03 NM (Rec: 12/17/23 13:45 NM [id number]) Out-Patient Physical Therapy Visit Information Visit Information Visit Type Treatment Note Visit Start Time 13:01 Visit Stop Time 13:42 Visit Number 9 Evaluation Information Evaluation Date 10/14/23 Precautions Precautions Fall risk Blood pressure- take vitals every time; allow acclimation to change of position Hx of seizures PT-OP-B Current Condition Start: 10/14/23 10:32 Freq: Status: Active Protocol: Document 10/14/23 10:32 NM (Rec: 10/14/23 11:42 NM [id number]) Current Condition History of Current Condition Onset Date during 2022 Current Complaints falls, loss of balance History of Current Condition Pt presents to Pt with hx of falls, reporting 5 in 2022. She reports that she usually trips over her feet and thinks her shoes may contribute because they're a size too large. During a previous fall, she has hit her head but was not otherwise injured. She has had falls from seated positions and standing positions. In May, she slipped and fell on her coccyx, bruising it. She went to the ED, where they did an x-ray showing no fracture. She had pain in her low back and coccyx for about 3 weeks after the fall, but does not have any pain currently. When she falls, she is unable to get up off of floor without the use of her hands or assistance. She does not use an AD during gait. She also reports instances of lightheadedness, vertigo usually with leaning over. PMH of meningioma, grand mal seizures, chest pressure without heart attack or other heart hx, diverticulitis. Prior Treatments and Tests previous PT for unknown reason but reports stopping due to feeling better Treatment Goals Patient/Caregiver Goals decrease falls Prior Functional Status Baseline Function- ADL's Independent Baseline Function- Mobility Independent Current Functional Impairments (Reported) Functional Limitations- ADL's Difficulty with reaching to floor, getting up off of floor ; loss of balance in sitting or standing Functional Limitations- Mobility/Gait 20 min, no AD use; tripping frequently PT-OP-C Subjective Start: 10/14/23 10:32 Freq: Status: Active Protocol: Document 12/17/23 13:03 NM (Rec: 12/17/23 13:45 NM [id number]) OP-PT Subjective Patient Comments Patient Comments Pt reports that she is doing well. She has coronel the HEP 2x/ wk. PT-OP-D Balance Start: 10/14/23 10:32 Freq: Status: Active Protocol: Document 10/14/23 10:32 NM (Rec: 10/14/23 11:42 NM [id number]) OP-PT Balance Assessment Sitting Balance Static Sitting Balance Ability Fair Dynamic Sitting Balance Ability Fair Standing Balance Static Standing Balance Ability Fair Dynamic Standing Balance Ability Fair Device Used none Standing Balance Comments trunk sway, attempts Balance Tests Metzger Balance Test Metzger Balance Test Score 39/56 Romberg Romberg 10 seconds, but increased trunk sway Single Limb Standing Single Limb- Right 4 seconds Single Limb- Left 2 seconds Semi-Tandem Standing Semi-Tandem Standing Balance 10 seconds BLE; more trunk sway with LLE in front Tandem Tandem Standing unable to move into position w /o assist; <2 sec Humphrey Fall Scale Copyright Permission PT-OP-E Functional Tests Start: 10/14/23 10:32 Freq: Status: Active Protocol: Document 10/14/23 10:32 NM (Rec: 10/14/23 11:42 NM [id number]) Functional Tests 30 Second Sit to Stand Test Score 11 Comments B knee valgus, increased trunk sway; fatigues quickly Tinetti Balance and Gait Assessment Balance Score 10 Gait Score 12 Composite Score 22/28 PT-OP-F Manual Assessment Start: 10/14/23 10:32 Freq: Status: Active Protocol: Document 10/14/23 10:32 NM (Rec: 10/14/23 11:42 NM [id number]) Manual Assessments Soft Tissue Assessment Soft Tissue Mobility Assessment No soft tissue restrictions of lumbar spine or hips Joint Mobility Assessment Joint Mobility Assessment Full PROM and AROM of B hips, knees. Near full ROM of lumbar spine, minimal restrictions into trunk flexion PT-OP-G Mobility & Gait Start: 10/14/23 10:32 Freq: Status: Active Protocol: Document 10/14/23 10:32 NM (Rec: 10/14/23 11:42 NM [id number]) OP Gait Assessment Gait Gait Assistance Required: Independent Distance (Feet) 250 Assistive Devices Assistive Device Gait Belt Comments Gait Comments Pt has slightly fwd flexed trunk during gait, demos slight trunk sway; does not use AD or reach for objects to steady except when MIGDALIA changing (e.g tandem, narrow stance, stairs). During directional changes or head movement, pt demos increased sway and LOB without fall. Stair Climbing Evaluation Evaluation Level of Assist On Stairs Contact Guard Assistance Devices Stair Climbing Assistive Devices Right Railing Technique/Endurance Stair Climbing Direction Ascend and Descend Stair Climbing Technique Step Over Step Number of Steps Climbed 4 Stair Climbing Set # Repetitions (reps) 2 Comments Stair Climbing Comments Poor depth perception upon descent due to pt glasses, with or without. Difficulty with determining step location , requires hand rail assist for balance and CGA to steady PT-OP-H Neuro Start: 10/14/23 10:32 Freq: Status: Active Protocol: Document 10/14/23 10:32 NM (Rec: 10/14/23 11:42 NM [id number]) Sensation Evaluation Gross Sensation Gross Sensation Left LE Impaired,Right LE Impaired Comments Summary Comments No numbness or tingling reported BLE. However, pt demos decreased light touch sensation B medial ankle and foot (L4-5 dermatomes) Coordination Evaluation Upper Extremity Tests Right Finger to Nose Test Moderate Impairment Pronation/Supination Test Normal Performance Left Finger to Nose Test Moderate Impairment Pronation/Supination Test Normal Performance Lower Extremity Tests Right Alternate Heel to Knee; Heel to Toe Test Moderate Impairment Heel on Henderson Test Normal Performance Left Alternate Heel to Knee; Heel to Toe Test Moderate Impairment Heel on Henderson Test Normal Performance Deep Tendon Reflex & Clonus Assessment Deep Tendon Reflex Bilateral Patellar Deep Tendon Reflex 1+ Diminished Vital Signs Pulse 1 Pulse at Rest (bpm) 88 Pulse Assessment Method Pulse Ox/Monitor Blood Pressure Sitting Blood Pressure (90/60-120/80 mmHg) 174/83 H Blood Pressure Source Automatic Cuff,Right Upper Extremity Oxygen Pulse Oximetry at Rest (%) (95-100 %) 99 Comments Vital Signs Comments Taken immediately in sitting at start of evaluation, at rest PT-OP-J Posture/Palpation/Skin Start: 10/14/23 10:32 Freq: Status: Active Protocol: Document 10/14/23 10:32 NM (Rec: 10/14/23 11:42 NM [id number]) Posture Evaluation Position Standing Evaluation View Lateral Head/C-Spine Posture Forward Head T-Spine Posture Increased Kyphosis L-Spine Posture Neutral Pelvis Posture Anteriorly Tilted Hip Posture (L) Neutral,(R) Neutral Knee Posture (L) Genu Valgus,(R) Genu Valgus Ankle/Foot Posture (L) Pronated,(R) Pronated Palpation Assessment Location Lumbar spine Palpation Location L1-L5, sacrum, coccyx Palpation Details No tenderness reported with palpation PT-OP-K Range of Motion Start: 10/14/23 10:32 Freq: Status: Active Protocol: Document 10/14/23 10:32 NM (Rec: 10/14/23 11:42 NM [id number]) Lumbar Spine Range of Motion Lumbar Spine Active Percentage Testing Position Standing Flexion 75 Extension 100 Rotation Left 100 Rotation Right 100 Lateral Flexion Left 100 Lateral Flexion Right 100 Comments Hamstring length limits flexion, no numbness/tingling or flexion Hip Goniometric Range of Motion Hip ROM Limitations Comments Full B hip PROM and AROM, no pain or discomfort Knee Goniometric Range of Motion Knee ROM Limitations Comments Full B knee PROM and AROM PT-OP-M Strength Start: 10/14/23 10:32 Freq: Status: Active Protocol: Document 10/14/23 10:32 NM (Rec: 10/14/23 11:42 NM [id number]) Trunk Strength Trunk Manual Muscle Testing Testing Position Supine Flexion 3 Fair Extension 3 Fair Rotation Left 4 Good Rotation Right 4 Good Lateral Flexion Left 4 Good Lateral Flexion Right 4 Good Hip Strength Hip Manual Muscle Testing Right Flexion (L2) 4- Good- Extension (S1) 4- Good- Abduction 4- Good- Adduction 4- Good- External Rotation 4- Good- Internal Rotation 4- Good- Left Flexion (L2) 4- Good- Extension (S1) 4- Good- Abduction 4- Good- Adduction 4- Good- External Rotation 4- Good- Internal Rotation 4- Good- Knee Strength Knee Manual Muscle Testing Left Flexion (S2) 4- Good- Extension (L3) 4- Good- Right Flexion (S2) 4 Good Extension (L3) 4 Good Ankle/Foot Strength Ankle and Foot Manual Muscle Testing Left Dorsiflexion (L4) 4 Good Plantarflexion (S1) 4 Good Inversion 4 Good Eversion (S1) 4 Good Right Dorsiflexion (L4) 4 Good Plantarflexion (S1) 4 Good Inversion 4 Good Eversion (S1) 4 Good PT-OP-Q Treatments Start: 10/14/23 10:32 Freq: Status: Active Protocol: Document 12/17/23 13:03 NM (Rec: 12/17/23 13:45 NM [id number]) Therapeutic Exercises Sitting Exercises chair push up Sitting Exercise Name lat push up on chair Side bilateral Equipment Used chair w/o arm rests Reps/Minutes 2x10 Comments cued to limit leg use; for fall prevention, improve UE strength Sit to stand Sitting Exercise Name STS Side bilateral Resistance lvl 2 teal tb Equipment Used arms in front for ant weight shift, mesh chair Reps/Minutes 2x8 Comments cued ant weight shift, hip abd , wider MIGDALIA Standing Exercises calf stretch Side bilateral Equipment Used ERIN Reps/Minutes 1x60 Comments cued gentle stretch toe raises Standing Exercise Name for foot clearance Side bilateral Resistance AROM Equipment Used legs slightly in front; back against wall Reps/Minutes 2x10 Comments improved upright posture heel raises Standing Exercise Name B heel raise only with knee ext Side bilateral Equipment Used 2 finger support with ball Reps/Minutes 2x10 ea Comments improved upright posture Neuro Re-Education Treatment Balance Activities scrap picker objects from ground Comments squat scrap picker to hurdles from ground, 6 reps Pt using squat. Cued for hip hinge and to shift slightly posterior with hinge to maintain good MIGDALIA vs excessive fwd leaning. close SBA with prn CGA initially, improved with reps. No LOB but 1st rep demos almost fwd LOB obstacle course Details CGA Surface unstable Equipment hurdles, mat, 4 step Reps/Duration 4 sets Comments Pt stepping over mat with sides/center elevated, then transitioning to 4 hurdles with reciprocal gait, then 1 4 step up, then 2 hurdles with reciprocal gait. Cued to maintain MIGDALIA centered, perform stepping slightly slower in order to maintain stability and keep trunk from moving outside MIGDALIA. Pt challenged by reciprocal pattern, attempts to initially put 2 feet down but improved with reps. Cued also to maintain good core/ scap retraction/stabilization for upright posture, keep arms by side, wider MIGDALIA for stability dynamic walking Details CGA with prn min A to maintain stability Surface stable Comments 1. ambulation with head turns horizontal, 4x100 ft. Slight deviation with R head turn. Cued to continue stepping with hed turn 2. Resisted gait: fwd, retro, side steps, 1x6 ea direction ( 16 total) Pt cued to maintain tall posture, core contraction with rhomboid facilitation, centering MIGDALIA shoulders>hips> knees>toes to prevent trunk leaning Pt demos LOB w/o fall, primarily hip strategy, when stepping too far Self-Care/Home Management Treatment Education Patient Education Fall Risk,Home Exercise Program,Safety Caregiver Education BP: 176/71, no symptoms Other Education HEP: chair push up 6 minutes: educated on balance strategies fern hip/ankle strategy and importance of core stabilization with elongated posture in balance, methods to transfer to/from floor, and fall prevention at home (e.g. remove throw rugs, limit obstacles on floor, visual scanning), purpose of HEP PT-OP-T Assessment and Plan Start: 10/14/23 10:32 Freq: Status: Active Protocol: Document 12/17/23 13:03 NM (Rec: 12/17/23 13:45 NM [id number]) Physical Therapy Assessment Goals Five Impairment safety, education Impairment Need to improve awareness of blood pressure and complications due to diabetes Short Term Goal (STG) Pt will report compliance with performing blood pressure and foot checks at least 3x/wk for increased safety awareness with managing other health conditions and to decrease fall risk. 11/11/23: Pt was on vacation so not compliant during vacation x2 weks, but reports compliance prior to vacation 11/25/22: MET GOAL doing daily BP and foot checks. Dr [place] increased BP med, 150s to 140s /80s. STG Duration 4 weeks MET GOAL. Snf Goal (LTG) Pt will report compliance with performing daily blood pressure and foot checks for increased safety awareness with managing other health conditions and to decrease fall risk. 11/25/22: MET GOAL doing daily BP and foot checks. Dr [place] increased BP med, 150s to 140s /80s. LTG Duration 8 weeks GOAL MET 11/26/23 Four Impairment HEP Impairment No HEP Short Term Goal (STG) Pt will report compliance with HEP 3x/wk in order to maximize PT sessions 11/11/23: Pt with minimal compliance due to vacation, but reports compliance 1-2x/wk prior to vacation 11/25/23: progressing: compliant with 2-3x/wk STG Duration 4 weeks progressing 11/26/23 Clinical Research Coordinator Goal (LTG) Pt will report compliance with HEP at least 3x/wk in order to promote independence with exercise after discharge 11/26/23: progressing: compliant with 2-3x/wk 12/03/23: 2-3xwk compliance LTG Duration 8 weeks progressing 11/26/23 Three Impairment strength Impairment 30 sec STS score 11 Clinical Research Coordinator Goal (LTG) Pt will perform at least 12 squats during 30 sec sit to stand test without compensation in order to demonstrate improved activity tolerance and BLE strength required for ADLs. 12/03/23: 11 from mesh chair 11/11/23: 13 STS in 30 seconds with arms in front from 18 plinth 11/26/23: STS 10 reps after already did some ther ex and balance activities. LTG Duration 8 weeks MET Two Impairment balance Impairment DGI Snf Goal (LTG) Pt will improve DGI score to at least 19 in order to demonstrate improved balance during higher level functional activities and to decrease fall risk 11/11/23: 12/03/23: 16 LTG Duration 8 weeks NOT MET One Impairment Metzger Impairment Metzger score 39/56 Short Term Goal (STG) Pt will improve Metzger score to at least 41/56 in order to demonstrate improved balance and decrease fall risk 11/11/23: 45/56 STG Duration 4 weeks MET Clinical Research Coordinator Goal (LTG) Pt will improve Metzger score to at least 48/56 in order to demonstrate improved balance and decrease fall risk 12/03/23: 44/56 LTG Duration 8 weeks NOT MET Assessment Summary Assessment Pt with good effort, particularly with maintaining upright posture and core stabilization. However, has tendency to use trunk to counterbalance MIGDALIA with stepping or when moving outside of MIGDALIA. Cued for alignment to maintain MIGDALIA with center over hips/knees/ankles to prevent compensation, reduce falls. On unstable surface, pt demos progression in ability to maintain upright posture, fewer instances of LOB without falls with repetition. Pt educated pt on hip vs ankle strategy with activities. Initiated calf stretch to address heel cord tightness as pt attempts to transfer to/from floor. Will address floor transfers as part of fall prevention strategy in future sessions. Initiated chair push ups to assist pt with being able have UE strength for transfer from floor in fall scenario. Pt would benefit from skilled PT for further gait/balance training in addition to progressive BLE/BUE strengthening in order to reduce fall risk, improve activity tolerance, and improve QOL. Physical Therapy Plan Frequency and Duration Frequency of Treatment 2x/Week Duration of treatment (weeks) 6 Plan of Care Start Date 12/03/23 Plan of Care End Date 01/17/24 Therapeutic Interventions Therapeutic Interventions Aquatic Therapy,Balance Training,Coordination Training ,Gait Training,Home Exercise Program,Joint Mobilizations, Manual Therapy,Neuromuscular Re-education,Orthotic/ Prosthetic Management,Patient/ Caregiver Education,Self-Care/ Home Management,Sensory Integration,Soft Tissue Mobilization,Taping, Therapeutic Activities, Therapeutic Exercises, Vestibular Rehabilitation Other Therapeutic Interventions AD training Other Referrals/Consults Referrals/Consults Recommended Manager Transmission for updated eye Rx . RN DELIVERY instructed pt to follow up with PCP regarding proper dose increased Zanipril 80mg qd or 40 mg bid? Next Visit Focus/Plan Next Note Type Treatment Note Next Visit Plan Floor transfers Next tx: trial bungie cord stepping, functional core strength POC: DGI type training, narrow MIGDALIA/weight shift; hip abd and core strengthening POC: Continue BLE strengthening and balance training Next session- check tolerance: STS with abd band, seated vs standing march, LAQ, HSC, PF, DF. Review shoe assessment/ foot check for diabetes, blood pressure checks daily and log . Progress BLE strengthening and balance Take vitals before every session and monitor closely; use gait belt, watch for falls
--- NOTE | 2023-12-27 15:44 | PT.OTN ---
Current Diagnoses Other chronic pain (12/27/23) Low back pain, unspecified (12/27/23) Repeated falls (12/27/23) Physical Therapy Treatment Note PT-OP-A Visit Information Start: 10/14/23 10:32 Freq: Status: Active Protocol: Document 12/27/23 14:31 NM (Rec: 12/27/23 15:44 NM [id number]) Out-Patient Physical Therapy Visit Information Visit Information Visit Type Treatment Note Visit Start Time 14:32 Visit Stop Time 15:15 Visit Number 10 PT-OP-B Current Condition Start: 10/14/23 10:32 Freq: Status: Active Protocol: Document 10/14/23 10:32 NM (Rec: 10/14/23 11:42 NM [id number]) Current Condition History of Current Condition Onset Date during 2022 Current Complaints falls, loss of balance History of Current Condition Pt presents to Pt with hx of falls, reporting 5 in 2022. She reports that she usually trips over her feet and thinks her shoes may contribute because they're a size too large. During a previous fall, she has hit her head but was not otherwise injured. She has had falls from seated positions and standing positions. In May, she slipped and fell on her coccyx, bruising it. She went to the ED, where they did an x-ray showing no fracture. She had pain in her low back and coccyx for about 3 weeks after the fall, but does not have any pain currently. When she falls, she is unable to get up off of floor without the use of her hands or assistance. She does not use an AD during gait. She also reports instances of lightheadedness, vertigo usually with leaning over. PMH of meningioma, grand mal seizures, chest pressure without heart attack or other heart hx, diverticulitis. Prior Treatments and Tests previous PT for unknown reason but reports stopping due to feeling better Treatment Goals Patient/Caregiver Goals decrease falls Prior Functional Status Baseline Function- ADL's Independent Baseline Function- Mobility Independent Current Functional Impairments (Reported) Functional Limitations- ADL's Difficulty with reaching to floor, getting up off of floor ; loss of balance in sitting or standing Functional Limitations- Mobility/Gait 20 min, no AD use; tripping frequently PT-OP-C Subjective Start: 10/14/23 10:32 Freq: Status: Active Protocol: Document 12/27/23 14:31 NM (Rec: 12/27/23 15:44 NM [id number]) OP-PT Subjective Patient Comments Patient Comments Pt reports she is doing well. 144/85 BP prior to arriving. Did HEP this morning PT-OP-D Balance Start: 10/14/23 10:32 Freq: Status: Active Protocol: Document 10/14/23 10:32 NM (Rec: 10/14/23 11:42 NM [id number]) OP-PT Balance Assessment Sitting Balance Static Sitting Balance Ability Fair Dynamic Sitting Balance Ability Fair Standing Balance Static Standing Balance Ability Fair Dynamic Standing Balance Ability Fair Device Used none Standing Balance Comments trunk sway, attempts Balance Tests Metzger Balance Test Metzger Balance Test Score 39/56 Romberg Romberg 10 seconds, but increased trunk sway Single Limb Standing Single Limb- Right 4 seconds Single Limb- Left 2 seconds Semi-Tandem Standing Semi-Tandem Standing Balance 10 seconds BLE; more trunk sway with LLE in front Tandem Tandem Standing unable to move into position w /o assist; <2 sec Humphrey Fall Scale Copyright Permission PT-OP-E Functional Tests Start: 10/14/23 10:32 Freq: Status: Active Protocol: Document 10/14/23 10:32 NM (Rec: 10/14/23 11:42 NM [id number]) Functional Tests 30 Second Sit to Stand Test Score 11 Comments B knee valgus, increased trunk sway; fatigues quickly Tinetti Balance and Gait Assessment Balance Score 10 Gait Score 12 Composite Score PT-OP-F Manual Assessment Start: 10/14/23 10:32 Freq: Status: Active Protocol: Document 10/14/23 10:32 NM (Rec: 10/14/23 11:42 NM [id number]) Manual Assessments Soft Tissue Assessment Soft Tissue Mobility Assessment No soft tissue restrictions of lumbar spine or hips Joint Mobility Assessment Joint Mobility Assessment Full PROM and AROM of B hips, knees. Near full ROM of lumbar spine, minimal restrictions into trunk flexion PT-OP-G Mobility & Gait Start: 10/14/23 10:32 Freq: Status: Active Protocol: Document 10/14/23 10:32 NM (Rec: 10/14/23 11:42 NM [id number]) OP Gait Assessment Gait Gait Assistance Required: Independent Distance (Feet) 250 Assistive Devices Assistive Device Gait Belt Comments Gait Comments Pt has slightly fwd flexed trunk during gait, demos slight trunk sway; does not use AD or reach for objects to steady except when MIGDALIA changing (e.g tandem, narrow stance, stairs). During directional changes or head movement, pt demos increased sway and LOB without fall. Stair Climbing Evaluation Evaluation Level of Assist On Stairs Contact Guard Assistance Devices Stair Climbing Assistive Devices Right Railing Technique/Endurance Stair Climbing Direction Ascend and Descend Stair Climbing Technique Step Over Step Number of Steps Climbed 4 Stair Climbing Set # Repetitions (reps) 2 Comments Stair Climbing Comments Poor depth perception upon descent due to pt glasses, with or without. Difficulty with determining step location , requires hand rail assist for balance and CGA to steady PT-OP-H Neuro Start: 10/14/23 10:32 Freq: Status: Active Protocol: Document 10/14/23 10:32 NM (Rec: 10/14/23 11:42 NM [id number]) Sensation Evaluation Gross Sensation Gross Sensation Left LE Impaired,Right LE Impaired Comments Summary Comments No numbness or tingling reported BLE. However, pt demos decreased light touch sensation B medial ankle and foot (L4-5 dermatomes) Coordination Evaluation Upper Extremity Tests Right Finger to Nose Test Moderate Impairment Pronation/Supination Test Normal Performance Left Finger to Nose Test Moderate Impairment Pronation/Supination Test Normal Performance Lower Extremity Tests Right Alternate Heel to Knee; Heel to Toe Test Moderate Impairment Heel on Henderson Test Normal Performance Left Alternate Heel to Knee; Heel to Toe Test Moderate Impairment Heel on Henderson Test Normal Performance Deep Tendon Reflex & Clonus Assessment Deep Tendon Reflex Bilateral Patellar Deep Tendon Reflex 1+ Diminished Vital Signs Pulse 1 Pulse at Rest (bpm) 88 Pulse Assessment Method Pulse Ox/Monitor Blood Pressure Sitting Blood Pressure (90/60-120/80 mmHg) 174/83 H Blood Pressure Source Automatic Cuff,Right Upper Extremity Oxygen Pulse Oximetry at Rest (%) (95-100 %) 99 Comments Vital Signs Comments Taken immediately in sitting at start of evaluation, at rest PT-OP-J Posture/Palpation/Skin Start: 10/14/23 10:32 Freq: Status: Active Protocol: Document 10/14/23 10:32 NM (Rec: 10/14/23 11:42 NM [id number]) Posture Evaluation Position Standing Evaluation View Lateral Head/C-Spine Posture Forward Head T-Spine Posture Increased Kyphosis L-Spine Posture Neutral Pelvis Posture Anteriorly Tilted Hip Posture (L) Neutral,(R) Neutral Knee Posture (L) Genu Valgus,(R) Genu Valgus Ankle/Foot Posture (L) Pronated,(R) Pronated Palpation Assessment Location Lumbar spine Palpation Location L1-L5, sacrum, coccyx Palpation Details No tenderness reported with palpation PT-OP-K Range of Motion Start: 10/14/23 10:32 Freq: Status: Active Protocol: Document 10/14/23 10:32 NM (Rec: 10/14/23 11:42 NM [id number]) Lumbar Spine Range of Motion Lumbar Spine Active Percentage Testing Position Standing Flexion 75 Extension 100 Rotation Left 100 Rotation Right 100 Lateral Flexion Left 100 Lateral Flexion Right 100 Comments Hamstring length limits flexion, no numbness/tingling or flexion Hip Goniometric Range of Motion Hip ROM Limitations Comments Full B hip PROM and AROM, no pain or discomfort Knee Goniometric Range of Motion Knee ROM Limitations Comments Full B knee PROM and AROM PT-OP-M Strength Start: 10/14/23 10:32 Freq: Status: Active Protocol: Document 10/14/23 10:32 NM (Rec: 10/14/23 11:42 NM [id number]) Trunk Strength Trunk Manual Muscle Testing Testing Position Supine Flexion 3 Fair Extension 3 Fair Rotation Left 4 Good Rotation Right 4 Good Lateral Flexion Left 4 Good Lateral Flexion Right 4 Good Hip Strength Hip Manual Muscle Testing Right Flexion (L2) 4- Good- Extension (S1) 4- Good- Abduction 4- Good- Adduction 4- Good- External Rotation 4- Good- Internal Rotation 4- Good- Left Flexion (L2) 4- Good- Extension (S1) 4- Good- Abduction 4- Good- Adduction 4- Good- External Rotation 4- Good- Internal Rotation 4- Good- Knee Strength Knee Manual Muscle Testing Left Flexion (S2) 4- Good- Extension (L3) 4- Good- Right Flexion (S2) 4 Good Extension (L3) 4 Good Ankle/Foot Strength Ankle and Foot Manual Muscle Testing Left Dorsiflexion (L4) 4 Good Plantarflexion (S1) 4 Good Inversion 4 Good Eversion (S1) 4 Good Right Dorsiflexion (L4) 4 Good Plantarflexion (S1) 4 Good Inversion 4 Good Eversion (S1) 4 Good PT-OP-Q Treatments Start: 10/14/23 10:32 Freq: Status: Active Protocol: Document 12/27/23 14:31 NM (Rec: 12/27/23 15:44 NM [id number]) Therapeutic Activity Therapeutic Activity floor transfers Reps/Minutes 15 minutes Comments 1. to/from floor using chair for UE support, able to perform for several attempts, from mat. close SBA 2. attempted to/from floor without chair, using hands on quad to push up. Unable to rise from floor from several, even with mod A. Education on BUE strengthening with chair push ups and STS/lunges for quad/glute strengthening to assist with BLE support Gait Training Gait Activity outdoor Description gait on unstable surfaces Device Used none, gait belt Level of Assistance IND with close SBA for slopes Surface curbs, grass, slopes, stairs, gravel Distance/Duration 8 minutes Treatment Focus balance, visual scanning, ankle stability Comments Cued to maintain ankle stability, use of ankle strategy during stepping. close SBA during slopes, pt demos trunk lean to side. No LOB, improved visual scanning with cueing to look at ground, scan bilaterally, improved stability during head turns, fern on gravel Neuro Re-Education Treatment Balance Activities step up Surface unstable Equipment large norton cushion Reps/Duration 1x10 ea fwd step up, 1x10 ea lateral step up Comments BUE hovering over //bars, close SBA for support. Cued for ankle dorsiflexion for foot clearance, hip/knee flex march Surface unstable Equipment large norton cushion Reps/Duration 2x10 ea, alternating Comments BUe hovering over //bars. Cued not to watch feet, maintain MIGDALIA over mid foot. Improved with reps, also cued for foot clearance with ankle dorsiflexion. close SBA shuttle balance Surface A/P, M/L Equipment CGA to stabilize Reps/Duration 2 min ea Comments Pt cued to maintain level surface using weight shifts. During A/P, tends to demo anterior lean. Improved stability about ~1 minute, able to maintain level board. Tendency to demo suspension strategy vs ankle/hip despite cueing pick pulling machine tender objects from ground Reps/Duration 4 sets total Comments squat pick pulling machine tender to cones from ground, 4 reps Pt using squat. Cued for hip hinge and to shift slightly posterior with hinge to maintain good MIGDALIA vs excessive fwd leaning. close SBA, improved hinge and wider MIGDALIA carioca Reps/Duration 2x10 ft Comments no LOB, close SBA. Max cuing for fwd/back cross stepping. Cued tall posturing rhomboid and core facilitation over MIGDALIA . tandem walking Reps/Duration 2x10 ft Comments close SBA with prn CGA, several near LOB without falls . Challenging for pt when performing close heel<>toe vs more semi-tandem with larger step length. Cued BUE hover over //bars for stability, core and rhomboid facilitation over hips DGI Reps/Duration Comments Demos 1 brief stagger with horizontal head turn, uses rail for stairs but improved speed and form w/ good foot clearance PT-OP-T Assessment and Plan Start: 10/14/23 10:32 Freq: Status: Active Protocol: Document 12/27/23 14:31 NM (Rec: 12/27/23 15:44 NM [id number]) Physical Therapy Assessment Goals Five Impairment safety, education Impairment Need to improve awareness of blood pressure and complications due to diabetes Short Term Goal (STG) Pt will report compliance with performing blood pressure and foot checks at least 3x/wk for increased safety awareness with managing other health conditions and to decrease fall risk. 11/11/23: Pt was on vacation so not compliant during vacation x2 weks, but reports compliance prior to vacation 11/25/22: MET GOAL doing daily BP and foot checks. Dr [place] increased BP med, 150s to 140s /80s. STG Duration 4 weeks MET GOAL. [facility] Goal (LTG) Pt will report compliance with performing daily blood pressure and foot checks for increased safety awareness with managing other health conditions and to decrease fall risk. 11/25/22: MET GOAL doing daily BP and foot checks. Dr [place] increased BP med, 150s to 140s /80s. LTG Duration 8 weeks GOAL MET 11/26/23 Four Impairment HEP Impairment No HEP Short Term Goal (STG) Pt will report compliance with HEP 3x/wk in order to maximize PT sessions 11/11/23: Pt with minimal compliance due to vacation, but reports compliance 1-2x/wk prior to vacation 11/25/23: progressing: compliant with 2-3x/wk STG Duration 4 weeks progressing 11/26/23 Fire [employer] Goal (LTG) Pt will report compliance with HEP at least 3x/wk in order to promote independence with exercise after discharge 11/26/23: progressing: compliant with 2-3x/wk 12/03/23: 2-3xwk compliance LTG Duration 8 weeks progressing 11/26/23 Three Impairment strength Impairment 30 sec STS score 11 [facility] Goal (LTG) Pt will perform at least 12 squats during 30 sec sit to stand test without compensation in order to demonstrate improved activity tolerance and BLE strength required for ADLs. 12/03/23: 11 from mesh chair 11/11/23: 13 STS in 30 seconds with arms in front from 18 plinth 11/26/23: STS 10 reps after already did some ther ex and balance activities. LTG Duration 8 weeks MET Two Impairment balance Impairment DGI [facility] Goal (LTG) Pt will improve DGI score to at least in order to demonstrate improved balance during higher level functional activities and to decrease fall risk 11/11/23: 12/03/23: 12/27/23: LTG Duration 8 weeks MET One Impairment Metzger Impairment Metzger score 39/56 Short Term Goal (STG) Pt will improve Metzger score to at least 41/56 in order to demonstrate improved balance and decrease fall risk 11/11/23: 45/56 STG Duration 4 weeks MET [facility] Goal (LTG) Pt will improve Metzger score to at least 48/56 in order to demonstrate improved balance and decrease fall risk 12/03/23: 44/56 LTG Duration 8 weeks NOT MET Progress Towards Goals Progress Towards Goals Goals Met Progress Comments Met DGI goal Assessment Summary Assessment Pt tolerated session well and demos good effort. She has been more compliant with HEP. Pt continues to lack glute/ quad strength, which influences ability to participate to/from floor transfers without UE support. Pt very reliant on UE support for assistance during transfer , able to safely perform for several reps using UE. PT educated pt on fall risk safety on stairs, including adding light near stairs, use of rail, and removing throw rugs. Pt verbalizes agreement. She met DGI goal today, ; demonstrates difficulty only on horizontal head turns ( slight stagger) and slowing to step over obstacle. Remainder of session focusing on pt stability while on unstable surfaces. Pt cued for maintaining good core/rhomboid facilitation over MIGDALIA. Tends to demo suspension strategy over hip/ankle. Pt would benefit from skilled PT for progressive BLE, gait, and balance training in order to decrease fall risk and improve activity tolerance. Physical Therapy Plan Frequency and Duration Frequency of Treatment 2x/Week Duration of treatment (weeks) 6 Plan of Care Start Date 12/03/23 Plan of Care End Date 01/17/24 Therapeutic Interventions Therapeutic Interventions Aquatic Therapy,Balance Training,Coordination Training ,Gait Training,Home Exercise Program,Joint Mobilizations, Manual Therapy,Neuromuscular Re-education,Orthotic/ Prosthetic Management,Patient/ Caregiver Education,Self-Care/ Home Management,Sensory Integration,Soft Tissue Mobilization,Taping, Therapeutic Activities, Therapeutic Exercises, Vestibular Rehabilitation Other Therapeutic Interventions AD training Other Referrals/Consults Referrals/Consults Recommended [employer] for updated eye Rx . GAUGER CHIEF instructed pt to follow up with PCP regarding proper dose increased Zanipril 80mg qd or 40 mg bid? Next Visit Focus/Plan Next Note Type Treatment Note Next Visit Plan Floor transfers, pallof press, uneven surfaces Next tx: trial bungie cord stepping, functional core strength POC: DGI type training, narrow MIGDALIA/weight shift; hip abd and core strengthening POC: Continue BLE strengthening and balance training Next session- check tolerance: STS with abd band, seated vs standing march, LAQ, HSC, PF, DF. Review shoe assessment/ foot check for diabetes, blood pressure checks daily and log . Progress BLE strengthening and balance Take vitals before every session and monitor closely; use gait belt, watch for falls
--- NOTE | 2023-12-30 10:30 | PT.OTN ---
Current Diagnoses Other chronic pain (12/30/23) Low back pain, unspecified (12/30/23) Repeated falls (12/30/23) Physical Therapy Treatment Note PT-OP-A Visit Information Start: 10/14/23 10:32 Freq: Status: Active Protocol: Document 12/30/23 09:50 SP (Rec: 12/30/23 10:34 SP [id number]) Out-Patient Physical Therapy Visit Information Visit Information Visit Type Treatment Note Visit Start Time 09:50 Visit Stop Time 10:30 Visit Number 11 Number of WATER SYSTEM OPERATOR Visits 1 Evaluation Information Evaluation Date 10/14/23 Precautions Precautions Fall risk Blood pressure- take vitals every time; allow acclimation to change of position Hx of seizures PT-OP-B Current Condition Start: 10/14/23 10:32 Freq: Status: Active Protocol: Document 10/14/23 10:32 NM (Rec: 10/14/23 11:42 NM [id number]) Current Condition History of Current Condition Onset Date during 2022 Current Complaints falls, loss of balance History of Current Condition Pt presents to Pt with hx of falls, reporting 5 in 2022. She reports that she usually trips over her feet and thinks her shoes may contribute because they're a size too large. During a previous fall, she has hit her head but was not otherwise injured. She has had falls from seated positions and standing positions. In May, she slipped and fell on her coccyx, bruising it. She went to the ED, where they did an x-ray showing no fracture. She had pain in her low back and coccyx for about 3 weeks after the fall, but does not have any pain currently. When she falls, she is unable to get up off of floor without the use of her hands or assistance. She does not use an AD during gait. She also reports instances of lightheadedness, vertigo usually with leaning over. PMH of meningioma, grand mal seizures, chest pressure without heart attack or other heart hx, diverticulitis. Prior Treatments and Tests previous PT for unknown reason but reports stopping due to feeling better Treatment Goals Patient/Caregiver Goals decrease falls Prior Functional Status Baseline Function- ADL's Independent Baseline Function- Mobility Independent Current Functional Impairments (Reported) Functional Limitations- ADL's Difficulty with reaching to floor, getting up off of floor ; loss of balance in sitting or standing Functional Limitations- Mobility/Gait 20 min, no AD use; tripping frequently PT-OP-C Subjective Start: 10/14/23 10:32 Freq: Status: Active Protocol: Document 12/30/23 09:50 SP (Rec: 12/30/23 10:34 SP [id number]) OP-PT Subjective Patient Comments Patient Comments Was good practicing getting off floor, needed alot help but want to do more today. PT-OP-D Balance Start: 10/14/23 10:32 Freq: Status: Active Protocol: Document 10/14/23 10:32 NM (Rec: 10/14/23 11:42 NM [id number]) OP-PT Balance Assessment Sitting Balance Static Sitting Balance Ability Fair Dynamic Sitting Balance Ability Fair Standing Balance Static Standing Balance Ability Fair Dynamic Standing Balance Ability Fair Device Used none Standing Balance Comments trunk sway, attempts Balance Tests Metzger Balance Test Metzger Balance Test Score 39/56 Romberg Romberg 10 seconds, but increased trunk sway Single Limb Standing Single Limb- Right 4 seconds Single Limb- Left 2 seconds Semi-Tandem Standing Semi-Tandem Standing Balance 10 seconds BLE; more trunk sway with LLE in front Tandem Tandem Standing unable to move into position w /o assist; <2 sec Humphrey Fall Scale Copyright Permission PT-OP-E Functional Tests Start: 10/14/23 10:32 Freq: Status: Active Protocol: Document 10/14/23 10:32 NM (Rec: 10/14/23 11:42 NM [id number]) Functional Tests 30 Second Sit to Stand Test Score 11 Comments B knee valgus, increased trunk sway; fatigues quickly Tinetti Balance and Gait Assessment Balance Score 10 Gait Score 12 Composite Score PT-OP-F Manual Assessment Start: 10/14/23 10:32 Freq: Status: Active Protocol: Document 10/14/23 10:32 NM (Rec: 10/14/23 11:42 NM [id number]) Manual Assessments Soft Tissue Assessment Soft Tissue Mobility Assessment No soft tissue restrictions of lumbar spine or hips Joint Mobility Assessment Joint Mobility Assessment Full PROM and AROM of B hips, knees. Near full ROM of lumbar spine, minimal restrictions into trunk flexion PT-OP-G Mobility & Gait Start: 10/14/23 10:32 Freq: Status: Active Protocol: Document 10/14/23 10:32 NM (Rec: 10/14/23 11:42 NM [id number]) OP Gait Assessment Gait Gait Assistance Required: Independent Distance (Feet) 250 Assistive Devices Assistive Device Gait Belt Comments Gait Comments Pt has slightly fwd flexed trunk during gait, demos slight trunk sway; does not use AD or reach for objects to steady except when MIGDALIA changing (e.g tandem, narrow stance, stairs). During directional changes or head movement, pt demos increased sway and LOB without fall. Stair Climbing Evaluation Evaluation Level of Assist On Stairs Contact Guard Assistance Devices Stair Climbing Assistive Devices Right Railing Technique/Endurance Stair Climbing Direction Ascend and Descend Stair Climbing Technique Step Over Step Number of Steps Climbed 4 Stair Climbing Set # Repetitions (reps) 2 Comments Stair Climbing Comments Poor depth perception upon descent due to pt glasses, with or without. Difficulty with determining step location , requires hand rail assist for balance and CGA to steady PT-OP-H Neuro Start: 10/14/23 10:32 Freq: Status: Active Protocol: Document 10/14/23 10:32 NM (Rec: 10/14/23 11:42 NM [id number]) Sensation Evaluation Gross Sensation Gross Sensation Left LE Impaired,Right LE Impaired Comments Summary Comments No numbness or tingling reported BLE. However, pt demos decreased light touch sensation B medial ankle and foot (L4-5 dermatomes) Coordination Evaluation Upper Extremity Tests Right Finger to Nose Test Moderate Impairment Pronation/Supination Test Normal Performance Left Finger to Nose Test Moderate Impairment Pronation/Supination Test Normal Performance Lower Extremity Tests Right Alternate Heel to Knee; Heel to Toe Test Moderate Impairment Heel on Henderson Test Normal Performance Left Alternate Heel to Knee; Heel to Toe Test Moderate Impairment Heel on Henderson Test Normal Performance Deep Tendon Reflex & Clonus Assessment Deep Tendon Reflex Bilateral Patellar Deep Tendon Reflex 1+ Diminished Vital Signs Pulse 1 Pulse at Rest (bpm) 88 Pulse Assessment Method Pulse Ox/Monitor Blood Pressure Sitting Blood Pressure (90/60-120/80 mmHg) 174/83 H Blood Pressure Source Automatic Cuff,Right Upper Extremity Oxygen Pulse Oximetry at Rest (%) (95-100 %) 99 Comments Vital Signs Comments Taken immediately in sitting at start of evaluation, at rest PT-OP-J Posture/Palpation/Skin Start: 10/14/23 10:32 Freq: Status: Active Protocol: Document 10/14/23 10:32 NM (Rec: 10/14/23 11:42 NM [id number]) Posture Evaluation Position Standing Evaluation View Lateral Head/C-Spine Posture Forward Head T-Spine Posture Increased Kyphosis L-Spine Posture Neutral Pelvis Posture Anteriorly Tilted Hip Posture (L) Neutral,(R) Neutral Knee Posture (L) Genu Valgus,(R) Genu Valgus Ankle/Foot Posture (L) Pronated,(R) Pronated Palpation Assessment Location Lumbar spine Palpation Location L1-L5, sacrum, coccyx Palpation Details No tenderness reported with palpation PT-OP-K Range of Motion Start: 10/14/23 10:32 Freq: Status: Active Protocol: Document 10/14/23 10:32 NM (Rec: 10/14/23 11:42 NM [id number]) Lumbar Spine Range of Motion Lumbar Spine Active Percentage Testing Position Standing Flexion 75 Extension 100 Rotation Left 100 Rotation Right 100 Lateral Flexion Left 100 Lateral Flexion Right 100 Comments Hamstring length limits flexion, no numbness/tingling or flexion Hip Goniometric Range of Motion Hip ROM Limitations Comments Full B hip PROM and AROM, no pain or discomfort Knee Goniometric Range of Motion Knee ROM Limitations Comments Full B knee PROM and AROM PT-OP-M Strength Start: 10/14/23 10:32 Freq: Status: Active Protocol: Document 10/14/23 10:32 NM (Rec: 10/14/23 11:42 NM [id number]) Trunk Strength Trunk Manual Muscle Testing Testing Position Supine Flexion 3 Fair Extension 3 Fair Rotation Left 4 Good Rotation Right 4 Good Lateral Flexion Left 4 Good Lateral Flexion Right 4 Good Hip Strength Hip Manual Muscle Testing Right Flexion (L2) 4- Good- Extension (S1) 4- Good- Abduction 4- Good- Adduction 4- Good- External Rotation 4- Good- Internal Rotation 4- Good- Left Flexion (L2) 4- Good- Extension (S1) 4- Good- Abduction 4- Good- Adduction 4- Good- External Rotation 4- Good- Internal Rotation 4- Good- Knee Strength Knee Manual Muscle Testing Left Flexion (S2) 4- Good- Extension (L3) 4- Good- Right Flexion (S2) 4 Good Extension (L3) 4 Good Ankle/Foot Strength Ankle and Foot Manual Muscle Testing Left Dorsiflexion (L4) 4 Good Plantarflexion (S1) 4 Good Inversion 4 Good Eversion (S1) 4 Good Right Dorsiflexion (L4) 4 Good Plantarflexion (S1) 4 Good Inversion 4 Good Eversion (S1) 4 Good PT-OP-Q Treatments Start: 10/14/23 10:32 Freq: Status: Active Protocol: Document 12/30/23 09:50 SP (Rec: 12/30/23 10:34 SP [id number]) Therapeutic Exercises Standing Exercises lunge Standing Exercise Name lunge- warm up to floor transfers Side bilateral Resistance AROM Equipment Used 1 hand support on ballet bar Reps/Minutes 2x10 ea Comments cued for B knee flex, hold bar for balance, wider MIGDALIA Therapeutic Activity Therapeutic Activity floor transfers Reps/Minutes 30 minutes Comments 1. to/from floor using chair for UE support, able to perform for several attempts, from mat. close SBA 2. attempted to/from floor without chair, using hands on quad to push up. Unable to rise from floor from several, even with mod A. Education on BUE strengthening with chair push ups and STS/lunges for quad/glute strengthening to assist with BLE support Gait Training Gait Activity stairs Description receiprocal stepping Device Used near rail: light contact descend, no contact ascend Level of Assistance SBA Distance/Duration 28 MAP bldg stairs Treatment Focus even carlo, wt shift into advance LE, midline trunk stab Comments receiprocal stepping ascend did well near rail but not used, descending challenging no UE support>light rail needed able to receiprocal patterning. Cues for rhomboid and core fac midline stability . PT-OP-T Assessment and Plan Start: 10/14/23 10:32 Freq: Status: Active Protocol: Document 12/30/23 09:50 SP (Rec: 12/30/23 10:34 SP [id number]) Physical Therapy Assessment Goals Five Impairment safety, education Impairment Need to improve awareness of blood pressure and complications due to diabetes Short Term Goal (STG) Pt will report compliance with performing blood pressure and foot checks at least 3x/wk for increased safety awareness with managing other health conditions and to decrease fall risk. 11/11/23: Pt was on vacation so not compliant during vacation x2 weks, but reports compliance prior to vacation 11/25/22: MET GOAL doing daily BP and foot checks. Dr [place] increased BP med, 150s to 140s /80s. STG Duration 4 weeks MET GOAL. Shank Boner Goal (LTG) Pt will report compliance with performing daily blood pressure and foot checks for increased safety awareness with managing other health conditions and to decrease fall risk. 11/25/22: MET GOAL doing daily BP and foot checks. Dr Montana increased BP med, 150s to 140s /80s. LTG Duration 8 weeks GOAL MET 11/26/23 Four Impairment HEP Impairment No HEP Short Term Goal (STG) Pt will report compliance with HEP 3x/wk in order to maximize PT sessions 11/11/23: Pt with minimal compliance due to vacation, but reports compliance 1-2x/wk prior to vacation 11/25/23: progressing: compliant with 2-3x/wk STG Duration 4 weeks progressing 11/26/23 Mcfp Goal (LTG) Pt will report compliance with HEP at least 3x/wk in order to promote independence with exercise after discharge 11/26/23: progressing: compliant with 2-3x/wk 12/03/23: 2-3xwk compliance LTG Duration 8 weeks progressing 11/26/23 Three Impairment strength Impairment 30 sec STS score 11 Mcfp Goal (LTG) Pt will perform at least 12 squats during 30 sec sit to stand test without compensation in order to demonstrate improved activity tolerance and BLE strength required for ADLs. 12/03/23: 11 from mesh chair 11/11/23: 13 STS in 30 seconds with arms in front from 18 plinth 11/26/23: STS 10 reps after already did some ther ex and balance activities. LTG Duration 8 weeks MET Two Impairment balance Impairment DGI Mcfp Goal (LTG) Pt will improve DGI score to at least 19 in order to demonstrate improved balance during higher level functional activities and to decrease fall risk 11/11/23: 12/03/23: 1612/27/23: LTG Duration 8 weeks MET One Impairment Metzger Impairment Metzger score 39/56 Short Term Goal (STG) Pt will improve Metzger score to at least 41/56 in order to demonstrate improved balance and decrease fall risk 11/11/23: 45/56 STG Duration 4 weeks MET Mcfp Goal (LTG) Pt will improve Metzger score to at least 48/56 in order to demonstrate improved balance and decrease fall risk 12/03/23: 44/56 LTG Duration 8 weeks NOT MET Assessment Summary Assessment Majority if tx spend on more confident with floor transfers initially use chair then progressed to hands on floor 10% A support at B hips final full stand and Mod cues for hand positioning and wt shift back into BLEs. Practiced verbage if happen to need help out in public how to talk person how to help her. Pt more confortable receipical stepping Physical Therapy Plan Frequency and Duration Frequency of Treatment 2x/Week Duration of treatment (weeks) 6 Plan of Care Start Date 12/03/23 Plan of Care End Date 01/17/24 Therapeutic Interventions Therapeutic Interventions Aquatic Therapy,Balance Training,Coordination Training ,Gait Training,Home Exercise Program,Joint Mobilizations, Manual Therapy,Neuromuscular Re-education,Orthotic/ Prosthetic Management,Patient/ Caregiver Education,Self-Care/ Home Management,Sensory Integration,Soft Tissue Mobilization,Taping, Therapeutic Activities, Therapeutic Exercises, Vestibular Rehabilitation Other Therapeutic Interventions AD training Other Referrals/Consults Referrals/Consults Recommended Spice Fumigator for updated eye Rx . WATER SYSTEM OPERATOR instructed pt to follow up with PCP regarding proper dose increased Zanipril 80mg qd or 40 mg bid? Next Visit Focus/Plan Next Note Type Treatment Note Next Visit Plan Floor transfers no chair support/use hands on floor, pallof press, uneven surfaces Next tx: trial bungie cord stepping, functional core strength POC: DGI type training, narrow MIGDALIA/weight shift; hip abd and core strengthening POC: Continue BLE strengthening and balance training Next session- check tolerance: STS with abd band, seated vs standing LAY lopez, HSC, PF, DF. Review shoe assessment/ foot check for diabetes, blood pressure checks daily and log . Progress BLE strengthening and balance Take vitals before every session and monitor closely; use gait belt, watch for falls
--- NOTE | 2024-01-02 14:35 | PT.OTN ---
Current Diagnoses Other chronic pain (01/02/24) Low back pain, unspecified (01/02/24) Repeated falls (01/02/24) Physical Therapy Treatment Note PT-OP-A Visit Information Start: 10/14/23 10:32 Freq: Status: Active Protocol: Document 01/02/24 13:49 SP (Rec: 01/02/24 14:37 SP [id number]) Out-Patient Physical Therapy Visit Information Visit Information Visit Type Treatment Note Visit Note Orthostatics: LUE automated supine: 143/66 HR 63 SaO2 97% RA seated immediate: 146/68 HR 65 SaO2 99% RA standing immediate taken: 130/ 78 HR 65 SaO2 98% RA Nonsymptomatic throughout Visit Start Time 13:49 Visit Stop Time 14:35 Visit Number 12 Number of [employer] Visits 2 Evaluation Information Evaluation Date 10/14/23 Precautions Precautions Fall risk Blood pressure- take vitals every time; allow acclimation to change of position Hx of seizures PT-OP-B Current Condition Start: 10/14/23 10:32 Freq: Status: Active Protocol: Document 10/14/23 10:32 NM (Rec: 10/14/23 11:42 NM [id number]) Current Condition History of Current Condition Onset Date during 2022 Current Complaints falls, loss of balance History of Current Condition Pt presents to Pt with hx of falls, reporting 5 in 2022. She reports that she usually trips over her feet and thinks her shoes may contribute because they're a size too large. During a previous fall, she has hit her head but was not otherwise injured. She has had falls from seated positions and standing positions. In May, she slipped and fell on her coccyx, bruising it. She went to the ED, where they did an x-ray showing no fracture. She had pain in her low back and coccyx for about 3 weeks after the fall, but does not have any pain currently. When she falls, she is unable to get up off of floor without the use of her hands or assistance. She does not use an AD during gait. She also reports instances of lightheadedness, vertigo usually with leaning over. PMH of meningioma, grand mal seizures, chest pressure without heart attack or other heart hx, diverticulitis. Prior Treatments and Tests previous PT for unknown reason but reports stopping due to feeling better Treatment Goals Patient/Caregiver Goals decrease falls Prior Functional Status Baseline Function- ADL's Independent Baseline Function- Mobility Independent Current Functional Impairments (Reported) Functional Limitations- ADL's Difficulty with reaching to floor, getting up off of floor ; loss of balance in sitting or standing Functional Limitations- Mobility/Gait 20 min, no AD use; tripping frequently PT-OP-C Subjective Start: 10/14/23 10:32 Freq: Status: Active Protocol: Document 01/02/24 13:49 SP (Rec: 01/02/24 14:37 SP [id number]) OP-PT Subjective Patient Comments Patient Comments Pt reports was practicing getting on/off floor this am and now pretty dizzy. She mentioned Dr made changes to her BP meds. 136/70s sitting this am. Feeling off and not stable upon arrival. She states R foot still catches floor at times. PT-OP-D Balance Start: 10/14/23 10:32 Freq: Status: Active Protocol: Document 10/14/23 10:32 NM (Rec: 10/14/23 11:42 NM [id number]) OP-PT Balance Assessment Sitting Balance Static Sitting Balance Ability Fair Dynamic Sitting Balance Ability Fair Standing Balance Static Standing Balance Ability Fair Dynamic Standing Balance Ability Fair Device Used none Standing Balance Comments trunk sway, attempts Balance Tests Metzger Balance Test Metzger Balance Test Score 39/56 Romberg Romberg 10 seconds, but increased trunk sway Single Limb Standing Single Limb- Right 4 seconds Single Limb- Left 2 seconds Semi-Tandem Standing Semi-Tandem Standing Balance 10 seconds BLE; more trunk sway with LLE in front Tandem Tandem Standing unable to move into position w /o assist; <2 sec Humphrey Fall Scale Copyright Permission PT-OP-E Functional Tests Start: 10/14/23 10:32 Freq: Status: Active Protocol: Document 10/14/23 10:32 NM (Rec: 10/14/23 11:42 NM [id number]) Functional Tests 30 Second Sit to Stand Test Score 11 Comments B knee valgus, increased trunk sway; fatigues quickly Tinetti Balance and Gait Assessment Balance Score 10 Gait Score 12 Composite Score PT-OP-F Manual Assessment Start: 10/14/23 10:32 Freq: Status: Active Protocol: Document 10/14/23 10:32 NM (Rec: 10/14/23 11:42 NM [id number]) Manual Assessments Soft Tissue Assessment Soft Tissue Mobility Assessment No soft tissue restrictions of lumbar spine or hips Joint Mobility Assessment Joint Mobility Assessment Full PROM and AROM of B hips, knees. Near full ROM of lumbar spine, minimal restrictions into trunk flexion PT-OP-G Mobility & Gait Start: 10/14/23 10:32 Freq: Status: Active Protocol: Document 10/14/23 10:32 NM (Rec: 10/14/23 11:42 NM [id number]) OP Gait Assessment Gait Gait Assistance Required: Independent Distance (Feet) 250 Assistive Devices Assistive Device Gait Belt Comments Gait Comments Pt has slightly fwd flexed trunk during gait, demos slight trunk sway; does not use AD or reach for objects to steady except when MIGDALIA changing (e.g tandem, narrow stance, stairs). During directional changes or head movement, pt demos increased sway and LOB without fall. Stair Climbing Evaluation Evaluation Level of Assist On Stairs Contact Guard Assistance Devices Stair Climbing Assistive Devices Right Railing Technique/Endurance Stair Climbing Direction Ascend and Descend Stair Climbing Technique Step Over Step Number of Steps Climbed 4 Stair Climbing Set # Repetitions (reps) 2 Comments Stair Climbing Comments Poor depth perception upon descent due to pt glasses, with or without. Difficulty with determining step location , requires hand rail assist for balance and CGA to steady PT-OP-H Neuro Start: 10/14/23 10:32 Freq: Status: Active Protocol: Document 10/14/23 10:32 NM (Rec: 10/14/23 11:42 NM [id number]) Sensation Evaluation Gross Sensation Gross Sensation Left LE Impaired,Right LE Impaired Comments Summary Comments No numbness or tingling reported BLE. However, pt demos decreased light touch sensation B medial ankle and foot (L4-5 dermatomes) Coordination Evaluation Upper Extremity Tests Right Finger to Nose Test Moderate Impairment Pronation/Supination Test Normal Performance Left Finger to Nose Test Moderate Impairment Pronation/Supination Test Normal Performance Lower Extremity Tests Right Alternate Heel to Knee; Heel to Toe Test Moderate Impairment Heel on Henderson Test Normal Performance Left Alternate Heel to Knee; Heel to Toe Test Moderate Impairment Heel on Henderson Test Normal Performance Deep Tendon Reflex & Clonus Assessment Deep Tendon Reflex Bilateral Patellar Deep Tendon Reflex 1+ Diminished Vital Signs Pulse 1 Pulse at Rest (bpm) 88 Pulse Assessment Method Pulse Ox/Monitor Blood Pressure Sitting Blood Pressure (90/60-120/80 mmHg) 174/83 H Blood Pressure Source Automatic Cuff,Right Upper Extremity Oxygen Pulse Oximetry at Rest (%) (95-100 %) 99 Comments Vital Signs Comments Taken immediately in sitting at start of evaluation, at rest PT-OP-J Posture/Palpation/Skin Start: 10/14/23 10:32 Freq: Status: Active Protocol: Document 10/14/23 10:32 NM (Rec: 10/14/23 11:42 NM [id number]) Posture Evaluation Position Standing Evaluation View Lateral Head/C-Spine Posture Forward Head T-Spine Posture Increased Kyphosis L-Spine Posture Neutral Pelvis Posture Anteriorly Tilted Hip Posture (L) Neutral,(R) Neutral Knee Posture (L) Genu Valgus,(R) Genu Valgus Ankle/Foot Posture (L) Pronated,(R) Pronated Palpation Assessment Location Lumbar spine Palpation Location L1-L5, sacrum, coccyx Palpation Details No tenderness reported with palpation PT-OP-K Range of Motion Start: 10/14/23 10:32 Freq: Status: Active Protocol: Document 10/14/23 10:32 NM (Rec: 10/14/23 11:42 NM [id number]) Lumbar Spine Range of Motion Lumbar Spine Active Percentage Testing Position Standing Flexion 75 Extension 100 Rotation Left 100 Rotation Right 100 Lateral Flexion Left 100 Lateral Flexion Right 100 Comments Hamstring length limits flexion, no numbness/tingling or flexion Hip Goniometric Range of Motion Hip ROM Limitations Comments Full B hip PROM and AROM, no pain or discomfort Knee Goniometric Range of Motion Knee ROM Limitations Comments Full B knee PROM and AROM PT-OP-M Strength Start: 10/14/23 10:32 Freq: Status: Active Protocol: Document 10/14/23 10:32 NM (Rec: 10/14/23 11:42 NM [id number]) Trunk Strength Trunk Manual Muscle Testing Testing Position Supine Flexion 3 Fair Extension 3 Fair Rotation Left 4 Good Rotation Right 4 Good Lateral Flexion Left 4 Good Lateral Flexion Right 4 Good Hip Strength Hip Manual Muscle Testing Right Flexion (L2) 4- Good- Extension (S1) 4- Good- Abduction 4- Good- Adduction 4- Good- External Rotation 4- Good- Internal Rotation 4- Good- Left Flexion (L2) 4- Good- Extension (S1) 4- Good- Abduction 4- Good- Adduction 4- Good- External Rotation 4- Good- Internal Rotation 4- Good- Knee Strength Knee Manual Muscle Testing Left Flexion (S2) 4- Good- Extension (L3) 4- Good- Right Flexion (S2) 4 Good Extension (L3) 4 Good Ankle/Foot Strength Ankle and Foot Manual Muscle Testing Left Dorsiflexion (L4) 4 Good Plantarflexion (S1) 4 Good Inversion 4 Good Eversion (S1) 4 Good Right Dorsiflexion (L4) 4 Good Plantarflexion (S1) 4 Good Inversion 4 Good Eversion (S1) 4 Good PT-OP-Q Treatments Start: 10/14/23 10:32 Freq: Status: Active Protocol: Document 01/02/24 13:49 SP (Rec: 01/02/24 14:37 SP [id number]) Therapeutic Exercises Supine Exercises SLR Supine Exercise Name trialed 1 o'clock- added toHEP Side right Resistance L knee bent Reps/Minutes 15, Comments cued TA fac, lift no higher than L knee Sidelying Exercises hip abd Sidelying Exercise Name trialed-added to HEP Side right Resistance AROM Equipment Used RUE on table kick stand on side Reps/Minutes 2x 17 tires, 20 starts to recruit neck/scap complex Comments Mod cues on side alignment, DF neutral ankle, TA slower lift /lower Sitting Exercises R ankle [address] way Sitting Exercise Name added to HEP: DF, EV Side right Resistance TB #3 Equipment Used small ball Reps/Minutes 2x15 each Comments cued knees stationary Therapeutic Activity Therapeutic Activity floor transfers Reps/Minutes 3 reps end tx Comments 1. to/from floor using chair for UE support, able to perform for several attempts, from mat. close SBA 2. attempted to/from floor without chair, using hands on quad to push up. Unable to rise from floor from several, even with mod A. Education on BUE strengthening with chair push ups and STS/lunges for quad/glute strengthening to assist with BLE support Min/ Mod A today. PT-OP-T Assessment and Plan Start: 10/14/23 10:32 Freq: Status: Active Protocol: Document 01/02/24 13:49 SP (Rec: 01/02/24 14:37 SP [id number]) Physical Therapy Assessment Goals Five Impairment safety, education Impairment Need to improve awareness of blood pressure and complications due to diabetes Short Term Goal (STG) Pt will report compliance with performing blood pressure and foot checks at least 3x/wk for increased safety awareness with managing other health conditions and to decrease fall risk. 2/19/24: Pt was on vacation so not compliant during vacation x2 weks, but reports compliance prior to vacation 11/25/22: MET GOAL doing daily BP and foot checks. Dr [place] increased BP med, 150s to 140s /80s. STG Duration 4 weeks MET GOAL. Senior Director Goal (LTG) Pt will report compliance with performing daily blood pressure and foot checks for increased safety awareness with managing other health conditions and to decrease fall risk. 11/25/22: MET GOAL doing daily BP and foot checks. Dr [place] increased BP med, 150s to 140s /80s. LTG Duration 8 weeks GOAL MET 11/26/23 Four Impairment HEP Impairment No HEP Short Term Goal (STG) Pt will report compliance with HEP 3x/wk in order to maximize PT sessions 11/11/23: Pt with minimal compliance due to vacation, but reports compliance 1-2x/wk prior to vacation 11/25/23: progressing: compliant with 2-3x/wk STG Duration 4 weeks progressing 11/26/23 [facility] Goal (LTG) Pt will report compliance with HEP at least 3x/wk in order to promote independence with exercise after discharge 11/26/23: progressing: compliant with 2-3x/wk 12/03/23: 2-3xwk compliance LTG Duration 8 weeks progressing 11/26/23 Three Impairment strength Impairment 30 sec STS score 11 Senior Director Goal (LTG) Pt will perform at least 12 squats during 30 sec sit to stand test without compensation in order to demonstrate improved activity tolerance and BLE strength required for ADLs. 12/03/23: 11 from mesh chair 11/11/23: 13 STS in 30 seconds with arms in front from 18 plinth 11/26/23: STS 10 reps after already did some ther ex and balance activities. LTG Duration 8 weeks MET Two Impairment balance Impairment DGI [facility] Goal (LTG) Pt will improve DGI score to at least 19 in order to demonstrate improved balance during higher level functional activities and to decrease fall risk 11/11/23: 12/03/23: 12/27/23: LTG Duration 8 weeks MET One Impairment Metzger Impairment Metzger score 39/56 Short Term Goal (STG) Pt will improve Metzger score to at least 41/56 in order to demonstrate improved balance and decrease fall risk 11/11/23: 45/56 STG Duration 4 weeks MET Senior Director Goal (LTG) Pt will improve Metzger score to at least 48/56 in order to demonstrate improved balance and decrease fall risk 12/03/23: 44/56 LTG Duration 8 weeks NOT MET Assessment Summary Assessment Pt demonstrates decreased strength in R hip flexion and abd with continued instances of her R foot catching floor. Good tiring response more focused on ther ex with TA SLR with emphasis on VMO and glut med and increase resistance for DF and EV with good response of tiring areas that feel weak for progression in support for safe gait. Reviewed floor transfers with use chair support and noted decreased recall from previous tx able to do from floor with very little support, more support challenged to complete today. Safest use of chair. She is continuing to work on at home and wants continue in PT for confidence in increase I. Physical Therapy Plan Frequency and Duration Frequency of Treatment 2x/Week Duration of treatment (weeks) 6 Plan of Care Start Date 12/03/23 Plan of Care End Date 01/17/24 Therapeutic Interventions Therapeutic Interventions Aquatic Therapy,Balance Training,Coordination Training ,Gait Training,Home Exercise Program,Joint Mobilizations, Manual Therapy,Neuromuscular Re-education,Orthotic/ Prosthetic Management,Patient/ Caregiver Education,Self-Care/ Home Management,Sensory Integration,Soft Tissue Mobilization,Taping, Therapeutic Activities, Therapeutic Exercises, Vestibular Rehabilitation Other Therapeutic Interventions AD training Other Referrals/Consults Referrals/Consults Recommended [employer] for updated eye Rx . [employer] instructed pt to follow up with PCP regarding proper dose increased Zanipril 80mg qd or 40 mg bid? Next Visit Focus/Plan Next Note Type Treatment Note Next Visit Plan Floor transfers no chair support/use hands on floor, pallof press, uneven surfaces. Next tx: trial bungie cord stepping, functional core strength POC: DGI type training, narrow MIGDALIA/weight shift; hip abd and core strengthening POC: Continue BLE strengthening and balance training Next session- check tolerance: STS with abd band, seated vs standing march, LAQ, HSC, PF, DF. Review shoe assessment/ foot check for diabetes, blood pressure checks daily and log . Progress BLE strengthening and balance Take vitals before every session and monitor closely; use gait belt, watch for falls
--- NOTE | 2024-01-06 15:52 | PT.OTN ---
Current Diagnoses Other chronic pain (01/06/24) Low back pain, unspecified (01/06/24) Repeated falls (01/06/24) Physical Therapy Treatment Note PT-OP-A Visit Information Start: 10/14/23 10:32 Freq: Status: Active Protocol: Document 01/06/24 12:59 NM (Rec: 01/06/24 13:48 NM [id number]) Out-Patient Physical Therapy Visit Information Visit Information Visit Type Treatment Note Visit Note 147/65 bpm Visit Start Time 13:02 Visit Stop Time 13:45 Visit Number 13 Evaluation Information Evaluation Date 10/14/23 PT-OP-B Current Condition Start: 10/14/23 10:32 Freq: Status: Active Protocol: Document 10/14/23 10:32 NM (Rec: 10/14/23 11:42 NM [id number]) Current Condition History of Current Condition Onset Date during 2022 Current Complaints falls, loss of balance History of Current Condition Pt presents to Pt with hx of falls, reporting 5 in 2022. She reports that she usually trips over her feet and thinks her shoes may contribute because they're a size too large. During a previous fall, she has hit her head but was not otherwise injured. She has had falls from seated positions and standing positions. In May, she slipped and fell on her coccyx, bruising it. She went to the ED, where they did an x-ray showing no fracture. She had pain in her low back and coccyx for about 3 weeks after the fall, but does not have any pain currently. When she falls, she is unable to get up off of floor without the use of her hands or assistance. She does not use an AD during gait. She also reports instances of lightheadedness, vertigo usually with leaning over. PMH of meningioma, grand mal seizures, chest pressure without heart attack or other heart hx, diverticulitis. Prior Treatments and Tests previous PT for unknown reason but reports stopping due to feeling better Treatment Goals Patient/Caregiver Goals decrease falls Prior Functional Status Baseline Function- ADL's Independent Baseline Function- Mobility Independent Current Functional Impairments (Reported) Functional Limitations- ADL's Difficulty with reaching to floor, getting up off of floor ; loss of balance in sitting or standing Functional Limitations- Mobility/Gait 20 min, no AD use; tripping frequently PT-OP-C Subjective Start: 10/14/23 10:32 Freq: Status: Active Protocol: Document 01/06/24 12:59 NM (Rec: 01/06/24 13:48 NM [id number]) OP-PT Subjective Patient Comments Patient Comments Pt reports that she is mellow today. She recently had medication changes in Saturday last week, stopped on Saturday; back on previous lisinopril dosage. PT-OP-D Balance Start: 10/14/23 10:32 Freq: Status: Active Protocol: Document 10/14/23 10:32 NM (Rec: 10/14/23 11:42 NM [id number]) OP-PT Balance Assessment Sitting Balance Static Sitting Balance Ability Fair Dynamic Sitting Balance Ability Fair Standing Balance Static Standing Balance Ability Fair Dynamic Standing Balance Ability Fair Device Used none Standing Balance Comments trunk sway, attempts Balance Tests Metzger Balance Test Metzger Balance Test Score 39/56 Romberg Romberg 10 seconds, but increased trunk sway Single Limb Standing Single Limb- Right 4 seconds Single Limb- Left 2 seconds Semi-Tandem Standing Semi-Tandem Standing Balance 10 seconds BLE; more trunk sway with LLE in front Tandem Tandem Standing unable to move into position w /o assist; <2 sec Humphrey Fall Scale Copyright Permission PT-OP-E Functional Tests Start: 10/14/23 10:32 Freq: Status: Active Protocol: Document 10/14/23 10:32 NM (Rec: 10/14/23 11:42 NM [id number]) Functional Tests 30 Second Sit to Stand Test Score 11 Comments B knee valgus, increased trunk sway; fatigues quickly Tinetti Balance and Gait Assessment Balance Score 10 Gait Score 12 Composite Score 22/28 PT-OP-F Manual Assessment Start: 10/14/23 10:32 Freq: Status: Active Protocol: Document 10/14/23 10:32 NM (Rec: 10/14/23 11:42 NM [id number]) Manual Assessments Soft Tissue Assessment Soft Tissue Mobility Assessment No soft tissue restrictions of lumbar spine or hips Joint Mobility Assessment Joint Mobility Assessment Full PROM and AROM of B hips, knees. Near full ROM of lumbar spine, minimal restrictions into trunk flexion PT-OP-G Mobility & Gait Start: 10/14/23 10:32 Freq: Status: Active Protocol: Document 10/14/23 10:32 NM (Rec: 10/14/23 11:42 NM [id number]) OP Gait Assessment Gait Gait Assistance Required: Independent Distance (Feet) 250 Assistive Devices Assistive Device Gait Belt Comments Gait Comments Pt has slightly fwd flexed trunk during gait, demos slight trunk sway; does not use AD or reach for objects to steady except when MIGDALIA changing (e.g tandem, narrow stance, stairs). During directional changes or head movement, pt demos increased sway and LOB without fall. Stair Climbing Evaluation Evaluation Level of Assist On Stairs Contact Guard Assistance Devices Stair Climbing Assistive Devices Right Railing Technique/Endurance Stair Climbing Direction Ascend and Descend Stair Climbing Technique Step Over Step Number of Steps Climbed 4 Stair Climbing Set # Repetitions (reps) 2 Comments Stair Climbing Comments Poor depth perception upon descent due to pt glasses, with or without. Difficulty with determining step location , requires hand rail assist for balance and CGA to steady PT-OP-H Neuro Start: 10/14/23 10:32 Freq: Status: Active Protocol: Document 10/14/23 10:32 NM (Rec: 10/14/23 11:42 NM [id number]) Sensation Evaluation Gross Sensation Gross Sensation Left LE Impaired,Right LE Impaired Comments Summary Comments No numbness or tingling reported BLE. However, pt demos decreased light touch sensation B medial ankle and foot (L4-5 dermatomes) Coordination Evaluation Upper Extremity Tests Right Finger to Nose Test Moderate Impairment Pronation/Supination Test Normal Performance Left Finger to Nose Test Moderate Impairment Pronation/Supination Test Normal Performance Lower Extremity Tests Right Alternate Heel to Knee; Heel to Toe Test Moderate Impairment Heel on Henderson Test Normal Performance Left Alternate Heel to Knee; Heel to Toe Test Moderate Impairment Heel on Henderson Test Normal Performance Deep Tendon Reflex & Clonus Assessment Deep Tendon Reflex Bilateral Patellar Deep Tendon Reflex 1+ Diminished Vital Signs Pulse 1 Pulse at Rest (bpm) 88 Pulse Assessment Method Pulse Ox/Monitor Blood Pressure Sitting Blood Pressure (90/60-120/80 mmHg) 174/83 H Blood Pressure Source Automatic Cuff,Right Upper Extremity Oxygen Pulse Oximetry at Rest (%) (95-100 %) 99 Comments Vital Signs Comments Taken immediately in sitting at start of evaluation, at rest PT-OP-J Posture/Palpation/Skin Start: 10/14/23 10:32 Freq: Status: Active Protocol: Document 10/14/23 10:32 NM (Rec: 10/14/23 11:42 NM [id number]) Posture Evaluation Position Standing Evaluation View Lateral Head/C-Spine Posture Forward Head T-Spine Posture Increased Kyphosis L-Spine Posture Neutral Pelvis Posture Anteriorly Tilted Hip Posture (L) Neutral,(R) Neutral Knee Posture (L) Genu Valgus,(R) Genu Valgus Ankle/Foot Posture (L) Pronated,(R) Pronated Palpation Assessment Location Lumbar spine Palpation Location L1-L5, sacrum, coccyx Palpation Details No tenderness reported with palpation PT-OP-K Range of Motion Start: 10/14/23 10:32 Freq: Status: Active Protocol: Document 10/14/23 10:32 NM (Rec: 10/14/23 11:42 NM [id number]) Lumbar Spine Range of Motion Lumbar Spine Active Percentage Testing Position Standing Flexion 75 Extension 100 Rotation Left 100 Rotation Right 100 Lateral Flexion Left 100 Lateral Flexion Right 100 Comments Hamstring length limits flexion, no numbness/tingling or flexion Hip Goniometric Range of Motion Hip ROM Limitations Comments Full B hip PROM and AROM, no pain or discomfort Knee Goniometric Range of Motion Knee ROM Limitations Comments Full B knee PROM and AROM PT-OP-M Strength Start: 10/14/23 10:32 Freq: Status: Active Protocol: Document 10/14/23 10:32 NM (Rec: 10/14/23 11:42 NM [id number]) Trunk Strength Trunk Manual Muscle Testing Testing Position Supine Flexion 3 Fair Extension 3 Fair Rotation Left 4 Good Rotation Right 4 Good Lateral Flexion Left 4 Good Lateral Flexion Right 4 Good Hip Strength Hip Manual Muscle Testing Right Flexion (L2) 4- Good- Extension (S1) 4- Good- Abduction 4- Good- Adduction 4- Good- External Rotation 4- Good- Internal Rotation 4- Good- Left Flexion (L2) 4- Good- Extension (S1) 4- Good- Abduction 4- Good- Adduction 4- Good- External Rotation 4- Good- Internal Rotation 4- Good- Knee Strength Knee Manual Muscle Testing Left Flexion (S2) 4- Good- Extension (L3) 4- Good- Right Flexion (S2) 4 Good Extension (L3) 4 Good Ankle/Foot Strength Ankle and Foot Manual Muscle Testing Left Dorsiflexion (L4) 4 Good Plantarflexion (S1) 4 Good Inversion 4 Good Eversion (S1) 4 Good Right Dorsiflexion (L4) 4 Good Plantarflexion (S1) 4 Good Inversion 4 Good Eversion (S1) 4 Good PT-OP-Q Treatments Start: 10/14/23 10:32 Freq: Status: Active Protocol: Document 01/06/24 12:59 NM (Rec: 01/06/24 13:48 NM [id number]) Therapeutic Exercises Sitting Exercises R ankle 2 way Sitting Exercise Name HEP review: DF, EV Side right Resistance TB #3 Equipment Used small ball Reps/Minutes 2x15 each Comments cued knees stationary Standing Exercises toe raises Standing Exercise Name for foot clearance Side bilateral Resistance 4# ankle weight on toes Equipment Used legs slightly in front; back against wall Reps/Minutes 2x10 Comments improved range paloff press Standing Exercise Name pallof walkout Side bilateral Resistance lvl 1 peach (both bands) Reps/Minutes 1x8 ea Comments improved upright posture; cued no lean Therapeutic Activity Therapeutic Activity floor transfers Reps/Minutes 1 rep Comments To/from floor without chair, using hands on quad to push up . Unable to rise from floor from several, even with mod A. Education on BUE strengthening with chair push ups and STS/lunges for quad/ glute strengthening to assist with BLE support Min/Mod A today. Neuro Re-Education Treatment Balance Activities unstable surface Details close SBA Surface large norton-blue pillow Equipment tennis ball Reps/Duration 2x15 Comments Pt tossing tennis ball from hand to hand.Unable to look away from ball, close SBA but 1 instance increased sway with near LOB, did not fall carrying objects Surface stable Equipment ball in tray Reps/Duration 2 x 100 ft Comments Pt looking up while carrying ball in open tray w/o losing ball. Cued to foot clearance, upright posture, looking upright shuttle balance Surface A/P, M/L Equipment CGA to stabilize Reps/Duration 2 min ea Comments Pt cued to maintain level surface using weight shifts. During A/P, tends to demo anterior lean. Improved stability about ~1 minute, able to maintain level board. Tendency to demo suspension strategy vs ankle/hip despite cueing Added cognitive component: counting bwd, and fwd, alphabet Metzger Reps/Duration 50/56 Comments Improved for all except SLS and 360 turn (requires increased time today to turn opposite direction) dynamic walking Details close SBA Surface stable Equipment bungee green Reps/Duration 1x5 Comments Improved bwd and fwd walking, upright posture and no LOB or leaning at end range. Takes larger steps today, no flailing arms PT-OP-T Assessment and Plan Start: 10/14/23 10:32 Freq: Status: Active Protocol: Document 01/06/24 12:59 NM (Rec: 01/06/24 13:48 NM [id number]) Physical Therapy Assessment Goals Five Impairment safety, education Impairment Need to improve awareness of blood pressure and complications due to diabetes Short Term Goal (STG) Pt will report compliance with performing blood pressure and foot checks at least 3x/wk for increased safety awareness with managing other health conditions and to decrease fall risk. 11/11/23: Pt was on vacation so not compliant during vacation x2 weks, but reports compliance prior to vacation 11/25/22: MET GOAL doing daily BP and foot checks. Dr [place] increased BP med, 150s to 140s /80s. STG Duration 4 weeks MET GOAL. Newscast Producer Goal (LTG) Pt will report compliance with performing daily blood pressure and foot checks for increased safety awareness with managing other health conditions and to decrease fall risk. 11/25/22: MET GOAL doing daily BP and foot checks. Dr [place] increased BP med, 150s to 140s /80s. LTG Duration 8 weeks GOAL MET 11/26/23 Four Impairment HEP Impairment No HEP Short Term Goal (STG) Pt will report compliance with HEP 3x/wk in order to maximize PT sessions 11/11/23: Pt with minimal compliance due to vacation, but reports compliance 1-2x/wk prior to vacation 11/25/23: progressing: compliant with 2-3x/wk STG Duration 4 weeks progressing 11/26/23 Newscast Producer Goal (LTG) Pt will report compliance with HEP at least 3x/wk in order to promote independence with exercise after discharge 11/26/23: progressing: compliant with 2-3x/wk 12/03/23: 2-3xwk compliance LTG Duration 8 weeks progressing 11/26/23 Three Impairment strength Impairment 30 sec STS score 11 Custodial Goal (LTG) Pt will perform at least 12 squats during 30 sec sit to stand test without compensation in order to demonstrate improved activity tolerance and BLE strength required for ADLs. 12/03/23: 11 from mesh chair 11/11/23: 13 STS in 30 seconds with arms in front from 18 plinth 11/26/23: STS 10 reps after already did some ther ex and balance activities. LTG Duration 8 weeks MET Two Impairment balance Impairment DGI Custodial Goal (LTG) Pt will improve DGI score to at least in order to demonstrate improved balance during higher level functional activities and to decrease fall risk 11/11/23: 12/03/23: 12/27/23: LTG Duration 8 weeks MET One Impairment Metzger Impairment Metzger score 39/56 Short Term Goal (STG) Pt will improve Metzger score to at least 41/56 in order to demonstrate improved balance and decrease fall risk 11/11/23: 45/56 STG Duration 4 weeks MET Custodial Goal (LTG) Pt will improve Metzger score to at least 48/56 in order to demonstrate improved balance and decrease fall risk 12/03/23: 44/56 01/06/24: 50/56 LTG Duration 8 weeks MET Assessment Summary Assessment Pt demos improvement in ability to stabilize during dynamic balance. No LOB with resisted stepping using bungee cord. Pt demos improved trunk control and upright posture, less tendency to try to counterbalance with arms. Trialed pallof for resisted core, upright posture. Pt able to demo floor transfer w/o chair use to ascend. Requires increased time but able to perform, however reports dizziness with transfers but less than last session. Continued with strengthening pt's ankles to increase ankle dorsiflexion and promote stability at ankle due to tendency to pronate/invert on unstable surfaces. Pt's Metzger now 50/56, indicating decreased fall risk. Pt continues to demonstrate improvement in awareness of surroundings, body position, and improved foot clearance. She is progressing well towards her goals. Pt would benefit from skilled PT for dynamic balance training and BLE strengthening in order to decrease fall risk. Physical Therapy Plan Frequency and Duration Frequency of Treatment 2x/Week Duration of treatment (weeks) 6 Plan of Care Start Date 12/03/23 Plan of Care End Date 01/17/24 Therapeutic Interventions Therapeutic Interventions Aquatic Therapy,Balance Training,Coordination Training ,Gait Training,Home Exercise Program,Joint Mobilizations, Manual Therapy,Neuromuscular Re-education,Orthotic/ Prosthetic Management,Patient/ Caregiver Education,Self-Care/ Home Management,Sensory Integration,Soft Tissue Mobilization,Taping, Therapeutic Activities, Therapeutic Exercises, Vestibular Rehabilitation Other Therapeutic Interventions AD training Other Referrals/Consults Referrals/Consults Recommended Thread Clipper for updated eye Rx . SECTION BEAMER instructed pt to follow up with PCP regarding proper dose increased Zanipril 80mg qd or 40 mg bid? Next Visit Focus/Plan Next Note Type Treatment Note Next Visit Plan Floor transfers no chair support/use hands on floor, pallof press, uneven surfaces, carrying objects with obstacles, functional core strength Next tx: trial bungie cord stepping, functional core strength POC: DGI type training, narrow MIGDALIA/weight shift; hip abd and core strengthening POC: Continue BLE strengthening and balance training Next session- check tolerance: STS with abd band, seated vs standing march, LAQ, HSC, PF, DF. Review shoe assessment/ foot check for diabetes, blood pressure checks daily and log . Progress BLE strengthening and balance Take vitals before every session and monitor closely; use gait belt, watch for falls
--- NOTE | 2024-01-09 13:42 | PT.OTN ---
Current Diagnoses Other chronic pain (01/09/24) Low back pain, unspecified (01/09/24) Repeated falls (01/09/24) Physical Therapy Treatment Note PT-OP-A Visit Information Start: 10/14/23 10:32 Freq: Status: Active Protocol: Document 01/09/24 13:02 SP (Rec: 01/09/24 13:48 SP [id number]) Out-Patient Physical Therapy Visit Information Visit Information Visit Type Treatment Note Visit Note 141/75 bpm Visit Start Time 13:02 Visit Stop Time 13:42 Visit Number 14 Number of [employer]PER[employer] Visits 1 Evaluation Information Evaluation Date 10/14/23 Precautions Precautions Fall risk Blood pressure- take vitals every time; allow acclimation to change of position Hx of seizures PT-OP-B Current Condition Start: 10/14/23 10:32 Freq: Status: Active Protocol: Document 10/14/23 10:32 NM (Rec: 10/14/23 11:42 NM [id number]) Current Condition History of Current Condition Onset Date during 2022 Current Complaints falls, loss of balance History of Current Condition Pt presents to Pt with hx of falls, reporting 5 in 2022. She reports that she usually trips over her feet and thinks her shoes may contribute because they're a size too large. During a previous fall, she has hit her head but was not otherwise injured. She has had falls from seated positions and standing positions. In May, she slipped and fell on her coccyx, bruising it. She went to the ED, where they did an x-ray showing no fracture. She had pain in her low back and coccyx for about 3 weeks after the fall, but does not have any pain currently. When she falls, she is unable to get up off of floor without the use of her hands or assistance. She does not use an AD during gait. She also reports instances of lightheadedness, vertigo usually with leaning over. PMH of meningioma, grand mal seizures, chest pressure without heart attack or other heart hx, diverticulitis. Prior Treatments and Tests previous PT for unknown reason but reports stopping due to feeling better Treatment Goals Patient/Caregiver Goals decrease falls Prior Functional Status Baseline Function- ADL's Independent Baseline Function- Mobility Independent Current Functional Impairments (Reported) Functional Limitations- ADL's Difficulty with reaching to floor, getting up off of floor ; loss of balance in sitting or standing Functional Limitations- Mobility/Gait 20 min, no AD use; tripping frequently PT-OP-C Subjective Start: 10/14/23 10:32 Freq: Status: Active Protocol: Document 01/09/24 13:02 SP (Rec: 01/09/24 13:48 SP [id number]) OP-PT Subjective Patient Comments Patient Comments Pt reports felt fine after last tx. She focused at [place] this am on feet apart. Is paying attention more bigger stride descend so heel doesn't catch advance step. Is on max Cinipril plus another just added. PT-OP-D Balance Start: 10/14/23 10:32 Freq: Status: Active Protocol: Document 10/14/23 10:32 NM (Rec: 10/14/23 11:42 NM [id number]) OP-PT Balance Assessment Sitting Balance Static Sitting Balance Ability Fair Dynamic Sitting Balance Ability Fair Standing Balance Static Standing Balance Ability Fair Dynamic Standing Balance Ability Fair Device Used none Standing Balance Comments trunk sway, attempts Balance Tests Metzger Balance Test Metzger Balance Test Score 39/56 Romberg Romberg 10 seconds, but increased trunk sway Single Limb Standing Single Limb- Right 4 seconds Single Limb- Left 2 seconds Semi-Tandem Standing Semi-Tandem Standing Balance 10 seconds BLE; more trunk sway with LLE in front Tandem Tandem Standing unable to move into position w /o assist; <2 sec Humphrey Fall Scale Copyright Permission PT-OP-E Functional Tests Start: 10/14/23 10:32 Freq: Status: Active Protocol: Document 10/14/23 10:32 NM (Rec: 10/14/23 11:42 NM [id number]) Functional Tests 30 Second Sit to Stand Test Score 11 Comments B knee valgus, increased trunk sway; fatigues quickly Tinetti Balance and Gait Assessment Balance Score 10 Gait Score 12 Composite Score PT-OP-F Manual Assessment Start: 10/14/23 10:32 Freq: Status: Active Protocol: Document 10/14/23 10:32 NM (Rec: 10/14/23 11:42 NM [id number]) Manual Assessments Soft Tissue Assessment Soft Tissue Mobility Assessment No soft tissue restrictions of lumbar spine or hips Joint Mobility Assessment Joint Mobility Assessment Full PROM and AROM of B hips, knees. Near full ROM of lumbar spine, minimal restrictions into trunk flexion PT-OP-G Mobility & Gait Start: 10/14/23 10:32 Freq: Status: Active Protocol: Document 10/14/23 10:32 NM (Rec: 10/14/23 11:42 NM [id number]) OP Gait Assessment Gait Gait Assistance Required: Independent Distance (Feet) 250 Assistive Devices Assistive Device Gait Belt Comments Gait Comments Pt has slightly fwd flexed trunk during gait, demos slight trunk sway; does not use AD or reach for objects to steady except when MIGDALIA changing (e.g tandem, narrow stance, stairs). During directional changes or head movement, pt demos increased sway and LOB without fall. Stair Climbing Evaluation Evaluation Level of Assist On Stairs Contact Guard Assistance Devices Stair Climbing Assistive Devices Right Railing Technique/Endurance Stair Climbing Direction Ascend and Descend Stair Climbing Technique Step Over Step Number of Steps Climbed 4 Stair Climbing Set # Repetitions (reps) 2 Comments Stair Climbing Comments Poor depth perception upon descent due to pt glasses, with or without. Difficulty with determining step location , requires hand rail assist for balance and CGA to steady PT-OP-H Neuro Start: 10/14/23 10:32 Freq: Status: Active Protocol: Document 10/14/23 10:32 NM (Rec: 10/14/23 11:42 NM [id number]) Sensation Evaluation Gross Sensation Gross Sensation Left LE Impaired,Right LE Impaired Comments Summary Comments No numbness or tingling reported BLE. However, pt demos decreased light touch sensation B medial ankle and foot (L4-5 dermatomes) Coordination Evaluation Upper Extremity Tests Right Finger to Nose Test Moderate Impairment Pronation/Supination Test Normal Performance Left Finger to Nose Test Moderate Impairment Pronation/Supination Test Normal Performance Lower Extremity Tests Right Alternate Heel to Knee; Heel to Toe Test Moderate Impairment Heel on Henderson Test Normal Performance Left Alternate Heel to Knee; Heel to Toe Test Moderate Impairment Heel on Henderson Test Normal Performance Deep Tendon Reflex & Clonus Assessment Deep Tendon Reflex Bilateral Patellar Deep Tendon Reflex 1+ Diminished Vital Signs Pulse 1 Pulse at Rest (bpm) 88 Pulse Assessment Method Pulse Ox/Monitor Blood Pressure Sitting Blood Pressure (90/60-120/80 mmHg) 174/83 H Blood Pressure Source Automatic Cuff,Right Upper Extremity Oxygen Pulse Oximetry at Rest (%) (95-100 %) 99 Comments Vital Signs Comments Taken immediately in sitting at start of evaluation, at rest PT-OP-J Posture/Palpation/Skin Start: 10/14/23 10:32 Freq: Status: Active Protocol: Document 10/14/23 10:32 NM (Rec: 10/14/23 11:42 NM [id number]) Posture Evaluation Position Standing Evaluation View Lateral Head/C-Spine Posture Forward Head T-Spine Posture Increased Kyphosis L-Spine Posture Neutral Pelvis Posture Anteriorly Tilted Hip Posture (L) Neutral,(R) Neutral Knee Posture (L) Genu Valgus,(R) Genu Valgus Ankle/Foot Posture (L) Pronated,(R) Pronated Palpation Assessment Location Lumbar spine Palpation Location L1-L5, sacrum, coccyx Palpation Details No tenderness reported with palpation PT-OP-K Range of Motion Start: 10/14/23 10:32 Freq: Status: Active Protocol: Document 10/14/23 10:32 NM (Rec: 10/14/23 11:42 NM [id number]) Lumbar Spine Range of Motion Lumbar Spine Active Percentage Testing Position Standing Flexion 75 Extension 100 Rotation Left 100 Rotation Right 100 Lateral Flexion Left 100 Lateral Flexion Right 100 Comments Hamstring length limits flexion, no numbness/tingling or flexion Hip Goniometric Range of Motion Hip ROM Limitations Comments Full B hip PROM and AROM, no pain or discomfort Knee Goniometric Range of Motion Knee ROM Limitations Comments Full B knee PROM and AROM PT-OP-M Strength Start: 10/14/23 10:32 Freq: Status: Active Protocol: Document 10/14/23 10:32 NM (Rec: 10/14/23 11:42 NM [id number]) Trunk Strength Trunk Manual Muscle Testing Testing Position Supine Flexion 3 Fair Extension 3 Fair Rotation Left 4 Good Rotation Right 4 Good Lateral Flexion Left 4 Good Lateral Flexion Right 4 Good Hip Strength Hip Manual Muscle Testing Right Flexion (L2) 4- Good- Extension (S1) 4- Good- Abduction 4- Good- Adduction 4- Good- External Rotation 4- Good- Internal Rotation 4- Good- Left Flexion (L2) 4- Good- Extension (S1) 4- Good- Abduction 4- Good- Adduction 4- Good- External Rotation 4- Good- Internal Rotation 4- Good- Knee Strength Knee Manual Muscle Testing Left Flexion (S2) 4- Good- Extension (L3) 4- Good- Right Flexion (S2) 4 Good Extension (L3) 4 Good Ankle/Foot Strength Ankle and Foot Manual Muscle Testing Left Dorsiflexion (L4) 4 Good Plantarflexion (S1) 4 Good Inversion 4 Good Eversion (S1) 4 Good Right Dorsiflexion (L4) 4 Good Plantarflexion (S1) 4 Good Inversion 4 Good Eversion (S1) 4 Good PT-OP-Q Treatments Start: 10/14/23 10:32 Freq: Status: Active Protocol: Document 01/09/24 13:02 SP (Rec: 01/09/24 13:48 SP [id number]) Therapeutic Exercises Standing Exercises step ups Standing Exercise Name 6 step + foam Side bilateral Resistance AROM Reps/Minutes no UE support Comments cued slow eccentric stepping. Side steps Standing Exercise Name F/B/Lateral for hip abd strength Side bilateral Resistance lvl 2 theraband around ankles Equipment Used no UE support Reps/Minutes 4 sets x10 ft ea Comments improved tall over stance LE / c core/hip ab & foot clearance Therapeutic Activity Therapeutic Activity floor transfers Name CGA Reps/Minutes 1 rep Comments To/from floor without chair, using hands on quad to push up . Unable to rise from floor from several, even with mod A. Education on BUE strengthening with chair push ups and STS/lunges for quad/ glute strengthening to assist with BLE support Min/Mod A today. Neuro Re-Education Treatment Balance Activities shuttle balance Surface A/P, M/L Equipment CGA to stabilize Reps/Duration 5 min ea Comments Pt cued to maintain level surface using weight shifts. During A/P, tends to demo anterior lean. Improved stability about ~1 minute, able to maintain level board. Tendency to demo suspension strategy vs ankle/hip despite cueing Added cognitive component: counting bwd, and fwd, alphabet Balloon volley dynamic walking Details close SBA Surface stable Equipment bungee red Reps/Duration 1x5 Comments Improved bwd and fwd, lat walking up/down 4 step + blue foam, upright posture and no LOB or leaning at end range. Takes larger steps today foot clear, cued soft stepping PT-OP-T Assessment and Plan Start: 10/14/23 10:32 Freq: Status: Active Protocol: Document 01/09/24 13:02 SP (Rec: 01/09/24 13:48 SP [id number]) Physical Therapy Assessment Goals Five Impairment safety, education Impairment Need to improve awareness of blood pressure and complications due to diabetes Short Term Goal (STG) Pt will report compliance with performing blood pressure and foot checks at least 3x/wk for increased safety awareness with managing other health conditions and to decrease fall risk. 11/11/23: Pt was on vacation so not compliant during vacation x2 weks, but reports compliance prior to vacation 11/25/22: MET GOAL doing daily BP and foot checks. Dr [place] increased BP med, 150s to 140s /80s. STG Duration 4 weeks MET GOAL. [facility] [employer]er Goal (LTG) Pt will report compliance with performing daily blood pressure and foot checks for increased safety awareness with managing other health conditions and to decrease fall risk. 11/25/22: MET GOAL doing daily BP and foot checks. Dr [place] increased BP med, 150s to 140s /80s. LTG Duration 8 weeks GOAL MET 11/26/23 Four Impairment HEP Impairment No HEP Short Term Goal (STG) Pt will report compliance with HEP 3x/wk in order to maximize PT sessions 11/11/23: Pt with minimal compliance due to vacation, but reports compliance 1-2x/wk prior to vacation 11/25/23: progressing: compliant with 2-3x/wk STG Duration 4 weeks progressing 11/26/23 Shelter Goal (LTG) Pt will report compliance with HEP at least 3x/wk in order to promote independence with exercise after discharge 11/26/23: progressing: compliant with 2-3x/wk 12/03/23: 2-3xwk compliance LTG Duration 8 weeks progressing 11/26/23 Three Impairment strength Impairment 30 sec STS score 11 [facility] [employer]er Goal (LTG) Pt will perform at least 12 squats during 30 sec sit to stand test without compensation in order to demonstrate improved activity tolerance and BLE strength required for ADLs. 12/03/23: 11 from mesh chair 11/11/23: 13 STS in 30 seconds with arms in front from 18 plinth 11/26/23: STS 10 reps after already did some ther ex and balance activities. LTG Duration 8 weeks MET Two Impairment balance Impairment DGI Shelter Goal (LTG) Pt will improve DGI score to at least in order to demonstrate improved balance during higher level functional activities and to decrease fall risk 11/11/23: 12/03/23: 12/27/23: LTG Duration 8 weeks MET One Impairment Metzger Impairment Metzger score 39/56 Short Term Goal (STG) Pt will improve Metzger score to at least 41/56 in order to demonstrate improved balance and decrease fall risk 11/11/23: 45/56 STG Duration 4 weeks MET Shelter Goal (LTG) Pt will improve Metzger score to at least 48/56 in order to demonstrate improved balance and decrease fall risk 12/03/23: 44/56 01/06/24: 50/56 LTG Duration 8 weeks MET Assessment Summary Assessment Improved stability during resisted stepping with ability to step incline uneven step, cues for softer stepping for fluid wt shift. Was ableto increase challenge shuttle balance balloon volley, occasional Min A and cues for wt shfit corrections, no LOB. Pt self desc/asc floor ttransfer CG/SBA. Pt slight dizziness coming to standing end tx from floor transfer, 137/68 HR 91 bpm standing, recovery quickly. Ed continue stop awareness of safety feeling before progress. Next tx: follow rest of plan activities. Physical Therapy Plan Frequency and Duration Frequency of Treatment 2x/Week Duration of treatment (weeks) 6 Plan of Care Start Date 12/03/23 Plan of Care End Date 01/17/24 Therapeutic Interventions Therapeutic Interventions Aquatic Therapy,Balance Training,Coordination Training ,Gait Training,Home Exercise Program,Joint Mobilizations, Manual Therapy,Neuromuscular Re-education,Orthotic/ Prosthetic Management,Patient/ Caregiver Education,Self-Care/ Home Management,Sensory Integration,Soft Tissue Mobilization,Taping, Therapeutic Activities, Therapeutic Exercises, Vestibular Rehabilitation Other Therapeutic Interventions AD training Next Visit Focus/Plan Next Note Type Treatment Note Next Visit Plan 2 more tx, finalize HEP and bal act. Floor transfers no chair support/use hands on floor, pallof press, uneven surfaces, carrying objects with obstacles, functional core strength Take vitals before every session and monitor closely
--- NOTE | 2024-01-13 14:27 | PT.OTN ---
Current Diagnoses Other chronic pain (01/13/24) Low back pain, unspecified (01/13/24) Repeated falls (01/13/24) Physical Therapy Treatment Note PT-OP-A Visit Information Start: 10/14/23 10:32 Freq: Status: Active Protocol: Document 01/13/24 13:45 SP (Rec: 01/13/24 14:33 SP [id number]) Out-Patient Physical Therapy Visit Information Visit Information Visit Type Treatment Note Visit Note bpm Visit Start Time 13:45 Visit Stop Time 14:27 Visit Number 15 Number of FOOD PREPARATION SUPERVISOR Visits 2 Evaluation Information Evaluation Date 10/14/23 Precautions Precautions Fall risk Blood pressure- take vitals every time; allow acclimation to change of position Hx of seizures PT-OP-B Current Condition Start: 10/14/23 10:32 Freq: Status: Active Protocol: Document 10/14/23 10:32 NM (Rec: 10/14/23 11:42 NM [id number]) Current Condition History of Current Condition Onset Date during 2022 Current Complaints falls, loss of balance History of Current Condition Pt presents to Pt with hx of falls, reporting 5 in 2022. She reports that she usually trips over her feet and thinks her shoes may contribute because they're a size too large. During a previous fall, she has hit her head but was not otherwise injured. She has had falls from seated positions and standing positions. In May, she slipped and fell on her coccyx, bruising it. She went to the ED, where they did an x-ray showing no fracture. She had pain in her low back and coccyx for about 3 weeks after the fall, but does not have any pain currently. When she falls, she is unable to get up off of floor without the use of her hands or assistance. She does not use an AD during gait. She also reports instances of lightheadedness, vertigo usually with leaning over. PMH of meningioma, grand mal seizures, chest pressure without heart attack or other heart hx, diverticulitis. Prior Treatments and Tests previous PT for unknown reason but reports stopping due to feeling better Treatment Goals Patient/Caregiver Goals decrease falls Prior Functional Status Baseline Function- ADL's Independent Baseline Function- Mobility Independent Current Functional Impairments (Reported) Functional Limitations- ADL's Difficulty with reaching to floor, getting up off of floor ; loss of balance in sitting or standing Functional Limitations- Mobility/Gait 20 min, no AD use; tripping frequently PT-OP-C Subjective Start: 10/14/23 10:32 Freq: Status: Active Protocol: Document 01/13/24 13:45 SP (Rec: 01/13/24 14:33 SP [id number]) OP-PT Subjective Patient Comments Patient Comments Pt reported she walked [place] and noticed turns toe in RLE so trialed toe out/neutral and heel strike advancement and no issues the whole 2x5 mile loop. PT-OP-D Balance Start: 10/14/23 10:32 Freq: Status: Active Protocol: Document 10/14/23 10:32 NM (Rec: 10/14/23 11:42 NM [id number]) OP-PT Balance Assessment Sitting Balance Static Sitting Balance Ability Fair Dynamic Sitting Balance Ability Fair Standing Balance Static Standing Balance Ability Fair Dynamic Standing Balance Ability Fair Device Used none Standing Balance Comments trunk sway, attempts Balance Tests Metzger Balance Test Metzger Balance Test Score 39/56 Romberg Romberg 10 seconds, but increased trunk sway Single Limb Standing Single Limb- Right 4 seconds Single Limb- Left 2 seconds Semi-Tandem Standing Semi-Tandem Standing Balance 10 seconds BLE; more trunk sway with LLE in front Tandem Tandem Standing unable to move into position w /o assist; <2 sec Humphrey Fall Scale Copyright Permission PT-OP-E Functional Tests Start: 10/14/23 10:32 Freq: Status: Active Protocol: Document 10/14/23 10:32 NM (Rec: 10/14/23 11:42 NM [id number]) Functional Tests 30 Second Sit to Stand Test Score 11 Comments B knee valgus, increased trunk sway; fatigues quickly Tinetti Balance and Gait Assessment Balance Score 10 Gait Score 12 Composite Score PT-OP-F Manual Assessment Start: 10/14/23 10:32 Freq: Status: Active Protocol: Document 10/14/23 10:32 NM (Rec: 10/14/23 11:42 NM [id number]) Manual Assessments Soft Tissue Assessment Soft Tissue Mobility Assessment No soft tissue restrictions of lumbar spine or hips Joint Mobility Assessment Joint Mobility Assessment Full PROM and AROM of B hips, knees. Near full ROM of lumbar spine, minimal restrictions into trunk flexion PT-OP-G Mobility & Gait Start: 10/14/23 10:32 Freq: Status: Active Protocol: Document 10/14/23 10:32 NM (Rec: 10/14/23 11:42 NM [id number]) OP Gait Assessment Gait Gait Assistance Required: Independent Distance (Feet) 250 Assistive Devices Assistive Device Gait Belt Comments Gait Comments Pt has slightly fwd flexed trunk during gait, demos slight trunk sway; does not use AD or reach for objects to steady except when MIGDALIA changing (e.g tandem, narrow stance, stairs). During directional changes or head movement, pt demos increased sway and LOB without fall. Stair Climbing Evaluation Evaluation Level of Assist On Stairs Contact Guard Assistance Devices Stair Climbing Assistive Devices Right Railing Technique/Endurance Stair Climbing Direction Ascend and Descend Stair Climbing Technique Step Over Step Number of Steps Climbed 4 Stair Climbing Set # Repetitions (reps) 2 Comments Stair Climbing Comments Poor depth perception upon descent due to pt glasses, with or without. Difficulty with determining step location , requires hand rail assist for balance and CGA to steady PT-OP-H Neuro Start: 10/14/23 10:32 Freq: Status: Active Protocol: Document 10/14/23 10:32 NM (Rec: 10/14/23 11:42 NM [id number]) Sensation Evaluation Gross Sensation Gross Sensation Left LE Impaired,Right LE Impaired Comments Summary Comments No numbness or tingling reported BLE. However, pt demos decreased light touch sensation B medial ankle and foot (L4-5 dermatomes) Coordination Evaluation Upper Extremity Tests Right Finger to Nose Test Moderate Impairment Pronation/Supination Test Normal Performance Left Finger to Nose Test Moderate Impairment Pronation/Supination Test Normal Performance Lower Extremity Tests Right Alternate Heel to Knee; Heel to Toe Test Moderate Impairment Heel on Henderson Test Normal Performance Left Alternate Heel to Knee; Heel to Toe Test Moderate Impairment Heel on Henderson Test Normal Performance Deep Tendon Reflex & Clonus Assessment Deep Tendon Reflex Bilateral Patellar Deep Tendon Reflex 1+ Diminished Vital Signs Pulse 1 Pulse at Rest (bpm) 88 Pulse Assessment Method Pulse Ox/Monitor Blood Pressure Sitting Blood Pressure (90/60-120/80 mmHg) 174/83 H Blood Pressure Source Automatic Cuff,Right Upper Extremity Oxygen Pulse Oximetry at Rest (%) (95-100 %) 99 Comments Vital Signs Comments Taken immediately in sitting at start of evaluation, at rest PT-OP-J Posture/Palpation/Skin Start: 10/14/23 10:32 Freq: Status: Active Protocol: Document 10/14/23 10:32 NM (Rec: 01/22/24 11:42 NM [id number]) Posture Evaluation Position Standing Evaluation View Lateral Head/C-Spine Posture Forward Head T-Spine Posture Increased Kyphosis L-Spine Posture Neutral Pelvis Posture Anteriorly Tilted Hip Posture (L) Neutral,(R) Neutral Knee Posture (L) Genu Valgus,(R) Genu Valgus Ankle/Foot Posture (L) Pronated,(R) Pronated Palpation Assessment Location Lumbar spine Palpation Location L1-L5, sacrum, coccyx Palpation Details No tenderness reported with palpation PT-OP-K Range of Motion Start: 10/14/23 10:32 Freq: Status: Active Protocol: Document 10/14/23 10:32 NM (Rec: 10/14/23 11:42 NM [id number]) Lumbar Spine Range of Motion Lumbar Spine Active Percentage Testing Position Standing Flexion 75 Extension 100 Rotation Left 100 Rotation Right 100 Lateral Flexion Left 100 Lateral Flexion Right 100 Comments Hamstring length limits flexion, no numbness/tingling or flexion Hip Goniometric Range of Motion Hip ROM Limitations Comments Full B hip PROM and AROM, no pain or discomfort Knee Goniometric Range of Motion Knee ROM Limitations Comments Full B knee PROM and AROM PT-OP-M Strength Start: 10/14/23 10:32 Freq: Status: Active Protocol: Document 10/14/23 10:32 NM (Rec: 10/14/23 11:42 NM [id number]) Trunk Strength Trunk Manual Muscle Testing Testing Position Supine Flexion 3 Fair Extension 3 Fair Rotation Left 4 Good Rotation Right 4 Good Lateral Flexion Left 4 Good Lateral Flexion Right 4 Good Hip Strength Hip Manual Muscle Testing Right Flexion (L2) 4- Good- Extension (S1) 4- Good- Abduction 4- Good- Adduction 4- Good- External Rotation 4- Good- Internal Rotation 4- Good- Left Flexion (L2) 4- Good- Extension (S1) 4- Good- Abduction 4- Good- Adduction 4- Good- External Rotation 4- Good- Internal Rotation 4- Good- Knee Strength Knee Manual Muscle Testing Left Flexion (S2) 4- Good- Extension (L3) 4- Good- Right Flexion (S2) 4 Good Extension (L3) 4 Good Ankle/Foot Strength Ankle and Foot Manual Muscle Testing Left Dorsiflexion (L4) 4 Good Plantarflexion (S1) 4 Good Inversion 4 Good Eversion (S1) 4 Good Right Dorsiflexion (L4) 4 Good Plantarflexion (S1) 4 Good Inversion 4 Good Eversion (S1) 4 Good PT-OP-Q Treatments Start: 10/14/23 10:32 Freq: Status: Active Protocol: Document 01/13/24 13:45 SP (Rec: 01/13/24 14:33 SP [id number]) Therapeutic Exercises Sitting Exercises chair push up Sitting Exercise Name lat push up on chair side of seat Side bilateral Equipment Used chair w/o arm rests Reps/Minutes 2x10 Comments good form, minimal LE support Standing Exercises lateral lunge Standing Exercise Name HEP Side bilateral Resistance AROM Equipment Used ballet bar for 2 finger support ea hand for balance Reps/Minutes 1x10 ea Comments cued feet fwd, hip hinge buttock back like touch wall lunge Standing Exercise Name lunge- HEP Side bilateral Resistance AROM Equipment Used 1 light hand support on ballet bar Reps/Minutes 2x10 ea Comments cued for B knee flex, hold bar for balance, wider MIGDALIA resisted shld ext Standing Exercise Name in PT for core fac Side bilateral Resistance Tb #3 big sandy green Equipment Used folded in 3 yoga mat Reps/Minutes x20 Comments cued TA/scap complex paloff press Standing Exercise Name pallof walkout- HEP reviewed Side bilateral Resistance TB #3 green Reps/Minutes x20 each side Comments soft knee, push out front belly Therapeutic Activity Therapeutic Activity floor transfers Name CGA Reps/Minutes 1 rep Comments I no use of outside support. Gait Training Gait Activity outdoor Description gait on unstable surfaces Device Used none, gait belt Level of Assistance IND with close SBA for slopes Surface curbs, grass, slopes, stairs, gravel Distance/Duration 8 minutes Treatment Focus balance, visual scanning, ankle stability Comments Cued to maintain ankle stability, use of ankle strategy during stepping. close SBA during uneven sidewalk gap and outdoor plants. LOB x1 foot caught plan out back when tried tostep between self recovery BUE hand on wall. Did fine visual scanning with cueing to look at ground, scan bilaterally, improved stability during head turns, fern on gravel. PT-OP-T Assessment and Plan Start: 10/14/23 10:32 Freq: Status: Active Protocol: Document 01/13/24 13:45 SP (Rec: 01/13/24 14:33 SP [id number]) Physical Therapy Assessment Goals Five Impairment safety, education Impairment Need to improve awareness of blood pressure and complications due to diabetes Short Term Goal (STG) Pt will report compliance with performing blood pressure and foot checks at least 3x/wk for increased safety awareness with managing other health conditions and to decrease fall risk. 11/11/23: Pt was on vacation so not compliant during vacation x2 weks, but reports compliance prior to vacation 11/25/22: MET GOAL doing daily BP and foot checks. Dr [place] increased BP med, 150s to 140s /80s. STG Duration 4 weeks MET GOAL. Detention Goal (LTG) Pt will report compliance with performing daily blood pressure and foot checks for increased safety awareness with managing other health conditions and to decrease fall risk. 11/25/22: MET GOAL doing daily BP and foot checks. Dr [place] increased BP med, 150s to 140s /80s. LTG Duration 8 weeks GOAL MET 11/26/23 Four Impairment HEP Impairment No HEP Short Term Goal (STG) Pt will report compliance with HEP 3x/wk in order to maximize PT sessions 11/11/23: Pt with minimal compliance due to vacation, but reports compliance 1-2x/wk prior to vacation 11/25/23: progressing: compliant with 2-3x/wk 01/13/24: honestly 1 x this am since last week. STG Duration 4 weeks progressing 01/13/24 Detention Goal (LTG) Pt will report compliance with HEP at least 3x/wk in order to promote independence with exercise after discharge 11/26/23: progressing: compliant with 2-3x/wk 12/03/23: 2-3xwk compliance 01/13/24: honestly 1 x this am since last week. LTG Duration 8 weeks progressing 01/13/24 Three Impairment strength Impairment 30 sec STS score 11 Waist Pleater Goal (LTG) Pt will perform at least 12 squats during 30 sec sit to stand test without compensation in order to demonstrate improved activity tolerance and BLE strength required for ADLs. 12/03/23: 11 from mesh chair 11/11/23: 13 STS in 30 seconds with arms in front from 18 plinth 11/26/23: STS 10 reps after already did some ther ex and balance activities. LTG Duration 8 weeks MET Two Impairment balance Impairment DGI Waist Pleater Goal (LTG) Pt will improve DGI score to at least in order to demonstrate improved balance during higher level functional activities and to decrease fall risk 11/11/23: 12/03/23: 12/27/23: LTG Duration 8 weeks MET One Impairment Metzger Impairment Metzger score 39/56 Short Term Goal (STG) Pt will improve Metzger score to at least 41/56 in order to demonstrate improved balance and decrease fall risk 11/11/23: 45/56 STG Duration 4 weeks MET Waist Pleater Goal (LTG) Pt will improve Metzger score to at least 48/56 in order to demonstrate improved balance and decrease fall risk 12/03/23: 44/56 01/06/24: 50/56 LTG Duration 8 weeks MET Assessment Summary Assessment Pt required min cues for lunge fwd and lateral for set up/ proper form with knees behind toes. Good effort and tiring with cuing proper form. Good stability and form during resisted standing HEP review, no LOB with added uneven surface in PT for balance component and increased resistance. Encouraged to keep up with HEP for progression strength outside of walking. She was able walk around [facility] this am then Merged with [facility] outdoors including multiple surfaces including out back uneven terrain. Did notice 3 instances of R>L foot scuff but self corrections as does own own am walks with friends, more aware of R foot EV and DF heel strike advancement is seeing gains in self. She did have 1 LOB when stepping down uneven landscape terrain L foot caught a plant did notice but self recovery contact building wall, SBA provided by FOOD PREPARATION SUPERVISOR throughout tx with cuing occasional for awareness of conversation and mindful of safe stepping R>LLE as stated does on own. PT feels is ready to continue on own, will finalize PT and multitask as written in plan. Physical Therapy Plan Frequency and Duration Frequency of Treatment 2x/Week Duration of treatment (weeks) 6 Plan of Care Start Date 12/03/23 Plan of Care End Date 01/17/24 Therapeutic Interventions Therapeutic Interventions Aquatic Therapy,Balance Training,Coordination Training ,Gait Training,Home Exercise Program,Joint Mobilizations, Manual Therapy,Neuromuscular Re-education,Orthotic/ Prosthetic Management,Patient/ Caregiver Education,Self-Care/ Home Management,Sensory Integration,Soft Tissue Mobilization,Taping, Therapeutic Activities, Therapeutic Exercises, Vestibular Rehabilitation Other Therapeutic Interventions AD training Next Visit Focus/Plan Next Note Type Treatment Note Next Visit Plan Next/final tx: uneven surfaces , carrying objects with obstacles and stairs, functional core strength POC: DGI type training, narrow MIGDALIA/weight shift; hip abd and core strengthening POC: Continue BLE strengthening and balance training Review shoe assessment/foot check for diabetes, blood pressure checks daily and log. Progress BLE strengthening and balance Take vitals before every session and monitor closely; use gait belt, watch for falls
--- NOTE | 2024-01-16 15:49 | PT.OTN ---
Current Diagnoses Other chronic pain (01/16/24) Low back pain, unspecified (01/16/24) Repeated falls (01/16/24) Physical Therapy Treatment Note PT-OP-A Visit Information Start: 10/14/23 10:32 Freq: Status: Active Protocol: Document 01/16/24 13:00 NM (Rec: 01/16/24 13:48 NM [id number]) Out-Patient Physical Therapy Visit Information Visit Information Visit Type Discharge Summary Visit Start Time 13:02 Visit Stop Time 13:45 Visit Number 16 Evaluation Information Evaluation Date 10/14/23 Precautions Precautions Fall risk Blood pressure- take vitals every time; allow acclimation to change of position Hx of seizures PT-OP-B Current Condition Start: 10/14/23 10:32 Freq: Status: Active Protocol: Document 10/14/23 10:32 NM (Rec: 10/14/23 11:42 NM [id number]) Current Condition History of Current Condition Onset Date during 2022 Current Complaints falls, loss of balance History of Current Condition Pt presents to Pt with hx of falls, reporting 5 in 2022. She reports that she usually trips over her feet and thinks her shoes may contribute because they're a size too large. During a previous fall, she has hit her head but was not otherwise injured. She has had falls from seated positions and standing positions. In May, she slipped and fell on her coccyx, bruising it. She went to the ED, where they did an x-ray showing no fracture. She had pain in her low back and coccyx for about 3 weeks after the fall, but does not have any pain currently. When she falls, she is unable to get up off of floor without the use of her hands or assistance. She does not use an AD during gait. She also reports instances of lightheadedness, vertigo usually with leaning over. PMH of meningioma, grand mal seizures, chest pressure without heart attack or other heart hx, diverticulitis. Prior Treatments and Tests previous PT for unknown reason but reports stopping due to feeling better Treatment Goals Patient/Caregiver Goals decrease falls Prior Functional Status Baseline Function- ADL's Independent Baseline Function- Mobility Independent Current Functional Impairments (Reported) Functional Limitations- ADL's Difficulty with reaching to floor, getting up off of floor ; loss of balance in sitting or standing Functional Limitations- Mobility/Gait 20 min, no AD use; tripping frequently PT-OP-C Subjective Start: 10/14/23 10:32 Freq: Status: Active Protocol: Document 01/16/24 13:00 NM (Rec: 01/16/24 13:48 NM [id number]) OP-PT Subjective Patient Comments Patient Comments Pt reports that she is doing well. States 146/75 1 hour ago . States minimally compliant with HEP, but says easy when she's performs them. PT-OP-D Balance Start: 10/14/23 10:32 Freq: Status: Active Protocol: Document 10/14/23 10:32 NM (Rec: 10/14/23 11:42 NM [id number]) OP-PT Balance Assessment Sitting Balance Static Sitting Balance Ability Fair Dynamic Sitting Balance Ability Fair Standing Balance Static Standing Balance Ability Fair Dynamic Standing Balance Ability Fair Device Used none Standing Balance Comments trunk sway, attempts Balance Tests Metzger Balance Test Metzger Balance Test Score 39/56 Romberg Romberg 10 seconds, but increased trunk sway Single Limb Standing Single Limb- Right 4 seconds Single Limb- Left 2 seconds Semi-Tandem Standing Semi-Tandem Standing Balance 10 seconds BLE; more trunk sway with LLE in front Tandem Tandem Standing unable to move into position w /o assist; <2 sec Humphrey Fall Scale Copyright Permission PT-OP-E Functional Tests Start: 10/14/23 10:32 Freq: Status: Active Protocol: Document 10/14/23 10:32 NM (Rec: 10/14/23 11:42 NM [id number]) Functional Tests 30 Second Sit to Stand Test Score 11 Comments B knee valgus, increased trunk sway; fatigues quickly Tinetti Balance and Gait Assessment Balance Score 10 Gait Score 12 Composite Score PT-OP-F Manual Assessment Start: 10/14/23 10:32 Freq: Status: Active Protocol: Document 10/14/23 10:32 NM (Rec: 10/14/23 11:42 NM [id number]) Manual Assessments Soft Tissue Assessment Soft Tissue Mobility Assessment No soft tissue restrictions of lumbar spine or hips Joint Mobility Assessment Joint Mobility Assessment Full PROM and AROM of B hips, knees. Near full ROM of lumbar spine, minimal restrictions into trunk flexion PT-OP-G Mobility & Gait Start: 10/14/23 10:32 Freq: Status: Active Protocol: Document 10/14/23 10:32 NM (Rec: 10/14/23 11:42 NM [id number]) OP Gait Assessment Gait Gait Assistance Required: Independent Distance (Feet) 250 Assistive Devices Assistive Device Gait Belt Comments Gait Comments Pt has slightly fwd flexed trunk during gait, demos slight trunk sway; does not use AD or reach for objects to steady except when MIGDALIA changing (e.g tandem, narrow stance, stairs). During directional changes or head movement, pt demos increased sway and LOB without fall. Stair Climbing Evaluation Evaluation Level of Assist On Stairs Contact Guard Assistance Devices Stair Climbing Assistive Devices Right Railing Technique/Endurance Stair Climbing Direction Ascend and Descend Stair Climbing Technique Step Over Step Number of Steps Climbed 4 Stair Climbing Set # Repetitions (reps) 2 Comments Stair Climbing Comments Poor depth perception upon descent due to pt glasses, with or without. Difficulty with determining step location , requires hand rail assist for balance and CGA to steady PT-OP-H Neuro Start: 10/14/23 10:32 Freq: Status: Active Protocol: Document 10/14/23 10:32 NM (Rec: 10/14/23 11:42 NM [id number]) Sensation Evaluation Gross Sensation Gross Sensation Left LE Impaired,Right LE Impaired Comments Summary Comments No numbness or tingling reported BLE. However, pt demos decreased light touch sensation B medial ankle and foot (L4-5 dermatomes) Coordination Evaluation Upper Extremity Tests Right Finger to Nose Test Moderate Impairment Pronation/Supination Test Normal Performance Left Finger to Nose Test Moderate Impairment Pronation/Supination Test Normal Performance Lower Extremity Tests Right Alternate Heel to Knee; Heel to Toe Test Moderate Impairment Heel on Henderson Test Normal Performance Left Alternate Heel to Knee; Heel to Toe Test Moderate Impairment Heel on Henderson Test Normal Performance Deep Tendon Reflex & Clonus Assessment Deep Tendon Reflex Bilateral Patellar Deep Tendon Reflex 1+ Diminished Vital Signs Pulse 1 Pulse at Rest (bpm) 88 Pulse Assessment Method Pulse Ox/Monitor Blood Pressure Sitting Blood Pressure (90/60-120/80 mmHg) 174/83 H Blood Pressure Source Automatic Cuff,Right Upper Extremity Oxygen Pulse Oximetry at Rest (%) (95-100 %) 99 Comments Vital Signs Comments Taken immediately in sitting at start of evaluation, at rest PT-OP-J Posture/Palpation/Skin Start: 10/14/23 10:32 Freq: Status: Active Protocol: Document 10/14/23 10:32 NM (Rec: 10/14/23 11:42 NM [id number]) Posture Evaluation Position Standing Evaluation View Lateral Head/C-Spine Posture Forward Head T-Spine Posture Increased Kyphosis L-Spine Posture Neutral Pelvis Posture Anteriorly Tilted Hip Posture (L) Neutral,(R) Neutral Knee Posture (L) Genu Valgus,(R) Genu Valgus Ankle/Foot Posture (L) Pronated,(R) Pronated Palpation Assessment Location Lumbar spine Palpation Location L1-L5, sacrum, coccyx Palpation Details No tenderness reported with palpation PT-OP-K Range of Motion Start: 10/14/23 10:32 Freq: Status: Active Protocol: Document 10/14/23 10:32 NM (Rec: 10/14/23 11:42 NM [id number]) Lumbar Spine Range of Motion Lumbar Spine Active Percentage Testing Position Standing Flexion 75 Extension 100 Rotation Left 100 Rotation Right 100 Lateral Flexion Left 100 Lateral Flexion Right 100 Comments Hamstring length limits flexion, no numbness/tingling or flexion Hip Goniometric Range of Motion Hip ROM Limitations Comments Full B hip PROM and AROM, no pain or discomfort Knee Goniometric Range of Motion Knee ROM Limitations Comments Full B knee PROM and AROM PT-OP-M Strength Start: 10/14/23 10:32 Freq: Status: Active Protocol: Document 10/14/23 10:32 NM (Rec: 10/14/23 11:42 NM [id number]) Trunk Strength Trunk Manual Muscle Testing Testing Position Supine Flexion 3 Fair Extension 3 Fair Rotation Left 4 Good Rotation Right 4 Good Lateral Flexion Left 4 Good Lateral Flexion Right 4 Good Hip Strength Hip Manual Muscle Testing Right Flexion (L2) 4- Good- Extension (S1) 4- Good- Abduction 4- Good- Adduction 4- Good- External Rotation 4- Good- Internal Rotation 4- Good- Left Flexion (L2) 4- Good- Extension (S1) 4- Good- Abduction 4- Good- Adduction 4- Good- External Rotation 4- Good- Internal Rotation 4- Good- Knee Strength Knee Manual Muscle Testing Left Flexion (S2) 4- Good- Extension (L3) 4- Good- Right Flexion (S2) 4 Good Extension (L3) 4 Good Ankle/Foot Strength Ankle and Foot Manual Muscle Testing Left Dorsiflexion (L4) 4 Good Plantarflexion (S1) 4 Good Inversion 4 Good Eversion (S1) 4 Good Right Dorsiflexion (L4) 4 Good Plantarflexion (S1) 4 Good Inversion 4 Good Eversion (S1) 4 Good PT-OP-Q Treatments Start: 10/14/23 10:32 Freq: Status: Active Protocol: Document 01/16/24 13:00 NM (Rec: 01/16/24 13:48 NM [id number]) Therapeutic Exercises Sitting Exercises chair push up Sitting Exercise Name HEP review: lat push up on chair side of seat Side bilateral Equipment Used chair w/o arm rests Reps/Minutes 2x10 Comments good form, minimal LE support hip abduction Side bilateral Resistance lvl 3 band around thighs Reps/Minutes 3x10 Comments cued no ankle movement Sit to stand Sitting Exercise Name STS Side bilateral Resistance lvl 3 tb Equipment Used arms in front for ant weight shift, mesh chair Reps/Minutes 2x10 Comments cued ant weight shift, hip abd , wider MIGDALIA Standing Exercises periscapular theraband Standing Exercise Name 1. resisted shldr ext, 2. rows Side bilateral Resistance lvl 3 band Reps/Minutes 2x10 Comments cued upright posture, core stabilization hip 3 way Standing Exercise Name HEP Side bilateral Resistance lvl 2 band Equipment Used with hand support (2 fingers) Reps/Minutes 2x10 Comments cued upright posture paloff press Standing Exercise Name pallof walkout Side bilateral Resistance TB #3 green Reps/Minutes x20 each side Comments soft knee, push out front belly Neuro Re-Education Treatment Balance Activities carrying objects Details carrying cup of water 3/4 full Surface stable and unstable Reps/Duration 7 minutes Comments 1. 2 sets ea, ambulation around cones in circles 2. 2 sets ea, weaving around cones 3. 2 sets ea, stepping on/off foam and steps 4 Pt more challenged with water cup in L hand. No LOB. Close SBA. Cued to quickly glance at ground then up ahead. shuttle balance Details staggered stance Surface unstable Equipment red level Reps/Duration 1 minute Comments close SBA, no LOB, improved stability Self-Care/Home Management Treatment Education Patient Education Home Exercise Program Other Education HEP: hip 3 way, row, low row, sit to stand, pallof walk out, PT-OP-T Assessment and Plan Start: 10/14/23 10:32 Freq: Status: Active Protocol: Document 01/16/24 13:00 NM (Rec: 01/16/24 13:48 NM [id number]) Physical Therapy Assessment Goals Five Impairment safety, education Impairment Need to improve awareness of blood pressure and complications due to diabetes Short Term Goal (STG) Pt will report compliance with performing blood pressure and foot checks at least 3x/wk for increased safety awareness with managing other health conditions and to decrease fall risk. 11/11/23: Pt was on vacation so not compliant during vacation x2 weks, but reports compliance prior to vacation 11/25/22: MET GOAL doing daily BP and foot checks. Dr [place] increased BP med, 150s to 140s /80s. STG Duration 4 weeks MET GOAL. Divisional Merchandising Manager Goal (LTG) Pt will report compliance with performing daily blood pressure and foot checks for increased safety awareness with managing other health conditions and to decrease fall risk. 11/25/22: MET GOAL doing daily BP and foot checks. Dr [place] increased BP med, 150s to 140s /80s. LTG Duration 8 weeks GOAL MET 11/26/23 Four Impairment HEP Impairment No HEP Short Term Goal (STG) Pt will report compliance with HEP 3x/wk in order to maximize PT sessions 11/11/23: Pt with minimal compliance due to vacation, but reports compliance 1-2x/wk prior to vacation 11/25/23: progressing: compliant with 2-3x/wk 01/13/24: honestly 1 x this am since last week. STG Duration 4 weeks progressing 01/13/24 Divisional Merchandising Manager Goal (LTG) Pt will report compliance with HEP at least 3x/wk in order to promote independence with exercise after discharge 11/26/23: progressing: compliant with 2-3x/wk 12/03/23: 2-3xwk compliance 01/13/24: honestly 1 x this am since last week. 01/16/24: States not performing as often as she should. Educated on maintenance 3x/wk LTG Duration 8 weeks progressing 01/13/24, NOT MET 01/16/24 Two Impairment balance Impairment DGI Divisional Merchandising Manager Goal (LTG) Pt will improve DGI score to at least 19 in order to demonstrate improved balance during higher level functional activities and to decrease fall risk 11/11/23: 12/03/23: 12/27/23: LTG Duration 8 weeks MET One Impairment Metzger Impairment Metzger score 39/56 Short Term Goal (STG) Pt will improve Metzger score to at least 41/56 in order to demonstrate improved balance and decrease fall risk 11/11/23: 45/56 STG Duration 4 weeks MET Divisional Merchandising Manager Goal (LTG) Pt will improve Metzger score to at least 48/56 in order to demonstrate improved balance and decrease fall risk 12/03/23: 44/56 01/06/24: 50/56 LTG Duration 8 weeks MET Progress Towards Goals Progress Towards Goals Slow Progress due to Noncompliance,Goals Met Progress Comments All goals met except HEP compliance. PT educated pt on maintenance program 3x/wk, pt verbalizes understanding Assessment Summary Assessment Pt tolerated session well. She continues to demonstrate improved awareness of body position and balance during standing activities. Session emphasis on establishing maintenance HEP 3x/wk. Added balance during functional arm movements to increase periscapular strength while maintaining upright posture. Pt demos good upright positioning and core stabilization. Continued with hip abduction strengthening and sit to stand training. Progressed band resistance with both exercises, added to HEP. Pt demos less knee valgus with sit to stand and good core stabilization/upright posture. Physical Therapy Plan Frequency and Duration Frequency of Treatment 2x/Week Duration of treatment (weeks) 6 Plan of Care Start Date 12/03/23 Plan of Care End Date 01/17/24 Therapeutic Interventions Therapeutic Interventions Aquatic Therapy,Balance Training,Coordination Training ,Gait Training,Home Exercise Program,Joint Mobilizations, Manual Therapy,Neuromuscular Re-education,Orthotic/ Prosthetic Management,Patient/ Caregiver Education,Self-Care/ Home Management,Sensory Integration,Soft Tissue Mobilization,Taping, Therapeutic Activities, Therapeutic Exercises, Vestibular Rehabilitation Other Therapeutic Interventions AD training Other Referrals/Consults Referrals/Consults Recommended Criminal Profiler for updated eye Rx . FLAP MAKER instructed pt to follow up with PCP regarding proper dose increased Zanipril 80mg qd or 40 mg bid? Discharge Physical Therapy Discharge Reasons Goals Met Discharge Comments Pt at end of POC. All goals related to balance and strength met. Remaining goal compliance with HEP. Pt issued maintenance program sheet with condensed HEP, educated on performing 3x/wk. Pt verbalizes agreement. Educated to continue with BP and daily foot checks Next Visit Focus/Plan Next Visit Plan Discharge from PT services
== END 2024-01-20 13:58 | disposition home or self-care (01) ==
LOC: PHYS 13:00
PROVIDERS: Family Provider Family Medicine; PCP Family Medicine; Referring Provider Family Medicine; Visit Provider Family Medicine
DX: R29.6 Repeated falls (principal); M54.50 Low back pain, unspecified; G89.29 Other chronic pain
CPT/HCPCS: 97110; 97112; 97116; 97162; 97530; 97535

== ENCOUNTER → 2024-04-30 | Outpatient (CLI) | payer MEDICARE, OTHER, SELFPAY ==
[2023-08-04 21:36] VITALS: BMI 22.4
--- NOTE | 2024-04-30 14:53 | DI.US.S_ITS ---
PROCEDURE: US PERIPH VENOUS LOW EXTREM RT INDICATIONS: PAIN TECHNIQUE: Real-time imaging, as well as color and pulse Doppler interrogation, were performed of the lower extremity deep veins from the inguinal ligament to the popliteal fossa, with documentation of the visualized calf veins. COMPARISON: None. FINDINGS: The common femoral, femoral, popliteal, and the visualized calf veins are normally compressible, and free of intraluminal thrombus. Color and pulse Doppler demonstrate normal phasic intraluminal flow. There is normal augmentation response to distal compression maneuver. Additional, dedicated ultrasound scanning is performed at the area of the webb lump. No focal ultrasound abnormalities are seen within this region. IMPRESSION: No findings of lower extremity deep venous thrombosis. No ultrasound abnormalities can be seen at the site of the webb lump. Dictated by: Vel Malone M.D. on 04/30/2024 at 14:45 Approved by: Vel Malone M.D. on 04/30/2024 at 14:46
== END ==
PROVIDERS: PCP Family Medicine; Referring Provider Registered Nurse; Visit Provider Registered Nurse
DX: M79.661 Pain in right lower leg (principal); Z86.718 Personal history of other venous thrombosis and embolism
CPT/HCPCS: 93971

== ENCOUNTER → 2024-08-17 11:17 | Outpatient (CLI) | payer MEDICARE, OTHER, SELFPAY ==
[2023-08-04 21:36] VITALS: BMI 22.4
--- NOTE | 2024-08-17 11:19 | DI.CT.S_ITS ---
PROCEDURE: CT SINUS SCREEN WO CON INDICATIONS: sinusitis TECHNIQUE: Noncontrast 3.0 mm axial images acquired from the frontal sinuses to the mid-sella, with coronal and sagittal reformats. For radiation dose reduction, the following was used: automated exposure control, adjustment of mA and/or kV according to patient size. COMPARISON: [facility], CT, CT HEAD/BRAIN WO CON, 10/05/2019, 9:17. FINDINGS: Image quality: Excellent. Maxillary Sinuses: No bony remodeling or destruction. Sinuses are clear. Ethmoid Air Cells: No bony remodeling or destruction. Sinuses are clear. Sphenoid Sinuses: No bony remodeling or destruction. Sinuses are clear. Frontal Sinuses: No bony remodeling or destruction. Sinuses are clear. Ostiomeatal Complexes: The ostiomeatal complexes are patent, yet they are constitutionally narrowed, with bilateral Nixon cells. Miscellaneous: Visualized intra-orbital contents are normal. 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 There is minimal leftward nasal septal deviation. Craniotomy changes can be seen anteriorly. Significant encephalomalacia can be seen involving both frontal lobes, which is better demonstrated on the prior head CT. IMPRESSION: No significant active paranasal sinus disease can be seen. The ostiomeatal complexes are patent, yet they are constitutionally narrowed, with bilateral Nixon cells. Left-sided miryam bullosa noted. Minimal leftward nasal septal deviation seen. There is significant encephalomalacia seen involving both frontal lobes. Anterior craniotomy change can be seen. Dictated by: Vel Malone M.D. on 08/17/2024 at 12:43 Approved by: Vel Malone M.D. on 08/17/2024 at 12:45
== END ==
PROVIDERS: PCP Family Medicine; Referring Provider Family Medicine; Visit Provider Family Medicine
DX: J32.8 Other chronic sinusitis (principal); G93.89 Other specified disorders of brain; J34.3 Hypertrophy of nasal turbinates
CPT/HCPCS: 70486

== ENCOUNTER 2024-10-01 14:30 | Outpatient (RCR) | payer MEDICARE, OTHER, SELFPAY ==
[2023-08-04 21:36] VITALS: BMI 22.4
--- NOTE | 2024-08-24 17:59 | PT.OIE ---
Current Diagnoses Strain of muscle, fascia and tendon of the posterior muscle group at thigh level, right thigh, subsequent encounter (08/24/24) Past Medical History (Last Reviewed 08/05/23 @ 08:42 by Arvin Bell MD) Acute ischemic colitis Diabetes Hyperlipidemia Past Surgical History (Last Reviewed 08/05/23 @ 08:42 by Arvin Bell MD) Hx of cholecystectomy Hx of resection of meningioma Visit Care Team Role Provider Type Arvin Bell MD Attending Provider Physician Family Provider Primary Care Provider Referring Provider Specialty: [facility] Address: [address] [place] [address], [facility] Email: [email or web address] Physical Therapy Initial Evaluation PT-OP-A Visit Information Start: 08/19/24 16:40 Freq: Status: Active Protocol: Document 08/24/24 15:16 SAK (Rec: 08/24/24 16:20 SAK [id number]) Out-Patient Physical Therapy Visit Information Visit Information Visit Type Initial Evaluation Visit Start Time 15:16 Visit Stop Time 16:15 Visit Number 1 Evaluation Information Evaluation Date 08/24/24 Precautions Precautions heart murmur, HTN PT-OP-B Current Condition Start: 08/19/24 16:40 Freq: Status: Active Protocol: Document 08/24/24 15:16 SAK (Rec: 08/24/24 16:20 SAK [id number]) Current Condition History of Current Condition Onset Date May 2024 Current Complaints posterior buttock and thigh pain History of Current Condition Reports moved some furniture around and by the end of the day could hardly sit, pain extended from buttock to knee. couldn't bend over, used stick on heat pads. Still difficulty bending over. Took Tylenol and Ibuprofen. This week tried sitting on frozen vegetables as well as heating pad. A little improved, but by the end of the day worse. Pain is burning in quality. Diagnosed as hamstring strain. Prior Treatments and Tests no imaging Developmental History Developmental History minimize pain and be able to resume prior level of function . Prior Functional Status Baseline Function- ADL's Independent Baseline Function- Mobility Independent Baseline Function- Recreation/Hobbies walks flat portions of [place] park . Current Functional Impairments (Reported) Functional Limitations- ADL's painful Functional Limitations- Mobility/Gait limited due to pain Functional Limitations- Work/School retired, painful to bend over at waist Functional Limitations- Recreation/ painful to walk Hobbies PT-OP-C Subjective Start: 08/19/24 16:40 Freq: Status: Active Protocol: Document 08/24/24 15:16 SAK (Rec: 08/24/24 16:20 [facility] [id number]) OP-PT Subjective Patient Comments Patient Comments Reports she can't get up from the floor without holding onto something, most of the time has to use her hands to push Patient Questionnaires Incontinence Questionnaire Incontinence Impairment 80 to 99% Impaired (Score 17- 20) Lower Extremity Functional Scale LEFS Score 85 OP-PT Pain Assessment Pain Assessment Grid Paper Pain Assessment Grid Completed Yes Location posterior right buttock and thigh Intensity 5 Scale Used Numeric (0 - 10) Description Aching,Burning Frequency Daily Pain Aggravating Factors Activity,Bending,Lifting Pain Alleviating Factors Cold,Heat,Medication, Inactivity Pain Behaviors Pain Behaviors Facial Grimacing,Restlessness, Wincing PT-OP-G Mobility & Gait Start: 08/19/24 16:40 Freq: Status: Active Protocol: Document 08/24/24 15:16 SAK (Rec: 08/26/24 17:50 [facility] [id number]) OP Mobility Evaluation Functional Movements Lifting and Carrying painful Squats painful Running Assessment unable OP Gait Assessment Gait Gait Assistance Required: Independent Able to Maintain Weight Bearing Status Yes During Gait Assistive Devices Assistive Device None Gait Deviations General Gait Pattern Antalgic Factors Limiting Gait Function Factors Limiting Gait Function Pain Stair Climbing Evaluation Evaluation Level of Assist On Stairs Independent Devices Stair Climbing Assistive Devices Left Railing,Right Railing Technique/Endurance Stair Climbing Direction Ascend and Descend Stair Climbing Technique Step Over Step Comments Stair Climbing Comments painful right PT-OP-J Posture/Palpation/Skin Start: 08/19/24 16:40 Freq: Status: Active Protocol: Document 08/24/24 15:16 SAK (Rec: 08/24/24 16:20 [facility] [id number]) Posture Evaluation Position Standing Head/C-Spine Posture Forward Head T-Spine Posture Increased Kyphosis L-Spine Posture Increased Lordosis Scapula Posture (L) Protracted,(R) Protracted Pelvis Posture Posterior Tilted Palpation Assessment Location ischial tub Palpation Location lateral border Palpation Findings Tenderness PT-OP-K Range of Motion Start: 08/19/24 16:40 Freq: Status: Active Protocol: Document 08/24/24 15:16 SAK (Rec: 08/26/24 17:50 [facility] [id number]) Lumbar Spine Range of Motion Lumbar Spine Active ROM Limitations Soft Tissue Tightness Comments mod dec all motions Hip Goniometric Range of Motion Hip Right Flexion w/Knee Flexed 110 Straight Leg Raise 50 Extension 5 Abduction 35 Internal Rotation 20 External Rotation 45 Comments painful with hamstring strain left Flexion w/Knee Flexed 110 Straight Leg Raise 60 Extension 5 Abduction 35 Internal Rotation 15 External Rotation 50 Knee Goniometric Range of Motion Knee geronimo Knee ROM WFL Yes PT-OP-L Special Tests Start: 08/19/24 16:40 Freq: Status: Active Protocol: Document 08/24/24 15:16 SAK (Rec: 08/26/24 17:50 [facility] [id number]) Special Tests Hip Special Tests Straight Leg Raise Test Results + Piriformis Test Results - AMARILIS Test Results - Neural Special Tests- Lower Body Sciatic Nerve Tension Test Results + PT-OP-Q Treatments Start: 08/19/24 16:40 Freq: Status: Active Protocol: Document 08/24/24 15:16 SAK (Rec: 08/26/24 17:50 [facility] [id number]) Self-Care/Home Management Treatment Education Patient Education Body Mechanics,Home Exercise Program,Pain Management, Posture PT-OP-R Modalities Start: 08/19/24 16:40 Freq: Status: Active Protocol: Document 08/24/24 15:16 SAK (Rec: 08/26/24 17:50 [facility] [id number]) Hot Pack/Cold Pack Treatment Cold Pack Location right buttock and posterior thigh Patient Position Hooklying Patient Tolerance Good PT-OP-T Assessment and Plan Start: 08/19/24 16:40 Freq: Status: Active Protocol: Document 08/24/24 15:16 SAK (Rec: 08/26/24 17:50 [facility] [id number]) Physical Therapy Assessment Rehab Potential Rehabilitation Potential Good Evaluation Complexity Number of Personal Factors/Comorbidities 1-2 Number of Body Systems Impaired 3 Clinical Presentation at Evaluation Evolving Impairments Impairments Activity Tolerance,Pain, Posture,ROM,Strength Goals Three Impairment poor core stabilization and body mechanics Short Term Goal (STG) Patient to be instructed in posture and body mechanics for spine and joint protection STG Duration 09/24/24 Correction Goal (LTG) Patient will be able to demonstrate neutral posture and correct body mechanics for usual activities LTG Duration 11/22/24 Two Impairment strength and ROM impairments core and hips Short Term Goal (STG) instruct in HEP for purposes of flexibility and strengthening to support therapy activities STG Duration 10/08/24 Correction Goal (LTG) Patient to be independent and compliant with HEP and test at least 4+/5 all LE and core muscle groups and improve flexibility especially in hamstrings LTG Duration 11/22/24 One Impairment right buttock and posterior thigh pain 5/10 Short Term Goal (STG) Decrease pain by at least 50% with all usual activities STG Duration 10/08/24 Correction Goal (LTG) Decrease pain by at least 75% with all usual activities LTG Duration 11/22/24 Assessment Summary Assessment Patient presents to PT with function-limiting pain in right buttock and posterior thigh s/p moving furniture. Impairments include weakness, decreased flexibility, sciatic nerve tension test positive, postural and body mechanics impairments. Patient tender to palpation ischial tuberosity right. Patient was instructed in HEP for sciatic nerve flossing, LE strengthening and flexibility. Initiated postural correction and body mechanics education. Feel patient will benefit from PT to decrease her pain, provide education and training in postural correction and body mechancis, and help her improve her strength and flexibility. POC was discussed and patient was in agreement. Physical Therapy Plan Frequency and Duration Frequency of Treatment 2x/Week Duration of treatment (weeks) 12 Plan of Care Start Date 08/24/24 Plan of Care End Date 11/23/23 Therapeutic Interventions Therapeutic Interventions Home Exercise Program,Manual Therapy,Patient/Caregiver Education,Self-Care/Home Management,Soft Tissue Mobilization,Taping, Therapeutic Activities, Therapeutic Exercises Modalities Cold Pack/Ice Massage,Electric Stimulation,Hot Packs, Infrared Therapy,Ultrasound Next Visit Focus/Plan Next Note Type Treatment Note Next Visit Plan review HEP, continue patient education in body mechanics and core stabilization, progress HEP as indicated. Provide soft tissue mobilization and modalities PRN.
--- NOTE | 2024-08-24 17:59 | PT.OPPOC ---
Physical, Occupational & Speech Therapy At [facility] Current Diagnoses Strain of muscle, fascia and tendon of the posterior muscle group at thigh level, right thigh, subsequent encounter (08/24/24) Visit Care Team Role Provider Type Arvin Bell MD Attending Provider Physician Family Provider Primary Care Provider Referring Provider Specialty: Family Practice Address: [address] [place] [address], [facility] [place] [place] Email: [email or web address] Plan Of Care PT-OP-B Current Condition Start: 08/19/24 16:40 Freq: Status: Active Protocol: Document 08/24/24 15:16 SAK (Rec: 08/24/24 16:20 SAK [id number]) Current Condition History of Current Condition Onset Date May 2024 Current Complaints posterior buttock and thigh pain History of Current Condition Reports moved some furniture around and by the end of the day could hardly sit, pain extended from buttock to knee. couldn't bend over, used stick on heat pads. Still difficulty bending over. Took Tylenol and Ibuprofen. This week tried sitting on frozen vegetables as well as heating pad. A little improved, but by the end of the day worse. Pain is burning in quality. Diagnosed as hamstring strain. Prior Treatments and Tests no imaging Developmental History Developmental History minimize pain and be able to resume prior level of function . Prior Functional Status Baseline Function- ADL's Independent Baseline Function- Mobility Independent Baseline Function- Recreation/Hobbies walks flat portions of [place] park . Current Functional Impairments (Reported) Functional Limitations- ADL's painful Functional Limitations- Mobility/Gait limited due to pain Functional Limitations- Work/School retired, painful to bend over at waist Functional Limitations- Recreation/ painful to walk Hobbies PT-OP-T Assessment and Plan Start: 08/19/24 16:40 Freq: Status: Active Protocol: Document 08/24/24 15:16 SAK (Rec: 08/26/24 17:50 [facility] [id number]) Physical Therapy Assessment Rehab Potential Rehabilitation Potential Good Evaluation Complexity Number of Personal Factors/Comorbidities 1-2 Number of Body Systems Impaired 3 Clinical Presentation at Evaluation Evolving Impairments Impairments Activity Tolerance,Pain, Posture,ROM,Strength Goals Three Impairment poor core stabilization and body mechanics Short Term Goal (STG) Patient to be instructed in posture and body mechanics for spine and joint protection STG Duration 09/24/24 Cnc Maintenance Technician Goal (LTG) Patient will be able to demonstrate neutral posture and correct body mechanics for usual activities LTG Duration 11/22/24 Two Impairment strength and ROM impairments core and hips Short Term Goal (STG) instruct in HEP for purposes of flexibility and strengthening to support therapy activities STG Duration 10/08/24 [facility] Goal (LTG) Patient to be independent and compliant with HEP and test at least 4+/5 all LE and core muscle groups and improve flexibility especially in hamstrings LTG Duration 11/22/24 One Impairment right buttock and posterior thigh pain 5/10 Short Term Goal (STG) Decrease pain by at least 50% with all usual activities STG Duration 10/08/24 Cnc Maintenance Technician Goal (LTG) Decrease pain by at least 75% with all usual activities LTG Duration 11/22/24 Assessment Summary Assessment Patient presents to PT with function-limiting pain in right buttock and posterior thigh s/p moving furniture. Impairments include weakness, decreased flexibility, sciatic nerve tension test positive, postural and body mechanics impairments. Patient tender to palpation ischial tuberosity right. Patient was instructed in HEP for sciatic nerve flossing, LE strengthening and flexibility. Initiated postural correction and body mechanics education. Feel patient will benefit from PT to decrease her pain, provide education and training in postural correction and body mechancis, and help her improve her strength and flexibility. POC was discussed and patient was in agreement. Physical Therapy Plan Frequency and Duration Frequency of Treatment 2x/Week Duration of treatment (weeks) 12 Plan of Care Start Date 08/24/24 Plan of Care End Date 11/23/23 Therapeutic Interventions Therapeutic Interventions Home Exercise Program,Manual Therapy,Patient/Caregiver Education,Self-Care/Home Management,Soft Tissue Mobilization,Taping, Therapeutic Activities, Therapeutic Exercises Modalities Cold Pack/Ice Massage,Electric Stimulation,Hot Packs, Infrared Therapy,Ultrasound Next Visit Focus/Plan Next Note Type Treatment Note Next Visit Plan review HEP, continue patient education in body mechanics and core stabilization, progress HEP as indicated. Provide soft tissue mobilization and modalities PRN. Plan of Care Dates Plan of Care Start Date 08/24/24 Plan of Care End Date 11/23/23 Electronically Signed by: Verna Malave, PT 08/26/24 5072 If you are in agreement with this Plan of Care, please return a signed and dated copy. I have reviewed this Plan of Care and certify that the skilled therapy services above are required to meet the patient?s needs. Physician Signature Date Printed Name and Credentials Clinical Instructor Signature Printed Name and Credentials
--- NOTE | 2024-08-27 18:26 | PT.OTN ---
Current Diagnoses Strain of muscle, fascia and tendon of the posterior muscle group at thigh level, right thigh, subsequent encounter (08/27/24) Physical Therapy Treatment Note PT-OP-A Visit Information Start: 08/19/24 16:40 Freq: Status: Active Protocol: Document 08/27/24 14:34 [facility] (Rec: 08/27/24 15:15 [facility] [id number]) Out-Patient Physical Therapy Visit Information Visit Information Visit Type Treatment Note Visit Start Time 14:34 Visit Stop Time 15:27 Visit Number 2 Evaluation Information Evaluation Date 08/24/24 Precautions Precautions heart murmur, HTN PT-OP-B Current Condition Start: 08/19/24 16:40 Freq: Status: Active Protocol: Document 08/27/24 14:34 SAK (Rec: 08/27/24 15:15 [facility] [id number]) Current Condition History of Current Condition Onset Date May 2024 Current Complaints R posterior buttock and thigh pain History of Current Condition Reports moved some furniture around and by the end of the day could hardly sit, pain extended from buttock to knee. couldn't bend over, used stick on heat pads. Still difficulty bending over. Took Tylenol and Ibuprofen. This week tried sitting on frozen vegetables as well as heating pad. A little improved, but by the end of the day worse. Pain is burning in quality. Diagnosed as hamstring strain. Prior Treatments and Tests no imaging PT-OP-C Subjective Start: 08/19/24 16:40 Freq: Status: Active Protocol: Document 08/27/24 14:34 SAK (Rec: 08/27/24 15:15 [facility] [id number]) OP-PT Subjective Patient Comments Patient Comments Reports liked the exercises but has a few questions on if doing correctly. PT-OP-G Mobility & Gait Start: 08/19/24 16:40 Freq: Status: Active Protocol: Document 08/24/24 15:16 SAK (Rec: 08/26/24 17:50 [facility] [id number]) OP Mobility Evaluation Functional Movements Lifting and Carrying painful Squats painful Running Assessment unable OP Gait Assessment Gait Gait Assistance Required: Independent Able to Maintain Weight Bearing Status Yes During Gait Assistive Devices Assistive Device None Gait Deviations General Gait Pattern Antalgic Factors Limiting Gait Function Factors Limiting Gait Function Pain Stair Climbing Evaluation Evaluation Level of Assist On Stairs Independent Devices Stair Climbing Assistive Devices Left Railing,Right Railing Technique/Endurance Stair Climbing Direction Ascend and Descend Stair Climbing Technique Step Over Step Comments Stair Climbing Comments painful right PT-OP-J Posture/Palpation/Skin Start: 08/19/24 16:40 Freq: Status: Active Protocol: Document 08/24/24 15:16 SAK (Rec: 08/24/24 16:20 [facility] [id number]) Posture Evaluation Position Standing Head/C-Spine Posture Forward Head T-Spine Posture Increased Kyphosis L-Spine Posture Increased Lordosis Scapula Posture (L) Protracted,(R) Protracted Pelvis Posture Posterior Tilted Palpation Assessment Location ischial tub Palpation Location lateral border Palpation Findings Tenderness PT-OP-K Range of Motion Start: 08/19/24 16:40 Freq: Status: Active Protocol: Document 08/24/24 15:16 SAK (Rec: 08/26/24 17:50 [facility] [id number]) Lumbar Spine Range of Motion Lumbar Spine Active ROM Limitations Soft Tissue Tightness Comments mod dec all motions Hip Goniometric Range of Motion Hip Right Flexion w/Knee Flexed 110 Straight Leg Raise 50 Extension 5 Abduction 35 Internal Rotation 20 External Rotation 45 Comments painful with hamstring strain left Flexion w/Knee Flexed 110 Straight Leg Raise 60 Extension 5 Abduction 35 Internal Rotation 15 External Rotation 50 Knee Goniometric Range of Motion Knee geronimo Knee ROM WFL Yes PT-OP-L Special Tests Start: 08/19/24 16:40 Freq: Status: Active Protocol: Document 08/24/24 15:16 [facility] (Rec: 08/26/24 17:50 [facility] [id number]) Special Tests Hip Special Tests Straight Leg Raise Test Results + Piriformis Test Results - AMARILIS Test Results - Neural Special Tests- Lower Body Sciatic Nerve Tension Test Results + PT-OP-Q Treatments Start: 08/19/24 16:40 Freq: Status: Active Protocol: Document 08/27/24 14:34 SAK (Rec: 08/27/24 15:15 [facility] [id number]) Cardio Equipment Recumbent Stepper (Sci-Fit) Duration (Minutes) 5 Resistance 1 Seat Position 10 Therapeutic Exercises Supine Exercises sciatic nerve glide Side right Reps/Minutes 5x Comments with bending and straightening knee, holding behind thigh HS stretch Reps/Minutes 2x30 bridge Reps/Minutes 10x5 Comments cues to start with glut set and PPT clamshell Resistance L2 TB Reps/Minutes 10x5 Sitting Exercises seated clamshell Reps/Minutes 10x ball squeeze Reps/Minutes 10x glut set Reps/Minutes 10x Standing Exercises wall posture Reps/Minutes 3 min Manual Therapy Treatment Consent Patient gave verbal consent for manual Yes treatment Soft Tissue Mobilization 1 Body Location right HS, piriformis, glut Mobilization Type Myofascial Release,Strumming Intensity/Depth Moderate Body Position Sidelying Self-Care/Home Management Treatment Education Patient Education Home Exercise Program,Pain Management,Posture PT-OP-R Modalities Start: 08/19/24 16:40 Freq: Status: Active Protocol: Document 08/27/24 14:34 SAK (Rec: 08/27/24 18:26 [facility] [id number]) Hot Pack/Cold Pack Treatment Hot Pack Location right hip, buttock Patient Position Sidelying Patient Tolerance Good PT-OP-T Assessment and Plan Start: 08/19/24 16:40 Freq: Status: Active Protocol: Document 08/27/24 14:34 SAK (Rec: 08/27/24 18:26 [facility] [id number]) Physical Therapy Assessment Assessment Summary Assessment Patient demosntrated improved understanding of HEP after review, denied pain. Trial wall posture with mod cues for correct muscle activation. Good tu for soft tissue mobilization and moist heat with patient reporting decrease in pain Physical Therapy Plan Frequency and Duration Frequency of Treatment 2x/Week Duration of treatment (weeks) 12 Plan of Care Start Date 08/24/24 Plan of Care End Date 11/23/23 Therapeutic Interventions Therapeutic Interventions Home Exercise Program,Manual Therapy,Patient/Caregiver Education,Self-Care/Home Management,Soft Tissue Mobilization,Taping, Therapeutic Activities, Therapeutic Exercises Modalities Cold Pack/Ice Massage,Electric Stimulation,Hot Packs, Infrared Therapy,Ultrasound Next Visit Focus/Plan Next Note Type Treatment Note Next Visit Plan Continue ther ex progression for postural correction, core stab, hip strengthening and flexibility. Modalities and manual therapy PRN.
--- NOTE | 2024-09-01 15:15 | PT.OTN ---
Current Diagnoses Strain of muscle, fascia and tendon of the posterior muscle group at thigh level, right thigh, subsequent encounter (09/01/24) Physical Therapy Treatment Note PT-OP-A Visit Information Start: 08/19/24 16:40 Freq: Status: Active Protocol: Document 09/01/24 14:37 SP (Rec: 09/01/24 15:47 SP [id number]) Out-Patient Physical Therapy Visit Information Visit Information Visit Type Treatment Note Visit Start Time 14:37 Visit Stop Time 15:15 Visit Number 3 Number of SHAMPOO ASSISTANT Visits 1 Evaluation Information Evaluation Date 08/24/24 Precautions Precautions heart murmur, HTN PT-OP-B Current Condition Start: 08/19/24 16:40 Freq: Status: Active Protocol: Document 08/27/24 14:34 SAK (Rec: 08/27/24 15:15 SAK [id number]) Current Condition History of Current Condition Onset Date May 2024 Current Complaints R posterior buttock and thigh pain History of Current Condition Reports moved some furniture around and by the end of the day could hardly sit, pain extended from buttock to knee. couldn't bend over, used stick on heat pads. Still difficulty bending over. Took Tylenol and Ibuprofen. This week tried sitting on frozen vegetables as well as heating pad. A little improved, but by the end of the day worse. Pain is burning in quality. Diagnosed as hamstring strain. Prior Treatments and Tests no imaging PT-OP-C Subjective Start: 08/19/24 16:40 Freq: Status: Active Protocol: Document 09/01/24 14:37 SP (Rec: 09/01/24 15:47 SP [id number]) OP-PT Subjective Patient Comments Patient Comments Pt reports the nerve feeling alot better, able reduce Sun/ MOn night only extra strength Tylenol as needed assist little achiness in R HS and utilizing MHP. Pt reports still has hard time getting on /off floor and descending stair mgt without rail support hoping to improve. PT-OP-G Mobility & Gait Start: 08/19/24 16:40 Freq: Status: Active Protocol: Document 08/24/24 15:16 SAK (Rec: 08/26/24 17:50 SAK [id number]) OP Mobility Evaluation Functional Movements Lifting and Carrying painful Squats painful Running Assessment unable OP Gait Assessment Gait Gait Assistance Required: Independent Able to Maintain Weight Bearing Status Yes During Gait Assistive Devices Assistive Device None Gait Deviations General Gait Pattern Antalgic Factors Limiting Gait Function Factors Limiting Gait Function Pain Stair Climbing Evaluation Evaluation Level of Assist On Stairs Independent Devices Stair Climbing Assistive Devices Left Railing,Right Railing Technique/Endurance Stair Climbing Direction Ascend and Descend Stair Climbing Technique Step Over Step Comments Stair Climbing Comments painful right PT-OP-J Posture/Palpation/Skin Start: 08/19/24 16:40 Freq: Status: Active Protocol: Document 08/24/24 15:16 SAK (Rec: 08/24/24 16:20 SAK [id number]) Posture Evaluation Position Standing Head/C-Spine Posture Forward Head T-Spine Posture Increased Kyphosis L-Spine Posture Increased Lordosis Scapula Posture (L) Protracted,(R) Protracted Pelvis Posture Posterior Tilted Palpation Assessment Location ischial tub Palpation Location lateral border Palpation Findings Tenderness PT-OP-K Range of Motion Start: 08/19/24 16:40 Freq: Status: Active Protocol: Document 08/24/24 15:16 SAK (Rec: 08/26/24 17:50 SAK [id number]) Lumbar Spine Range of Motion Lumbar Spine Active ROM Limitations Soft Tissue Tightness Comments mod dec all motions Hip Goniometric Range of Motion Hip Right Flexion w/Knee Flexed 110 Straight Leg Raise 50 Extension 5 Abduction 35 Internal Rotation 20 External Rotation 45 Comments painful with hamstring strain left Flexion w/Knee Flexed 110 Straight Leg Raise 60 Extension 5 Abduction 35 Internal Rotation 15 External Rotation 50 Knee Goniometric Range of Motion Knee geronimo Knee ROM WFL Yes PT-OP-L Special Tests Start: 08/19/24 16:40 Freq: Status: Active Protocol: Document 08/24/24 15:16 SAK (Rec: 08/26/24 17:50 SAK [id number]) Special Tests Hip Special Tests Straight Leg Raise Test Results + Piriformis Test Results - AMARILIS Test Results - Neural Special Tests- Lower Body Sciatic Nerve Tension Test Results + PT-OP-Q Treatments Start: 08/19/24 16:40 Freq: Status: Active Protocol: Document 09/01/24 14:37 SP (Rec: 09/01/24 15:47 SP [id number]) Cardio Equipment Recumbent Bicycle Duration (Minutes) 6 Resistance 5> 4 Seat Position 4 Other 53-60 RPMs Therapeutic Exercises Supine Exercises sciatic nerve glide Supine Exercise Name 1. bend straighten knee 2. APs Side right Equipment Used grasp behind thigh Reps/Minutes 20 each Comments good feedback pnfree HS stretch Supine Exercise Name HS hold stretch- HEP Side bilateral Equipment Used grasp behind thigh Reps/Minutes 30 hold Comments good feedback bridge Supine Exercise Name HEP Resistance Tb #2 teal at thighs Equipment Used no pillow under head feels better Reps/Minutes 10x10 Comments cued little chin tuck CS neutral, feet // with knee apart clamshell Supine Exercise Name HEP Side bilateral Resistance L2 TB teal at thighs Reps/Minutes 10x10 Comments good feedback holding longer Standing Exercises wall posture Reps/Minutes 3 min at 15 SHs Comments cued buttocks & TS on wall, LS roll up wall, CS retraction toward wall PT-OP-R Modalities Start: 08/19/24 16:40 Freq: Status: Active Protocol: Document 08/27/24 14:34 SAK (Rec: 08/27/24 18:26 SAK [id number]) Hot Pack/Cold Pack Treatment Hot Pack Location right hip, buttock Patient Position Sidelying Patient Tolerance Good PT-OP-T Assessment and Plan Start: 08/19/24 16:40 Freq: Status: Active Protocol: Document 09/01/24 14:37 SP (Rec: 09/01/24 15:47 SP [id number]) Physical Therapy Assessment Goals Five Impairment Need to improve awareness of blood pressure and complications due to diabetes Four Impairment No HEP Three Impairment poor core stabilization and body mechanics Impairment 30 sec STS score 11 Short Term Goal (STG) Patient to be instructed in posture and body mechanics for spine and joint protection 09/01/24: wall posture HEP STG Duration 09/24/24 progressing 09/01/24 Long-Term Goal (LTG) Patient will be able to demonstrate neutral posture and correct body mechanics for usual activities LTG Duration 11/22/24 Two Impairment strength and ROM impairments core and hips Impairment DGI Short Term Goal (STG) instruct in HEP for purposes of flexibility and strengthening to support therapy activities 09/01/24: active HS stretch, addition of TB to bridge and clamshell. STG Duration 10/08/24 progression 09/01/24 Long-Term Goal (LTG) Patient to be independent and compliant with HEP and test at least 4+/5 all LE and core muscle groups and improve flexibility especially in hamstrings LTG Duration 11/22/24 One Impairment right buttock and posterior thigh pain 5/10 Impairment Metzger score 39/56 Short Term Goal (STG) Decrease pain by at least 50% with all usual activities STG Duration 10/08/24 Storage Worker Goal (LTG) Decrease pain by at least 75% with all usual activities LTG Duration 11/22/24 Assessment Summary Assessment Pt tolerated session well, progressed addition to resistance with bridges and able to increase hold time during bridge and resisted hooklying clamshell. Cues for foot positioning and slow pacing lift with no adverse HS recruitment. Continued cues as needed for postural positioning at wall for carryover functional posture during ADLs. Physical Therapy Plan Frequency and Duration Frequency of Treatment 2x/Week Duration of treatment (weeks) 12 Plan of Care Start Date 08/24/24 Plan of Care End Date 11/23/23 Therapeutic Interventions Therapeutic Interventions Home Exercise Program,Manual Therapy,Patient/Caregiver Education,Self-Care/Home Management,Soft Tissue Mobilization,Taping, Therapeutic Activities, Therapeutic Exercises Modalities Cold Pack/Ice Massage,Electric Stimulation,Hot Packs, Infrared Therapy,Ultrasound Next Visit Focus/Plan Next Note Type Treatment Note Next Visit Plan Next tx: resisted shld ext, eg , BOSU lunges. POC: progression for postural correction, core stab, hip strengthening and flexibility. Modalities and manual therapy PRN.
--- NOTE | 2024-09-09 14:15 | PT.OTN ---
Current Diagnoses Strain of muscle, fascia and tendon of the posterior muscle group at thigh level, right thigh, subsequent encounter (09/09/24) Physical Therapy Treatment Note PT-OP-A Visit Information Start: 08/19/24 16:40 Freq: Status: Active Protocol: Document 09/09/24 10:49 SP (Rec: 09/09/24 11:35 SP [id number]) Out-Patient Physical Therapy Visit Information Visit Information Visit Type Treatment Note Visit Start Time 10:49 Visit Stop Time 11:35 Visit Number 4 Number of [employer] EXTRACTOR Visits 2 Evaluation Information Evaluation Date 08/24/24 Precautions Precautions heart murmur, HTN PT-OP-B Current Condition Start: 08/19/24 16:40 Freq: Status: Active Protocol: Document 08/27/24 14:34 SAK (Rec: 08/27/24 15:15 SAK [id number]) Current Condition History of Current Condition Onset Date May 2024 Current Complaints R posterior buttock and thigh pain History of Current Condition Reports moved some furniture around and by the end of the day could hardly sit, pain extended from buttock to knee. couldn't bend over, used stick on heat pads. Still difficulty bending over. Took Tylenol and Ibuprofen. This week tried sitting on frozen vegetables as well as heating pad. A little improved, but by the end of the day worse. Pain is burning in quality. Diagnosed as hamstring strain. Prior Treatments and Tests no imaging PT-OP-C Subjective Start: 08/19/24 16:40 Freq: Status: Active Protocol: Document 09/09/24 10:49 SP (Rec: 09/09/24 11:35 SP [id number]) OP-PT Subjective Patient Comments Patient Comments Pt reports was busy walking at the [facility] and really tired after. Didn't get to her exercises. Did have to take Tylenol for back discomfort at night. But feels overall doing better. PT-OP-G Mobility & Gait Start: 08/19/24 16:40 Freq: Status: Active Protocol: Document 08/24/24 15:16 SAK (Rec: 08/26/24 17:50 SAK [id number]) OP Mobility Evaluation Functional Movements Lifting and Carrying painful Squats painful Running Assessment unable OP Gait Assessment Gait Gait Assistance Required: Independent Able to Maintain Weight Bearing Status Yes During Gait Assistive Devices Assistive Device None Gait Deviations General Gait Pattern Antalgic Factors Limiting Gait Function Factors Limiting Gait Function Pain Stair Climbing Evaluation Evaluation Level of Assist On Stairs Independent Devices Stair Climbing Assistive Devices Left Railing,Right Railing Technique/Endurance Stair Climbing Direction Ascend and Descend Stair Climbing Technique Step Over Step Comments Stair Climbing Comments painful right PT-OP-J Posture/Palpation/Skin Start: 08/19/24 16:40 Freq: Status: Active Protocol: Document 08/24/24 15:16 SAK (Rec: 08/24/24 16:20 SAK [id number]) Posture Evaluation Position Standing Head/C-Spine Posture Forward Head T-Spine Posture Increased Kyphosis L-Spine Posture Increased Lordosis Scapula Posture (L) Protracted,(R) Protracted Pelvis Posture Posterior Tilted Palpation Assessment Location ischial tub Palpation Location lateral border Palpation Findings Tenderness PT-OP-K Range of Motion Start: 08/19/24 16:40 Freq: Status: Active Protocol: Document 08/24/24 15:16 SAK (Rec: 08/26/24 17:50 SAK [id number]) Lumbar Spine Range of Motion Lumbar Spine Active ROM Limitations Soft Tissue Tightness Comments mod dec all motions Hip Goniometric Range of Motion Hip Right Flexion w/Knee Flexed 110 Straight Leg Raise 50 Extension 5 Abduction 35 Internal Rotation 20 External Rotation 45 Comments painful with hamstring strain left Flexion w/Knee Flexed 110 Straight Leg Raise 60 Extension 5 Abduction 35 Internal Rotation 15 External Rotation 50 Knee Goniometric Range of Motion Knee geronimo Knee ROM WFL Yes PT-OP-L Special Tests Start: 08/19/24 16:40 Freq: Status: Active Protocol: Document 08/24/24 15:16 SAK (Rec: 08/26/24 17:50 SAK [id number]) Special Tests Hip Special Tests Straight Leg Raise Test Results + Piriformis Test Results - AMARILIS Test Results - Neural Special Tests- Lower Body Sciatic Nerve Tension Test Results + PT-OP-Q Treatments Start: 08/19/24 16:40 Freq: Status: Active Protocol: Document 09/09/24 10:49 SP (Rec: 09/09/24 11:35 SP [id number]) Cardio Equipment Recumbent Bicycle Duration (Minutes) 6 Resistance 4 Seat Position 4 Other 53-60 RPMs Gym Equipment Shuttle Recovery bilateral squat Resistance 50# (2 navy) Reps/Time 2x15 reps Shuttle Balance Red Details Fwd/bwd, stagger stance Comments stationary, HT Cg-10%A cues for postural wt shift corrections improves stabiltiy. Sport Cord red Exercise Details future appt Therapeutic Exercises Supine Exercises sciatic nerve glide Supine Exercise Name 1. bend straighten knee 2. APs Side right Equipment Used grasp behind thigh Reps/Minutes 20 each Comments good feedback pnfree HS stretch Supine Exercise Name HS hold stretch- HEP Side bilateral Equipment Used grasp behind thigh Reps/Minutes 30 hold Comments good feedback bridge Supine Exercise Name HEP Resistance Tb #2 teal at thighs Equipment Used no pillow under head feels better Reps/Minutes 10x10 Comments cued little chin tuck CS neutral, feet // with knee apart,scap squeeze clamshell Supine Exercise Name HEP Side bilateral Resistance L2 TB teal at thighs Reps/Minutes single leg out at time Comments cues slower pacing Standing Exercises Resisted TA Shld Ext Standing Exercise Name added toHEP /c HO Side bilateral Resistance TB #3 upper [place] Reps/Minutes 2x10 reps Comments cued soft knee, neutral: LS, pelvis, CS retraction and elonaged spine wall posture Reps/Minutes 3 min total at 15 SHs Comments cued buttocks & TS on wall, LS roll up wall, CS retraction toward wall Self-Care/Home Management Treatment Education Patient Education Home Exercise Program,Safety Other Education Lately dentist office BP check 140/? 70s, in PT standing wall posture 140/70. Education taking regular BP checks and logging for Doctor office awareness with meds taking following BP readings for safety, if need for modifications. Pt does get light headed during position changes, standing still when get up dizziness elimination. Discussion normal value 120/80 . PT-OP-R Modalities Start: 08/19/24 16:40 Freq: Status: Active Protocol: Document 08/27/24 14:34 SAK (Rec: 08/27/24 18:26 SAK [id number]) Hot Pack/Cold Pack Treatment Hot Pack Location right hip, buttock Patient Position Sidelying Patient Tolerance Good PT-OP-T Assessment and Plan Start: 08/19/24 16:40 Freq: Status: Active Protocol: Document 09/09/24 10:49 SP (Rec: 09/09/24 11:35 SP [id number]) Physical Therapy Assessment Goals Five Impairment Need to improve awareness of blood pressure and complications due to diabetes Director Of Casework Department Goal (LTG) 09/09/24: BP 140/70, ed BP checks, standing still when get up dizziness elimination ed. On 2 BP meds. Ed normal 120/80. Four Impairment No HEP Three Impairment poor core stabilization and body mechanics Impairment 30 sec STS score 11 Short Term Goal (STG) Patient to be instructed in posture and body mechanics for spine and joint protection 09/01/24: wall posture HEP 09/09/24: added resisted shld ext with core component to support even stance/gait mechanics. STG Duration 09/24/24 progressing 09/09/24 Mcfp Goal (LTG) Patient will be able to demonstrate neutral posture and correct body mechanics for usual activities 09/09/24: Progressing: discussion foot, trunk alignment during standing ther ex, carryover from wall posture. LTG Duration 11/22/24 progression 09/09/24 Two Impairment strength and ROM impairments core and hips Impairment DGI Short Term Goal (STG) instruct in HEP for purposes of flexibility and strengthening to support therapy activities 09/01/24: active HS stretch, addition of TB to bridge and clamshell. STG Duration 10/08/24 progression 09/01/24 Mcfp Goal (LTG) Patient to be independent and compliant with HEP and test at least 4+/5 all LE and core muscle groups and improve flexibility especially in hamstrings LTG Duration 11/22/24 One Impairment right buttock and posterior thigh pain 5/10 Impairment Metzger score 39/56 Short Term Goal (STG) Decrease pain by at least 50% with all usual activities STG Duration 10/08/24 Mcfp Goal (LTG) Decrease pain by at least 75% with all usual activities LTG Duration 11/22/24 Assessment Summary Assessment Pt improved postural alignment corrections after cuing, CS retraction neutral. Progressed postural alignment carryover from wall performing resisted shld ext ther ex with cues for even BLE wt distribution, soft knee or quad/HS co- contraction, feet parallel, elongaged posture to support COG over MIGDALIA into shuttle balance and awareness how to apply community gait stance time. Pt would benefit from progression hip and LE strengthening next tx. Physical Therapy Plan Frequency and Duration Frequency of Treatment 2x/Week Duration of treatment (weeks) 12 Plan of Care Start Date 08/24/24 Plan of Care End Date 11/23/23 Therapeutic Interventions Therapeutic Interventions Home Exercise Program,Manual Therapy,Patient/Caregiver Education,Self-Care/Home Management,Soft Tissue Mobilization,Taping, Therapeutic Activities, Therapeutic Exercises Modalities Cold Pack/Ice Massage,Electric Stimulation,Hot Packs, Infrared Therapy,Ultrasound Next Visit Focus/Plan Next Note Type Treatment Note Next Visit Plan REcheck resisted shld ext, lunges. Next Progress standing resisted hip ther ex and balance to support. eg, BOSU. POC: progression for postural correction, core stab, hip strengthening and flexibility. Modalities and manual therapy PRN.
--- NOTE | 2024-09-22 13:46 | PT.OTN ---
Current Diagnoses Strain of muscle, fascia and tendon of the posterior muscle group at thigh level, right thigh, subsequent encounter (09/22/24) Physical Therapy Treatment Note PT-OP-A Visit Information Start: 08/19/24 16:40 Freq: Status: Active Protocol: Document 09/22/24 13:01 SP (Rec: 09/22/24 13:48 SP [id number]) Out-Patient Physical Therapy Visit Information Visit Information Visit Type Treatment Note Visit Start Time 13:01 Visit Stop Time 13:46 Visit Number 5 Number of TOBACCO SIZER Visits 3 Evaluation Information Evaluation Date 08/24/24 Precautions Precautions heart murmur, HTN PT-OP-B Current Condition Start: 08/19/24 16:40 Freq: Status: Active Protocol: Document 08/27/24 14:34 SAK (Rec: 08/27/24 15:15 SAK [id number]) Current Condition History of Current Condition Onset Date May 2024 Current Complaints R posterior buttock and thigh pain History of Current Condition Reports moved some furniture around and by the end of the day could hardly sit, pain extended from buttock to knee. couldn't bend over, used stick on heat pads. Still difficulty bending over. Took Tylenol and Ibuprofen. This week tried sitting on frozen vegetables as well as heating pad. A little improved, but by the end of the day worse. Pain is burning in quality. Diagnosed as hamstring strain. Prior Treatments and Tests no imaging PT-OP-C Subjective Start: 08/19/24 16:40 Freq: Status: Active Protocol: Document 09/22/24 13:01 SP (Rec: 09/22/24 13:48 SP [id number]) OP-PT Subjective Patient Comments Patient Comments Reports havign computer issues and little stressed so not want to over do things today. She reportes her blood sugar has been in 120s, feeling better. She reports the pain in L hip has done away and sleeping better through night. She reports honestly not doing HEP and sees difference end PT tx feel more stable and even if come to PT can see improvements but knows if did at home would help. PT-OP-G Mobility & Gait Start: 08/19/24 16:40 Freq: Status: Active Protocol: Document 08/24/24 15:16 SAK (Rec: 08/26/24 17:50 SAK [id number]) OP Mobility Evaluation Functional Movements Lifting and Carrying painful Squats painful Running Assessment unable OP Gait Assessment Gait Gait Assistance Required: Independent Able to Maintain Weight Bearing Status Yes During Gait Assistive Devices Assistive Device None Gait Deviations General Gait Pattern Antalgic Factors Limiting Gait Function Factors Limiting Gait Function Pain Stair Climbing Evaluation Evaluation Level of Assist On Stairs Independent Devices Stair Climbing Assistive Devices Left Railing,Right Railing Technique/Endurance Stair Climbing Direction Ascend and Descend Stair Climbing Technique Step Over Step Comments Stair Climbing Comments painful right PT-OP-J Posture/Palpation/Skin Start: 08/19/24 16:40 Freq: Status: Active Protocol: Document 08/24/24 15:16 SAK (Rec: 08/24/24 16:20 SAK [id number]) Posture Evaluation Position Standing Head/C-Spine Posture Forward Head T-Spine Posture Increased Kyphosis L-Spine Posture Increased Lordosis Scapula Posture (L) Protracted,(R) Protracted Pelvis Posture Posterior Tilted Palpation Assessment Location ischial tub Palpation Location lateral border Palpation Findings Tenderness PT-OP-K Range of Motion Start: 08/19/24 16:40 Freq: Status: Active Protocol: Document 08/24/24 15:16 SAK (Rec: 08/26/24 17:50 SAK [id number]) Lumbar Spine Range of Motion Lumbar Spine Active ROM Limitations Soft Tissue Tightness Comments mod dec all motions Hip Goniometric Range of Motion Hip Right Flexion w/Knee Flexed 110 Straight Leg Raise 50 Extension 5 Abduction 35 Internal Rotation 20 External Rotation 45 Comments painful with hamstring strain left Flexion w/Knee Flexed 110 Straight Leg Raise 60 Extension 5 Abduction 35 Internal Rotation 15 External Rotation 50 Knee Goniometric Range of Motion Knee geronimo Knee ROM WFL Yes PT-OP-L Special Tests Start: 08/19/24 16:40 Freq: Status: Active Protocol: Document 08/24/24 15:16 SAK (Rec: 08/26/24 17:50 SAK [id number]) Special Tests Hip Special Tests Straight Leg Raise Test Results + Piriformis Test Results - AMARILIS Test Results - Neural Special Tests- Lower Body Sciatic Nerve Tension Test Results + PT-OP-Q Treatments Start: 08/19/24 16:40 Freq: Status: Active Protocol: Document 09/22/24 13:01 SP (Rec: 09/22/24 13:48 SP [id number]) Cardio Equipment Recumbent Bicycle Duration (Minutes) 6 Resistance 4 Seat Position 4 Other 53-60 RPMs Gym Equipment Shuttle Recovery unilateral squat Details cued x1 knee lateral midline alignment Resistance 37 # (1 teal) Reps/Time x20 reps each LE Therapeutic Exercises Standing Exercises resisted stepping Standing Exercise Name f/b/lateral: added to HEP /c declined HO Side bilateral Resistance TB #2 at shins Equipment Used //bars- only contact x2 Reps/Minutes 10 ft x3 laps Comments cued slower pacing, feet away and DF foot clearance, mini lunges Standing Exercise Name trialed in PT Side bilateral Equipment Used PRN rail Reps/Minutes 10 reps each LE fwd Comments cued for hip hinge buttocks like when squatting, improved Resisted TA Shld Ext Standing Exercise Name 1. pull down 2. hold TA/ marching Side bilateral Resistance TB #3 [place] Equipment Used Eye gaze at table on wall for posture stab Reps/Minutes 1. 15 reps 2. 20 reps alternating marching Comments cued soft knee, neutral: LS, pelvis, CS retraction and elonaged spine, bal Neuro Re-Education Treatment Balance Activities BOSU Details lunges: fwd, lateral Surface BOSU Reps/Duration 20 reps alternating BLEs each Comments cued posture, rhomboid, TA engagment improved midline stab. Slight over pressure/wt shift self recovery occ contact rail if needed Self-Care/Home Management Treatment Education Patient Education Home Exercise Program,Safety Other Education Educational cues for carryover HEP for progression strength and balance mobility with verbal understanding. PT-OP-R Modalities Start: 08/19/24 16:40 Freq: Status: Active Protocol: Document 08/27/24 14:34 SAK (Rec: 08/27/24 18:26 SAK [id number]) Hot Pack/Cold Pack Treatment Hot Pack Location right hip, buttock Patient Position Sidelying Patient Tolerance Good PT-OP-T Assessment and Plan Start: 08/19/24 16:40 Freq: Status: Active Protocol: Document 09/22/24 13:01 SP (Rec: 09/22/24 13:48 SP [id number]) Physical Therapy Assessment Goals Five Impairment Need to improve awareness of blood pressure and complications due to diabetes [facility] Goal (LTG) 09/09/24: BP 140/70, ed BP checks, standing still when get up dizziness elimination ed. On 2 BP meds. Ed normal 120/80. Four Impairment No HEP Three Impairment poor core stabilization and body mechanics Impairment 30 sec STS score 11 Short Term Goal (STG) Patient to be instructed in posture and body mechanics for spine and joint protection 09/01/24: wall posture HEP 09/09/24: added resisted shld ext with core component to support even stance/gait mechanics. STG Duration 09/24/24 progressing 09/09/24 [facility] Goal (LTG) Patient will be able to demonstrate neutral posture and correct body mechanics for usual activities 09/09/24: Progressing: discussion foot, trunk alignment during standing ther ex, carryover from wall posture. LTG Duration 11/22/24 progression 09/09/24 Two Impairment strength and ROM impairments core and hips Impairment DGI Short Term Goal (STG) instruct in HEP for purposes of flexibility and strengthening to support therapy activities 09/01/24: active HS stretch, addition of TB to bridge and clamshell. STG Duration 10/08/24 progression 09/01/24 Clinical Training Coordinator Goal (LTG) Patient to be independent and compliant with HEP and test at least 4+/5 all LE and core muscle groups and improve flexibility especially in hamstrings LTG Duration 11/22/24 One Impairment right buttock and posterior thigh pain 5/10 Impairment Metzger score 39/56 Short Term Goal (STG) Decrease pain by at least 50% with all usual activities STG Duration 10/08/24 Clinical Training Coordinator Goal (LTG) Decrease pain by at least 75% with all usual activities LTG Duration 11/22/24 Assessment Summary Assessment Pt improved posturing carryover with cuing throughout ex helped improved SLS and midline stabiltiy, core and LE strength and balance. She noted arrival feel more stable after PT tx. Offered HOs for today's activities continued balance corrections without UE supoprt and pt declined stating I am not doing the ones I have been asked to do before today . Continued education HEP performance outside of PT helpful progression return to longer distance activities and being able to steel pickler items herself, and lessening asks to assist. Pt verbalized understanding. Physical Therapy Plan Frequency and Duration Frequency of Treatment 2x/Week Duration of treatment (weeks) 12 Plan of Care Start Date 08/24/24 Plan of Care End Date 11/23/23 Therapeutic Interventions Therapeutic Interventions Home Exercise Program,Manual Therapy,Patient/Caregiver Education,Self-Care/Home Management,Soft Tissue Mobilization,Taping, Therapeutic Activities, Therapeutic Exercises Modalities Cold Pack/Ice Massage,Electric Stimulation,Hot Packs, Infrared Therapy,Ultrasound Next Visit Focus/Plan Next Note Type Treatment Note Next Visit Plan Recheck HEP and progressed standing resisted hip ther ex and balance to support. as BOSU. POC: progression for postural correction, core stab, hip strengthening and flexibility. Modalities and manual therapy PRN.
--- NOTE | 2024-09-24 14:42 | PT.OTN ---
Current Diagnoses Strain of muscle, fascia and tendon of the posterior muscle group at thigh level, right thigh, subsequent encounter (09/24/24) Physical Therapy Treatment Note PT-OP-A Visit Information Start: 08/19/24 16:40 Freq: Status: Active Protocol: Document 09/24/24 13:49 [facility] (Rec: 09/24/24 14:42 [facility] [id number]) Out-Patient Physical Therapy Visit Information Visit Information Visit Type Treatment Note Visit Start Time 13:49 Visit Stop Time 14:30 Visit Number 7 Number of PLANT CHIEF Visits 0 Evaluation Information Evaluation Date 08/24/24 Precautions Precautions heart murmur, HTN PT-OP-B Current Condition Start: 08/19/24 16:40 Freq: Status: Active Protocol: Document 09/24/24 13:49 [facility] (Rec: 09/24/24 14:42 [facility] [id number]) Current Condition History of Current Condition Onset Date May 2024 Current Complaints R posterior buttock and thigh pain History of Current Condition Reports moved some furniture around and by the end of the day could hardly sit, pain extended from buttock to knee. couldn't bend over, used stick on heat pads. Still difficulty bending over. Took Tylenol and Ibuprofen. This week tried sitting on frozen vegetables as well as heating pad. A little improved, but by the end of the day worse. Pain is burning in quality. Diagnosed as hamstring strain. Prior Treatments and Tests no imaging PT-OP-C Subjective Start: 08/19/24 16:40 Freq: Status: Active Protocol: Document 09/24/24 13:49 [facility] (Rec: 09/24/24 14:42 [facility] [id number]) OP-PT Subjective Patient Comments Patient Comments No new c/o, left hip no longer hurts unless sits at computer chair. Hasn't been doing her exercises. Still hasn't been doing her exercises PT-OP-G Mobility & Gait Start: 08/19/24 16:40 Freq: Status: Active Protocol: Document 08/24/24 15:16 [facility] (Rec: 08/26/24 17:50 [facility] [id number]) OP Mobility Evaluation Functional Movements Lifting and Carrying painful Squats painful Running Assessment unable OP Gait Assessment Gait Gait Assistance Required: Independent Able to Maintain Weight Bearing Status Yes During Gait Assistive Devices Assistive Device None Gait Deviations General Gait Pattern Antalgic Factors Limiting Gait Function Factors Limiting Gait Function Pain Stair Climbing Evaluation Evaluation Level of Assist On Stairs Independent Devices Stair Climbing Assistive Devices Left Railing,Right Railing Technique/Endurance Stair Climbing Direction Ascend and Descend Stair Climbing Technique Step Over Step Comments Stair Climbing Comments painful right PT-OP-J Posture/Palpation/Skin Start: 08/19/24 16:40 Freq: Status: Active Protocol: Document 08/24/24 15:16 [facility] (Rec: 08/24/24 16:20 [facility] [id number]) Posture Evaluation Position Standing Head/C-Spine Posture Forward Head T-Spine Posture Increased Kyphosis L-Spine Posture Increased Lordosis Scapula Posture (L) Protracted,(R) Protracted Pelvis Posture Posterior Tilted Palpation Assessment Location ischial tub Palpation Location lateral border Palpation Findings Tenderness PT-OP-K Range of Motion Start: 08/19/24 16:40 Freq: Status: Active Protocol: Document 08/24/24 15:16 SAK (Rec: 08/26/24 17:50 [facility] [id number]) Lumbar Spine Range of Motion Lumbar Spine Active ROM Limitations Soft Tissue Tightness Comments mod dec all motions Hip Goniometric Range of Motion Hip Right Flexion w/Knee Flexed 110 Straight Leg Raise 50 Extension 5 Abduction 35 Internal Rotation 20 External Rotation 45 Comments painful with hamstring strain left Flexion w/Knee Flexed 110 Straight Leg Raise 60 Extension 5 Abduction 35 Internal Rotation 15 External Rotation 50 Knee Goniometric Range of Motion Knee geronimo Knee ROM WFL Yes PT-OP-L Special Tests Start: 08/19/24 16:40 Freq: Status: Active Protocol: Document 08/24/24 15:16 [facility] (Rec: 08/26/24 17:50 [facility] [id number]) Special Tests Hip Special Tests Straight Leg Raise Test Results + Piriformis Test Results - AMARILIS Test Results - Neural Special Tests- Lower Body Sciatic Nerve Tension Test Results + PT-OP-Q Treatments Start: 08/19/24 16:40 Freq: Status: Active Protocol: Document 09/24/24 13:49 SAK (Rec: 09/24/24 14:42 [facility] [id number]) Cardio Equipment Recumbent Stepper (Sci-Fit) Duration (Minutes) 8 Resistance 2 Seat Position 10 Recumbent Bicycle Duration (Minutes) 6 Resistance 4 Seat Position 4 Other 53-60 RPMs Gym Equipment Shuttle Recovery unilateral squat Details cued x1 knee lateral midline alignment Resistance 37 # (1 teal) Reps/Time x20 reps each LE bilateral squat Resistance 50# (2 [place]) Reps/Time 2x15 reps Therapeutic Exercises Sidelying Exercises hip abduction Reps/Minutes 10x5 Sitting Exercises chair squats Reps/Minutes 10x2 Comments cues for neutral spine, LE alignment, correct muscle activation. piriformis stretch Reps/Minutes 2x30 figure 4 Reps/Minutes 2x30 seated clamshell Reps/Minutes 10x ball squeeze Reps/Minutes 10x Standing Exercises resisted stepping Standing Exercise Name f/b/lateral: added to HEP /c declined HO Side bilateral Resistance TB #2 at shins Equipment Used //bars- only contact x2 Reps/Minutes 10 ft x3 laps Comments cued slower pacing, feet away and DF foot clearance, mini lunges Standing Exercise Name trialed in PT Side bilateral Equipment Used PRN rail Reps/Minutes 10 reps each LE fwd Comments cued for hip hinge buttocks like when squatting, improved Resisted TA Shld Ext Standing Exercise Name 1. pull down 2. hold TA/ marching Side bilateral Resistance TB #3 [place] Equipment Used Eye gaze at table on wall for posture stab Reps/Minutes 1. 15 reps 2. 20 reps alternating marching Comments cued soft knee, neutral: LS, pelvis, CS retraction and elonaged spine, bal wall posture Reps/Minutes 3 min total at 15 SHs Comments cued buttocks & TS on wall, LS roll up wall, CS retraction toward wall PT-OP-R Modalities Start: 08/19/24 16:40 Freq: Status: Active Protocol: Document 08/27/24 14:34 [facility] (Rec: 08/27/24 18:26 [facility] [id number]) Hot Pack/Cold Pack Treatment Hot Pack Location right hip, buttock Patient Position Sidelying Patient Tolerance Good PT-OP-T Assessment and Plan Start: 08/19/24 16:40 Freq: Status: Active Protocol: Document 09/24/24 13:49 [facility] (Rec: 09/24/24 14:42 [facility] [id number]) Physical Therapy Assessment Goals Five Impairment Need to improve awareness of blood pressure and complications due to diabetes [facility] Goal (LTG) 09/09/24: BP 140/70, ed BP checks, standing still when get up dizziness elimination ed. On 2 BP meds. Ed normal 120/80. Four Impairment No HEP Three Impairment poor core stabilization and body mechanics Impairment 30 sec STS score 11 Short Term Goal (STG) Patient to be instructed in posture and body mechanics for spine and joint protection 09/01/24: wall posture HEP 09/09/24: added resisted shld ext with core component to support even stance/gait mechanics. STG Duration 09/24/24 progressing 09/09/24 [facility] Goal (LTG) Patient will be able to demonstrate neutral posture and correct body mechanics for usual activities 09/09/24: Progressing: discussion foot, trunk alignment during standing ther ex, carryover from wall posture. LTG Duration 11/22/24 progression 09/09/24 Two Impairment strength and ROM impairments core and hips Impairment DGI Short Term Goal (STG) instruct in HEP for purposes of flexibility and strengthening to support therapy activities 09/01/24: active HS stretch, addition of TB to bridge and clamshell. STG Duration 10/08/24 progression 09/01/24 [facility] Goal (LTG) Patient to be independent and compliant with HEP and test at least 4+/5 all LE and core muscle groups and improve flexibility especially in hamstrings LTG Duration 11/22/24 One Impairment right buttock and posterior thigh pain 5/10 Impairment Metzger score 39/56 Short Term Goal (STG) Decrease pain by at least 50% with all usual activities STG Duration 10/08/24 Director Digital Goal (LTG) Decrease pain by at least 75% with all usual activities LTG Duration 11/22/24 Assessment Summary Assessment Patient requires moderate cues for LE alignment, hip hinge and correct muscle activation with chair squats/sit to stand . With resisted sidestepping unable to eliminate excess lateral sway; trial sidelying hip abduction instead. Encouraged increased HEP performance, working exercises into her day. Reviewed seated ball squeeze and clam and instructed in figure 4 and piriformis stretches that could be done in computer chair. Patient will require further instruction and review with squats/sit to stand. Physical Therapy Plan Frequency and Duration Frequency of Treatment 2x/Week Duration of treatment (weeks) 12 Plan of Care Start Date 08/24/24 Plan of Care End Date 11/23/23 Therapeutic Interventions Therapeutic Interventions Home Exercise Program,Manual Therapy,Patient/Caregiver Education,Self-Care/Home Management,Soft Tissue Mobilization,Taping, Therapeutic Activities, Therapeutic Exercises Modalities Cold Pack/Ice Massage,Electric Stimulation,Hot Packs, Infrared Therapy,Ultrasound Next Visit Focus/Plan Next Note Type Treatment Note Next Visit Plan Review seated ex, sidelying hip abduction. Progress core stab and hip strengthening as tolerated.
--- NOTE | 2024-09-29 15:29 | PT.OTN ---
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 couldn't bend over, used stick on heat pads. Still difficulty bending over. Took Tylenol and Ibuprofen. This week tried sitting on frozen vegetables as well as heating pad. A little improved, but by the end of the day worse. Pain is burning in quality. Diagnosed as hamstring strain. Prior Treatments and Tests no imaging PT-OP-C Subjective Start: 08/19/24 16:40 Freq: Status: Active Protocol: Document 09/29/24 14:30 [facility] (Rec: 09/29/24 15:12 [facility] [id number]) OP-PT Subjective Patient Comments Patient Comments Continues to be painfree except when prolonged sitting on office chair, has tried different heights. PT-OP-G Mobility & Gait Start: 08/19/24 16:40 Freq: Status: Active Protocol: Document 08/24/24 15:16 [facility] (Rec: 08/26/24 17:50 [facility] [id number]) OP Mobility Evaluation Functional Movements Lifting and Carrying painful Squats painful Running Assessment unable OP Gait Assessment Gait Gait Assistance Required: Independent Able to Maintain Weight Bearing Status Yes During Gait Assistive Devices Assistive Device None Gait Deviations General Gait Pattern Antalgic Factors Limiting Gait Function Factors Limiting Gait Function Pain Stair Climbing Evaluation Evaluation Level of Assist On Stairs Independent Devices Stair Climbing Assistive Devices Left Railing,Right Railing Technique/Endurance Stair Climbing Direction Ascend and Descend Stair Climbing Technique Step Over Step Comments Stair Climbing Comments painful right PT-OP-J Posture/Palpation/Skin Start: 08/19/24 16:40 Freq: Status: Active Protocol: Document 08/24/24 15:16 [facility] (Rec: 08/24/24 16:20 [facility] [id number]) Posture Evaluation Position Standing Head/C-Spine Posture Forward Head T-Spine Posture Increased Kyphosis L-Spine Posture Increased Lordosis Scapula Posture (L) Protracted,(R) Protracted Pelvis Posture Posterior Tilted Palpation Assessment Location ischial tub Palpation Location lateral border Palpation Findings Tenderness PT-OP-K Range of Motion Start: 08/19/24 16:40 Freq: Status: Active Protocol: Document 08/24/24 15:16 [facility] (Rec: 08/26/24 17:50 [facility] [id number]) Lumbar Spine Range of Motion Lumbar Spine Active ROM Limitations Soft Tissue Tightness Comments mod dec all motions Hip Goniometric Range of Motion Hip Right Flexion w/Knee Flexed 110 Straight Leg Raise 50 Extension 5 Abduction 35 Internal Rotation 20 External Rotation 45 Comments painful with hamstring strain left Flexion w/Knee Flexed 110 Straight Leg Raise 60 Extension 5 Abduction 35 Internal Rotation 15 External Rotation 50 Knee Goniometric Range of Motion Knee geronimo Knee ROM WFL Yes PT-OP-L Special Tests Start: 08/19/24 16:40 Freq: Status: Active Protocol: Document 08/24/24 15:16 [facility] (Rec: 08/26/24 17:50 [facility] [id number]) Special Tests Hip Special Tests Straight Leg Raise Test Results + Piriformis Test Results - AMARILIS Test Results - Neural Special Tests- Lower Body Sciatic Nerve Tension Test Results + PT-OP-Q Treatments Start: 08/19/24 16:40 Freq: Status: Active Protocol: Document 09/29/24 14:30 [facility] (Rec: 09/29/24 15:12 [facility] [id number]) Cardio Equipment Recumbent Bicycle Duration (Minutes) 6 Resistance 4 Seat Position 4 Other 55-60 RPMs Therapeutic Exercises Sitting Exercises chair squats Reps/Minutes 10x2 Comments cues for neutral spine, LE alignment, correct muscle activation. piriformis stretch Reps/Minutes 2x30 figure 4 Reps/Minutes 2x30 seated clamshell Reps/Minutes 10x ball squeeze Reps/Minutes 10x glut set Reps/Minutes 10x Manual Therapy Treatment Soft Tissue Mobilization 1 Body Location right HS, piriformis, glut Mobilization Type Myofascial Release,Strumming, Trigger Point Release Intensity/Depth Moderate Body Position Sidelying Other Other Manual Treatments self massage with tennis ball sitting, supine Self-Care/Home Management Treatment Education Other Education use of tennis ball for self massage hamstring, piriformis PT-OP-R Modalities Start: 08/19/24 16:40 Freq: Status: Active Protocol: Document 08/27/24 14:34 [facility] (Rec: 08/27/24 18:26 [facility] [id number]) Hot Pack/Cold Pack Treatment Hot Pack Location right hip, buttock Patient Position Sidelying Patient Tolerance Good PT-OP-T Assessment and Plan Start: 08/19/24 16:40 Freq: Status: Active Protocol: Document 09/29/24 14:30 [facility] (Rec: 09/29/24 15:12 [facility] [id number]) Physical Therapy Assessment Goals Five Impairment Need to improve awareness of blood pressure and complications due to diabetes Senior Care Goal (LTG) 09/09/24: BP 140/70, ed BP checks, standing still when get up dizziness elimination ed. On 2 BP meds. Ed normal 120/80. LTG Duration goal met Four Impairment No HEP Rail Track Maintainer Goal (LTG) independent and compliant with HEP LTG Duration goal met Three Impairment poor core stabilization and body mechanics Impairment 30 sec STS score 11 Short Term Goal (STG) Patient to be instructed in posture and body mechanics for spine and joint protection 09/01/24: wall posture HEP 09/09/24: added resisted shld ext with core component to support even stance/gait mechanics. STG Duration 09/24/24 progressing 09/09/24 Rail Track Maintainer Goal (LTG) Patient will be able to demonstrate neutral posture and correct body mechanics for usual activities 09/09/24: Progressing: discussion foot, trunk alignment during standing ther ex, carryover from wall posture. LTG Duration 11/22/24 progression 09/09/24 Two Impairment strength and ROM impairments core and hips Impairment DGI Short Term Goal (STG) instruct in HEP for purposes of flexibility and strengthening to support therapy activities 09/01/24: active HS stretch, addition of TB to bridge and clamshell. STG Duration 10/08/24 progression 09/01/24 Senior Care Goal (LTG) Patient to be independent and compliant with HEP and test at least 4+/5 all LE and core muscle groups and improve flexibility especially in hamstrings LTG Duration 11/22/24 One Impairment right buttock and posterior thigh pain 5/10 Impairment Metzger score 39/56 Short Term Goal (STG) Decrease pain by at least 50% with all usual activities STG Duration 10/08/24 [facility] Goal (LTG) Decrease pain by at least 75% with all usual activities LTG Duration 11/22/24 Assessment Summary Assessment Patient compliance for HEP poor but despite this has made good progress, only pain with prolonged sitting. Instructed in use of tennis ball for self massage in sitting; patient demonstrated good understanding. Stressed need for increased compliance to HEP due to persistent weakness core and hips leaving her at high risk for further injury. Physical Therapy Plan Frequency and Duration Frequency of Treatment 2x/Week Duration of treatment (weeks) 12 Plan of Care Start Date 08/24/24 Plan of Care End Date 11/23/23 Therapeutic Interventions Therapeutic Interventions Home Exercise Program,Manual Therapy,Patient/Caregiver Education,Self-Care/Home Management,Soft Tissue Mobilization,Taping, Therapeutic Activities, Therapeutic Exercises Modalities Cold Pack/Ice Massage,Electric Stimulation,Hot Packs, Infrared Therapy,Ultrasound Next Visit Focus/Plan Next Note Type Discharge Summary Next Visit Plan Assess response to self massage with tennis ball, increased HEP compliance. Anticipate discharge after next visit.
--- NOTE | 2024-10-01 15:37 | PT.OPDS ---
Current Diagnoses Strain of muscle, fascia and tendon of the posterior muscle group at thigh level, right thigh, subsequent encounter (10/01/24) Visit Care Team Role Provider Type Arvin Bell MD Attending Provider Physician Family Provider Primary Care Provider Referring Provider Specialty: Family Practice Address: [address] [place] [address], [place], [address] Email: [email or web address] Visit Number Visit Number 8 Discharge Summary PT-OP-B Current Condition Start: 08/19/24 16:40 Freq: Status: Active Protocol: Document 10/01/24 14:33 [facility] (Rec: 10/01/24 15:36 [facility] [id number]) Current Condition History of Current Condition Onset Date May 2024 Current Complaints R posterior buttock and thigh pain History of Current Condition Reports moved some furniture around and by the end of the day could hardly sit, pain extended from buttock to knee. couldn't bend over, used stick on heat pads. Still difficulty bending over. Took Tylenol and Ibuprofen. This week tried sitting on frozen vegetables as well as heating pad. A little improved, but by the end of the day worse. Pain is burning in quality. Diagnosed as hamstring strain. Prior Treatments and Tests no imaging PT-OP-C Subjective Start: 08/19/24 16:40 Freq: Status: Active Protocol: Document 10/01/24 14:33 [facility] (Rec: 10/01/24 15:36 [facility] [id number]) OP-PT Subjective Patient Comments Patient Comments Patient reports some soreness today, it's just doing its thing. PT-OP-G Mobility & Gait Start: 08/19/24 16:40 Freq: Status: Active Protocol: Document 08/24/24 15:16 [facility] (Rec: 08/26/24 17:50 [facility] [id number]) OP Mobility Evaluation Functional Movements Lifting and Carrying painful Squats painful Running Assessment unable OP Gait Assessment Gait Gait Assistance Required: Independent Able to Maintain Weight Bearing Status Yes During Gait Assistive Devices Assistive Device None Gait Deviations General Gait Pattern Antalgic Factors Limiting Gait Function Factors Limiting Gait Function Pain Stair Climbing Evaluation Evaluation Level of Assist On Stairs Independent Devices Stair Climbing Assistive Devices Left Railing,Right Railing Technique/Endurance Stair Climbing Direction Ascend and Descend Stair Climbing Technique Step Over Step Comments Stair Climbing Comments painful right PT-OP-J Posture/Palpation/Skin Start: 08/19/24 16:40 Freq: Status: Active Protocol: Document 08/24/24 15:16 [facility] (Rec: 08/24/24 16:20 [facility] [id number]) Posture Evaluation Position Standing Head/C-Spine Posture Forward Head T-Spine Posture Increased Kyphosis L-Spine Posture Increased Lordosis Scapula Posture (L) Protracted,(R) Protracted Pelvis Posture Posterior Tilted Palpation Assessment Location ischial tub Palpation Location lateral border Palpation Findings Tenderness PT-OP-K Range of Motion Start: 08/19/24 16:40 Freq: Status: Active Protocol: Document 08/24/24 15:16 [facility] (Rec: 08/26/24 17:50 [facility] [id number]) Lumbar Spine Range of Motion Lumbar Spine Active ROM Limitations Soft Tissue Tightness Comments mod dec all motions Hip Goniometric Range of Motion Hip Right Flexion w/Knee Flexed 110 Straight Leg Raise 50 Extension 5 Abduction 35 Internal Rotation 20 External Rotation 45 Comments painful with hamstring strain left Flexion w/Knee Flexed 110 Straight Leg Raise 60 Extension 5 Abduction 35 Internal Rotation 15 External Rotation 50 Knee Goniometric Range of Motion Knee geronimo Knee ROM WFL Yes PT-OP-L Special Tests Start: 08/19/24 16:40 Freq: Status: Active Protocol: Document 08/24/24 15:16 [facility] (Rec: 08/26/24 17:50 [facility] [id number]) Special Tests Hip Special Tests Straight Leg Raise Test Results + Piriformis Test Results - AMARILIS Test Results - Neural Special Tests- Lower Body Sciatic Nerve Tension Test Results + PT-OP-T Assessment and Plan Start: 08/19/24 16:40 Freq: Status: Active Protocol: Document 10/01/24 14:33 [facility] (Rec: 10/01/24 15:36 [facility] [id number]) Physical Therapy Assessment Goals Five Impairment Need to improve awareness of blood pressure and complications due to diabetes Waitstaff Captain Goal (LTG) 09/09/24: BP 140/70, ed BP checks, standing still when get up dizziness elimination ed. On 2 BP meds. Ed normal 120/80. LTG Duration goal met Four Impairment No HEP [facility] Goal (LTG) independent and compliant with HEP LTG Duration goal met Three Impairment poor core stabilization and body mechanics Impairment 30 sec STS score 11 Short Term Goal (STG) Patient to be instructed in posture and body mechanics for spine and joint protection 09/01/24: wall posture HEP 09/09/24: added resisted shld ext with core component to support even stance/gait mechanics. STG Duration 09/24/24 progressing 09/09/24 Waitstaff Captain Goal (LTG) Patient will be able to demonstrate neutral posture and correct body mechanics for usual activities 09/09/24: Progressing: discussion foot, trunk alignment during standing ther ex, carryover from wall posture. 10/01/24: LTG Duration goal met Two Impairment strength and ROM impairments core and hips Impairment DGI Short Term Goal (STG) instruct in HEP for purposes of flexibility and strengthening to support therapy activities 09/01/24: active HS stretch, addition of TB to bridge and clamshell. STG Duration 10/08/24 progression 09/01/24 [facility] Goal (LTG) Patient to be independent and compliant with HEP and test at least 4+/5 all LE and core muscle groups and improve flexibility especially in hamstrings LTG Duration goal met One Impairment right buttock and posterior thigh pain 5/10 Impairment Metzger score 39/56 Short Term Goal (STG) Decrease pain by at least 50% with all usual activities STG Duration 10/08/24 [facility] Goal (LTG) Decrease pain by at least 75% with all usual activities 10/01/24: goal met LTG Duration 11/22/24 Assessment Summary Assessment Patient demonstrated good understanding of updated HEP HO, importance of LE alignment . Has difficulty getting herself to do her HEP, but very interested in video ex program. Agreeable to discharge. Physical Therapy Plan Discharge Physical Therapy Discharge Comments goals mostly met. Patient independent with HEP, has HO and information for video HEP
--- NOTE | 2024-10-07 13:51 | PT-OP ANOTE ---
Pt did not show for 145 appt. CLIP ON SUNGLASS[employer] ASSEMBLER left message have an opening at 1430 to call back if need to come in later.
== END 2024-10-08 11:04 | disposition home or self-care (01) ==
LOC: PHYS 14:30
PROVIDERS: Family Provider Family Medicine; PCP Family Medicine; Referring Provider Family Medicine; Visit Provider Family Medicine
DX: S76.311D Strain of muscle, fascia and tendon of the posterior muscle group at thigh level, right thigh, subsequent encounter (principal)
CPT/HCPCS: 97110; 97140; 97162; 97535

== ENCOUNTER 2025-01-09 11:25 | Emergency (ER) | payer MEDICARE, OTHER, SELFPAY ==
[2023-08-04 21:36] VITALS: BMI 22.4
[2025-01-09] VITALS (11 sets, daily range): BP systolic 144–206; BP diastolic 70–84; PULSE 58–72; RESP 12–34; TEMP 36.4; O2SAT 97–100; BMI 25.2
--- NOTE | 2025-01-09 11:31 | EKG_ITS ---
[address] [address] Test Date: 2025-01-09 Pat Name: Laura Hernandez Department: [facility] Room: Gender: Female Chain Maker: : 1945 Requested By: Order Number: [id number] Reading MD: Saul Xavier MD Measurements Intervals [place] Rate: 68 P: 65 VA: 172 QRS: 46 QRSD: 86 T: 69 QT: 422 QTc: 448 Interpretive Statements Normal sinus rhythm Electronically Signed On 01-10-2025 8:25:18 PDT by Saul Xavier MD
--- NOTE | 2025-01-09 11:33 | ED_ITS ---
HPI - Neuro Symptoms/Deficit General Chief Complaint: Neuro Symptoms/Deficit Stated Complaint: Dizzy, Nausea Time Seen by Provider: 01/09/25 11:58 History of Present Illness HPI Narrative: Patient brought in by ambulance from home for dizziness and nausea. Blood sugar 86. Sudden onset at 10:00 a.m. this morning. As well known 10:00 a.m. this morning. Patient got up from a seated position and got very dizzy. Colbert like she was spinning. Worse with keeping her eyes open. Denies any headache. Has had trouble finding words at times. Feels weaker on the right hand. No prior history of stroke. Patient does have history of diabetes and hypertension and hypercholesteremia. Related Data Home Medications Medication Instructions Recorded Confirmed folic acid 1 mg tablet 1 mg PO DAILY ##0 11/28/12 08/04/23 cholestyramine-aspartame 4 gram 4 g PO BID 07/31/18 08/04/23 oral powder lamotrigine 25 mg tablet 150 mg PO BID 07/31/18 08/04/23 lisinopril 20 mg tablet 20 mg PO BID 07/31/18 08/04/23 metformin 500 mg tablet 500 mg PO BID 07/31/18 08/04/23 omeprazole 40 mg capsule,delayed 40 mg PO DAILY 07/31/18 08/04/23 release simvastatin 20 mg tablet 20 mg PO BEDTIME 07/31/18 08/04/23 Previous Rx's Medication Instructions Recorded aspirin 81 mg tablet,delayed 81 mg PO DAILY #100 tabs 07/10/22 release meclizine 25 mg tablet 50 mg (2 x 25 mg) PO TID PRN 01/09/25 dizziness #30 tabs Allergies Allergy/AdvReac Type Severity Reaction Status Date / Time No Known Drug Allergies Allergy Verified 01/09/25 11:34 Review of Systems Review of Systems Narrative: GENERAL: Negative chills, fatigue, malaise, fever, sweats. HEENT: Negative sinus pain, ear pain, sore throat negative hearing change RESPIRATORY: Negative dyspnea, cough CARDIOVASCULAR: Negative chest pain, palpitations GASTROINTESTINAL: Negative vomiting, nausea, abdominal pain : Negative dysuria, frequency, hematuria MUSCULOSKELETAL: Negative muscle or bony pain SKIN: Negative rash, skin lesions NEUROLOGIC: Negative weakness, numbness positive dizziness negative slurred speech negative headache ROS Unobtainable: All systems reviewed & are unremarkable except as noted in HPI and below Patient History Medical History Acute ischemic colitis Diabetes Hyperlipidemia Surgical History Hx of resection of meningioma Hx of cholecystectomy Family History Father Diabetes mellitus Heart disease Esophageal cancer Social History marital status: household members: spouse occupational status: previously employed alcohol intake: never substance use type: does not use alcohol intake frequency: 0-2 drinks per day Exam Narrative Exam Narrative: GENERAL: in no distress, not toxic not dyspneic HEAD: Normocephalic. EYES: Pupils equal round ENT: Mucous membranes moist. NECK: Trachea midline. CARDIOVASCULAR: Regular rate and rhythm RESPIRATORY: Clear to auscultation. Breath sounds equal bilaterally. No wheezes, rales, or rhonchi. GASTROINTESTINAL: Abdomen soft, non-tender EXTREMITIES: No gross deformities. BACK: No flank tenderness. NEURO: AOx4. Clear speech, no facial droop light touch intact bilateral face and hands and legs. No leg drift, slightly weaker right cardiac rehabilitation specialist than left. No nystagmus. SKIN: Warm and dry PSYCH: Not anxious, is cooperative Initial Vital Signs Initial Vital Signs: Vital Signs Pulse Rate 71 01/09/25 11:30 Respiratory Rate 20 01/09/25 11:30 Pulse Oximetry 100 01/09/25 11:30 Scores NIH Stroke Scale Level of Conciousness: Alert, keenly responsive Ask month/age: Answers both questions correctly. Open/close eyes, close hand: Performs both tasks correctly Best gaze horizontal: Normal Visual faust: No visual loss Facial palsy: Normal symetrical movement Left arm drift: No drift for full 10 sec Right arm drift: No drift for full 10 sec Left leg drift: No drift for full 5 sec Right leg drift: No drift for full 5 sec Limb ataxia: Absent Sensory on face/arms/legs: Normal, no sensory loss Best language: No aphasia, normal Dysarthria: Normal Extinction or inattention: No abnormality Total NIH Stroke scale score: 0 Course Orders Ordered: Discontinued Medications Aspirin (Aspirin 81 Mg Chew Tab) 243 mg PO NOW ONE Stop: 01/09/25 12:54 Last Admin: 01/09/25 12:58 Dose: 243 mg Documented By: TERESA Sodium Chloride (Normal Saline 0.9%) 500 mls @ 1,000 mls/hr IV BOLUS ONE Stop: 01/09/25 12:00 Last Infusion: 01/09/25 12:59 Dose: Infused Documented By: Infusion: 01/09/25 12:42 Dose: 1,000 mls/hr Documented By: Infusion: 01/09/25 12:14 Dose: 0 mls/hr Documented By: Admin: 01/09/25 11:56 Dose: 1,000 mls/hr Documented By: TERESA Meclizine HCl (Meclizine Hcl 12.5 Mg Tablet) 50 mg PO NOW ONE Stop: 01/09/25 11:32 Last Admin: 01/09/25 11:58 Dose: 50 mg Documented By: TERESA Vital Signs Vital signs: Vital Signs - 8 hr 01/09/25 11:30 01/09/25 11:31 01/09/25 11:31 Temperature Pulse Rate 71 68 Respiratory Rate 20 16 Blood Pressure 194/75 H Pulse Oximetry 100 100 Oxygen Delivery Method 01/09/25 11:34 01/09/25 11:44 01/09/25 11:44 Temperature 97.6 F Pulse Rate 69 66 Respiratory Rate 20 14 Blood Pressure 194/75 H 144/84 H Pulse Oximetry 100 100 Oxygen Delivery Method Room Air 01/09/25 12:00 01/09/25 12:46 01/09/25 12:48 Temperature Pulse Rate 72 69 Respiratory Rate 28 H 23 Blood Pressure 206/77 H Pulse Oximetry 100 Oxygen Delivery Method 01/09/25 12:48 01/09/25 13:00 01/09/25 13:00 Temperature Pulse Rate 69 69 Respiratory Rate 34 H 18 Blood Pressure 176/72 H Pulse Oximetry 97 100 Oxygen Delivery Method 01/09/25 13:13 01/09/25 13:14 Temperature Pulse Rate 72 Respiratory Rate 23 Blood Pressure 160/70 H Pulse Oximetry Oxygen Delivery Method MDM - Neuro Symptoms/Deficit Lab Data 01/09/25 11:25 01/09/25 11:25 Labs: Lab Results 01/09/25 01/09/25 Range/Units 11:25 13:10 WBC 8.6 (4.5-11.0) X10^3/uL RBC 4.15 (4.0-5.2) X10^6/uL Hgb 11.0 L (12.0-16.0) g/dL Hct 33.3 L (36-46) % MCV 80.2 (80-100) fL MCH 26.5 (26-34) PG MCHC 33.0 (30-36) % RDW 14.3 (11.6-14.8) % Plt Count 283 (150-400) X10^3/uL Neut % (Auto) 67.8 (50-75) % Lymph % (Auto) 23.2 L (25-40) % [place] % (Auto) 7.5 (3-14) % Eos % (Auto) 0.9 L (2-4) % Baso % (Auto) 0.6 (0-2) % Neut # (Auto) 5900 (2866-0479) /uL Lymph # (Auto) 2000 (3125-4539) /uL [place] # (Auto) 600 (0-900) /uL Eos # (Auto) 100 (0-450) /uL Baso # (Auto) 100 (0-100) /uL PT 11.3 (9.4-12.5) SECONDS INR 1.0 (0.9-1.3) APTT 36 (25.1-36.5) SECONDS Sodium 140 (137-145) mmol/L Potassium 4.2 (3.4-5.1) mmol/L Chloride 103 (98-107) mmol/L Carbon Dioxide 28 (22-32) mmol/L BUN 28 H (7-17) mg/dL Creatinine 0.75 (0.52-1.04) mg/dL Estimated GFR > 60 (>60) mL/min BUN/Creatinine Ratio 37.3 H (6-22) Glucose 89 (80-110) mg/dL Calcium 9.6 (8.4-10.2) mg/dL Total Bilirubin 0.4 (0.2-1.3) mg/dL AST 20 (14-36) IU/L ALT 17 (<35) IU/L Alkaline Phosphatase 93 (38-126) U/L Total Creatine Kinase 23 L (30-135) U/L Troponin I < 0.012 (0.01-0.034) ng/mL Total Protein 7.3 (6.3-8.2) g/dL Albumin 4.4 (3.5-5.0) g/dL Globulin 2.9 (1.7-4.1) g/dL Albumin/Globulin Ratio 1.5 (1.0-2.8) Urine Color Yellow Urine Appearance Clear Urine pH 7.5 (4.5-8.0) Ur Specific [place] <=1.005 (1.000-1.035) Urine Protein Negative (Negative) Urine Glucose (UA) Negative (Negative) g/dL Urine Ketones Negative (NEGATIVE) Urine Occult Blood Trace-lysed (Negative) Urine Nitrate Negative (Negative) Urine Bilirubin Negative (NEGATIVE) Urine Urobilinogen 0.2 (0.2) E.U./dL Ur Leukocyte Esterase Trace H (NEGATIVE) Urine RBC 0-1/hpf (0-5/HPF) Urine WBC 0-1/hpf (0-5/HPF) Ur Squamous Epith Cells None seen (0-5/HPF) Urine Bacteria None seen (None) Ur Culture Indicated? Cult not indicated Vol Urine Centrifuged 10ml (spun) Imaging Data CT scan - head: Radiologist's Impression: [place] [address] CT Scan Report Signed Patient: Laura Hernandez MR#: [id number] : 1945 Acct:[id number] Age/Sex: 79 / F Date of Service: 01/09/25 Loc: ED Accession Number: [id number] Procedure: CT Stroke Ordering Provider: Jamil Green MD PROCEDURE: CT STROKE INDICATIONS: Dizzy/right-sided week TECHNIQUE: Noncontrast 4.5 mm thick angled axial sections acquired from the foramen magnum to the vertex, with coronal reformats. For radiation dose reduction, the following was used: automated exposure control, adjustment of mA and/or kV according to patient size. COMPARISON: , CT, CT ANGIO HEAD AND NECK, 01/09/2025, 11:41. FINDINGS: Image quality: Diagnostic. CSF spaces: Basal cisterns are patent. No extra-axial fluid collections. Ventricles are normal in size and shape. Brain: Sequela of remote bifrontal strokes with subsequent encephalomalacia. No midline shift. No intracranial mass effect or hemorrhage. Mederos-white matter interface is normal. Skull and face: Calvarium and visualized facial bones are intact, without suspicious lesions. Diffuse calvarial thickening with postsurgical changes of prior craniotomy. Sinuses: Visualized sinuses and mastoids are clear. IMPRESSION: No acute intracranial pathology. Sequela of remote bifrontal infarct. Dr. Charkaborty called and discussed the above findings with the ordering provider at 10:56 a.m. [place] time. This study fulfills neurological imaging criteria for inclusion or exclusion of acute stroke therapies based on available published neurological imaging guidelines. Dictated by: Jamil Chakraborty M.D. on 01/09/2025 at 10:51 Approved by: Jamil Chakraborty M.D. on 01/09/2025 at 10:56 CTA - brain/neck: Radiologist's Impression: [place] [address] CT Scan Report Signed Patient: Laura Hernandez MR#: [id number] : 1945 Acct:[id number] Age/Sex: 79 / F Date of Service: 01/09/25 Loc: ED Accession Number: [id number] Procedure: CT angio head and neck Ordering Provider: Jamil Green MD PROCEDURE: CT ANGIO HEAD AND NECK INDICATIONS: Dizzy/right-sided week TECHNIQUE: After the administration of intravenous contrast, 1 mm thick sections acquired from the aortic arch through the [place]. 3-dimensional gpogptk-awoznalth-exnphzvvjj (MIP) and/or volume rendering reformats were acquired of the central intracranial vasculature and neck separately. For radiation dose reduction, the following was used: automated exposure control, adjustment of mA and/or kV according to patient size. COMPARISON: None. FINDINGS: Image quality: Diagnostic. BRAIN: CSF spaces: Ventricles are normal in size and shape. Basal cisterns are patent. No extra-axial fluid collections. Brain: Sequela of encephalomalacia of the bilateral frontal lobes, remote infarct Skull and face: Calvarium and facial bones appear intact, without suspicious lesions. Orbits appear normal. Sinuses: Sinuses and mastoids are clear. HEAD CT ANGIOGRAPHY: Anterior circulation: Intracranial internal carotid arteries are normal in size and flow. The flow within the paired anterior cerebral arteries is normal and symmetric. The flow within the middle cerebral arteries is normal and symmetric. The anterior communicating artery is seen. No aneurysms are seen. Posterior circulation: Visualized portions of the vertebral arteries demonstrate normal caliber, and join to form a normal appearing basilar artery. Flow within the posterior cerebral arteries is normal and symmetric. No aneurysms are seen. NECK CT ANGIOGRAPHY: Carotid system: The great vessels demonstrate a conventional anatomy as they arise from the aortic arch. The origins of the common carotid arteries appear patent. The common carotid arteries demonstrate normal caliber and courses. The bifurcation regions are both widely patent. The internal carotid arteries demonstrate normal calibers and courses. Posterior circulation: The origins of the vertebral arteries both appear widely patent. The more superior extracranial portions of both vertebral arteries also demonstrate normal courses and calibers. They join to form a normal appearing basilar artery. Soft tissues: Visualized neck soft tissues demonstrate no suspicious abnormalities. Bones: No suspicious bony lesions. Visualized cervical spine appears normally aligned. IMPRESSION: No significant intracranial arterial abnormality is seen. No significant abnormality is seen within the arteries of the neck. Any quantitative measurements of stenosis were performed using NASCET criteria. Dictated by: Jamil Chakraborty M.D. on 01/09/2025 at 11:00 Approved by: Jamil Chakraborty M.D. on 01/09/2025 at 11:05 MRI brain: Radiologist's Impression: [place] [address] Magnetic Resonance Report Signed Patient: Laura Hernandez MR#: [id number] : 1945 Acct:[id number] Age/Sex: 79 / F Date of Service: 01/09/25 Loc: ED Accession Number: [id number] Procedure: MR head/brain wo con Ordering Provider: Jamil Green MD PROCEDURE: MR HEAD/BRAIN WO CON INDICATIONS: Dizzy/stroke TECHNIQUE: Noncontrast axial T1 spin echo, axial T2 fast spin echo, sagittal and axial FLAIR, coronal T2 fast spin echo, axial gradient echo, axial diffusion and ADC through the brain. COMPARISON: None. FINDINGS: Image quality: Excellent. CSF Spaces: Basal cisterns are patent. No extra-axial fluid collections. Ventricles are normal in size and shape. Brain: Sequela of remote infarct in the bilateral frontal lobes with subsequent encephalomalacia with a few septations. T2/FLAIR hyperintensities within the white matter. No intracranial masses or hemorrhage. Mederos/white matter interface is normal. Brainstem appears normal. Diffusion-weighted images demonstrate no acute infarct. No chronic ischemic insults. Normal intravascular flow voids are present. Skull and face: Sequela of prior craniotomy with subsequent plate fixation and metallic artifact. Orbits appear normal. Sinuses: Sinuses and mastoids are clear. IMPRESSION: No acute infarct. Sequela of remote infarct. Dictated by: Jamil Chakraborty M.D. on 01/09/2025 at 11:54 Approved by: Jamil Chakraborty M.D. on 01/09/2025 at 11:58 [facility] Narrative Medical decision making narrative: Patient brought in by ambulance from home for dizziness and nausea. Blood sugar 86. Sudden onset at 10:00 a.m. this morning. As well known 10:00 a.m. this morning. Patient got up from a seated position and got very dizzy. Colbert like she was spinning. Worse with keeping her eyes open. Denies any headache. Has had trouble finding words at times. Feels weaker on the right hand. No prior history of stroke. Patient does have history of diabetes and hypertension and hypercholesteremia. After history and exam, CT head stroke protocol CT angiogram head and neck normal saline EKG troponin CBC CMP neurology consult [facility] Medical records reviewed: No recent visit for this complaint Differential considered: Includes but not limited to TIA stroke vertigo Lab Test results independently reviewed as above. Pertinent findings: WBC 8.6 hemoglobin 11.0 BUN 28 creatinine 0.75 glucose 89 Independently reviewed EKG normal sinus rhythm rate 68 normal EKG Imaging studies independently reviewed: CT head no acute finding, CT angiogram head and neck, MRI brain no acute stroke 12:06 p.m.. Spoke with [facility] tele stroke, Dr. Anderson, at this time no Tnk, tPA given low NIH score., CT angiogram is being reviewed. She will call back if it is abnormal. If MRI is normal then patient can be discharged home, no echocardiogram indicated if not available here this weekend and if MRI is normal Consultations: 11:55 a.m.. Spoke with radiologist, CT head without contrast no acute finding Re-evaluations: 12:02 p.m.. Updated patient results CT scan of head. She does have history of meningioma and frontal lobe with surgery. No prior history of stroke. 1:24 p.m.. Updated patient and . Patient states she is symptom-free now. Meclizine has worked. Able to sit up and look around and move without any dizziness. Reviewed results with them. This is likely vertigo. She did have likely remote stroke in the past but she did have meningioma surgery in the past. Return precautions reviewed. She desires discharge home. Discussion: Appropriate for discharge home. Neurology was contacted. MRI no acute stroke. Remote stroke likely from encephalomalacia/history of meningioma. Return precautions reviewed. Symptoms resolved with meclizine. Clinically is vertigo. Return precautions reviewed. They desire discharge home. Diagnosis: Vertigo Discharge Plan Departure Patient Disposition: Home Clinical Impression: Vertigo Instructions: DI for Benign Paroxysmal Positional Vertigo Activity Restrictions/Additional Instructions: You are being treated for vertigo. Your exam and laboratory studies imaging studies are reassuring your CT scan and MRI are reassuring. Neurology Services was contacted today. See family doctor next week for re-evaluation. Return if if worse if any questions or concerns. Call provided Ear Nose Throat office on Saturday for follow up. See family doctor next week as well. Return if worse if any questions or concerns. 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 Prescriptions: New meclizine 25 mg tablet 50 mg PO TID PRN (Reason: dizziness) Qty: 30 0RF No Action folic acid 1 MG tablet 1 mg PO DAILY Qty: 0 metformin 500 mg tablet 500 mg PO BID lisinopril 20 mg tablet 20 mg PO BID omeprazole 40 mg capsule,delayed release(DR/EC) 40 mg PO DAILY lamotrigine 25 mg tablet 150 mg PO BID simvastatin 20 mg tablet 20 mg PO BEDTIME cholestyramine-aspartame 4 gram powder 4 g PO BID aspirin 81 mg Tablet,Delayed Release (Dr/Ec) 81 mg PO DAILY Qty: 100 0RF Referrals: Daniel Mcfarland MD [Physician] - Arvin Bell MD [Primary Care Provider] - Stand Alone Forms: Patient Portal/API/Survey
[2025-01-09 11:41] LABS: Add Manual Diff / Slide Review NO; Basophils Absolute Auto 100 /uL (0-100); Basophils Percent Auto 0.6 % (0-2); Eosinophils Absolute Auto 100 /uL (0-450); Eosinophils Percent Auto 0.9 % (2-4); Hematocrit 33.3 % (36-46); Lymphocytes Absolute Auto 2000 /uL (1100-4500); Lymphocytes Percent Auto 23.2 % (25-40); Mean Corpuscular Hemoglobin 26.5 PG (26-34); Mean Corpuscular Volume 80.2 fL (80-100); Monocytes Absolute Auto 600 /uL (0-900); Monocytes Percent Auto 7.5 % (3-14); Neutrophils Absolute Auto 5900 /uL (1500-7000); Neutrophils Percent Auto 67.8 % (50-75); Platelet Count 283 X10^3/uL (150-400); Red Blood Cell Count 4.15 X10^6/uL (4.0-5.2); Red Cell Distribution Width 14.3 % (11.6-14.8); White Blood Cell Count 8.6 X10^3/uL (4.5-11.0)
[2025-01-09 11:44] LABS: Prothrombin Time 11.3 SECONDS (9.4-12.5)
[2025-01-09 11:47] LABS: PTT Partial Thromboplastin Tim 36 SECONDS (25.1-36.5)
[2025-01-09 11:48] LABS: Alanine Aminotransferase 17 IU/L (<35); Albumin 4.4 g/dL (3.5-5.0); Albumin Globulin Ratio 1.5 (1.0-2.8); Alkaline Phosphatase 93 U/L (38-126); Aspartate Aminotransferase 20 IU/L (14-36); BUN Creatinine Ratio 37.3 (6-22); Bilirubin Total 0.4 mg/dL (0.2-1.3); Blood Urea Nitrogen 28 mg/dL (7-17); Calcium 9.6 mg/dL (8.4-10.2); Carbon Dioxide 28 mmol/L (22-32); Chloride 103 mmol/L (98-107); Creatine Kinase 23 U/L (30-135); Estimated Glomerular Filt Rate > 60 mL/min (>60); Globulin 2.9 g/dL (1.7-4.1); Glucose 89 mg/dL (80-110); HEMOLYSIS < 15 (0-50); Potassium 4.2 mmol/L (3.4-5.1); Sodium 140 mmol/L (137-145); Total Protein 7.3 g/dL (6.3-8.2)
[2025-01-09] MEDS: SODIUM CHLORIDE 0.9% 500 ML 1000 ML IV (11:56)
--- NOTE | 2025-01-09 11:57 | DI.MRI.S_ITS ---
PROCEDURE: MR HEAD/BRAIN WO CON INDICATIONS: Dizzy/stroke TECHNIQUE: Noncontrast axial T1 spin echo, axial T2 fast spin echo, sagittal and axial FLAIR, coronal T2 fast spin echo, axial gradient echo, axial diffusion and ADC through the brain. COMPARISON: None. FINDINGS: Image quality: Excellent. CSF Spaces: Basal cisterns are patent. No extra-axial fluid collections. Ventricles are normal in size and shape. Brain: Sequela of remote infarct in the bilateral frontal lobes with subsequent encephalomalacia with a few septations. T2/FLAIR hyperintensities within the white matter. No intracranial masses or hemorrhage. Mederos/white matter interface is normal. Brainstem appears normal. Diffusion-weighted images demonstrate no acute infarct. No chronic ischemic insults. Normal intravascular flow voids are present. Skull and face: Sequela of prior craniotomy with subsequent plate fixation and metallic artifact. Orbits appear normal. Sinuses: Sinuses and mastoids are clear. IMPRESSION: No acute infarct. Sequela of remote infarct. Dictated by: Jamil Chakraborty M.D. on 01/09/2025 at 11:54 Approved by: Jamil Chakraborty M.D. on 01/09/2025 at 11:58
[2025-01-09] MEDS: MECLIZINE HCL 12.5 MG TABLET 50 MG PO (11:58)
[2025-01-09 12:00] LABS: Troponin I < 0.012 ng/mL (0.01-0.034)
--- NOTE | 2025-01-09 12:13 | PC.NURSE ---
Unsuccessful attempt at urine sample d/t contamination.
[2025-01-09] MEDS: ASPIRIN 81 MG CHEW TAB 243 MG PO (12:58)
[2025-01-09 13:29] LABS: Appearance Urine UA CLEAR; Bilirubin Urine UA NEGATIVE (NEGATIVE); Color Urine UA YELLOW; Glucose Urine UA NEGATIVE (Negative); Ketones Urine UA NEGATIVE (NEGATIVE); Leukocyte Esterase Urine UA TRACE (NEGATIVE); Nitrite Urine UA NEGATIVE (Negative); Occult Blood Urine UA TRACE-LYSED (Negative); Protein Urine UA NEGATIVE (Negative); Specific Gravity Urine UA <=1.005 (1.000-1.035); Urobilinogen Urine UA 0.2 E.U./dL (0.2)
[2025-01-09 13:33] LABS: pH Urine UA 7.5 (4.5-8.0)
[2025-01-09 14:10] LABS: Bacteria Urine None Seen; RBC Urine 0-1/HPF (0-5/HPF); Urine Volume 10mL (spun); WBC Urine 0-1/HPF (0-5/HPF)
[2025-01-09 14:11] LABS: Culture Indicated Urine Cult Not Indicated; Squamous Epithelial Cell Urine None Seen (0-5/HPF)
== END 2025-01-09 13:47 | disposition home or self-care (01) ==
PROVIDERS: Emergency Provider Emergency Medicine; Family Provider Family Medicine; PCP Family Medicine; Referring Provider Family Medicine
DX: R42 Dizziness and giddiness (principal); R11.0 Nausea; I10 Essential (primary) hypertension; R29.700 NIHSS score 0; Z86.011 Personal history of benign neoplasm of the brain
CPT/HCPCS: 36415; 70450; 70496; 70498; 70551; 80053; 81001; 82550; 84484; 85025; 85610; 85730; 93005; 96360; 99285; Q9967

== ENCOUNTER → 2025-02-09 12:02 | Outpatient (CLI) | payer MEDICARE, OTHER, SELFPAY ==
[2023-08-04 21:36] VITALS: BMI 22.4
--- NOTE | 2025-02-09 12:04 | DI.RAD.S_ITS ---
PROCEDURE: XR SHOULDER RT MIN 2V INDICATIONS: Pain in right shoulder TECHNIQUE: Three views of the right shoulder were acquired. COMPARISON: None. FINDINGS: Bones: Prominent enthesophyte projects from the inferior acromion predisposing to extrinsic rotator cuff impingement Acromioclavicular and glenohumeral joints: Moderate acromioclavicular and mild glenohumeral degeneration appreciated Soft tissues: No soft tissue swelling, calcification or mass. IMPRESSION: Degeneration. Enthesophyte in the inferior acromion predispose extrinsic rotator cuff impingement Dictated by: Saul Dias M.D. on 02/10/2025 at 9:59 Approved by: Saul Dias M.D. on 02/10/2025 at 10:00
== END ==
PROVIDERS: Family Provider Family Medicine; PCP Family Medicine; Referring Provider Family Medicine; Visit Provider Family Medicine
DX: M25.511 Pain in right shoulder (principal); G89.29 Other chronic pain; M77.8 Other enthesopathies, not elsewhere classified; M25.811 Other specified joint disorders, right shoulder; M19.011 Primary osteoarthritis, right shoulder
CPT/HCPCS: 73030

== ENCOUNTER 2025-07-26 09:53 | Emergency (ER) | payer MEDICARE, OTHER, SELFPAY ==
[2023-08-04 21:36] VITALS: BMI 22.4
[2025-07-26] VITALS (21 sets, daily range): BP systolic 164–231; BP diastolic 73–93; PULSE 64–91; RESP 18; TEMP 36.7; O2SAT 94–100; BMI 21.6
--- NOTE | 2025-07-26 09:55 | DI.CT.S_ITS ---
PROCEDURE: CT HEAD/BRAIN WO CON
--- NOTE | 2025-07-26 09:55 | DI.CT.S_ITS ---
PROCEDURE: CT CERVICAL SPINE WO CON
--- NOTE | 2025-07-26 09:56 | ED_ITS ---
HPI - Head Injury
--- NOTE | 2025-07-26 09:56 | ED.HEATRA ---
HPI - Head Injury General Chief complaint: Fall Stated complaint: Rapid Response Time Seen by Provider: 07/26/25 09:55 Source: patient, RN notes reviewed and old records reviewed Mode of arrival: Wheelchair Limitations: no limitations History of Present Illness HPI Narrative: 80-year-old female history of hypertension, diabetes takes aspirin 81 mg daily was in the hospital cafeteria when she accidentally caught her toe tripped and fell hitting her head. Denies any loss of consciousness. Denies headache but not use any neck pain. No chest pain or shortness of breath. Denies any other injuries other than she banged her knee. She states it is moving normally she does not think it needs any imaging or further workup. She denies any other injuries. Has a small laceration of the left brow. States her tetanus is up-to-date in the last 5 years. Denies any nausea or vomiting no other GI or urinary symptoms. 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 Related Data Home Medications ?Medication ?Instructions ?Recorded ?Confirmed folic acid 1 mg tablet 1 mg PO DAILY ##0 11/28/12 08/04/23 cholestyramine-aspartame 4 gram 4 g PO BID 07/31/18 08/04/23 oral powder lamotrigine 25 mg tablet 150 mg PO BID 07/31/18 08/04/23 lisinopril 20 mg tablet 20 mg PO BID 07/31/18 08/04/23 metformin 500 mg tablet 500 mg PO BID 07/31/18 08/04/23 omeprazole 40 mg capsule,delayed 40 mg PO DAILY 07/31/18 08/04/23 release simvastatin 20 mg tablet 20 mg PO BEDTIME 07/31/18 08/04/23 Previous Rx's ?Medication ?Instructions ?Recorded aspirin 81 mg tablet,delayed 81 mg PO DAILY #100 tabs 07/10/22 release meclizine 25 mg tablet 50 mg (2 x 25 mg) PO TID PRN 01/09/25 dizziness #30 tabs hydrocodone 5 mg-acetaminophen 325 1 tab PO Q6H PRN pain #10 tabs 07/26/25 mg tablet Allergies Allergy/AdvReac Type Severity Reaction Status Date / Time No Known Drug Allergies Allergy Verified 07/26/25 10:01 Review of Systems Review of Systems ROS Unobtainable: All systems reviewed & are unremarkable except as noted in HPI and below Patient History Medical History Acute ischemic colitis Diabetes Hyperlipidemia Surgical History Hx of resection of meningioma Hx of cholecystectomy Family History Father Diabetes mellitus Heart disease Esophageal cancer Social History marital status: household members: spouse occupational status: previously employed Smoking Status: Never smoker alcohol intake: never substance use type: does not use alcohol intake frequency: 0-2 drinks per day Exam Narrative Exam Narrative: GEN: Patient appears in mild distress. HEAD: Patient has small lacerations of the lateral left brow, no raccoon/[place] sign. NECK: Nontender, painless range of motion, trachea midline Negative Nexus criteria, no midline line tenderness, distracting injury, altered mental status, neuro deficit, recent EtOH. EYES: PERRLA, EOMI ENT: External inspection normal, trachea is midline, TM's are normal no hemotypanum, Nares are clear, no septal hematoma, no dental or oral injury, airway is normal and with normal occlusion, No bony tenderness RESP: Chest is nontender and has symmetric movement, no ecchymosis, breath sounds are normal no crackles, wheezes or rales CVS: Heart sounds are normal, no murmur noted, No JVD. ABG/GI: Nontender, soft, normal bowel sounds, no distention, no organomegaly, pelvic rock is negative NEURO: Oriented AOx3, neuro is grossly intact, sensation and motor is normal all 4 extremities moving, cranial nerves II through XII are intact, GCS is 15 PSYCH: Normal mood and affect SKIN: Intact, warm and dry, no crepitus and without decubitus BACK: No CVA tenderness, no vertebral tenderness, no step-off's, no crepitus EXT: Atraumatic, hips are nontender, no pedal edema, normal color and temperature, normal range of motion of extremities with normal tendon exam, 2+ pulses in all four extremities Initial Vital Signs Initial Vital Signs: Vital Signs Pulse Rate 91 H 07/26/25 09:57 Pulse Oximetry 97 07/26/25 09:57 Procedures Laceration Repair Laceration 1: Site: face (Left brow) Side (If applicable): left Size (cm): 1 Description: linear (2 linear lacerations parallel, by .4cm strip.) and clean Depth: simple, single layer Local Anesthetic: lidocaine 2% Amount of anesthesia used (mL): 4 Pre-repair: wound explored, irrigated extensively and deep structures intact Skin layer closed with: vicryl Skin layer suture size: 5-0 Number of sutures: 9 Technique: simple, interrupted Course Orders Ordered: ED Orders 07/26/25 09:55 CT cervical spine wo con Stat CT head/brain wo con Stat 07/26/25 13:49 XR hip w pel LT 2V Stat 07/26/25 14:05 BMP [Basic Metabolic Panel] Stat CBC Auto Diff [Complete Blood Count AUTO DIFF] Stat Discontinued Medications Hydrocodone Bitart/Acetaminophen (Hydrocodone/Acet 5/325 Tablet) 1 tab PO NOW ONE Stop: 07/26/25 13:51 Last Admin: 07/26/25 14:07 Dose: 1 tab Documented By: GABBY Lidocaine HCl (Lidocaine 2% Inj Sdv 5ml) 5 ml SUBCUT NOW ONE Stop: 07/26/25 09:59 Last Admin: 07/26/25 13:07 Dose: 5 ml Documented By: GABBY Vital Signs Vital signs: Vital Signs - 8 hr 07/26/25 09:57 07/26/25 10:00 07/26/25 10:00 Temperature Pulse Rate 91 H 78 Respiratory Rate Blood Pressure 220/86 H Pulse Oximetry 97 97 Oxygen Delivery Method 07/26/25 10:01 07/26/25 10:11 07/26/25 10:11 Temperature 98.0 F Pulse Rate 80 73 Respiratory Rate 18 Blood Pressure 220/86 H 197/82 H Pulse Oximetry 100 99 Oxygen Delivery Method Room Air 07/26/25 10:30 07/26/25 10:30 07/26/25 11:00 Temperature Pulse Rate 78 67 Respiratory Rate Blood Pressure 212/91 H Pulse Oximetry 100 97 Oxygen Delivery Method 07/26/25 11:01 07/26/25 11:01 07/26/25 11:30 Temperature Pulse Rate 70 70 Respiratory Rate Blood Pressure 191/77 H Pulse Oximetry 97 97 Oxygen Delivery Method 07/26/25 11:31 07/26/25 11:31 07/26/25 12:00 Temperature Pulse Rate 69 64 Respiratory Rate Blood Pressure 189/78 H Pulse Oximetry 97 95 Oxygen Delivery Method 07/26/25 12:01 07/26/25 12:01 07/26/25 12:30 Temperature Pulse Rate 70 78 Respiratory Rate Blood Pressure 171/73 H Pulse Oximetry 97 99 Oxygen Delivery Method 07/26/25 12:30 07/26/25 13:00 07/26/25 13:00 Temperature Pulse Rate 80 Respiratory Rate Blood Pressure 195/86 H 231/93 H Pulse Oximetry 99 Oxygen Delivery Method 07/26/25 13:30 07/26/25 13:31 07/26/25 13:31 Temperature Pulse Rate 75 74 Respiratory Rate Blood Pressure 193/80 H Pulse Oximetry 98 97 Oxygen Delivery Method 07/26/25 14:00 07/26/25 14:05 07/26/25 14:05 Temperature Pulse Rate 78 Respiratory Rate Blood Pressure 206/91 H Pulse Oximetry 98 99 Oxygen Delivery Method 07/26/25 14:31 07/26/25 15:00 07/26/25 15:30 Temperature Pulse Rate 85 70 67 Respiratory Rate Blood Pressure Pulse Oximetry 100 94 94 Oxygen Delivery Method 07/26/25 15:40 07/26/25 15:40 Temperature Pulse Rate 77 Respiratory Rate Blood Pressure 164/87 H Pulse Oximetry 97 Oxygen Delivery Method MDM - Head Injury Lab Data 07/26/25 14:05 07/26/25 14:05 Labs: Lab Results 07/26/25 Range/Units 14:05 WBC 12.8 H (4.5-11.0) X10^3/uL RBC 4.41 (4.0-5.2) X10^6/uL Hgb 11.3 L (12.0-16.0) g/dL Hct 34.8 L (36-46) % MCV 79.0 L (80-100) fL MCH 25.6 L (26-34) PG MCHC 32.4 (30-36) % RDW 14.6 (11.6-14.8) % Plt Count 319 (150-400) X10^3/uL Neut % (Auto) 77.4 H (50-75) % Lymph % (Auto) 14.8 L (25-40) % Falls % (Auto) 6.4 (3-14) % Eos % (Auto) 1.0 L (2-4) % Baso % (Auto) 0.4 (0-2) % Neut # (Auto) 9900 H (5323-4340) /uL Lymph # (Auto) 1900 (9383-7729) /uL Falls # (Auto) 800 (0-900) /uL Eos # (Auto) 100 (0-450) /uL Baso # (Auto) 0 (0-100) /uL Sodium 140 (137-145) mmol/L Potassium 3.9 (3.4-5.1) mmol/L Chloride 102 (98-107) mmol/L Carbon Dioxide 28 (22-32) mmol/L BUN 19 H (7-17) mg/dL Creatinine 0.68 (0.52-1.04) mg/dL Estimated GFR > 60 (>60) mL/min BUN/Creatinine Ratio 27.9 H (6-22) Glucose 89 (70-99) mg/dL Calcium 9.9 (8.4-10.2) mg/dL [facility] Narrative Medical decision making narrative: Head CT no acute intracranial process stable impressive bifrontal encephalomalacia consistent with sequela of remote trauma versus 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 CT cervical spine no displaced fracture or traumatic subluxation, cervical spondylosis with the canal stenosis and multi foraminal stenosis. Hip x-ray shows no acute bony abnormality. Labs show white count of 12.8 hemoglobin 11.3 consistent with priors, platelets are 319. Electrolytes are appropriate BUN 19 creatinine 0.68 glucose is 89. 80-year-old female with a mechanical ground level fall did hit her left forehead laceration which was repaired patient does take an aspirin daily and a based on extremity of age had head CT and CT cervical spine she has been ambulating without issue but during her stay was noted to have a large left hip hematoma. She has been able to ambulate in the department on assisted but hip x-ray was obtained which is negative. Compression bandage was placed. Patient does not feel that it is increasing in size. Did get baseline labs patient had 1 dose of [place] which she has found very helpful. Discharge Plan Departure Patient Disposition: Home Clinical Impression: Laceration of eyebrow, left, Head injury, Traumatic hematoma of left hip Instructions: DI for Closed Head Injury, How to Care for Absorbable Sutures Activity Restrictions/Additional Instructions: Follow up with your physician for rechecked as needed. You have sutures that are absorbable, these should dissolve in the next 5-7 days. You do has a large hematoma on your left hip, use the David wrap or compression bandage for the next 24 hours. If you find it helpful you can use it for longer. If you are hematoma is rapidly changing in size please return for re-evaluation. You can take [place] 1 tablet every 6 hours as needed for pain. This medication can make you sleepy do not drive, perform hazardous activities or make any major decisions while taking it. This medication will make you constipated please take a stool softener once to twice daily until stools are soft and regular. Prescription sent to [facility] in [place]. Wound Care: Keep wound(s) clean and dry. Wash daily with soap and water only. Do not use over the counter products (alcohol or peroxide)on the wounds unless instructed by a physician. Did not use triple antibiotic ointment at the sutures. If wound condition worsens (increased/expanding redness, developing fluid blisters, or worsening pain), either contact your doctor for an urgent re-assessment , or return to the Emergency Department. Return if fever greater than 100.4 Fahrenheit, increased swelling, increasing pain or worsening symptoms such as increased discharge or spreading redness, severe headaches, new neck or back pain, new chest pain or shortness of breath, increasing or worsening hip pain, any numbness tingling or weakness or inability to ambulate. Prescriptions: New hydrocodone-acetaminophen 5-325 mg tablet 1 tab PO Q6H PRN (Reason: pain) Qty: 10 0RF No Action folic acid 1 MG tablet 1 mg PO DAILY Qty: 0 metformin 500 mg tablet 500 mg PO BID lisinopril 20 mg tablet 20 mg PO BID omeprazole 40 mg capsule,delayed release(DR/EC) 40 mg PO DAILY lamotrigine 25 mg tablet 150 mg PO BID simvastatin 20 mg tablet 20 mg PO BEDTIME cholestyramine-aspartame 4 gram powder 4 g PO BID aspirin 81 mg Tablet,Delayed Release (Dr/Ec) 81 mg PO DAILY Qty: 100 0RF meclizine 25 mg tablet 50 mg PO TID PRN (Reason: dizziness) Qty: 30 0RF Referrals: Arvin Bell MD [Primary Care Provider, Family Practice] Stand Alone Forms: Patient Portal/API
--- NOTE | 2025-07-26 12:16 | PC.NURSE ---
Patient assisted to restroom, c/o left hip pain. Swelling and bruising noted to left hip. Dr Bellamy made aware.
[2025-07-26] MEDS: LIDOCAINE 2% INJ SDV 5ML 5 ML SUBCUT (13:07)
--- NOTE | 2025-07-26 13:49 | DI.RAD.S_ITS ---
PROCEDURE: XR HIP W PEL IF DONE LT 2V
[2025-07-26 14:13] LABS: Add Manual Diff / Slide Review NO; Hematocrit 34.8 % (36-46); Hemoglobin 11.3 g/dL (12.0-16.0); Lymphocytes Absolute Auto 1900 /uL (1100-4500); Mean Corpuscular HGB Conc 32.4 % (30-36); Mean Corpuscular Hemoglobin 25.6 PG (26-34); Mean Corpuscular Volume 79.0 fL (80-100); Platelet Count 319 X10^3/uL (150-400)
[2025-07-26 14:40] LABS: Blood Urea Nitrogen 19 mg/dL (7-17); Calcium 9.9 mg/dL (8.4-10.2); Carbon Dioxide 28 mmol/L (22-32); Chloride 102 mmol/L (98-107); Estimated Glomerular Filt Rate > 60 mL/min (>60); Glucose 89 mg/dL (70-99); HEMOLYSIS < 15 (0-50); Potassium 3.9 mmol/L (3.4-5.1); Sodium 140 mmol/L (137-145)
--- NOTE | 2025-07-26 15:44 | PC.NURSE ---
Pt's L upper leg wrapped with SUE bandage due to hematoma forming per provider request
== END 2025-07-26 16:14 | disposition home or self-care (01) ==
PROVIDERS: Emergency Provider Emergency Medicine; Family Provider Family Medicine; PCP Family Medicine
DX: S01.112A Laceration without foreign body of left eyelid and periocular area, initial encounter (principal); S70.02XA Contusion of left hip, initial encounter; S09.90XA Unspecified injury of head, initial encounter; E11.9 Type 2 diabetes mellitus without complications; W01.0XXA Fall on same level from slipping, tripping and stumbling without subsequent striking against object, initial encounter
CPT/HCPCS: 12011; 36415; 70450; 72125; 73502; 80048; 85025; 99283; 99284

== ENCOUNTER 2025-09-04 10:23 | Emergency (ER) | payer MEDICARE, OTHER, SELFPAY ==
[2023-08-04 21:36] VITALS: BMI 22.4
[2025-09-04 10:45] VITALS: BP 196/93; PULSE 70; RESP 18; TEMP 36.6; O2SAT 99; BMI 22.1
--- NOTE | 2025-09-04 10:47 | ED.FALL ---
HPI - Fall General Chief Complaint: Fall Stated Complaint: Fell on back Time Seen by Provider: 09/04/25 10:46 History of Present Illness HPI Narrative: Patient is a 80-year-old female history of hypertension presenting today with sacral pain. Reports that she tripped and fell 2 days ago. Mostly landing on her buttocks. She did hit her head but no loss of consciousness no nausea no vomiting no numbness no tingling no weakness. No other injury. Denies any loss of urine or stool. No numbness or tingling in her lower extremities. She has been taking ibuprofen without any kind of relief. Related Data Home Medications ?Medication ?Instructions ?Recorded ?Confirmed folic acid 1 mg tablet 1 mg PO DAILY ##0 11/28/12 08/04/23 cholestyramine-aspartame 4 gram 4 g PO BID 07/31/18 08/04/23 oral powder lamotrigine 25 mg tablet 150 mg PO BID 07/31/18 08/04/23 lisinopril 20 mg tablet 20 mg PO BID 07/31/18 08/04/23 metformin 500 mg tablet 500 mg PO BID 07/31/18 08/04/23 omeprazole 40 mg capsule,delayed 40 mg PO DAILY 07/31/18 08/04/23 release simvastatin 20 mg tablet 20 mg PO BEDTIME 07/31/18 08/04/23 Previous Rx's ?Medication ?Instructions ?Recorded aspirin 81 mg tablet,delayed 81 mg PO DAILY #100 tabs 07/10/22 release meclizine 25 mg tablet 50 mg (2 x 25 mg) PO TID PRN 01/09/25 dizziness #30 tabs hydrocodone 5 mg-acetaminophen 325 1 tab PO Q6H PRN pain #10 tabs 25 mg tablet hydrocodone 5 mg-acetaminophen 325 1 tab PO Q6H PRN pain #10 tabs 09/04/25 mg tablet Allergies Allergy/AdvReac Type Severity Reaction Status Date / Time No Known Drug Allergies Allergy Verified 09/04/25 10:45 Patient History Medical History Acute ischemic colitis Diabetes Hyperlipidemia Surgical History Hx of resection of meningioma Hx of cholecystectomy Family History Father Diabetes mellitus Heart disease Esophageal cancer Social History marital status: household members: spouse occupational status: previously employed Smoking Status: Never smoker alcohol intake: never substance use type: does not use alcohol intake frequency: 0-2 drinks per day Exam Initial Vital Signs Initial Vital Signs: Vital Signs Temperature 97.8 F 09/04/25 10:45 Pulse Rate 70 09/04/25 10:45 Respiratory Rate 18 09/04/25 10:45 Blood Pressure 196/93 H 09/04/25 10:45 Pulse Oximetry 99 09/04/25 10:45 Oxygen Delivery Method Room Air 09/04/25 10:45 GENERAL: Well-appearing, well-nourished and in no acute distress. HEAD: No evidence of trauma no contusion or laceration extraocular movements intact NECK: Supple no vertebral tenderness CARDIOVASCULAR: peripheral pulses in tact, cap refill <2 sec RESPIRATORY: No respiratory distress, speaks in full sentences without difficulty BACK: Sacral pain no hip pain no vertebral tenderness no step-offs EXTREMITIES: Normal range of motion, no clubbing or edema. Neurovascularly intact NEUROLOGICAL: Cranial nerves II through XII grossly intact. Normal gait and speech. SKIN: Warm, dry, no petechiae, no rashes or lesions. Course Orders Ordered: ED Orders 09/04/25 11:11 CT pelvis wo con Stat Discontinued Medications Hydrocodone Bitart/Acetaminophen (Hydrocodone/Acet 5/325 Tablet) 1 tab PO NOW ONE Stop: 09/04/25 10:47 Last Admin: 09/04/25 10:52 Dose: 1 tab Documented By: RLS Vital Signs Vital signs: Vital Signs - 8 hr 09/04/25 10:45 Temperature 97.8 F Pulse Rate 70 Respiratory Rate 18 Blood Pressure 196/93 H Pulse Oximetry 99 Oxygen Delivery Method Room Air MDM - Fall Imaging Data CT pelvis: Radiologist's Impression: PROCEDURE: CT PEL WO CON INDICATIONS: sacral pain fall 2 days ago TECHNIQUE: Noncontrast 3 mm axial sections acquired through the bony pelvis, with coronal and sagittal reformatting. COMPARISON: None. FINDINGS: Image quality: Excellent. Bones: No sacral insufficiency fracture other pelvic or hip fracture identified. Soft tissues: No significant sequelae of acute trauma. Bilateral common femoral calcified stenotic disease, severe on the left. IMPRESSION: No sacral insufficiency fracture or other fracture identified. Peripheral vascular disease. Dictated by: Cristiano Stevens M.D. on 09/04/2025 at 11:17 MDM Narrative Medical decision making narrative: Patient gutierrez 80-year-old female presenting today after ground level fall 2 days ago. Really complaining of sacral pain unable to sit down. Pain not controlled with ibuprofen home. She is given [place] here in the ED Imaging reviewed CT pelvis does not show any evidence of sacral fracture At this time supportive care only pain control only Discharge Plan Departure Patient Disposition: Home Clinical Impression: Sacral contusion Instructions: Contusion Activity Restrictions/Additional Instructions: *You have been diagnosed with sacral contusion *What to do: At this time increase activity as tolerated. No evidence of broken bone or fracture. Do not recommend a donut I do recommend pillows and soft cushioning to sit on Also pain medication can cause constipation do not get constipated *Continue to take medications as directed [place] 1 tablet every 6 hours if needed for severe pain, please take a stool softener daily *Follow up with your primary care provider in 2-3 days or call [phone] *Return to ER if you should have increasing pain numbness tingling weakness or any new, worsening or concerning symptoms CONTROLLED SUBSTANCE DISCHARGE (Narcotoic/benzodiazepine/Flexeril/Phenergan) 1. You have been prescribed narcotic medications, it does have acetaminophen/Tylenol/paracetamol in it, DO NOT TAKE MORE THAN 4,00mg in 24 hours of Tylenol. TRAMADOL DOES NOT CONTAIN TYLENOL 2. Please understand that we cannot provide further refills of narcotics, benzodiazepines or controlled substances through the ED and her pain management will need to be through your provider. 3. While on these medications you cannot drive or operate heavy machinery. 4. You cannot sign legal documents or perform any duties such as this. 5. As long as you're taking opiate pain medications he should also be taking a stool softener such as Colace, Dulcolax, MiraLAX or prune juice, to help avoid constipation. Prescriptions: New hydrocodone-acetaminophen 5-325 mg tablet 1 tab PO Q6H PRN (Reason: pain) Qty: 10 0RF No Action folic acid 1 MG tablet 1 mg PO DAILY Qty: 0 metformin 500 mg tablet 500 mg PO BID lisinopril 20 mg tablet 20 mg PO BID omeprazole 40 mg capsule,delayed release(DR/EC) 40 mg PO DAILY lamotrigine 25 mg tablet 150 mg PO BID simvastatin 20 mg tablet 20 mg PO BEDTIME cholestyramine-aspartame 4 gram powder 4 g PO BID hydrocodone-acetaminophen 5-325 mg tablet 1 tab PO Q6H PRN (Reason: pain) Qty: 10 0RF aspirin 81 mg Tablet,Delayed Release (Dr/Ec) 81 mg PO DAILY Qty: 100 0RF meclizine 25 mg tablet 50 mg PO TID PRN (Reason: dizziness) Qty: 30 0RF Referrals: Arvin Bell MD [Primary Care Provider, Family Practice] Stand Alone Forms: Patient Portal/API
--- NOTE | 2025-09-04 11:11 | DI.CT.S_ITS ---
PROCEDURE: CT PEL WO CON INDICATIONS: sacral pain fall 2 days ago TECHNIQUE: Noncontrast 3 mm axial sections acquired through the bony pelvis, with coronal and sagittal reformatting. COMPARISON: None. FINDINGS: Image quality: Excellent. Bones: No sacral insufficiency fracture other pelvic or hip fracture identified. Soft tissues: No significant sequelae of acute trauma. Bilateral common femoral calcified stenotic disease, severe on the left. IMPRESSION: No sacral insufficiency fracture or other fracture identified. Peripheral vascular disease. Dictated by: Cristiano Stevens M.D. on 09/04/2025 at 11:17 Approved by: Cristiano Stevens M.D. on 09/04/2025 at 11:21
== END 2025-09-04 11:49 | disposition home or self-care (01) ==
PROVIDERS: Emergency Provider Emergency Medicine; Family Provider Family Medicine; PCP Family Medicine
DX: S30.0XXA Contusion of lower back and pelvis, initial encounter (principal); W01.0XXA Fall on same level from slipping, tripping and stumbling without subsequent striking against object, initial encounter
CPT/HCPCS: 72192; 99283; 99284